=== PATIENT | male | born 1935 | race Caucasian/White ===

== ENCOUNTER → 2020-06-07 10:11 | Outpatient (BNVA) | payer MEDICARE, OTHER, SELFPAY | PROVIDERS: PCP Internal Medicine; Visit Provider Urology | DX: Z13.89 Encounter for screening for other disorder (principal) | CPT/HCPCS: Q3014 ==

== ENCOUNTER → 2021-06-08 09:06 | Outpatient (BNVA) | payer MEDICARE, OTHER, SELFPAY | PROVIDERS: PCP Internal Medicine; Visit Provider Urology | DX: N40.0 Benign prostatic hyperplasia without lower urinary tract symptoms (principal); R97.20 Elevated prostate specific antigen [PSA] | CPT/HCPCS: 51798; 99212 ==

== ENCOUNTER → 2022-06-11 09:15 | Outpatient (BNVA) | payer MEDICARE, OTHER, SELFPAY | PROVIDERS: PCP Internal Medicine; Visit Provider Urology | DX: N40.1 Benign prostatic hyperplasia with lower urinary tract symptoms (principal); N13.8 Other obstructive and reflux uropathy; R97.20 Elevated prostate specific antigen [PSA]; Z79.899 Other long term (current) drug therapy | CPT/HCPCS: 51798; 99212 ==

== ENCOUNTER 2023-05-28 11:02 | Outpatient (REF) | payer MEDICARE, OTHER, SELFPAY ==
[2023-05-28 12:40] LABS: Prostate Specific Antigen 2.11 ng/mL (<0.05-4.0)
== END 2023-05-28 11:03 | disposition home or self-care (01) ==
LOC: HO.LAB 11:02
PROVIDERS: PCP Internal Medicine; Visit Provider Urology
DX: Z12.5 Encounter for screening for malignant neoplasm of prostate (principal); N40.0 Benign prostatic hyperplasia without lower urinary tract symptoms
CPT/HCPCS: 36415; 84153

== ENCOUNTER 2023-06-13 09:10 | Outpatient (AMB) | payer MEDICARE, OTHER, SELFPAY ==
--- NOTE | 2023-06-13 09:18 | A.OFFVIS_ITS ---
Intake Intake Visit Reasons: 1Y PSA(set) Intake Note: Patient is Present for Follow Up PVR Urology Medication: Finasteride Antibiotic Allergies: None Blood Thinners:None Confirmed Pharmacy: [facility] PVR: 10 Patient has been having alot of frequency alot. Patient states that he does wear under pads and they get soaked very fast. Has not tried any other medications other than finasteride that he takes 3 times during the week. Allergies No Known Allergies Allergy (Verified 06/13/23 09:23) HPI HPI Comments History of Present Illness Details Kevin Cisneros is a very pleasant male. They are a patient of Dr. Lara. He is seen for the following urologic conditions - LUTS PVR 0cc Effective emptying May reduce finasteride down to Friday, Friday, Friday Describes significant frequency with urgency and leakage Recommend cystoscopy Pelvic floor exercises provided Lower Urinary Tract Symptoms: Stays on finasteride has noticed continued stability with urinary function Current visit is for further evaluation of, lower urinary tract symptoms significantly improved urinary function since last visit. Has responded well to finasteride. Improved stream. Less nocturia. - no flank pain for past year. Current treatment includes medication, 5-AR, finasteride Prior treatments include procedure, TUMT 1995. Prostate Symptom Score Moderate (9-19), Bother, 2 Symptoms include incomplete emptying, weak stream, and are improving. Results from testing include cystoscopy Trilobar hypertrophy 07/07 renal/bladder us Yes date 09/11/2019 PVR 15 prostate size 110 g Prior Prostate Score cystoscopy Trilobar hypertrophy 07/07. PSA moderate 09/10 cytology inflammatory cells. Prostate volume 30-50gm Testing at next visit will include bladder scan. Elevated PSA/Abnormal RICHARD: He presents for further evaluation of elevated PSA. Current management is observation. Laboratory investigations include a total PSA evaluation January 2013 4.9, August 2013 5.4, February 2014 6.4, 01/06 2.8, 08/07 2.9 - 03/10 3.2 Imaging investigations include a transrectal ultrasound Yes Individualized Prostate Cancer Risk Calculator 5-10% high risk, Would like to continue with observation and understands and accepts the risks of a possible delay in diagnosis. A TRUS biopsy has been performed 1995 and 2005, and was negative [facility] Medical History BPH (benign prostatic hyperplasia) Elevated PSA Hematuria History of kidney stones Weak urinary stream Family History Father Prostate cancer Mother CVD (cardiovascular disease) Review of Systems Const Denies chills and Denies fever(s) Card Reports no additional complaints and Denies syncope Resp Denies cough GI Denies abdominal pain and Denies heartburn Reports as per HPI and Denies change in libido Neuro Denies syncope Psych Denies change in libido Endo Denies change in libido Physical Exam Const General: cooperative, healthy appearing, comfortable and no acute distress Orientation/consciousness: patient oriented x3 HEENT Face and sinus: Yes normal facial exam Mouth: moist mucous membranes Neck Neck: Yes normal visual inspection, Yes full ROM and Yes trachea midline Chest Chest palpation & inspection: normal inspection of the chest Resp Effort & Inspection: normal respiratory effort, able to speak in complete sentences and no respiratory distress GI Inspection: Yes normal to inspection Back/Spine/Pelvis Cervical Spine: normal cervical lordosis Thoracic/Lumbar Spine: thoracic and lumbar spine normal to inspection Skin General skin exam: no rashes or lesions noted Neuro General: patient oriented x3, gait normal, tone normal and moves all extremities Extrem General: Yes normal to inspection and Yes capillary refill normal Office Procedures Post Void Residual Post Residual Void Post Void Residual (PVR): 10 [id number]-[id number] Void Residual by ultrasound Assessment & Plan Assessment & Plan (1) Elevated PSA: Code(s): R97.20 - Elevated prostate specific antigen [PSA] (2) BPH (benign prostatic hyperplasia): Code(s): N40.0 - Benign prostatic hyperplasia without lower urinary tract symptoms Plan Plan cystoscopy Orders: Orders AMB Post Void Residual by ultrasound Today N40.0 - Benign prostatic hyperplasia without lower urinary tract symptoms Patient Instructions: Imaging studies, laboratory and physical exam results were discussed and rev iewed in detail. No major barriers to patient understanding were identified. An opportunity to ask questions regarding the treatment plan was provided. All questions were answered. The patient expressed understanding and agreement with the above treatment plan. The patient is aware they should contact our office by phone for worsening of their current condition or the appearance of new urologic symptoms. Compliance is encouraged with any medications and followup testing that is ordered. It is a privilege to participate in the urologic care of your patient. If you have any questions or concerns regarding treatment for the above conditions, or other urologic issues, please do not hesitate to contact me. The office telephone contact is [phone]. This note is constructed using voice recognition software. While every effort has been made to ensure accuracy pantograph machine set up operator errors may have been included. Yours sincerely, Dr Gabriel Onela MD, GERTRUDE [facility] - Urology Providers of Expert, Compassionate Care for the Genitourinary System Coding Level of Care Code Est Pt Level 4 (07708) Diagnoses Elevated PSA R97.20 BPH (benign prostatic hyperplasia) N40.0 CPT Codes Post Residual Void - PVR CPT Code: 56193-Vksz Void Residual by ultrasound ([id number])
== END 2023-06-13 09:48 | disposition home or self-care (01) ==
PROVIDERS: Visit Provider Urology
DX: R97.20 Elevated prostate specific antigen [PSA] (principal); N40.0 Benign prostatic hyperplasia without lower urinary tract symptoms
CPT/HCPCS: 99214

== ENCOUNTER → 2023-06-13 09:10 | Outpatient (BNVA) | payer MEDICARE, OTHER, SELFPAY | PROVIDERS: Visit Provider Urology | DX: R97.20 Elevated prostate specific antigen [PSA] (principal); N40.0 Benign prostatic hyperplasia without lower urinary tract symptoms | CPT/HCPCS: 51798 ==

== ENCOUNTER 2023-08-12 10:45 | Outpatient (AMB) | payer MEDICARE, OTHER, SELFPAY ==
--- NOTE | 2023-08-12 11:09 | A.OFFVIS_ITS ---
Intake Visit Reasons: cysto Intake Note: Patient is Present for Cystoscopy Urology Med: Finasteride Antibiotic Allergy:None Blood Thinner: none URO- G Disposable Cystoscope lot: [id number] exp:04/24/2026 Allergies No Known Allergies Allergy (Verified 08/12/23 11:10) Medication List - Last Reconciled 08/12/23 by Gabriel Oneal MD budesonide 32 mcg/actuation 1 spray intranasal BID finasteride 5 mg PO DAILY 90 days lisinopril 40 mg PO DAILY HPI Comments Details: Kevin Cisneros is a very pleasant male. They are a patient of Dr. Lara. He is seen for the following urologic conditions - LUTS Here for cystoscopy 2 cm bladder stone Plan laser bladder stone PVR 0cc Finasteride down to Friday, Friday, Friday Describes significant frequency with urgency and leakage Lower Urinary Tract Symptoms: Stays on finasteride has noticed continued stability with urinary function Current visit is for further evaluation of, lower urinary tract symptoms significantly improved urinary function since last visit. Has responded well to finasteride. Improved stream. Less nocturia. - no flank pain for past year. Current treatment includes medication, 5-AR, finasteride Prior treatments include procedure, TUMT 1995. Prostate Symptom Score Moderate (9-19), Bother, 2 Symptoms include incomplete emptying, weak stream, and are improving. Results from testing include cystoscopy Trilobar hypertrophy 07/07 renal/bladder us Yes date 09/11/2019 PVR 15 prostate size 110 g Prior Prostate Score cystoscopy Trilobar hypertrophy 07/07. PSA moderate 09/10 cytology inflammatory cells. Prostate volume 30-50gm Testing at next visit will include bladder scan. Elevated PSA/Abnormal RICHARD: He presents for further evaluation of elevated PSA. Current management is observation. Laboratory investigations include a total PSA evaluation January 2013 4.9, August 2013 5.4, February 2014 6.4, 01/06 2.8, 08/07 2.9 - 03/10 3.2 Imaging investigations include a transrectal ultrasound Yes Individualized Prostate Cancer Risk Calculator 5-10% high risk, Would like to continue with observation and understands and accepts the risks of a possible delay in diagnosis. A TRUS biopsy has been performed 1995 and 2005, and was negative PFSH Medical History Elevated PSA History of kidney stones Weak urinary stream BPH (benign prostatic hyperplasia) Hematuria Family History Father Prostate cancer Mother CVD (cardiovascular disease) Office Procedures Cystoscopy Consent Discussed risk and benefit or proposed procedure with the patient. Information consent for procedure given to the patient. Discussed technical aspects, risks, benefits and alternatives in full. Addressed all of the patient's questions and concerns regarding the procedure. The patient demonstrated knowledge and understanding. They wish to proceed with this procedure. Preparation The patient was prepped in the usual manner. A senior systems programmer was present and in the room. Genitalia was prepped with betadine solution in a sterile manner. Lidocaine Jelly 2% was placed into the urethra and 16Fr flexible Olympus cystoscope was inserted into the meatus after adequate lubrication. [id number]-Zikhlalwam DISPOSABLE SCOPE URO-G FLEXIBLE SCOPE Procedure code (CPT) selection complete Office Meds lidocaine HCl 2 % mucosal jelly in applicator Performing Provider: Gabriel Oneal MD Performing Location: [facility] Administered by: Jojo Stallings RN on 08/12/23 11:18 Dose Route Admin Location Dispensed Lot Number Expiration Date ND Tapper Helper 10 mL intra-urethral 10 mL nitrofurantoin monohydrate/macrocrystals 100 mg capsule Performing Provider: Gabriel Oneal MD Performing Location: [facility] Administered by: Jojo Stallings RN on 08/12/23 11:18 Dose Route Admin Location Dispensed Lot Number Expiration Date NDC Tapper Helper 100 mg PO 1 cap naproxen 500 mg tablet Performing Provider: Gabriel Oneal MD Performing Location: [facility] [place] Administered by: Jojo Stallings RN on 08/12/23 11:18 Dose Route Admin Location Dispensed Lot Number Expiration Date NDC Tapper Helper 500 mg PO 1 tab Assessment & Plan Assessment & Plan (1) Bladder stones: Code(s): N21.0 - Calculus in bladder Category: Medical (2) BPH (benign prostatic hyperplasia): Code(s): N40.0 - Benign prostatic hyperplasia without lower urinary tract symptoms Category: Medical Plan Risks, benefits and alternatives to therapy were discussed. These include but are not limited to infection, bleeding, damage to local organs and tissues, need for further interventions. Anesthetic risks regarding cardiac arrhythmia, blood clots, and potential mortality were discussed. The patient understands the typical recovery time and the outpatient nature of the procedure. After consideration of these risks the patient gives full informed consent and they wish to move ahead with the procedure. Cystoscopy, holmium bladder stone Orders: Orders AMB Cystoscopy Today N40.0 - Benign prostatic hyperplasia without lower urinary tract symptoms AMB Urinalysis Automated Today Z13.9 - Encounter for screening, unspecified Patient Instructions: Imaging studies, laboratory and physical exam results were discussed and reviewed in detail. No major barriers to patient understanding were identified. An opportunity to ask questions regarding the treatment plan was provided. All questions were answered. The patient expressed understanding and agreement with the above treatment plan. The patient is aware they should contact our office by phone for worsening of t heir current condition or the appearance of new urologic symptoms. Compliance is encouraged with any medications and followup testing that is ordered. It is a privilege to participate in the urologic care of your patient. If you have any questions or concerns regarding treatment for the above conditions, or other urologic issues, please do not hesitate to contact me. The office telephone contact is [phone]. This note is constructed using voice recognition software. While every effort has been made to ensure accuracy fabric separator operator errors may have been included. Yours sincerely, Dr Gabriel Oneal MD, GERTRUDE [facility] - Urology Providers of Expert, Compassionate Care for the Genitourinary System Coding Level of Care Code Est Pt Level 4 (02572) Diagnoses Bladder stones N21.0 BPH (benign prostatic hyperplasia) N40.0 CPT Codes Cystoscopy - CPT: 63847-[id number] ([id number])
== END 2023-08-12 11:56 | disposition home or self-care (01) ==
PROVIDERS: PCP Internal Medicine; Visit Provider Urology
DX: N40.0 Benign prostatic hyperplasia without lower urinary tract symptoms (principal); N21.0 Calculus in bladder; Z13.9 Encounter for screening, unspecified
CPT/HCPCS: 52000; 99214

== ENCOUNTER → 2023-08-12 10:45 | Outpatient (BNVA) | payer MEDICARE, OTHER, SELFPAY | PROVIDERS: PCP Internal Medicine; Visit Provider Urology | DX: N40.0 Benign prostatic hyperplasia without lower urinary tract symptoms (principal); N21.0 Calculus in bladder | CPT/HCPCS: 52000; 81003 ==

== ENCOUNTER 2023-09-29 10:36 | Day surgery (SDC) | payer MEDICARE, OTHER, SELFPAY ==
[2023-09-29] VITALS (9 sets, daily range): BP systolic 126–161; BP diastolic 51–80; PULSE 74–88; RESP 16–18; TEMP 36.6–37.1; O2SAT 95–99; BMI 24.2
--- NOTE | ~2023-09-29 | XR_ITS ---
EXAMINATION: XR WRIST, LEFT CLINICAL INFORMATION: Fell down, left wrist injury, swelling and pain COMPARISON: None available. TECHNIQUE: PA, lateral, oblique, and scaphoid views of the left wrist. FINDINGS: BONES: Marked erosion is seen at the base of left first metacarpal and left trapezium. The left trapezium shows marked flattening deformity. JOINTS: Alignment of joints is normal. SOFT TISSUE: Soft tissue is normal. No radiopaque foreign body or abnormal air collection is seen. XR/XR wrist LT min 3V IMPRESSION: 1. 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 2. Marked flattening deformity of the left trapezium. 3. No acute fracture or dislocation.
--- NOTE | 2023-09-29 10:54 | HO.ANESPROP2 ---
[facility] Active Problems Active Problems: All Active Problems Bladder stones (Acute) Elevated PSA (Acute) BPH (benign prostatic hyperplasia) (Acute) Past Medical History Medical History Kidney stones Hepatitis C virus GERD (gastroesophageal reflux disease) HTN (hypertension) Elevated PSA History of kidney stones Weak urinary stream BPH (benign prostatic hyperplasia) Hematuria Family History Family History Father Prostate cancer Mother CVD (cardiovascular disease) Surgical History Surgical History H/O lithotripsy H/O wisdom tooth extraction History of Problems with Anesthesia: No Social History Social History Patient Tobacco Use Status: Former Tobacco user Use of substances other than those prescribed or required for medical reasons: No Are you DNR?: No Advance Directives: No Advance Directives Information Provided: Yes Meds Allergies Allergy/AdvReac Type Severity Reaction Status Date / Time No Known Allergies Allergy Verified 08/12/23 11:10 Active Medications: Current Medications Levofloxacin (Levaquin) 500 mg in 100 mls @ 100 mls/hr IV PREOP ONE Stop: 09/29/23 11:20 Home Medications ?Medication ?Instructions ?Recorded ?Confirmed ?Last Taken ?Type budesonide 32 mcg/actuation nasal 1 spray intranasal BID 06/11/22 08/12/23 09/29/23 History spray lisinopril 40 mg tablet 40 mg PO DAILY 06/13/23 08/12/23 Unknown History Exam Airway Mallampati Class: III TM Dist: >3cm Neck ROM: Limited Denture: Upper Partial: Lower Loose/Missing/Broken Teeth: Yes, Upper and Lower Heart: RRR Lungs: CTA Assessment and Plan Assessment Anesthesia Assessment: Anesthesia Plan Discussed and Chart Reviewed Final Anesthetic Review History of Problems with Anesthesia: No NPO: Yes ASA Class: III Final Preanesthetic Review: Meds/Allgs Chart Reviewed, Consent Obtained/Reviewed and Anes Risks/Benef Reviewed Patient Risk: Intermediate Procedure Risk: Low Anesthetic Plan Anesthetic Plan: GA Disposition: Standard PACU
--- NOTE | 2023-09-29 11:08 | PC.NURSE ---
VERIFIED SURGERIES WITH MARITZA JENKINS
[2023-09-29] MEDS: Lactated Ringers 1,000 ML 50 ML IVCONT (11:27)
--- NOTE | 2023-09-29 12:17 | MHC.SHP ---
Pre-Procedural Eval Section A - 24 Hr Update-Section A only Date of Service: 09/29/23 The patient is an INPATIENT: No Changes since office visit: No Cold of Flu in the past 2 weeks, No New Medical Problems, No Changes in Medication and No Patient answered all questions The patient has been examined within 24 hours of the surgical procedure. The History & Physical has been completed within 30 days and I have reviewed it.: Yes Section B - Complete if H&P > 30 days Chief Complaint: Calculus in bladder Details of Present Illness: Bladder calculus with urgency frequency Relevant Social History: None Present Medications: see Short Stay Collaborative assessment Medical History: No relevant PMH History of Previous Operations: No relevant previous surgery Allergies: Allergies Allergy/AdvReac Type Severity Reaction Status Date / Time No Known Allergies Allergy Verified 08/12/23 11:10 Review of Systems Sugical H&P ROS: Negative: Constitution, Cardiovascular, Respiratory, Neurological, Psychiatric, Hem-Onc, Allergic/Immunologic, Gastrointestinal, Genitourinary, Musculoskeletal, Integumentary, Endocrine and Eyes/Ears/Nose/Throat Exam Surgical H&P Exam: Normal: HEENT, Normal: Heart, Normal: Lungs, Normal: Extremities, Normal: Abdomen, Normal: Skin and Normal: Neurological Plan Diagnosis/Plan: Unchanged (Cystoscopy, bladder stone laser) I have reviewed the history and physical and performed a pertinent physical examination on my patient. No changes have occurred unless specified. Time Spent With Patient Time: Total time managing care of this patient today ____ minutes.
--- NOTE | 2023-09-29 13:27 | W.PM.OPN ---
Operative Note Operative Note Date of Service: 09/29/23 Narrative: PreOperative Diagnosis: Bladder Stone Post Operative Diagnosis: Bladder Stone Procedure: 1) Cystoscopy 2) Bladder Stone Laser Surgeon: Dr Gabriel Oneal Anesthesia: LMA Indications for procedure: Sent with urinary urgency and frequency. Cystoscopy showed 2 cm bladder stone in office. Procedure: After informed consent was verified the patient was brought to the operating room and placed in a supine position. Anesthesia was administered per protocol. The patient was placed in modified dorsal lithotomy position and prepped and draped in a sterile fashion. Safety pause time-out was performed. Antibiotics being given. Cystoscopy was performed. Meatus dilated. Laser bridge resectoscope placed. No abnormality noted of anterior-posterior urethra. Small prostate. Bladder entered. Large stone as previously documented on imaging was seen. Bladder irritation. Using a 980nm holmium laser with bladder stones settings the stone was slowly broken into small pieces. The small pieces were irrigated from the bladder. This continued for approximately 15-20 minutes to break the stone. Upon completion the resectoscope was removed. The patient tolerated the procedure well. They were extubated in operating room and transferred in stable conditions recovery area. Pathology: Bladder Stones Drains:
== END 2023-09-29 15:38 | disposition home or self-care (01) ==
PROVIDERS: PCP Internal Medicine; Visit Provider Urology
PROC: (CPT 52317; principal; 2023-09-29 12:30)
DX: N21.0 Calculus in bladder (principal); R39.15 Urgency of urination; R35.0 Frequency of micturition; Z79.899 Other long term (current) drug therapy; S69.92XA Unspecified injury of left wrist, hand and finger(s), initial encounter; M25.532 Pain in left wrist; W19.XXXA Unspecified fall, initial encounter; Y92.9 Unspecified place or not applicable; Y93.9 Activity, unspecified; Y99.9 Unspecified external cause status
CPT/HCPCS: 52317; 73110; 88300; J1956; J2371; J2405; J2704; J3010

== ENCOUNTER → 2023-09-29 10:36 | Outpatient (BNV) | payer MEDICARE, OTHER, SELFPAY | PROVIDERS: PCP Internal Medicine; Visit Provider Urology | DX: N21.0 Calculus in bladder (principal) | CPT/HCPCS: 52317 ==

== ENCOUNTER 2023-10-23 11:06 | Outpatient (AMB) | payer MEDICARE, OTHER, SELFPAY ==
--- NOTE | 2023-10-23 11:58 | A.OFFVIS_ITS ---
Intake Visit Reasons: Bladder stone- follow up Intake Note: Patient is Present for Follow Up Urology Medication: Finasteride Antibiotic Allergies:None Blood Thinners:None Allergies No Known Allergies Allergy (Verified 08/12/23 11:10) HPI Comments Details: Kevin Cisneros is a very pleasant male. They are a patient of Dr. Lara. He is seen for the following urologic conditions - LUTS Follow-up from procedure PVR 0cc Finasteride down to Friday, Friday, Friday Describes significant frequency with urgency and leakage Lower Urinary Tract Symptoms: Stays on finasteride has noticed continued stability with urinary function Current visit is for further evaluation of, lower urinary tract symptoms significantly improved urinary function since last visit. Has responded well to finasteride. Improved stream. Less nocturia. - no flank pain for past year. Current treatment includes medication, 5-AR, finasteride Prior treatments include procedure, TUMT 1995. Prostate Symptom Score Moderate (9-19), Bother, 2 Symptoms include incomplete emptying, weak stream, and are improving. Results from testing include cystoscopy Trilobar hypertrophy 07/07 renal/bladder us Yes date 09/11/2019 PVR 15 prostate size 110 g Prior Prostate Score cystoscopy Trilobar hypertrophy 07/07. PSA moderate 09/10 cytology inflammatory cells. Prostate volume 30-50gm Testing at next visit will include bladder scan. Elevated PSA/Abnormal RICHARD: He presents for further evaluation of elevated PSA. Current management is observation. Laboratory investigations include a total PSA evaluation January 2013 4.9, August 2013 5.4, February 2014 6.4, 01/06 2.8, 08/07 2.9 - 03/10 3.2 Imaging investigations include a transrectal ultrasound Yes Individualized Prostate Cancer Risk Calculator 5-10% high risk, Would like to continue with observation and understands and accepts the risks of a possible delay in diagnosis. A TRUS biopsy has been performed 1995 and 2005, and was negative [facility] Medical History Kidney stones Hepatitis C virus GERD (gastroesophageal reflux disease) HTN (hypertension) Elevated PSA History of kidney stones Weak urinary stream BPH (benign prostatic hyperplasia) Hematuria Surgical History H/O lithotripsy H/O wisdom tooth extraction Family History Father Prostate cancer Mother CVD (cardiovascular disease) Social History Patient Tobacco Use Status: Former Tobacco user Review of Systems Const Denies chills and Denies fever(s) Card Reports no additional complaints and Denies syncope Resp Denies cough GI Denies abdominal pain and Denies heartburn Reports as per HPI and Denies change in libido Neuro Denies syncope Psych Denies change in libido Endo Denies change in libido Physical Exam Const General: cooperative, healthy appearing, comfortable and no acute distress Orientation/consciousness: patient oriented x3 HEENT Face and sinus: Yes normal facial exam Mouth: moist mucous membranes Neck Neck: Yes normal visual inspection, Yes full ROM and Yes trachea midline Chest Chest palpation & inspection: normal inspection of the chest Resp Effort & Inspection: normal respiratory effort, able to speak in complete sentences and no respiratory distress GI Inspection: Yes normal to inspection Back/Spine/Pelvis Cervical Spine: normal cervical lordosis Thoracic/Lumbar Spine: thoracic and lumbar spine normal to inspection Skin General skin exam: no rashes or lesions noted Neuro General: patient oriented x3, gait normal, tone normal and moves all extremities Extrem General: Yes normal to inspection and Yes capillary refill normal Assessment & Plan Assessment & Plan (1) BPH (benign prostatic hyperplasia): Code(s): N40.0 - Benign prostatic hyperplasia without lower urinary tract symptoms Category: Medical (2) Bladder stones: Code(s): N21.0 - Calculus in bladder Category: Medical (3) Elevated PSA: Code(s): R97.20 - Elevated prostate specific antigen [PSA] Category: Medical Plan Four month follow-up office Patient Instructions: Imaging studies, laboratory and physical exam results were discussed and reviewed in detail. No major barriers to patient understanding were identified. An opportunity to ask questions regarding the treatment plan was provided. All questions were answered. The patient expressed understanding and agreement with the above treatment plan. The patient is aware they should contact our office by phone for worsening of their current condition or the appearance of new urologic symptoms. Compliance is encouraged with any medications and followup testing that is ordered. It is a privilege to participate in the urologic care of your patient. If you have any questions or concerns regarding treatment for the above conditions, or other urologic issues, please do not hesitate to contact me. The office telephone contact is [phone]. This note is constructed using voice recognition software. While every effort has been made to ensure accuracy smalltalk developer errors may have been included. Yours sincerely, Dr Gabriel Oneal MD, GERTRUDE [facility] - Urology Providers of Expert, Compassionate Care for the Genitourinary System Coding Level of Care Code Est Pt Level 3 (26106) Diagnoses BPH (benign prostatic hyperplasia) N40.0 Bladder stones N21.0 Elevated PSA R97.20
== END 2023-10-23 12:32 | disposition home or self-care (01) ==
PROVIDERS: PCP Internal Medicine; Visit Provider Urology
DX: N40.0 Benign prostatic hyperplasia without lower urinary tract symptoms (principal); N21.0 Calculus in bladder; R97.20 Elevated prostate specific antigen [PSA]
CPT/HCPCS: 99213

== ENCOUNTER → 2023-10-23 11:06 | Outpatient (BNVA) | payer MEDICARE, OTHER, SELFPAY | PROVIDERS: PCP Internal Medicine; Visit Provider Urology | DX: N40.0 Benign prostatic hyperplasia without lower urinary tract symptoms (principal); N21.0 Calculus in bladder; R97.20 Elevated prostate specific antigen [PSA] | CPT/HCPCS: 99212 ==

== ENCOUNTER 2024-02-24 11:28 | Outpatient (AMB) | payer MEDICARE, OTHER, SELFPAY ==
--- NOTE | 2024-02-24 11:29 | MHC.OFFVIS ---
Intake Visit Reasons: 4m/PVR Intake Note: Patient is present for 4M/PVR Urology Medication:FINASTERIDE Antibiotic Allergy:NONE Blood Thinner:NONE Todays PVR:0ML'S Doctor Of Nursing Practice Required: No Allergies No Known Allergies Allergy (Verified 02/24/24 11:30) HPI Comments Details: Kevin Cisneros is a very pleasant male. They are a patient of Dr. Lara. He is seen for the following urologic conditions - LUTS - bladder stone Three-month follow-up from procedure Still with some urgency frequency Will trial tamsulosin PVR 0cc Finasteride down to Friday, Friday, Friday Bladder stone 10/14 laser 2 cm stone Lower Urinary Tract Symptoms: Stays on finasteride has noticed continued stability with urinary function Current visit is for further evaluation of, lower urinary tract symptoms significantly improved urinary function since last visit. Has responded well to finasteride. Improved stream. Less nocturia. - no flank pain for past year. Current treatment includes medication, 5-AR, finasteride Prior treatments include procedure, TUMT 1995. Prostate Symptom Score Moderate (9-19), Bother, 2 Symptoms include incomplete emptying, weak stream, and are improving. Results from testing include cystoscopy Trilobar hypertrophy 07/07 renal/bladder us Yes date 09/11/2019 PVR 15 prostate size 110 g Prior Prostate Score cystoscopy Trilobar hypertrophy 07/07. PSA moderate 09/10 cytology inflammatory cells. Prostate volume 30-50gm Testing at next visit will include bladder scan. Elevated PSA/Abnormal RICHARD: He presents for further evaluation of elevated PSA. Current management is observation. Laboratory investigations include a total PSA evaluation January 2013 4.9, August 2013 5.4, February 2014 6.4, 01/06 2.8, 08/07 2.9 - 03/10 3.2 Imaging investigations include a transrectal ultrasound Yes Individualized Prostate Cancer Risk Calculator 5-10% high risk, Would like to continue with observation and understands and accepts the risks of a possible delay in diagnosis. A TRUS biopsy has been performed 1995 and 2005, and was negative [facility] Medical History Kidney stones Hepatitis C virus GERD (gastroesophageal reflux disease) HTN (hypertension) Elevated PSA History of kidney stones Weak urinary stream BPH (benign prostatic hyperplasia) Hematuria Surgical History H/O lithotripsy H/O wisdom tooth extraction Family History Father Prostate cancer Mother CVD (cardiovascular disease) Social History Patient Tobacco Use Status: Former Tobacco user Office Procedures Post Void Residual Post Residual Void Post Void Residual (PVR): 0 36636-[id number] Void Residual by ultrasound Results AMB Urinalysis, Automated UA Leukoctes 0 Leighann/uL Last Edit by GILA Queen on 02/24/24 11:46 UA Nitrite Last Edit by GILA Queen on 02/24/24 11:46 UA Urobilinogen 0.2 mg/dL Last Edit by GILA Queen on 02/24/24 11:46 UA Protein 15 mg/dL Last Edit by GILA Queen on 02/24/24 11:46 UA pH 6.0 Last Edit by GILA Queen on 02/24/24 11:46 UA Blood 0 Yony/uL Last Edit by GILA Queen on 02/24/24 11:46 UA Specific [place] 1.020 Last Edit by GILA Queen on 02/24/24 11:46 UA Ketone Negative Last Edit by GILA Queen on 02/24/24 11:46 UA Bilirubin 0 mg/dL Last Edit by GILA Queen on 02/24/24 11:46 UA Glucose 0 mg/dL Last Edit by GILA Queen on 02/24/24 11:46 Results Reviewed Results Reviewed: Laboratory Last Values Urine pH (Auto) 6.0 02/24/24 11:45 Specific [place] (Auto) 1.020 02/24/24 11:45 Urine Protein (Auto) 15 mg/dL 02/24/24 11:45 Glucose (UA)(Auto) 0 mg/dL 02/24/24 11:45 Urine Ketones (Auto) Negative 02/24/24 11:45 Urine Blood (Auto) 0 Yony/uL 02/24/24 11:45 Urine Bilirubin (Auto) 0 mg/dL 02/24/24 11:45 Urine Urobilinogen (Auto) 0.2 mg/dL 02/24/24 11:45 Leukocyte Esterase (Auto) 0 Leighann/uL 02/24/24 11:45 Assessment & Plan Assessment & Plan (1) BPH (benign prostatic hyperplasia): Code(s): N40.0 - Benign prostatic hyperplasia without lower urinary tract symptoms Category: Medical (2) Elevated PSA: Code(s): R97.20 - Elevated prostate specific antigen [PSA] Category: Medical (3) Bladder stones: Code(s): N21.0 - Calculus in bladder Category: Medical Plan Trial tamsulosin Orders: Orders AMB Urinalysis Automated Today Z13.9 - Encounter for screening, unspecified Medications: New tamsulosin 0.4 mg PO BEDTIME 30 days 30 caps 1RF N40.1 - Benign prostatic hyperplasia with lower urinary tract symptoms, R35.1 - Nocturia Patient Instructions: Imaging studies, laboratory and physical exam results were discussed and reviewed in detail. No major barriers to patient understanding were identified. An opportunity to ask questions regarding the treatment plan was provided. All questions were answered. The patient expressed understanding and agreement with the above treatment plan. The patient is aware they should contact our office by phone for worsening of their current condition or the appearance of new urologic symptoms. Compliance is encouraged with any medications and followup testing that is ordered. It is a privilege to participate in the urologic care of your patient. If you have any questions or concerns regarding treatment for the above conditions, or other urologic issues, please do not hesitate to contact me. The office telephone contact is [phone]. This note is constructed using voice recognition software. While every effort has been made to ensure accuracy line service technician errors may have been included. Yours sincerely, Dr Gabriel Oneal MD, GERTRUDE [facility] - Urology Providers of Expert, Compassionate Care for the Genitourinary System Coding Level of Care Code Est Pt Level 4 (84563) Diagnoses BPH (benign prostatic hyperplasia) N40.0 Elevated PSA R97.20 Bladder stones N21.0 CPT Codes Post Residual Void - PVR CPT Code: 62762-Pekx Void Residual by ultrasound ([id number])
== END 2024-02-24 12:06 | disposition home or self-care (01) ==
PROVIDERS: PCP Internal Medicine; Visit Provider Urology
DX: N40.0 Benign prostatic hyperplasia without lower urinary tract symptoms (principal); R97.20 Elevated prostate specific antigen [PSA]; N21.0 Calculus in bladder; Z13.9 Encounter for screening, unspecified
CPT/HCPCS: 99214

== ENCOUNTER → 2024-02-24 11:28 | Outpatient (BNVA) | payer MEDICARE, OTHER, SELFPAY | PROVIDERS: PCP Internal Medicine; Visit Provider Urology | DX: N40.1 Benign prostatic hyperplasia with lower urinary tract symptoms (principal); R35.1 Nocturia; R97.20 Elevated prostate specific antigen [PSA]; N21.0 Calculus in bladder | CPT/HCPCS: 51798; 81003; 99212 ==

== ENCOUNTER 2024-04-27 11:06 | Outpatient (AMB) | payer MEDICARE, OTHER, SELFPAY ==
--- NOTE | 2024-04-27 11:10 | MHC.OFFVIS ---
Intake Visit Reasons: 2m follow up Intake Note: Patient is present for 2M F/U Urology Medication: TAMSULOSIN,FINASTRIDE Antibiotic Allergy:NONE Blood Thinner:NONE American History Teacher Required: No Allergies No Known Allergies Allergy (Verified 04/27/24 11:11) HPI Comments Details: Kevin Cisneros is a very pleasant male. They are a patient of Dr. Lara. He is seen for the following urologic conditions - LUTS - bladder stone Telemedicine Evaluation 15 min Consultation [employer] Corin PSA down to 2.1 Tamsulosin not effective for managing edge Trial tadalafil Would move to Myrbetriq if needed PVR 0cc Finasteride down to Friday, Friday, Friday Bladder stone 10/14 laser 2 cm stone Lower Urinary Tract Symptoms: Stays on finasteride has noticed continued stability with urinary function Current visit is for further evaluation of, lower urinary tract symptoms significantly improved urinary function since last visit. Has responded well to finasteride. Improved stream. Less nocturia. - no flank pain for past year. Current treatment includes medication, 5-AR, finasteride Prior treatments include procedure, TUMT 1995. Prostate Symptom Score Moderate (9-19), Bother, 2 Symptoms include incomplete emptying, weak stream, and are improving. Results from testing include cystoscopy Trilobar hypertrophy 07/07 renal/bladder us Yes date 09/11/2019 PVR 15 prostate size 110 g Prior Prostate Score cystoscopy Trilobar hypertrophy 07/07. PSA moderate 09/10 cytology inflammatory cells. Prostate volume 30-50gm Testing at next visit will include bladder scan. Elevated PSA/Abnormal RICHARD: He presents for further evaluation of elevated PSA. Current management is observation. Laboratory investigations include a total PSA evaluation January 2013 4.9, August 2013 5.4, February 2014 6.4, 01/06 2.8, 08/07 2.9, 06/14 2.1 - 03/10 3.2 Imaging investigations include a transrectal ultrasound Yes Individualized Prostate Cancer Risk Calculator 5-10% high risk, Would like to continue with observation and understands and accepts the risks of a possible delay in diagnosis. A TRUS biopsy has been performed 1995 and 2005, and was negative [facility] Medical History Kidney stones Hepatitis C virus GERD (gastroesophageal reflux disease) HTN (hypertension) Elevated PSA History of kidney stones Weak urinary stream BPH (benign prostatic hyperplasia) Hematuria Surgical History H/O lithotripsy H/O wisdom tooth extraction Family History Father Prostate cancer Mother CVD (cardiovascular disease) Social History Patient Tobacco Use Status: Former Tobacco user Telehealth Telehealth Telehealth Platform: [employer] Location of provider rendering services: practice address Location of patient: address on file Patient Identification confirmed using: Name, : Yes Telehealth method: video Patient verbally consented to treatment: Yes Patient verbally consented to billing insurance company: Yes Patient informed of any privacy concerns related to visit: Yes Minutes spent on Phone/Video with Pt.: 15 Assessment & Plan Assessment & Plan (1) Urinary urgency: Code(s): R39.15 - Urgency of urination Category: Medical Plan Trial tadalafil Medications: New tadalafil 5 mg PO DAILY 30 days 30 tabs 1RF BPH R39.15 - Urgency of urination Patient Instructions: This note is constructed using voice recognition software. While every effort has been made to ensure accuracy life manager errors may have been included. Imaging studies, laboratory and physical exam results were discussed and reviewed in detail. No major barriers to patient understanding were identified. An opportunity to ask questions regarding the treatment plan was provided. All questions were answered. The patient expressed understanding and agreement with the above treatment plan. The patient is aware they should contact our office by phone for worsening of their current condition or the appearance of new urologic symptoms. Compliance is encouraged with any medications and followup testing that is ordered. It is a privilege to participate in the urologic care of your patient. If you have any questions or concerns regarding treatment for the above conditions, or other urologic issues, please do not hesitate to contact me. The office telephone contact is [phone]. Sincerely, Dr Gabriel Oneal MD, GERTRUDE [facility] - Urology Compassionate Specialist Care for the Genitourinary System Coding Level of Care Code Tele Est Pt Level 3 (44361) Diagnoses Urinary urgency R39.15
--- OUTSIDE RECORDS SUMMARY | 2024-04-27 11:59 | XMS_ITS | Encounter Summary ---
Author Organization [facility] [employer] [facility] Address [address] [place] [address] 7 [place] [address] Care Team Providers Care Charge Account Clerk Name Role Phone Unavailable Primary Care Provider Unavailabl e Encounter Details Date Type Department Care Team (Latest Contact Info) Description 09/11/2021 Abstract [facility] CONVERSIONS Dental, Provider, DDS Social History Tobacco Use Types Packs/Day Years Used Date Smoking Tobacco: Never Assessed Sex and Gender Information Value Date Recorded Sex Assigned at Male 01/21/2022 10:24 AM EDT Legal Sex Male 10:24 AM EDT Gender Identity Choose not to disclose 10:24 AM EDT Sexual Orientation Choose not to disclose 2022 11:59 AM EST Sexual Orientation Straight 05/30/2022 11 :59 AM EST documented as of this encounter Plan of Treatment Not on file documented as of this encounter Visit Diagnoses Not on filedocumented in this encounter
--- OUTSIDE RECORDS SUMMARY | 2024-04-27 11:59 | XMS_ITS | Continuity of Care Document ---
Author Name [facility] Organization [facility] Care Team Providers Care Form Coverer Name Role Phone [facility] Unavailable Unavailable Medications Combined list of outpatient medications from Department of Defense and Veterans Affairs facilities.Medications provided include 1) outpatient medications from the last 15 months, and 2) patient-reported medications. Medication Details Route Status Patient Instructions Prescription Expires Prescription Number Last Dispense Date Ordering Provider Order Date Order Qty Source LISINOPRIL (lisinopril ), 20 MG, TABLET, ORAL, LUPIN [facility]ARM[facility], 1000 ea. BOTTLE Active [id number] 4 2023 90 Pharmac y Data Transac tion Service Facilit y LISINOPRIL (LISINOPRIL ), 20 MG, TABLET, ORAL, [facility], 1000 ea. BOTTLE Active [id number] 4 2023 90 Pharmac y Data Transac tion Service Facilit y LISINOPRIL (lisinopril ), 40 MG, TABLET, ORAL, LUPIN PHARMACE[facility], 1000 ea. BOTTLE Active [id number] 4 2023 90 Pharmac y Data Transac tion Service Facilit y Immunizations Combined list of available immunizations from the Department of Defense and Veterans Affairs facilities. Immunization Series Date Given Administered By Site Reaction Lot Number [id number] Code Drug Director Emergency Department Status Comments Source COVID-19 (MODERNA), MRNA, LNP-S, PF, 100 MCG/0.5 ML DOSE 2 2020 207 complet ed MOD; [id number]; [address] [place] [facility] [place] [facility] COVID-19 (MODERNA), MRNA, LNP-S, PF, 100 MCG/0.5 ML DOSE 1 2020 207 complet ed MOD; [id number]; 1 [place] [facility] [place] [facility] Social History Combined list of available smoking, tobacco, and other social history from Department of Defense and Veterans Affairs facilities. Social History Type Response Date Comment Sourc e This section is an empty social history section. DoD
--- OUTSIDE RECORDS SUMMARY | 2024-04-27 11:59 | XMS_ITS | Encounter Summary ---
Author Organization [facility] [employer] [facility] Address [address] [place] [address] 7 [place] [address] Care Team Providers Care Brown Stock Washer Name Role Phone Unavailable Primary Care Provider Unavailabl e Encounter Details Date Type Department Care Team (Latest Contact Info) Description 05/15/2018 Abstract [facility] CONVERSIONS Dental, Provider, DDS Social History [...]
--- OUTSIDE RECORDS SUMMARY | 2024-04-27 11:59 | XMS_ITS | Clinical Summary ---
Author Organization [facility] Address [address] [place] [address] [address] [place] [address] Care Team Providers Care Computer Builder Name Role Phone Unavailable Primary Care Provider Unavailabl e Allergies No known active allergies Medications No known medications Social History Tobacco Use Types Packs/Day Years Used Date Smoking Tobacco: Never Smokeless Tobacco: Never Tobacco Cessation:Counseling Given: Not Answered Sex and Gender Information Value Date Recorded Sex Assigned at Male 01/21/2022 10:24 AM EDT Legal Sex Male 10:24 AM EDT Gender Identity Choose not to disclose 10:24 AM EDT Sexual Orientation Choose not to disclose 2022 11:59 AM EST Sexual Orientation Straight 05/30/2022 11 :59 AM EST Last Filed Vital Signs Vital Sign Reading Time Taken Comments Blood Pressure 114/59 05/30/2022 10:56 AM EST Pulse 81 05/30/2022 10:56 AM EST Temperature - - Respiratory Rate - - Oxygen Saturation - - Inhaled Oxygen Concentration - - Weight - - Height - - Body Mass Index - - Plan of Treatment Health Maintenance Due Date Last Done Comments Dental Oral Exam 1936 Dental X-Ray: Bitewings 1936 Dental X-Ray: Full Mouth 1936 Depression Screening 1936 Lipid Panel 1936 SDOH Screening 1936 Alcohol/Substance Use Screening 1948 DTaP/Tdap/Td Vaccines (1 - Tdap) 09/10/1955 Pneumococcal Vaccine: 50+ Years (1 of 1 - PCV) 1986 Zoster Vaccines (1 of 2) 1986 RSV Patients and Patients Aged 60 years or older (1 - 1-dose 75+ series) 09/10/2011 Dental Prophylaxis 12/01/2022 05/30/2022 Tobacco Screening 05/31/2023 05/30/2022 COVID-19 Vaccine ( season) 2023 11/29/2021, 07/05/2021, 01/12/2021 Influenza Vaccine (#1) 2023 2, 12/06/2020, 11/23/2019, Additional history exists HIB Vaccines Aged Out No longer eligi ble based on patient's age to complete this topic HPV Vaccines Aged Out No longer eligi ble based on patient's age to complete this topic Hepatitis A Vaccines Aged Out No long er eligible based on patient's age to complete this topic Hepatitis B Vaccines Aged Out No long er eligible based on patient's age to complete this topic IPV Vaccines Aged Out No longer eligi ble based on patient's age to complete this topic Meningococcal Vaccine Aged Out No diana estela eligible based on patient's age to complete this topic RSV under 20 months Aged Out No longe r eligible based on patient's age to complete this topic Rotavirus Vaccines Aged Out No longer eligible based on patient's age to complete this topic Procedures Procedure Name Priority Date/Time Associated Diagnosis Comments PROPHYLAXIS - ADULT Routine 05/30/2022 11:00 AM EST from Last 3 Months or Most Recently Relevant to Health Maintenance
== END 2024-04-27 11:53 | disposition home or self-care (01) ==
LOC: HO.HUSH 11:06
PROVIDERS: PCP Internal Medicine; Visit Provider Urology
DX: R39.15 Urgency of urination (principal)
CPT/HCPCS: 99213

== ENCOUNTER → 2024-04-27 11:06 | Outpatient (BNVA) | payer MEDICARE, OTHER, SELFPAY | PROVIDERS: PCP Internal Medicine; Visit Provider Urology ==

== ENCOUNTER 2024-06-25 11:30 | Outpatient (AMB) | payer MEDICARE, OTHER, SELFPAY ==
--- NOTE | 2024-06-25 11:39 | MHC.OFFVIS ---
Intake Visit Reasons: 2m follow up Intake Note: Patient is present for 2M F/U Urology Medication:TAMSULOSIN,FINASTERIDE,TADALAFIL Antibiotic Allergy:NONE Blood Thinner:NONE Dry Janitor Required: No Allergies No Known Allergies Allergy (Verified 06/25/24 11:40) HPI Comments Details: Kevin Cisneros is a very pleasant male. They are a patient of Dr. Lara. He is seen for the following urologic conditions - LUTS - bladder stone Telemedicine Evaluation 15 min Consultation [employer] Corin PSA down to 2.1 Good response to tadalafil for bladder stabilization Also taking tamsulosin Prescriptions refilled PVR 0cc Finasteride down to Friday, Friday, Friday Bladder stone 10/14 laser 2 cm stone Lower Urinary Tract Symptoms: Stays on finasteride has noticed continued stability with urinary function Current visit is for further evaluation of, lower urinary tract symptoms significantly improved urinary function since last visit. Has responded well to finasteride. Improved stream. Less nocturia. - no flank pain for past year. Current treatment includes medication, 5-AR, finasteride Prior treatments include procedure, TUMT 1995. Prostate Symptom Score Moderate (9-19), Bother, 2 Symptoms include incomplete emptying, weak stream, and are improving. Results from testing include cystoscopy Trilobar hypertrophy 07/07 renal/bladder us Yes date 09/11/2019 PVR 15 prostate size 110 g Prior Prostate Score cystoscopy Trilobar hypertrophy 07/07. PSA moderate 09/10 cytology inflammatory cells. Prostate volume 30-50gm Testing at next visit will include bladder scan. Elevated PSA/Abnormal RICHARD: He presents for further evaluation of elevated PSA. Current management is observation. Laboratory investigations include a total PSA evaluation January 2013 4.9, August 2013 5.4, February 2014 6.4, 01/06 2.8, 08/07 2.9, 06/14 2.1 - 03/10 3.2 Imaging investigations include a transrectal ultrasound Yes Individualized Prostate Cancer Risk Calculator 5-10% high risk, Would like to continue with observation and understands and accepts the risks of a possible delay in diagnosis. A TRUS biopsy has been performed 1995 and 2005, and was negative [facility] Medical History Kidney stones Hepatitis C virus GERD (gastroesophageal reflux disease) HTN (hypertension) Elevated PSA History of kidney stones Weak urinary stream BPH (benign prostatic hyperplasia) Hematuria Surgical History H/O lithotripsy H/O wisdom tooth extraction Family History Father Prostate cancer Mother CVD (cardiovascular disease) Social History Patient Tobacco Use Status: Former Tobacco user Review of Systems Const All systems reviewed & are unremarkable except as noted in HPI and below Reports no additional complaints Resp Reports no additional complaints GI Reports no additional complaints Reports as per HPI Musc Reports no additional complaints Physical Exam Telemedicine evaluation Appropriate responses Regular breathing rate and rhythm HEENT Head: Yes normal to inspection Ears: hearing grossly normal bilaterally Eyes General: appearance normal, both eyes and all related structures Neck Neck: Yes normal visual inspection Chest Chest palpation & inspection: normal inspection of the chest Resp Effort & Inspection: normal respiratory effort and able to speak in complete sentences Telehealth Telehealth Telehealth Platform: [employer] Location of provider rendering services: practice address Location of patient: address on file Patient Identification confirmed using: Name, : Yes Telehealth method: video Patient verbally consented to treatment: Yes Patient verbally consented to billing insurance company: Yes Patient informed of any privacy concerns related to visit: Yes Minutes spent on Phone/Video with Pt.: 15 Assessment & Plan Assessment & Plan (1) BPH (benign prostatic hyperplasia): Code(s): N40.0 - Benign prostatic hyperplasia without lower urinary tract symptoms Category: Medical (2) Elevated PSA: Code(s): R97.20 - Elevated prostate specific antigen [PSA] Category: Medical (3) Urinary urgency: Code(s): R39.15 - Urgency of urination Category: Medical Plan Six-month follow-up office Refill medication Medications: Changed From tamsulosin 0.4 mg PO BEDTIME 30 days 90 caps 0RF N40.1 - Benign prostatic hyperplasia with lower urinary tract symptoms, R35.1 - Nocturia To tamsulosin 0.4 mg PO BEDTIME 90 days 90 caps 1RF N40.1 - Benign prostatic hyperplasia with lower urinary tract symptoms, R35.1 - Nocturia From tadalafil BIN N Group [facility] 33 [id number] 5 mg PO DAILY 30 days 30 tabs 1RF BPH R39.15 - Urgency of urination To tadalafil BIN PCN Group [facility] DR33 [id number] 5 mg PO DAILY 90 days 90 tabs 1RF BPH R39.15 - Urgency of urination Refilled finasteride 5 mg PO DAILY 90 days 90 tabs 3RF Patient Instructions: This note is constructed using voice recognition software. While every effort has been made to ensure accuracy radio television technical director errors may have been included. Imaging studies, laboratory and physical exam results were discussed and reviewed in detail. No major barriers to patient understanding were identified. An opportunity to ask questions regarding the treatment plan was provided. All questions were answered. The patient expressed understanding and agreement with the above treatment plan. The patient is aware they should contact our office by phone for worsening of their current condition or the appearance of new urologic symptoms. Compliance is encouraged with any medications and followup testing that is ordered. It is a privilege to participate in the urologic care of your patient. If you have any questions or concerns regarding treatment for the above conditions, or other urologic issues, please do not hesitate to contact me. The office telephone contact is [phone]. Sincerely, Dr Gabriel Oneal MD, GERTRUDE [facility] - Urology Compassionate Specialist Care for the Genitourinary System Coding Level of Care Code Tele Est Pt Level 3 (62694) Complex EM visit Add On G2211 Diagnoses BPH (benign prostatic hyperplasia) N40.0 Elevated PSA R97.20 Urinary urgency R39.15
--- OUTSIDE RECORDS SUMMARY | 2024-06-25 13:28 | XMS_ITS | Continuity of Care Document ---
Author Name [facility] Organization [facility] Care Team Providers Care Media Reconciliation Specialist Name Role Phone [facility] Unavailable Unavailable Immunizations Combined list of available immunizations from the Department of Defense and Veterans Affairs facilities. Immunization Series Date Given Administered By Site Reaction Lot Number [id number] Code Drug Wine Blender Status Comments Source COVID-19 (MODERNA), MRNA, LNP-S, PF, 100 MCG/0.5 ML DOSE 2 2020 207 complet ed MOD; [id number]; [facility] [place] COVID-19 (MODERNA), MRNA, LNP-S, PF, 100 MCG/0.5 ML DOSE 1 2020 207 complet ed MOD; [id number]; 1 [facility] [place] [facility]
== END 2024-06-25 12:09 | disposition home or self-care (01) ==
LOC: HO.HUSH 11:30
PROVIDERS: PCP Internal Medicine; Visit Provider Urology
DX: N40.0 Benign prostatic hyperplasia without lower urinary tract symptoms (principal); R97.20 Elevated prostate specific antigen [PSA]; R39.15 Urgency of urination
CPT/HCPCS: 99213; G2211

== ENCOUNTER → 2024-06-25 11:30 | Outpatient (BNVA) | payer MEDICARE, OTHER, SELFPAY | PROVIDERS: PCP Internal Medicine; Visit Provider Urology ==

== ENCOUNTER 2024-12-03 15:09 | Emergency (ER) | payer OTHER, SELFPAY ==
--- NOTE | ~2024-12-03 | CT_ITS ---
EXAMINATION: CT CERVICAL SPINE WITHOUT CONTRAST CLINICAL INFORMATION: Fall, trauma COMPARISON: None available. TECHNIQUE: Axial imaging was performed from the base of the skull through T2 without IV contrast. Coronal and sagittal reformatted images were generated from the original axial data set. ALARA: The examination used one or more of the following radiation dose reduction techniques: Automated exposure control, iterative reconstruction, and/or adjustment of mA and/or KV. DLP: 331 mGY*cm FINDINGS: Extensive pyrophosphate deposition is present in the cruciate ligament. It is also present in multiple discs and minimally within ligamentum flavum. There is grade 1 anterolisthesis at C4-5 greater than C6-7. There is degenerative disc disease with facet and uncovertebral osteophytes. Degenerative changes are greatest at C4-5, C5-6, and C6-7. No fracture lines are identified. Soft tissues the lung apexes are unremarkable. CT/CT cervical spine wo IV con IMPRESSION: No acute abnormality. 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 Correlate for signs symptoms of crowned dens syndrome. 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
--- NOTE | ~2024-12-03 | CT_ITS ---
EXAMINATION: CT HEAD WITHOUT CONTRAST CLINICAL INFORMATION: Fall with head trauma COMPARISON: None available. TECHNIQUE: Contiguous axial imaging was performed from the skull base to vertex without intravenous administration of contrast. This CT examination was performed using dose optimization techniques as appropriate, variously including the following: *Automated exposure control *Adjustment of mA and/or kV according to patient size (this includes techniques or standardized protocols for targeted exams where dose is matched to indication/reason for exam; i.e. extremities or head) *Use of iterative reconstruction technique DLP: 653 mGY*cm FINDINGS: There is no acute ischemic change. Periventricular white matter hypodensities are present. There is mild generalized atrophy. There is no intracranial hemorrhage. There is no mass-effect or midline shift. Basal cisterns and ventricles are within normal limits for age/cerebral volume. Orbits are symmetrical and unremarkable. Paranasal sinuses and mastoid air cells are pneumatized. There are no bony abnormalities. CT/CT head/brain wo IV con IMPRESSION: No acute intracranial abnormality. Electronically signed by: Abhilash Patten MD 12/03/2024 04:48 PM EDT
--- NOTE | ~2024-12-03 | CT_ITS ---
EXAMINATION: CT FACIAL BONES WITHOUT CONTRAST CLINICAL INFORMATION: Fall with facial trauma COMPARISON: None available. TECHNIQUE: Axial CT imaging performed through the facial bones without contrast Coronal and sagittal reformatted images were generated from the original axial data set. ALARA: The examination used one or more of the following radiation dose reduction techniques: Automated exposure control, iterative reconstruction, and/or adjustment of mA and/or KV. DLP: 272 mGy*cm FINDINGS: There is a fracture of the nasal bone. Bony nasal septum deviates toward the left 5 mm. Additionally there is a 7 mm spur Paranasal sinuses demonstrate minimal mucosal thickening in bilateral maxillary sinus. Pyrophosphate deposition encircles the dens. There is cortical erosion at the base of clivus consistent with a crystal induced synovitis. There is also thinning of the anterior C1 ring. CT/CT facial bones wo IV con IMPRESSION: Nasal bone fracture. Mild chronic appearing maxillary sinus mucosal thickening. 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 Electronically signed by: Abhilash Patten MD 12/03/2024 05:01 PM EDT
[2024-12-03 15:15] VITALS: BP 169/60; PULSE 89; RESP 15; TEMP 36.6; O2SAT 97; BMI 26.0
[2024-12-03] MEDS: Lidocaine HCl 1 % MPF 5 ML VIAL SUBCUT (15:29)
[2024-12-03 15:30] VITALS: BP 169/60; PULSE 89; RESP 15; TEMP 36.6; O2SAT 97
--- NOTE | 2024-12-03 16:31 | ED.FALL ---
HPI - Fall General Chief Complaint: Wound/Laceration Stated Complaint: fall Time Seen by Provider: 12/03/24 15:18 Source: patient, family and old records reviewed Mode of arrival: wheelchair Limitations: no limitations History of Present Illness ED Provider: ELAINE HOFFMAN Narrative: 89 yo male very pleasant not on blood thinners, hx of BPH and HTN who comes in with c/o tripping on his shoe today after visiting his female friend in the hospital. He fell forward and struck his nose on the floor. He denies any other injury. His nose bled a lot but has stopped. He states his Tdap is UTD. He denies neck pain. He had no LOC and fall was witnessed. 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) Fall from: standing Fall witnessed: yes, by bystander Place fall occurred: other Loss of consciousness: none Prolonged down time: no Symptoms prior to fall: none Context: tripped/slipped Location of injury: face Severity: mild Quality: dull Associated symptoms (after fall): denies Related Data Home Medications ?Medication ?Instructions ?Recorded ?Confirmed budesonide 32 mcg/actuation nasal 1 spray intranasal BID 06/11/22 08/12/23 spray lisinopril 40 mg tablet 40 mg PO DAILY 06/13/23 08/12/23 Previous Rx's ?Medication ?Instructions ?Recorded finasteride 5 mg tablet 5 mg PO DAILY 90 days #90 tabs 06/25/24 tadalafil 5 mg tablet 5 mg PO DAILY BPH 90 days #90 tabs 06/25/24 tamsulosin 0.4 mg capsule 0.4 mg PO BEDTIME 90 days #90 caps 06/25/24 amoxicillin 875 mg-potassium 1 tab PO BID #10 tabs 12/03/24 clavulanate 125 mg tablet Allergies Allergy/AdvReac Type Severity Reaction Status Date / Time No Known Allergies Allergy Verified 12/03/24 15:22 Review of Systems Review of Systems: Constitutional : No Fever, No Chills, No Fatigue ENT/Mouth : No sore throat, No Rhinorrhea, pos nose bleed Eyes: No Eye Pain, No Swelling, No Redness Cardiovascular : No Chest Pain, No SOB, No Dyspnea on Exertion Respiratory : No Cough, No Sputum Gastrointestinal : No Nausea, No Vomiting, No Diarrhea, No abdominal Pain Genitourinary : No Dysuria, No Urinary Frequency, No Hematuria, Musculoskeletal : No joint pain, No Myalgias, No Joint Swelling Skin : No Skin Lesions, No rash Neuro : No Weakness, No Numbness, No Dizziness, no headache All other systems reviewed and are negative [facility] Past Medical History Attestation statement: The following information was validated with the patient. Source: old records reviewed Medical History Kidney stones Hepatitis C virus GERD (gastroesophageal reflux disease) HTN (hypertension) Elevated PSA History of kidney stones Weak urinary stream BPH (benign prostatic hyperplasia) Hematuria Surgical History H/O lithotripsy H/O wisdom tooth extraction Family History Family History Father Prostate cancer Mother CVD (cardiovascular disease) Social History Social History Alcohol intake: former Patient Tobacco Use Status: Former Tobacco user Smoked in Last 30 Days: No Use of substances other than those prescribed or required for medical reasons: No Advance Directives: Yes Advance Directives Information Provided: Yes Advance Directives on File: No Physical Exam Vital Signs: Vital Signs: Last Vital Signs Temp 98.8 F 12/03/24 17:41 Pulse 82 12/03/24 17:41 Resp 18 12/03/24 17:41 BP 184/61 H 12/03/24 17:41 Pulse Ox 97 12/03/24 17:41 O2 Del Method Room Air 12/03/24 17:41 BMI result Body Mass Index 26.0 Appearance: Alert. Oriented X3. No acute distress. Eyes: Pupils equal, round and reactive to light. ENT: Pharynx normal. no blood noted, nasal bone deformity deviated to the left, drying blood in both nares, no san sign or racoon eyes, L nares repeat checks no septal hematoma but the septum is deviated to the L I see no active bleed, stellate laceration bridge of nose 2 cm and small left lateral linear laceration 1cm Neck: Normal inspection. Neck supple. CVS: Normal heart rate and rhythm. Pulses normal. Respiratory: No respiratory distress. Breath sounds normal. Abdomen: Soft and nontender. Skin: Skin warm and dry. Normal skin color. Normal skin turgor. Extremities: No lower extremity edema. both knees normal ROM but has L knee abrasion Neuro: Oriented X 3. No motor deficit. No sensory deficit. CN2-12 intact Course Course Course Narrative: sent daughter message to discuss suture removal at day 7 she is aware he refused xrays after leaving he told her his left leg hurt and she states she will keep an eye on it. Reevaluation(s) Reevaluation #1: I wanted to obtain xrays of bilateral LE but he refused Medications Administered Discontinued Medications Generic Name Dose Route Start Last Admin Trade Name Freq PRN Reason Stop Dose Admin Amoxicillin/Clavulanate Potassium 875 mg 12/03/24 17:30 12/03/24 17:42 Amoxicillin/Potassium Clav 875 Mg Tablet PO 12/03/24 17:31 875 mg ONCE ONE Administration Lidocaine HCl 5 ml 12/03/24 15:22 12/03/24 15:29 Lidocaine Hcl 1 % Mpf 5 Ml Vial SUBCUT 12/03/24 15:23 5 ml ONCE ONE Administration Oxymetazoline HCl 2 spray 12/03/24 16:59 12/03/24 17:02 Oxymetazoline Hcl 0.05 % Nasal 15 Ml [place] NOSTRIL-B 12/03/24 17:00 2 spray ONCE ONE Administration Procedures Laceration Laceration 1: Site: face Size (cm): 2 Description: stellate Depth: simple, single layer Local Anesthetic: lidocaine 1% Amount of anesthesia used (mL): 2 Pre-repair: wound explored and irrigated extensively Skin layer closed with: other (prolene) Size (cm): 6-0 Number of sutures: 3 Technique: simple, interrupted Laceration 2: Site: face Size (cm): 1 Description: linear Depth: simple, single layer Local Anesthetic: lidocaine 1% Amount of anesthesia used (mL): 1 Pre-repair: wound explored and irrigated extensively Skin layer closed with: other (prolene) Size (cm): 6-0 Number of sutures: 1 Technique: simple, interrupted Medical Decision Making Medical Decision Making [facility] Narrative: 89 yo male very pleasant not on blood thinners, hx of BPH and HTN here with c/o mechanical trip and fall s/p nasal bridge laceration and signs of nasal bone fracture given age his CT head/cspine/facial bones ordered. I will need to start on oral abx and discussed no nose blowing. Plan to suture lacerations He declines xrays of ext he is GCS 15 Differential Diagnosis Differential Diagnoses: The differential diagnosis associated with the presentation includes facial laceration, head injury, facial trauma Admission/Observation Consideration of admission/observation: Escalation of care including admission/observation considered stable for DC no sig nose bleed here GCS 15, daughter is RN is to take him home Independent Interpretation I performed an independent interpretation of an: CT Scan (nasal bone fracture) Radiology Impression Discussion of test interpretation with radiology: I have reviewed the radiologist's reading. Independent Historian Clinical information obtained from an independent historian. History obtained from or confirmed by: Other (daughter) External Record Review External record reviewed: Outpatient record Prescription Management I considered prescription management with: Antibiotic Discharge Plan Discharge Clinical Impression: Laceration Fracture of nasal bone Qualifiers: Encounter type: initial encounter Fracture type: open Qualified Code(s): S02.2XXB - Fracture of nasal bones, initial encounter for open fracture Patient Disposition: Home, Self-Care Instructions: Nasal Fracture (ED), Facial Laceration (ED) Additional Instructions: your CT scan shows chronic inflammation and wear and tear on your upper cervical spine you need to see our spine center you had no acute bleed or skull fracture you have a nasal bone fracture this will need to be monitored and followed closey by ENT call to schedule appointment please do not blow nose for 10 days take all medications as prescribed would avoid any strenuous activity or heavy lifting for 10 day YOU CAN TAKE THE AFRIN HOME AND CAN USE IT NEEDED FOR NOSE BLEEDING UP TO THREE TIMES A DAY. IF YOUR NOSE HAS SIGNIFICANT BLEEDING APPLY GENTLE PRESSURE IF IT DOES NOT STOP IN 5 MIN SEEK MEDICAL CARE On amoxicillin-clavulanate, softer bowel movements are to be expected. Call your provider if you move your bowels more than 4 times a day, your bowel movements are almost all liquid, or you get a rash.? Prescriptions: New amoxicillin-pot clavulanate 875-125 mg tablet 1 tab PO BID Qty: 10 0RF No Action budesonide 32 mcg/actuation spray,non-aerosol 1 spray intranasal BID lisinopril 40 mg tablet 40 mg PO DAILY tamsulosin 0.4 mg capsule 0.4 mg PO BEDTIME 90 Days Qty: 90 1RF finasteride 5 mg tablet 5 mg PO DAILY 90 Days Qty: 90 3RF tadalafil 5 mg tablet 5 mg PO DAILY 90 Days Qty: 90 1RF Rx Instructions: [facility] Group [facility] 33 [id number] Referrals: [facility] [Provider Group, Ear, Nose, Throat] [facility] [Provider Group, Neurosurgery] Interventions: ED Discharge Assessment Last Done: 12/03/24 17:41 Discharge Date/Time: 12/03/24 18:00 Print Language: Swedish
[2024-12-03] MEDS: Oxymetazoline HCl 0.05 % Nasal 15 ML SPRAY 2 SPRAY NOSTRIL-B (17:02)
[2024-12-03 17:41] VITALS: BP 184/61; PULSE 82; RESP 18; TEMP 37.1; O2SAT 97
--- OUTSIDE RECORDS SUMMARY | 2024-12-03 17:45 | XMS_ITS | Encounter Summary ---
Author Organization [employer] Address [address] [facility] 7 [place] [address] Care Team Providers Care Fish Seiner Name Role Phone Unavailable Primary Care Provider Unavailabl e Encounter Details Date Type Department Care Team (Latest Contact Info) Description 09/11/2021 Abstract [facility] CONVERSIONS Dental, Provider, DDS Social History Tobacco [...] as of this encounter Plan of Treatment Upcoming Encounters Date Type Department Care Team (Late st Contact Info) Description 01/18/2025 8:00 AM EDT Office Visit [facility] [address] [place] [phone] Angy Garcia [address] [place], [place] [phone] documented as of this encounter Visit Diagnoses Not on filedocumented in this encounter
--- OUTSIDE RECORDS SUMMARY | 2024-12-03 17:45 | XMS_ITS | Encounter Summary ---
Author Organization [employer] Address [address] [facility] [address] [place] [address] Care Team Providers Care General Road Foreman Name Role Phone Unavailable Primary Care Provider Unavailabl e Encounter Details Date Type Department Care Team (Latest Contact Info) Description 05/15/2018 Abstract [facility] CONVERSIONS Dental, Provider, DDS Social History [...] Description 01/18/2025 8:00 AM EDT Office Visit [facility] [address], [place] [phone] Angy Garcia [address] [place], [place] [phone] documented as of this encounter Visit Diagnoses Not on filedocumented in this encounter
--- OUTSIDE RECORDS SUMMARY | 2024-12-03 17:45 | XMS_ITS | Clinical Summary ---
Author Organization [employer] Address [address] [place] [address] [address] [place] [address] Care Team Providers Care Mercury Washer Name Role Phone Unavailable Primary Care [...] Mass Index - - Plan of Treatment Upcoming Encounters Date Type Department Care Team (Late st Contact Info) Description 01/18/2025 8:00 AM EDT Office Visit [facility] [address] [place] [address] Angy Garcia [address] [place], [place] [phone] Health Maintenance Due Date Last Done Comments Dental Oral Exam 1936 Dental X-Ray: Bitewings 1936 Dental X-Ray: Full Mouth 1936 Depression Screening 1936 Lipid Panel 1936 SDOH Screening 1936 Alcohol/Substance Use Screening 1948 DTaP/Tdap/Td Vaccines (1 - Tdap) 09[birth year]10/1954 Dental Prophylaxis 12/01/2022 05/30/2022 Tobacco Screening 05/31/2023 05/30/2022 COVID-19 Vaccine ( season) 2024 12/23/2022, 11/29/2021, 07/05/2021, Additional history exists Influenza Vaccine (#1) 2024 3, 11/29/2021, 12/06/2020, Additional history exists Zoster Vaccines (2 of 2) 12/29/2024 11/03/2024 RSV Patients and Patients Aged 60 years or older Completed 12/18/2022 Pneumococcal Vaccine: 50+ Years Completed 11/03/2024 HIB Vaccines Aged Out No longer eligi [...] patient's age to complete this topic Meningococcal B Vaccine Aged Out No l onger eligible based on patient's age to complete [...]
== END 2024-12-03 18:00 | disposition home or self-care (01) ==
PROVIDERS: Emergency Provider Emergency Medicine; PCP Internal Medicine
DX: S01.21XA Laceration without foreign body of nose, initial encounter (principal); S02.2XXA Fracture of nasal bones, initial encounter for closed fracture; R51.9 Headache, unspecified; M54.2 Cervicalgia; I10 Essential (primary) hypertension; W01.0XXA Fall on same level from slipping, tripping and stumbling without subsequent striking against object, initial encounter; Y93.89 Activity, other specified; Y92.238 Other place in hospital as the place of occurrence of the external cause; Y99.8 Other external cause status; Z79.899 Other long term (current) drug therapy
CPT/HCPCS: 12013; 70450; 70486; 72125; 99284; J2003

== ENCOUNTER → 2024-12-03 15:22 | Outpatient (BNV) | payer MEDICARE, OTHER, SELFPAY | PROVIDERS: Emergency Provider Emergency Medicine; PCP Internal Medicine; Visit Provider Radiology Diagnostic Radiology | DX: M43.12 Spondylolisthesis, cervical region (principal); S02.2XXA Fracture of nasal bones, initial encounter for closed fracture; G31.89 Other specified degenerative diseases of nervous system | CPT/HCPCS: 70450; 70486; 72125 ==

== ENCOUNTER 2024-12-17 16:17 | Inpatient (IN) | payer OTHER, SELFPAY ==
[2024-12-17] VITALS (10 sets, daily range): BP systolic 134–162; BP diastolic 5–70; PULSE 68–130; RESP 16–29; TEMP 36.8–37.9; O2SAT 87–96; BMI 24.0
--- NOTE | ~2024-12-17 | XR_ITS ---
CLINICAL HISTORY: cough 1 view chest x-ray Comparison: None provided Findings: Diffuse interstitial thickening. Left lower lobe patchy airspace opacities. No pneumothorax or large pleural effusion. Heart size is accentuated by portable technique and suboptimal inspiratory effort. Prominent aortic calcifications. No acute fracture. IMPRESSION: 1. Hypoventilation. 2. Diffuse interstitial thickening secondary to pneumonitis or edema. 3. Patchy airspace opacities in the left lower lobe secondary to volume loss, infection or inflammation i.e. aspiration. This document has been electronically signed by: Mery Rodriguez DO on 12/17/2024 18:41:19
--- NOTE | ~2024-12-17 | XR_ITS ---
CLINICAL HISTORY: Fall 1 view pelvis Comparison: None provided Findings: Mild osteopenia. No significant degenerative changes. Arterial calcifications are present. IMPRESSION: 1. No acute osseous abnormality. 2. Mild osteopenia. 3. Arterial calcifications. This document has been electronically signed by: Nicolás Muhammad MD on 12/17/2024 23:37:22
--- NOTE | 2024-12-17 16:56 | PC.NURSE ---
Addendum entered by Mai Mireles RN 12/17/24 16:56: Patient is a 89 yo male not on blood thinners, hx of BPH and HTN who comes in with c/o tripping and falling in the parking lot at [place]. Denies loc, head strike or thinners. In route, patient noted to be tachy and hypoxic with a pox at 87% and placed on o2 therapy with good effect. Patient alert and oriented. Denies any complaints. Noted to have a low grade temp. awake overnight monitor applied and stach noted. Lungs with BBR. Congested cough noted. Abdomen soft, non-tender with positive bowel sounds. Positive pedal pulses with some LE edema noted. Discoloration noted to LE. Original Note: Medical History Kidney stones Hepatitis C virus GERD (gastroesophageal reflux disease) HTN (hypertension) Elevated PSA History of kidney stones Weak urinary stream BPH (benign prostatic hyperplasia) Hematuria
--- OUTSIDE RECORDS SUMMARY | 2024-12-17 17:03 | XMS_ITS | Encounter Summary ---
Author Organization [employer] Address [address] [facility] 7 [place] [address] Care Team Providers Care Combination Presser Name Role Phone Unavailable Primary Care Provider Unavailabl e Encounter Details Date Type Department Care Team (Latest Contact Info) Description 05/15/2018 Abstract [facility] CONVERSIONS Dental, Provider, DDS Social History [...] Description 01/18/2025 8:00 AM EDT Office Visit [facility] [address] [place], [place] [phone] Angy Garcia [address] [place], [place] [phone] documented as of this encounter Visit Diagnoses Not on filedocumented in this encounter
--- OUTSIDE RECORDS SUMMARY | 2024-12-17 17:03 | XMS_ITS | Clinical Summary ---
Author Organization [employer] Address [address] [place] [address] [place] [address] Care Team Providers Care Director Digital Name Role Phone Unavailable Primary Care Provider [...] Description 01/18/2025 8:00 AM EDT Office Visit [facility] [address] [place] [address] Angy Garcia [address] [place], [place] [phone] Health Maintenance Due Date Last Done Comments [...]
--- OUTSIDE RECORDS SUMMARY | 2024-12-17 17:03 | XMS_ITS | Encounter Summary ---
Author Organization [employer] Address [address] [facility] [address] [place] [address] Care Team Providers Care Certified Professional Midwife Name Role Phone Unavailable Primary Care Provider Unavailabl e Encounter Details Date Type Department Care Team (Latest Contact Info) Description 09/11/2021 Abstract [facility] CONVERSIONS Dental, Provider, DDS Social History [...] Description 01/18/2025 8:00 AM EDT Office Visit [facility] [address] [place] [address] [phone] Angy Garcia [address] [place], [place] [phone] documented as of this encounter Visit Diagnoses Not on filedocumented in this encounter
[2024-12-17 17:04] LABS: Hematocrit 30.4 % (42.0-52.0); Hemoglobin 10.7 g/dl (14.0-18.0); Mean Corpuscular HGB Conc 35.2 g/dl (31.0-36.0); Mean Corpuscular Hemoglobin 33.0 pg (27.0-33.0); Mean Corpuscular Volume 93.8 fL (80.0-98.0); NRBC Abs Auto 0.020 X10*3/uL (0.0-0.012); NRBC Pct Auto 0.2 /100WBC (0.0-0.2); Platelet Count 136 X10*3/uL (160-400); Red Blood Count 3.24 X10*6/uL (4.60-5.80); White Blood Count 8.3 X10*3/uL (4.8-10.8)
[2024-12-17 17:14] LABS: Alanine Aminotransferase 33 U/L (0-40); Albumin Level 3.3 g/dL (3.5-5.0); Alkaline Phosphatase 58 U/L (39-117); Anion Gap 12 (12-20); Aspartate Amino Transferase 34 U/L (5-37); Blood Urea Nitrogen 26 mg/dL (9-16); Calcium 8.5 mg/dL (8.4-10.2); Carbon Dioxide 24 mmol/L (22-29); Chloride 110 mmol/L (96-108); Creatinine Clr Calc Pharmacy 26.2; Estimated Glomerular Filt Rate 38; Potassium 4.0 mmol/L (3.3-5.1); Sodium 142 mmol/L (135-145); Total Protein 5.8 g/dL (6.5-8.0)
--- NOTE | 2024-12-17 17:27 | MHC.EDTECH ---
Patient inc therefore patient changed and repositioned
[2024-12-17 17:41] LABS: Atypical Lymph Absolute Manual 0.1 x10*3/uL; Atypical Lymphs Percent Manual 1 % (0-6); Band Neutrophils Percent 7 % (3-5); Lymphocytes Absolute Manual 0.1 X10*3/uL (1.2-4.9); Lymphocytes Percent Manual 1 % (20-40); Metamyelocytes Absolute 0.1 X10*3/uL; Metamyelocytes Percent 1 %; Neutrophils Absolute Manual 8.1 X10*3/uL (2.0-8.3); Neutrophils Percent Manual 90 % (45-73)
[2024-12-17 17:44] LABS: Large Platelet PRESENT; RBC Morphology NORMAL; Stomatocytes 1+ (5-14) /OIF; Tear Drop Cells 1+ (0-2) /OIF
[2024-12-17 17:45] LABS: Smudge Cells PRESENT; Toxic Granulation PRESENT
--- NOTE | 2024-12-17 19:53 | ED_ITS ---
HPI - General Adult General Chief complaint: Dyspnea Stated complaint: fall Time Seen by Provider: 12/17/24 19:49 Source: patient and EMS Mode of arrival: EMS Limitations: no limitations History of Present Illness ED Provider: Ajit SHAW HPI narrative: The patient is an 89-year-old male who presented to the ED via EMS for evaluation after suffering a mechanical fall in the parking lot of [facility] where he was going to visit his girlfriend. The patient denies head strike, LOC, or anticoagulation. The patient reports he was feeling well prior to the fall, denies acute somatic complaint, however EMS reports they found the patient to be tachycardic and hypoxic on room air, improved with nasal cannula. The patient reports he has been suffering from a congested sounding but ultimately nonproductive cough for the past few weeks which he has attributed to sinusitis and postnasal drip. The patient arrived to the ED tachycardic, tachypneic, and with a borderline fever of 100.3 degrees. In the ED patient denies chest pain, pleurisy, hemoptysis, abdominal pain, nausea, vomiting, headache, focal neurological deficit, or recent sick contacts. The patient does report 2 weeks ago he suffered a mechanical fall while visiting his girlfriend in the hospital resulting in a nasal bone fracture and laceration to the bridge of the nose, denies other recent trauma. Related Data Home Medications ?Medication ?Instructions ?Recorded ?Confirmed lisinopril 20 mg tablet 20 mg PO DAILY 12/17/2411/23 prednisone 10 mg tablet 10 mg PO QID 12/17/24 Previous Rx's ?Medication ?Instructions ?Recorded finasteride 5 mg tablet 5 mg PO DAILY 90 days #90 ta bs 06/25/24 tadalafil 5 mg tablet 5 mg PO DAILY BPH 90 days #9 0 tabs 06/25/24 tamsulosin 0.4 mg capsule 0.4 mg PO BEDTIME 90 days #9 0 caps 06/25/24 Allergies Allergy/AdvReac Type Severity Reaction Status Date / Time No Known Allergies Allergy Verified 12/17/24 16:40 Review of Systems 2 Review of Systems: Yes all other systems are reviewed and are negative PMFSH Past Medical History Medical History Kidney stones Hepatitis C virus GERD (gastroesophageal reflux disease) HTN (hypertension) Elevated PSA History of kidney stones Weak urinary stream BPH (benign prostatic hyperplasia) Hematuria Surgical History H/O lithotripsy H/O wisdom tooth extraction Family History Family History Father Prostate cancer Mother CVD (cardiovascular disease) Social History Social History Alcohol intake: former Patient Tobacco Use Status: Former Tobacco user Smoked in Last 30 Days: No Use of substances other than those prescribed or required for medical reasons: No Advance Directives: No Advance Directives Information Provided: No Physical Exam ED Vital Signs: Vital Signs - 24 hr 12/17/24 16:38 12/17/24 16:43 12/17/24 19:07 Temperature 100.3 F 98.5 F Pulse Rate 113 H 113 H 91 Respiratory Rate 24 H 24 H 29 H Blood Pressure 136/5 L 139/60 134/67 Pulse Oximetry 90 L 93 96 Oxygen Delivery Method Room Air Nasal Cannula Nasal Cannula Oxygen Flow Rate 2 2 12/17/24 20:25 12/17/24 20:40 12/17/24 20:55 Temperature Pulse Rate 97 68 94 Respiratory Rate Blood Pressure 159/68 H 159/68 H 147/64 H Pulse Oximetry Oxygen Delivery Method Oxygen Flow Rate 12/17/24 22:11 Temperature Pulse Rate 82 Respiratory Rate 20 Blood Pressure 147/60 H Pulse Oximetry Oxygen Delivery Method Oxygen Flow Rate BMI result Body Mass Index 24.0 CONSTITUTIONAL: The patient appears non-toxic, well nourished and in no acute distress. Vital signs as documented. HEAD: Atraumatic, normocephalic. EYES: EOMs grossly intact, pupils equal, conjunctiva clear, no exudate. ENT: Nares patent, no discharge. Airway patent, no audible stridor, visible mucosa is pink and moist without noted lesions. NECK: Trachea is midline, no obvious masses or gross abnormalities. CHEST: Symmetric movement, normal appearance. LUNGS: LS present bilaterally, with diminished breath sounds of in the left, and mild expiratory wheeze on the right. Non-labored work of breathing at rest with a FiO2. CARDIAC: Regular Rhythm, S1/S2 appreciated, no murmurs, rubs or gallops. ABDOMEN: Abdomen soft and non-tender x4 quadrants, no palpable masses or organomegaly. : Deferred. EXTREMITIES: Normal tone, moves all extremities spontaneously without reported pain. No obvious acute injury or deformity noted. No pedal edema. NEURO: Alert and oriented x3, CN II-XII appear grossly intact. Cerebellar Functioning grossly intact. No obvious sensory or motor deficits. Speech clear and appropriate. PSYCH: normal affect, appropriate eye contact, fluid speech, with appropriate response to questioning. No reported suicidality or homicidality. SKIN: Warm, dry, color appropriate, normal turgor. No rashes noted. Medications Administered Discontinued Medications Generic Name Dose Route Start Last Admin Trade Name Freq PRN Reason Stop Dose Admin Ceftriaxone Sodium 1 gm 12/17/24 19:56 12/17/24 20:08 Ceftriaxone Sodium 1 Gm Vial IVPUSH 12/17/24 19:57 1 gm ONCE ONE Administration Sodium Chloride 1,000 mls @ 999 mls/hr 12/17/24 20:00 12/17/24 22:10 Ns IV 12/17/24 22:00 999 mls/hr .Q1H1M CHRISTIANO Administration Azithromycin 500 mg/ Sodium 250 mls @ 125 mls/hr 12/17/24 19:56 12/17/24 20:09 Chloride IV 12/17/24 21:55 125 mls/hr ONCE ONE Administration Medical Decision Making Medical Decision Making [facility] Narrative: 8:08 PM 12/17/2024 (Guevara SHAW): The patient is an 89-year-old male who presented to the ED via EMS for evaluation after suffering a mechanical fall in the parking lot of [facility] [employer] where he was going to visit his girlfriend. The patient denies head strike, LOC, or anticoagulation. The patient reports he was feeling well prior to the fall, denies acute somatic complaint, however EMS reports they found the patient to be tachycardic and hypoxic on room air, improved with nasal cannula. The patient reports he has been suffering from a congested sounding but ultimately nonproductive cough for the past few weeks which he has attributed to sinusitis and postnasal drip. The patient arrived to the ED tachycardic, tachypneic, and with a borderline fever of 100.3 degrees. In the ED patient denies chest pain, pleurisy, hemoptysis, abdominal pain, nausea, vomiting, headache, focal neurological deficit, or recent sick contacts. The patient does report 2 weeks ago he suffered a mechanical fall while visiting his girlfriend in the hospital resulting in a nasal bone fracture and laceration to the bridge of the nose, denies other recent trauma. In the ED patient has diminished breath sounds on the left side, with mild expiratory wheeze on the right, no other acute findings. The patient's laboratory evaluation shows no leukocytosis, significant anemia, electrolyte abnormality, or LFT abnormality. The patient's lactic acid is normal at 1.9. The patient's renal function is slightly impaired compared to baseline at 26 and 1.69. The patient's chest x-ray unfortunately shows patchy airspace opacities in the left lower lobe which may be due to volume loss, infection, or inflammation. The patient will be treated for suspected pneumonia with sepsis with Rocephin, azithromycin, 30 cc per kg fluid bolus, and we will add on EKG, troponin, and viral swabs. Given the patient's fall, hypoxia with increased oxygen requirement, borderline fever, and tachycardia expect the patient will require admission. 10:08 PM 12/17/2024 (Guevara SHAW): The patient's COVID and influenza swabs are negative. The patient's EKG is nonischemic. Patient's troponin is mildly elevated at 61, however patient denies any chest pain. The patient is elevated troponin may be secondary to SELWYN. We will discuss admission with the hospitalist service for pneumonia, SELWYN, and fall. We will plan to repeat troponin at 23:30. 10:26 PM 12/17/2024 (Guevara SHAW): Patient admitted to the hospitalist service. The patient has no hip pain, tenderness, or impaired range of motion of the lower extremities, however hospitalist provider requested pelvis x-ray be obtained due to fall, we will obtain a pelvis film. Admission/Observation Consideration of admission/observation: Escalation of care including admission/observation considered Lab Data MDM Lab Attestation statement: I reviewed the patient's lab results. 12/17/24 16:51 12/17/24 16:51 Labs: Lab Results 12/17/24 12/17/24 12/17/24 Range/Units 16:51 21:26 21:33 WBC 8.3 (4.8-10.8) X10*3/uL RBC 3.24 L (4.60-5.80) X10*6/uL Hgb 10.7 L (14.0-18.0) g/dl Hct 30.4 L (42.0-52.0) % MCV 93.8 (80.0-98.0) fL MCH 33.0 (27.0-33.0) pg MCHC 35.2 (31.0-36.0) g/dl RDW 14.6 (11.0-16.0) % Plt Count 136 L (160-400) X10*3/uL MPV 9.8 (9.4-12.4) fL Immature Gran % (Auto) Cancelled Neut % (Auto) Cancelled Lymph % (Auto) Cancelled [place] % (Auto) Cancelled Eos % (Auto) Cancelled Baso % (Auto) Cancelled Lymph # (Auto) Cancelled [place] # (Auto) Cancelled Eos # (Auto) Cancelled Baso # (Auto) Cancelled Abs Immat Gran (auto) Cancelled Absolute Neuts (auto) Cancelled Absolute Nucleated RBC 0.020 H (0.0-0.012) X10*3/uL Nucleated RBC % (auto) 0.2 (0.0-0.2) /100WBC Neutrophils % (Manual) 90 H (45-73) % Band Neutrophils % 7 H (3-5) % Lymphocytes % (Manual) 1 L (20-40) % Atypical Lymphs % (Man) 1 (0-6) % Metamyelocytes % 1 % Abs Neuts (Manual) 8.1 (2.0-8.3) X10*3/uL Lymphocytes # (Manual) 0.1 L (1.2-4.9) X10*3/uL Atyp Lymphs # (Manual) 0.1 x10*3/uL Metamyelocytes # 0.1 X10*3/uL Smudge Cells PRESENT Toxic Granulation PRESENT Platelet Estimate SLIGHTLY DECREASED (NORMAL) Large Platelets PRESENT Plt Morphology Comment NOTED RBC Morphology NORMAL Tear Drop Cells 1+ (0-2) /OIF Stomatocytes 1+ (5-14) /OIF Sodium 142 (135-145) mmol/L Potassium 4.0 (3.3-5.1) mmol/L Chloride 110 H (96-108) mmol/L Carbon Dioxide 24 (22-29) mmol/L Anion Gap 12 (12-20) BUN 26 H (9-16) mg/dL Creatinine 1.69 H (0.5-1.4) mg/dL Estim Creat Clear Calc 26.2 Estimated GFR 38 Random Glucose 105 (60-115) mg/dL Lactic Acid 1.9 (0.5-2.0) mmol/L Calcium 8.5 (8.4-10.2) mg/dL Total Bilirubin 1.2 H (0.0-1.0) mg/dL AST 34 (5-37) U/L ALT 33 (0-40) U/L Alkaline Phosphatase 58 (39-117) U/L Troponin I High Sens 61.8 H (<3.5-35.0) ng/L Total Protein 5.8 L (6.5-8.0) g/dL Albumin 3.3 L (3.5-5.0) g/dL COVID-19 (AUGIE) Negative (Negative) COVID-19 Clin Com See Note Influenza Type A (MEDHAT) Negative (Negative) Influenza Type B (MEDHAT) Negative (Negative) Influenza A & B Note See Note Independent Interpretation I performed an independent interpretation of an: EKG (EKG shows sinus rhythm with a rate of 94, with incomplete right bundle-branch block and left axis deviation, no evidence of acute ischemia, no ST elevation, no ectopy. QTC 457. No old for comparison.) Radiology Impression Discussion of test interpretation with radiology: I have reviewed the radiologist's reading. Radiologist Impression: CLINICAL HISTORY: cough 1 view chest x-ray Comparison: None provided Findings: Diffuse interstitial thickening. Left lower lobe patchy airspace opacities. No pneumothorax or large pleural effusion. Heart size is accentuated by portable technique and suboptimal inspiratory effort. Prominent aortic calcifications. No acute fracture. IMPRESSION: 1. Hypoventilation. 2. Diffuse interstitial thickening secondary to pneumonitis or edema. 3. Patchy airspace opacities in the left lower lobe secondary to volume loss, infection or inflammation i.e. aspiration. This document has been electronically signed by: Mery Rodriguez DO on 12/17/2024 18:41:19 External Record Review External record reviewed: Outpatient record and Prior outpatient labs Prescription Management I considered prescription management with: Pain Medication and Antibiotic Discharge Plan Discharge Clinical Impression: SELWYN (acute kidney injury) Community acquired pneumonia Qualifiers: Laterality: left Lung location: unspecified part of lung Qualified Code(s): J 18.9 - Pneumonia, unspecified organism Fall Qualifiers: Encounter type: initial encounter Qualified Code(s): W19.XXXA - Unspecified fall, initial encounter Patient Disposition: Admitted As Inpatient
--- NOTE | 2024-12-17 20:06 | ECG_ITS ---
Test Reason : FALL/SOB Blood Pressure : */* mmHG Vent. Rate : 94 BPM Atrial Rate : 94 BPM P-R Int : 138 ms QRS Dur : 108 ms QT Int : 366 ms P-R-T Axes : 51 -38 16 degrees QTcB Int : 457 ms Normal sinus rhythm Left axis deviation Incomplete right bundle branch block Moderate voltage criteria for LVH, may be normal variant ( R in aVL , Jadon product ) Abnormal ECG No previous ECGs available Referred By: Ajit Clemons Electronically Signed By: Miguel Angel Mayers
[2024-12-17 21:51] LABS: COVID-19 Test Negative (Negative); IDNOW Serial# 58CA691E
[2024-12-17 21:52] LABS: IDNOW Serial# 55D5AD1C; Influenza B2 Negative (Negative)
[2024-12-17 22:03] LABS: Troponin-I High Sensitivity 61.8 ng/L (<3.5-35.0)
--- NOTE | 2024-12-17 22:18 | P.HPHOSP_ITS ---
History of Present Illness Date of Service: 12/17/24 Chief Complaint: Fall: 89-year-old male with a past medical history of HTN, HLD, BPH, GERD, hep C, kidney stones, presented to the hospital today with a chief complaint of fall. Patient mentioned that he was at the [facility] where he was going to visit his girlfriend; mentions that he suddenly tripped and fell on his hips. Denies any head strike or loss of consciousness. Denies neck pain back pain or hip pain. Denies any lightheadedness or dizziness prior to the episode. Mentions he was in having feeling congested in the chest wall past couple days. Denies any fevers. Denies any cough. Denies any sick contacts. Denies any GI or symptoms. Patient denies any chest pain or palpitations. Review of all other systems is negative except mentioned above ER course: Per ER team, patient's exam was nonfocal; musculoskeletal exam benign; pelvis x- ray showed no acute findings; patient was noted to be mildly hypoxic and tachycardic by the EMS team. Hypoxia improved with supplemental oxygen. Chest x-ray showed some induced concerning for pneumonia. Given antibiotics. Respiratory panel negative. Also noted to have mild SELWYN. [facility] Medical History Kidney stones Hepatitis C virus GERD (gastroesophageal reflux disease) HTN (hypertension) Elevated PSA History of kidney stones Weak urinary stream BPH (benign prostatic hyperplasia) Hematuria Family History Father Prostate cancer Mother CVD (cardiovascular disease) Surgical History H/O lithotripsy H/O wisdom tooth extraction Social History Household Members: None Housing: House Do you presently have visiting nurse or other home services: No Alcohol intake: former Patient Tobacco Use Status: Former Tobacco user Smoked in Last 30 Days: No Use of substances other than those prescribed or required for medical reasons: No Have you been hit, kicked, punched, or otherwise hurt by someone within the past year? If so, by whom?: No Do you feel safe in your current relationship?: Yes Is there a partner from a previous relationship who is making you feel unsafe now?: No Are you made to feel afraid or neglected: No Advance Directives: No Advance Directives Information Provided: No Do you have a plan to hurt others: No Plan Recently lost weight without trying: No Nutrition Risks: No Nutritional Risk Poor oral hygiene: No Meds Allergies Allergy/AdvReac Type Severity Reaction Status Date / Time No Known Allergies Allergy Verified 12/17/24 16:40 Active Medications: Current Medications Acetaminophen (Acetaminophen 325 Mg Tablet) 650 mg PO Q6H PRN PRN Reason: Pain, Mild 1-3,fever,headache Albuterol/Ipratropium (Albuterol/Iprat 2.5/0.5mg 3 Ml Ampul.Neb) 3 ml INHALE RQ4H WHILE AWAKE PRN PRN Reason: Shortness of Breath Azithromycin (Azithromycin 500 Mg Tablet) 500 mg PO Q24H CHRISTIANO Calcium Carbonate (Calcium Carbonate 750 Mg Tab.Chew) 750 mg PO Q4H PRN PRN Reason: Heartburn Ceftriaxone Sodium (Ceftriaxone Sodium 1 Gm Vial) 1 gm IVPUSH Q24H CHRISTIANO Heparin Sodium (Porcine) (Heparin Sodium,Porcine 5,000 Unit/Ml Vial) 5,000 unit SUBCUT Q12H CHRISTIANO Magnesium Hydroxide (Milk Of Magnesia 30 Ml Oral.Susp) 30 ml PO DAILY PRN PRN Reason: Constipation Melatonin (Melatonin 3 Mg Tablet) 6 mg PO BEDTIME PRN PRN Reason: Insomnia Sodium Chloride (0.9 % Sodium Chloride Flush 3 Ml Syringe) 3 ml IVFLUSH QSHIFT CHRISTIANO Home Medications ?Medication ?Instructions ?Recorded ?Confirmed ?Last Taken ?Type lisinopril 20 mg tablet 20 mg PO DAILY 12/17/24 09/09/1512/17/24 History prednisone 10 mg tablet 10 mg PO QID 12/17/2412/17/24 History Physical Exam 2 Vital Signs and Narrative: Vital Signs: Last Vital Signs Temp 98.5 F 12/17/24 19:07 Pulse 82 12/17/24 22:11 Resp 20 12/17/24 22:11 BP 147/60 H 12/17/24 22:11 Pulse Ox 96 12/17/24 19:07 O2 Del Method Nasal Cannula 12/17/24 19:07 O2 Flow Rate 2 12/17/24 19:07 BMI result Body Mass Index 24.0 Gen: Appears be in no acute distress HEENT: NCAT, Moist mucosa. Pulmonary: Coarse breath sounds CVS: Normal S1-S2 Abdomen: BS+, Soft, Nontender Extremities: Warm well perfused Neuro: Alert and awake. Results Labs 12/17/24 16:51 12/17/24 16:51 Labs: Laboratory Results - last 24 hr 12/17/24 12/17/24 12/17/24 16:51 21:26 21:33 MCV 93.8 MCH 33.0 MCHC 35.2 RDW 14.6 Plt Count 136 L MPV 9.8 Immature Gran % (Auto) Cancelled Neut % (Auto) Cancelled Lymph % (Auto) Cancelled [place] % (Auto) Cancelled Eos % (Auto) Cancelled Baso % (Auto) Cancelled Lymph # (Auto) Cancelled [place] # (Auto) Cancelled Eos # (Auto) Cancelled Baso # (Auto) Cancelled Abs Immat Gran (auto) Cancelled Absolute Neuts (auto) Cancelled Absolute Nucleated RBC 0.020 H Nucleated RBC % (auto) 0.2 Neutrophils % (Manual) 90 H Band Neutrophils % 7 H Lymphocytes % (Manual) 1 L Atypical Lymphs % (Man) 1 Metamyelocytes % 1 Abs Neuts (Manual) 8.1 Lymphocytes # (Manual) 0.1 L Atyp Lymphs # (Manual) 0.1 Metamyelocytes # 0.1 Smudge Cells PRESENT Toxic Granulation PRESENT Platelet Estimate SLIGHTLY DECREASED Large Platelets PRESENT Plt Morphology Comment NOTED RBC Morphology NORMAL Tear Drop Cells 1+ (0-2) Stomatocytes 1+ (5-14) Anion Gap 12 Estim Creat Clear Calc 26.2 Estimated GFR 38 Random Glucose 105 Lactic Acid 1.9 Calcium 8.5 Total Bilirubin 1.2 H AST 34 ALT 33 Alkaline Phosphatase 58 Troponin I High Sens 61.8 H Total Protein 5.8 L Albumin 3.3 L COVID-19 (AUGIE) Negative COVID-19 Clin Com See Note Influenza Type A (MEDHAT) Negative Influenza Type B (MEDHAT) Negative Influenza A & B Note See Note Assessment and Plan (1) SELWYN (acute kidney injury): Status: Acute Plan 89-year-old male with a past medical history of HTN, HLD, BPH, GERD, hep C, kidney stones, presented to the hospital today with a chief complaint of fall. Admitted for following Fall: Mechanical in nature Benign musculoskeletal exam Fall precautions PT/OT and ready for discharge Hypoxia: Community-acquired pneumonia: Suspected aspiration: Empirically covered with ceftriaxone azithromycin DuoNebs p.r.n. Trending pulse oximetry when ready for discharge Follow up cultures Supplemental oxygen p.r.n. TALENT REP chelsey SOB/SANCHES: Patient short of breath minimal exertion. Chest x-ray also showed findings concerning for pulmonary congestion. Will obtain proBNP Echocardiogram Based on renal function the morning labs-will defer to the day team to consider Lasix trial. Elevated troponins: Plateaued. Denies chest pain. EKG nonischemic. Likely demand. Echo pending. SELWYN: Received IV fluids in the ER-30 cc/kg. Follow up morning creatinine value. Avoid nephrotoxins. Hypertension: Blood pressure normal side. Hold home lisinopril for now BPH: Continue home Flomax, finasteride DVT prophylaxis: SubQ heparin Code status: Full code Quality Stroke Does the patient have a stroke diagnosis?: No VTE Prior VTE?: No VTE Risk Level:: Medical - moderate - high VTE Device Contraindication: Treatment Not Indicated VTE Drug Contraindication: N/A - Med Ordered
--- NOTE | 2024-12-17 22:25 | PHA.MEDREC ---
Addendum entered by Behzad Garland RPh 12/17/24 22:29: MED REC REVIEWED BY [facility] Original Note: Pharmacy Consult ? Medication Reconciliation Pharmacy has completed the medication reconciliation. Spoke with pt and he confirmed his medications. PT confirmed he is taking a Prednisone 10mg regimen for 10 days, stating he takes it 1 QID@0800,1200,1600 & 2000 and started it on 12/12. Pt took his medications this morning.
--- NOTE | 2024-12-17 23:00 | PC.NURSE ---
This contract technical writer assumed care of this Pt at this time.
--- NOTE | 2024-12-17 23:08 | HO.NURTONUR ---
Patient is a 89 yo male not on blood thinners, hx of BPH and HTN who comes in with c/o tripping and falling in the parking lot at [place]. Denies loc, head strike or thinners. In route, patient noted to be tachy and hypoxic with a pox at 87% and placed on o2 therapy with good effect. Patient alert and oriented. Denies any complaints. Noted to have a low grade temp. 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 Lungs with BBR. Congested cough noted. The patient does report 2 weeks ago he suffered a mechanical fall while visiting his girlfriend in the hospital resulting in a nasal bone fracture and laceration to the bridge of the nose with sutures. Pt has bruises to right thigh. The patient's chest x-ray unfortunately shows patchy airspace opacities in the left lower lobe which may be due to volume loss, infection, or inflammation. The patient will be treated for suspected pneumonia with sepsis with Rocephin, azithromycin, 30 cc per kg fluid bolus, and we will add on EKG, troponin, and viral swabs. Given the patient's fall, hypoxia with increased oxygen requirement, borderline fever, pt admitted. Pt A&Ox3, reports he uses cane at baseline. 1 assist for urinal usage. Bilateral 20G IVs.
[2024-12-18] VITALS (12 sets, daily range): BP systolic 121–182; BP diastolic 58–80; PULSE 87–123; RESP 16–32; TEMP 36.4–39.3; O2SAT 91–97; BMI 24.7
[2024-12-18 00:06] LABS: Troponin-I High Sensitivity 52.2 ng/L (<3.5-35.0)
[2024-12-18] MEDS: 0.9 % Sodium Chloride Flush 3 ML SYRINGE IVFLUSH ×3 (02:00→21:34)
[2024-12-18] MEDS: Albuterol/Iprat 2.5/0.5MG 3 ML AMPUL.NEB INHALE (06:53)
--- NOTE | 2024-12-18 06:58 | PC.RT ---
called to bedside for prn tx requested by MD. Patient tachycardic, tachypneic, appears to be shivering. patient stated he is not having difficulty breathing when asked. BS clear and dim at bases on auscultation. Informed RN of assessment.
[2024-12-18 07:36] LABS: MANUAL DIFF FLAG NO
[2024-12-18 07:40] LABS: Hematocrit 34.8 % (42.0-52.0); Hemoglobin 11.6 g/dl (14.0-18.0); Imm Gran Abs Auto 0.46 X10*3/uL (0.00-0.03); Imm Gran Pct Auto 4.6 % (0.0-0.4); Lymphocytes Absolute Auto 0.9 X10*3/uL (1.2-4.9); Mean Corpuscular HGB Conc 33.3 g/dl (31.0-36.0); Mean Corpuscular Hemoglobin 32.8 pg (27.0-33.0); Mean Corpuscular Volume 98.3 fL (80.0-98.0); NRBC Abs Auto 0.000 X10*3/uL (0.0-0.012); NRBC Pct Auto 0.0 /100WBC (0.0-0.2); Platelet Count 122 X10*3/uL (160-400); Red Blood Count 3.54 X10*6/uL (4.60-5.80); White Blood Count 9.9 X10*3/uL (4.8-10.8)
[2024-12-18 08:02] LABS: NT Pro B Type Natriuretic Pept 1416.8 pg/mL (<300)
[2024-12-18 08:14] LABS: Alanine Aminotransferase 31 U/L (0-40); Albumin Level 3.3 g/dL (3.5-5.0); Alkaline Phosphatase 65 U/L (39-117); Anion Gap 16 (12-20); Aspartate Amino Transferase 44 U/L (5-37); Blood Urea Nitrogen 23 mg/dL (9-16); Calcium 8.1 mg/dL (8.4-10.2); Carbon Dioxide 17 mmol/L (22-29); Chloride 113 mmol/L (96-108); Creatinine Clr Calc Pharmacy 30.8; Estimated Glomerular Filt Rate 46; Potassium 4.3 mmol/L (3.3-5.1); Sodium 142 mmol/L (135-145); Total Protein 6.0 g/dL (6.5-8.0)
[2024-12-18 13:56] LABS: Chlamydia pneumoniae PCR Not Detected (Not Detect.); Coronavirus 229E PCR Not Detected (Not Detect.); Coronavirus HKU1 PCR Not Detected (Not Detect.); Coronavirus NL63 PCR Not Detected (Not Detect.); Coronavirus OC43 PCR Not Detected (Not Detect.); RSV PCR Not Detected (Not Detect.); Rhino/Enterovirus PCR Detected (Not Detect.)
[2024-12-18 14:12] LABS: Influenza A H1 PCR Not Detected (Not Detect.); Influenza A H1-2009 PCR Not Detected (Not Detect.); Influenza A H3 PCR Not Detected (Not Detect.); SARS-CoV-2 PCR Not Detected (Not Detect.)
--- NOTE | 2024-12-18 14:59 | P.PNIM_ITS ---
Subjective Subjective Date of Service: 12/18/24 Interval History: Fever up to 102.7 this morning Reports feels OK, no SOB or cough Was in normal state of health yesterday; denies recent illness Tested positive for norovirus 1/2 BCx positive for Gram-positive cocci in clusters, MRSA and SA negative Review of Systems Review of Systems: Yes all other systems are reviewed and are negative Physical Exam 2 Exam: Exam: General: AOx3, though would often repeat himself. In no acute distress Resp: Coarse breath sounds CVS: S1, S2, RRR GI: +BS, NT, no distention Skin: Warm, dry Neuro: Cranial nerves II-XII grossly intact bilaterally. Motor grossly intact bilaterally Extremities: No edema Psych: Appropriate affect Vital Signs: Vital Signs: Last Vital Signs Temp 98 F 12/18/24 14:43 Pulse 87 12/18/24 14:43 Resp 18 12/18/24 11:34 BP 121/58 L 12/18/24 11:34 Pulse Ox 94 12/18/24 11:34 O2 Del Method Nasal Cannula 12/18/24 11:34 O2 Flow Rate 2.5 12/18/24 11:34 BMI result Body Mass Index 24.7 Objective Data Active Medications Acetaminophen (Acetaminophen 325 Mg Tablet) 650 mg PO Q6H PRN PRN Reason: Pain, Mild 1-3,fever,headache Last Admin: 12/18/24 13:08 Dose: 650 mg Documented By: DOROTA Albuterol/Ipratropium (Albuterol/Iprat 2.5/0.5mg 3 Ml Ampul.Neb) 3 ml INHALE RQ4H WHILE AWAKE PRN PRN Reason: Shortness of Breath Last Admin: 12/18/24 06:53 Dose: 3 ml Documented By: MICHELLE Calcium Carbonate (Calcium Carbonate 750 Mg Tab.Chew) 750 mg PO Q4H PRN PRN Reason: Heartburn Finasteride (Finasteride 5 Mg Tablet) 5 mg PO DAILY [facility] Last Admin: 12/18/24 08:39 Dose: 5 mg Documented By: DINA Heparin Sodium (Porcine) (Heparin Sodium,Porcine 5,000 Unit/Ml Vial) 5,000 unit SUBCUT Q12H [facility] Last Admin: 12/18/24 10:07 Dose: 5,000 unit Documented By: DOROTA Piperacillin Sod/Tazobactam (Sod 2.25 gm/ Sodium Chloride) 50 mls @ 100 mls/hr IV Q6H [facility] Last Infusion: 12/18/24 13:56 Dose: Infused Documented By: DORTOA Lisinopril (Lisinopril 20 Mg Tablet) 20 mg PO DAILY [facility]; Protocol Last Admin: 12/18/24 08:39 Dose: 20 mg Documented By: DINA Magnesium Hydroxide (Milk Of Magnesia 30 Ml Oral.Susp) 30 ml PO DAILY PRN PRN Reason: Constipation Melatonin (Melatonin 3 Mg Tablet) 6 mg PO BEDTIME PRN PRN Reason: Insomnia Prednisone (Prednisone 10 Mg Tablet) 10 mg PO QID [facility] Last Admin: 12/18/24 13:08 Dose: 10 mg Documented By: DOROTA Sodium Chloride (0.9 % Sodium Chloride Flush 3 Ml Syringe) 3 ml IVFLUSH QSHIFT [facility] Last Admin: 12/18/24 08:39 Dose: Not Given Documented By: DINA Non-Admin Reason: IV Running Tamsulosin HCl (Tamsulosin Hcl 0.4 Mg Capsule) 0.4 mg PO BEDTIME [facility] Labs 12/18/24 06:52 12/18/24 06:52 Labs: Laboratory Results - last 24 hr 12/17/24 12/17/24 12/17/24 16:51 21:26 21:33 MCV 93.8 MCH 33.0 MCHC 35.2 RDW 14.6 Plt Count 136 L MPV 9.8 Immature Gran % (Auto) Cancelled Neut % (Auto) Cancelled Lymph % (Auto) Cancelled Grundy % (Auto) Cancelled Eos % (Auto) Cancelled Baso % (Auto) Cancelled Lymph # (Auto) Cancelled Grundy # (Auto) Cancelled Eos # (Auto) Cancelled Baso # (Auto) Cancelled Abs Immat Gran (auto) Cancelled Absolute Neuts (auto) Cancelled Absolute Nucleated RBC 0.020 H Nucleated RBC % (auto) 0.2 Neutrophils % (Manual) 90 H Band Neutrophils % 7 H Lymphocytes % (Manual) 1 L Atypical Lymphs % (Man) 1 Metamyelocytes % 1 Abs Neuts (Manual) 8.1 Lymphocytes # (Manual) 0.1 L Atyp Lymphs # (Manual) 0.1 Metamyelocytes # 0.1 Smudge Cells PRESENT Toxic Granulation PRESENT Platelet Estimate SLIGHTLY DECREASED Large Platelets PRESENT Plt Morphology Comment NOTED RBC Morphology NORMAL Tear Drop Cells 1+ (0-2) Stomatocytes 1+ (5-14) Anion Gap 12 Estim Creat Clear Calc 26.2 Estimated GFR 38 Random Glucose 105 Lactic Acid 1.9 Calcium 8.5 Total Bilirubin 1.2 H AST 34 ALT 33 Alkaline Phosphatase 58 Troponin I High Sens 61.8 H NT-Pro-B Natriuret Pep Total Protein 5.8 L Albumin 3.3 L Respiratory Panel Cage Adenovirus (Rapid PCR) B.pert (TEM-PCR) B.parapertussis DNA PCR C. pneumoniae DNA (PCR) Coronavirus OC43 (PCR) Coronavirus HKU1 (PCR) Coronavirus 229E (PCR) COVID-19 (AUGIE) Negative COVID-19 Clin Com See Note Coronavirus NL63 (PCR) Human Metapneumovir PCR Influenza Type A (MEDHAT) Negative Influenza A (RT-PCR) Influenza A (H1) PCR Influ A (H1/09) PCR Influenza A (H3) PCR Influenza Type B (MEDHAT) Negative Influenza B (RT-PCR) Influenza A & B Note See Note M. pneumoniae (PCR) Parainfluenza 1 (PCR) Parainfluenza 2 (PCR) Parainfluenza 3 (PCR) Parainfluenza 4 (PCR) RSV (PCR) Entero/Rhino (PCR) SARS-CoV-2 RNA (RT-PCR) 12/17/24 12/18/24 12/18/24 23:39 06:52 07:18 MCV 98.3 H MCH 32.8 MCHC 33.3 RDW 14.8 Plt Count 122 L MPV 10.0 Immature Gran % (Auto) 4.6 H Neut % (Auto) 81.2 H Lymph % (Auto) 8.9 L Grundy % (Auto) 4.5 Eos % (Auto) 0.3 Baso % (Auto) 0.5 Lymph # (Auto) 0.9 L Grundy # (Auto) 0.5 Eos # (Auto) 0.0 Baso # (Auto) 0.1 Abs Immat Gran (auto) 0.46 H Absolute Neuts (auto) 8.0 Absolute Nucleated RBC 0.000 Nucleated RBC % (auto) 0.0 Neutrophils % (Manual) Band Neutrophils % Lymphocytes % (Manual) Atypical Lymphs % (Man) Metamyelocytes % Abs Neuts (Manual) Lymphocytes # (Manual) Atyp Lymphs # (Manual) Metamyelocytes # Smudge Cells Toxic Granulation Platelet Estimate Large Platelets Plt Morphology Comment RBC Morphology Tear Drop Cells Stomatocytes Anion Gap 16 Estim Creat Clear Calc 30.8 Estimated GFR 46 Random Glucose 70 Lactic Acid Calcium 8.1 L Total Bilirubin 1.5 H AST 44 H ALT 31 Alkaline Phosphatase 65 Troponin I High Sens 52.2 H NT-Pro-B Natriuret Pep 1416.8 H Total Protein 6.0 L Albumin 3.3 L Respiratory Panel Cage Adenovirus (Rapid PCR) B.pert (TEM-PCR) B.parapertussis DNA PCR C. pneumoniae DNA (PCR) Coronavirus OC43 (PCR) Coronavirus HKU1 (PCR) Coronavirus 229E (PCR) COVID-19 (AUGIE) COVID-19 Clin Com Coronavirus NL63 (PCR) Human Metapneumovir PCR Influenza Type A (MEDHAT) Influenza A (RT-PCR) Influenza A (H1) PCR Influ A (H1/09) PCR Influenza A (H3) PCR Influenza Type B (MEDHAT) Influenza B (RT-PCR) Influenza A & B Note M. pneumoniae (PCR) Parainfluenza 1 (PCR) Parainfluenza 2 (PCR) Parainfluenza 3 (PCR) Parainfluenza 4 (PCR) RSV (PCR) Entero/Rhino (PCR) SARS-CoV-2 RNA (RT-PCR) 12/18/24 10:22 MCV MCH MCHC RDW Plt Count MPV Immature Gran % (Auto) Neut % (Auto) Lymph % (Auto) Grundy % (Auto) Eos % (Auto) Baso % (Auto) Lymph # (Auto) Grundy # (Auto) Eos # (Auto) Baso # (Auto) Abs Immat Gran (auto) Absolute Neuts (auto) Absolute Nucleated RBC Nucleated RBC % (auto) Neutrophils % (Manual) Band Neutrophils % Lymphocytes % (Manual) Atypical Lymphs % (Man) Metamyelocytes % Abs Neuts (Manual) Lymphocytes # (Manual) Atyp Lymphs # (Manual) Metamyelocytes # Smudge Cells Toxic Granulation Platelet Estimate Large Platelets Plt Morphology Comment RBC Morphology Tear Drop Cells Stomatocytes Anion Gap Estim Creat Clear Calc Estimated GFR Random Glucose Lactic Acid Calcium Total Bilirubin AST ALT Alkaline Phosphatase Troponin I High Sens NT-Pro-B Natriuret Pep Total Protein Albumin Respiratory Panel Cage See Note Adenovirus (Rapid PCR) Not Detected B.pert (TEM-PCR) Not Detected B.parapertussis DNA PCR Not Detected C. pneumoniae DNA (PCR) Not Detected Coronavirus OC43 (PCR) Not Detected Coronavirus HKU1 (PCR) Not Detected Coronavirus 229E (PCR) Not Detected COVID-19 ([facility]GIE) COVID-19 Clin Com Coronavirus NL63 (PCR) Not Detected Human Metapneumovir PCR Not Detected Influenza Type A (MEDHAT) Influenza A (RT-PCR) Not Detected Influenza A (H1) PCR Not Detected Influ A (H1/09) PCR Not Detected Influenza A (H3) PCR Not Detected Influenza Type B (MEDHAT) Influenza B (RT-PCR) Not Detected Influenza A & B Note M. pneumoniae (PCR) Not Detected Parainfluenza 1 (PCR) Not Detected Parainfluenza 2 (PCR) Not Detected Parainfluenza 3 (PCR) Not Detected Parainfluenza 4 (PCR) Not Detected RSV (PCR) Not Detected Entero/Rhino (PCR) Detected A SARS-CoV-2 RNA (RT-PCR) Not Detected Microbiology Microbiology Results: Microbiology 12/17/24 16:51 Blood Culture - Preliminary Blood - Venous Prelim: GPC Gram Stain only Assessment and Plan (1) Acute hypoxic respiratory failure: Status: Acute Plan 89-year-old male with a past medical history of HTN, HLD, BPH, GERD, hep C, kidney stones, presented to the hospital today with a chief complaint of fall. Admitted for following Acute hypoxic respiratory failure in the setting of possible aspiration pneumonia vs rhino virus with likely viral sepsis CXR showing diffuse interstitial thickening secondary to pneumonitis or edema; patchy airspace opacity in left lower lobe secondary to atelectasis, infection, inflammation, or aspiration Tested positive for norovirus Being empirically covered with Zosyn, started 927 DuoNebs p.r.n. Supplemental oxygen p.r.n. Passed nurses swallow screen Question of bacteremia 1/2 blood cultures positive for Gram-positive cocci in clusters; MRSA and SA negative Likely contaminated, but being covered with empiric Zosyn as above Follow final cultures SOB/SANCHES: Patient short of breath minimal exertion. Chest x-ray also showed findings concerning for pulmonary congestion. proBNP mildly elevated 1416.8, likely secondary to IVF Echocardiogram Based on renal function the morning labs-will defer to the day team to consider Lasix trial. Fall: No headstrike or LOC; likely mechanical in nature Benign musculoskeletal exam; hip and pelvis x-ray negative for acute abnormality Fall precautions PT/OT and ready for discharge Elevated troponins: Plateaued. Denies chest pain. EKG nonischemic. Likely demand. Echo pending. CKD 3: Creatinine 1.69 with repeat 1.44 after IVF Received IV fluids in the ER-30 cc/kg According to [facility] records baseline around 1.5-1.6 Avoid nephrotoxins. Follow creatinine Hypertension: Blood pressure normal side. Hold home lisinopril for now BPH: Continue home Flomax, finasteride DVT prophylaxis: SubQ heparin Code status: Full code Quality Stroke Does the patient have a stroke diagnosis?: No VTE Prior VTE?: No VTE Risk Level:: Medical - moderate - high VTE Device Contraindication: Treatment Not Indicated VTE Drug Contraindication: N/A - Med Ordered
--- NOTE | 2024-12-18 15:03 | MHC.CM.PN ---
Addendum entered by Gina Her 12/18/24 15:48: PTS DAUGHTER MARITZA CONTACT # [phone]. Original Note: THIS CM MET WITH PT IN ROOM, PT WAS SLEEPING, PTS DAUGHTER/HCP MARITZA PRESENT AT BEDSIDE. ROSALVA PRESENTED THIS CM WITH A COPY OF THE HCP, NOW ON FILE. PER MARITZA, PT LIVES ALONE AT HOME AND IS SELF-CARE, HE USES A CANE. MARITZA WOULD BE INTERESTED IS A REFERRAL TO [facility] FOR SOME ASSISTANCE AT HOME. DCP: LIKELY RETURN HOME W/ NEW SERVICES, DAUGHTER TO TRANSPORT HOME AT [place]. PCP: DR. JOSSELIN BRITO
[2024-12-18 22:49] LABS: CDiff Gene PCR NEGATIVE (Negative)
[2024-12-19] VITALS (8 sets, daily range): BP systolic 119–168; BP diastolic 57–74; PULSE 85–97; RESP 17–22; TEMP 36–36.4; O2SAT 93–99
--- NOTE | 2024-12-19 07:34 | P.PNIM_ITS ---
Subjective Subjective Date of Service: 12/19/24 Interval History: Reports breathing and cough better Still requiring oxygen; has been desatting to 86% on Continues to experience diarrhea No nausea, vomiting, abdominal pain Review of Systems Review of Systems: Yes all other systems are reviewed and are negative Physical Exam 2 Exam: Exam: General: AOx3, no acute distress. Appears weak Face: mild ecchymosis under both eyes bilaterally Resp: Diffuse expiratory wheezing CVS: S1, S2, RRR GI: +BS, NT, no distention Skin: Warm, dry Neuro: Cranial nerves II-XII grossly intact bilaterally. Motor grossly intact bilaterally Extremities: No edema Psych: Appropriate affect Vital Signs: Vital Signs: Last Vital Signs Temp 97.4 F 12/19/24 03:02 Pulse 85 12/19/24 03:02 Resp 22 H 12/19/24 03:02 BP 141/65 H 12/19/24 03:02 Pulse Ox 95 12/19/24 03:02 O2 Del Method Nasal Cannula 12/19/24 03:02 O2 Flow Rate 1 12/19/24 03:02 BMI result Body Mass Index 24.7 Objective Data Active Medications Acetaminophen (Acetaminophen 325 Mg Tablet) 650 mg PO Q6H PRN PRN Reason: Pain, Mild 1-3,fever,headache Last Admin: 12/18/24 13:08 Dose: 650 mg Documented By: DOROTA Albuterol/Ipratropium (Albuterol/Iprat 2.5/0.5mg 3 Ml Ampul.Neb) 3 ml INHALE RQ4H WHILE AWAKE PRN PRN Reason: Shortness of Breath Last Admin: 12/18/24 06:53 Dose: 3 ml Documented By: MICHELLE Calcium Carbonate (Calcium Carbonate 750 Mg Tab.Chew) 750 mg PO Q4H PRN PRN Reason: Heartburn Finasteride (Finasteride 5 Mg Tablet) 5 mg PO DAILY [facility] Last Admin: 12/18/24 08:39 Dose: 5 mg Documented By: DINA Heparin Sodium (Porcine) (Heparin Sodium,Porcine 5,000 Unit/Ml Vial) 5,000 unit SUBCUT Q12H [facility] Last Admin: 12/18/24 22:22 Dose: 5,000 unit Documented By: MARLENE Piperacillin Sod/Tazobactam (Sod 2.25 gm/ Sodium Chloride) 50 mls @ 100 mls/hr IV Q6H [facility] Last Infusion: 12/19/24 02:42 Dose: Infused Documented By: MARLENE Lisinopril (Lisinopril 20 Mg Tablet) 20 mg PO DAILY [facility]; Protocol Last Admin: 12/18/24 08:39 Dose: 20 mg Documented By: DINA Magnesium Hydroxide (Milk Of Magnesia 30 Ml Oral.Susp) 30 ml PO DAILY PRN PRN Reason: Constipation Melatonin (Melatonin 3 Mg Tablet) 6 mg PO BEDTIME PRN PRN Reason: Insomnia Prednisone (Prednisone 10 Mg Tablet) 10 mg PO QID [facility] Last Admin: 12/18/24 22:15 Dose: 10 mg Documented By: MARLENE Sodium Chloride (0.9 % Sodium Chloride Flush 3 Ml Syringe) 3 ml IVFLUSH QSHIFT [facility] Last Admin: 12/18/24 21:34 Dose: 3 ml Documented By: MARLENE Tamsulosin HCl (Tamsulosin Hcl 0.4 Mg Capsule) 0.4 mg PO BEDTIME [facility] Last Admin: 12/18/24 22:15 Dose: 0.4 mg Documented By: MARLENE Labs 12/18/24 06:52 12/19/24 07:02 Labs: Laboratory Results - last 24 hr 12/18/24 12/18/24 12/18/24 06:52 07:18 10:22 MCV 98.3 H MCH 32.8 MCHC 33.3 RDW 14.8 Plt Count 122 L MPV 10.0 Immature Gran % (Auto) 4.6 H Neut % (Auto) 81.2 H Lymph % (Auto) 8.9 L Glasscock % (Auto) 4.5 Eos % (Auto) 0.3 Baso % (Auto) 0.5 Lymph # (Auto) 0.9 L Glasscock # (Auto) 0.5 Eos # (Auto) 0.0 Baso # (Auto) 0.1 Abs Immat Gran (auto) 0.46 H Absolute Neuts (auto) 8.0 Absolute Nucleated RBC 0.000 Nucleated RBC % (auto) 0.0 Anion Gap 16 Estim Creat Clear Calc 30.8 Estimated GFR 46 Random Glucose 70 Calcium 8.1 L Total Bilirubin 1.5 H AST 44 H ALT 31 Alkaline Phosphatase 65 NT-Pro-B Natriuret Pep 1416.8 H Total Protein 6.0 L Albumin 3.3 L Respiratory Panel Cage See Note Adenovirus (Rapid PCR) Not Detected B.pert (TEM-PCR) Not Detected B.parapertussis DNA PCR Not Detected C. pneumoniae DNA (PCR) Not Detected C. difficile Tox B Gene Coronavirus OC43 (PCR) Not Detected Coronavirus HKU1 (PCR) Not Detected Coronavirus 229E (PCR) Not Detected Coronavirus NL63 (PCR) Not Detected Human Metapneumovir PCR Not Detected Influenza A (RT-PCR) Not Detected Influenza A (H1) PCR Not Detected Influ A () PCR Not Detected Influenza A (H3) PCR Not Detected Influenza B (RT-PCR) Not Detected M. pneumoniae (PCR) Not Detected Parainfluenza 1 (PCR) Not Detected Parainfluenza 2 (PCR) Not Detected Parainfluenza 3 (PCR) Not Detected Parainfluenza 4 (PCR) Not Detected RSV (PCR) Not Detected Entero/Rhino (PCR) Detected A SARS-CoV-2 RNA (RT-PCR) Not Detected 12/18/24 21:23 MCV MCH MCHC RDW Plt Count MPV Immature Gran % (Auto) Neut % (Auto) Lymph % (Auto) Glasscock % (Auto) Eos % (Auto) Baso % (Auto) Lymph # (Auto) Glasscock # (Auto) Eos # (Auto) Baso # (Auto) Abs Immat Gran (auto) Absolute Neuts (auto) Absolute Nucleated RBC Nucleated RBC % (auto) Anion Gap Estim Creat Clear Calc Estimated GFR Random Glucose Calcium Total Bilirubin AST ALT Alkaline Phosphatase NT-Pro-B Natriuret Pep Total Protein Albumin Respiratory Panel Cage Adenovirus (Rapid PCR) B.pert (TEM-PCR) B.parapertussis DNA PCR C. pneumoniae DNA (PCR) C. difficile Tox B Gene NEGATIVE Coronavirus OC43 (PCR) Coronavirus HKU1 (PCR) Coronavirus 229E (PCR) Coronavirus NL63 (PCR) Human Metapneumovir PCR Influenza A (RT-PCR) Influenza A (H1) PCR Influ A () PCR Influenza A (H3) PCR Influenza B (RT-PCR) M. pneumoniae (PCR) Parainfluenza 1 (PCR) Parainfluenza 2 (PCR) Parainfluenza 3 (PCR) Parainfluenza 4 (PCR) RSV (PCR) Entero/Rhino (PCR) SARS-CoV-2 RNA (RT-PCR) Microbiology Microbiology Results: Microbiology 12/17/24 16:51 Blood Culture - Preliminary Blood - Venous No growth after 24 hours. 12/17/24 16:51 Blood Culture - Preliminary Blood - Venous Prelim: GPC Gram Stain only Assessment and Plan (1) Acute hypoxic respiratory failure: Status: Acute Plan 89-year-old male with a past medical history of HTN, HLD, BPH, GERD, hep C, kidney stones, presented to the hospital today with a chief complaint of fall. Admitted for following Acute hypoxic respiratory failure in the setting of possible aspiration pneumonia vs rhino virus with likely viral sepsis CXR showing diffuse interstitial thickening secondary to pneumonitis or edema; patchy airspace opacity in left lower lobe secondary to atelectasis, infection, inflammation, or aspiration Tested positive for norovirus Being empirically covered with Zosyn, started 12/18 DuoNebs q4h eleazar Supplemental oxygen p.r.n. Passed nurses swallow screen, will get V/[employer] evaluation Currently on [facility] altered diet Question of bacteremia 1/2 blood cultures positive for coag-negative Staphylococcus, unlikely pathogen; MRSA and SA negative Likely contamination, but being covered with empiric Zosyn as above SOB/SANCHES: Patient short of breath minimal exertion. Chest x-ray also showed findings concerning for pulmonary congestion. proBNP mildly elevated 1416.8, likely secondary to IVF Echocardiogram Diarrhea C diff negative Will check GI panel Fall: No headstrike or LOC; likely mechanical in nature Benign musculoskeletal exam; hip and pelvis x-ray negative for acute abnormality Fall precautions PT evaluation Elevated troponins: Plateaued. Denies chest pain. EKG nonischemic. Likely demand. Echo pending. CKD 3: Creatinine 1.69 with repeat 1.44 after IVF, now 1.61 Received IV fluids in the ER-30 cc/kg According to [facility] records baseline around 1.5-1.6 Avoid nephrotoxins Follow creatinine Hypertension: Continue lisinopril BPH: Continue home Flomax, finasteride DVT prophylaxis: SubQ heparin Code status: Full code Pt requires continued hospitalization due to continued hypoxia and need for supplemental oxygen, as well as treatment with empiric IV antibiotics and need for PT evaluation for safe disposition home. Quality Stroke Does the patient have a stroke diagnosis?: No VTE Prior VTE?: No VTE Risk Level:: Medical - moderate - high VTE Device Contraindication: Treatment Not Indicated VTE Drug Contraindication: N/A - Med Ordered
[2024-12-19 08:14] LABS: Anion Gap 11 (12-20); Blood Urea Nitrogen 25 mg/dL (9-16); Calcium 8.4 mg/dL (8.4-10.2); Carbon Dioxide 22 mmol/L (22-29); Chloride 111 mmol/L (96-108); Creatinine Clr Calc Pharmacy 27.5; Estimated Glomerular Filt Rate 41; Potassium 3.9 mmol/L (3.3-5.1); Sodium 140 mmol/L (135-145)
[2024-12-19] MEDS: 0.9 % Sodium Chloride Flush 3 ML SYRINGE IVFLUSH ×2 (08:54→17:53)
[2024-12-19] MEDS: Albuterol/Iprat 2.5/0.5MG 3 ML AMPUL.NEB INHALE ×2 (15:00→19:28)
[2024-12-20] VITALS (10 sets, daily range): BP systolic 129–156; BP diastolic 55–67; PULSE 86–108; RESP 16–177; TEMP 35.6–37; O2SAT 92–99
[2024-12-20] MEDS: 0.9 % Sodium Chloride Flush 3 ML SYRINGE IVFLUSH ×4 (00:10→20:42)
--- NOTE | 2024-12-20 07:00 | CA_ITS ---
Transthoracic Echocardiogram Patient (Last, First, Middle): Kevin Cisneros F Gender: M Date of : 1935 Age: 89 Procedure Date: 12/20/2024 Procedure Type: Transthoracic [place]ocardiogram [place] [facility] [place]: 165.1 cm Weight: 67.13 kg BSA: 1.74 m2 Heart Rate: 103 bpm BP: 135 / 60 mmHg Preventative Maintenance Technician: Referring MD: Reymundo Gordon MD Symptoms: ?CHF Study Quality: Fair ECG Rhythm: Sinus tachycardia Conclusions: - The left ventricular systolic function is normal. The calculated ejection fraction is 66% by biplane method. - There is moderate aortic valve stenosis. - There is moderate mitral annular calcification. Findings Left Ventricle Normal left ventricular cavity size. There is moderately increased left ventricular wall thickness. The left ventricular systolic function is normal. The calculated ejection fraction is 66% by biplane method. There is no evidence of regional wall motion abnormalities. Evidence suggests grade I (mild) diastolic dysfunction. Right Ventricle Normal right ventricular cavity size and systolic function. Atria The left atrium is moderately dilated. The right atrium is normal in size. Aortic Valve There is moderate calcification of the aortic valve. There is moderate aortic valve stenosis. The mean gradient is 31 mmHg. The aortic valve area is 1.21 cm2. There is no aortic valve regurgitation. Mitral Valve There is moderate mitral annular calcification. There is no mitral valve regurgitation. There is no mitral valve stenosis. Pulmonic Valve The pulmonic valve is likely normal. Tricuspid Valve There is mild tricuspid valve regurgitation. There is no evidence of pulmonary hypertension. Great Vessels The asc aorta is normal in size. Venous The inferior vena cava is normal in size and collapses greater than 50% with inspiration. Pericardium/Pleural There is no evidence of pericardial effusion. Prior Study Comparison No prior study available for comparison. Measurements 2D Linear Measurements IVSd: 1.29 0.6-0.9/0.6-1.0 cm LVIDd: 4.25 3.9-5.3/4.2-5.9 cm LVIDd Index: 2.44 2.4-3.2/2.2-3.1 cm/m2 LVIDs: 2.72 2.0-3.6 cm LVPWd: 1.26 0.7-1.1 cm LA Diam: 4.60 2.7-3.8/3.0-4.0 cm LAIDs Index: 2.64 1.5-2.3 cm/m2 LV Mass: 247.17 67-162/88-224 g LV Mass Index: 142.05 43-95/49-115 g/m2 LVOT Diam: 2.00 3.0+(-)1.3 cm 2D Systolic Function EF 4C: 66.20 >55% EF 2C: 62.20 >55% EF BiP: 65.70 >55% Mitral Valve MV VTI: 0.37 MV Pk Montrell: 1.89 MV Mn Montrell: 1.08 MV Pk Grad: 14.00 MV Mn Grad: 6.00 MV Pk E: 1.21 MV PK A: 1.79 MV Decel Time: 173.00 E/A: 0.70 E'Lateral: 5.22 E'Medial: 4.90 E/E' Med: 24.70 E/E' Lat: 23.20 PHT: 51.00 MVA PHT: 4.31 MVA Continuity: 2.25 Decel Allen: 6.95 Aortic Valve AoV Pk Montrell: 3.46 AoV Mn Montrell: 2.60 AoV VTI: 0.69 AoV Pk Grad: 48.00 Aov Mn Grad: 31.00 ALICIA Cont.VTI: 1.21 LVOT LVOT Pk Montrell: 1.31 LVOT Mn Montrell: 0.90 LVOT VTI: 0.27 LVOT Pk Grad: 7.00 LVOT Mn Grad: 4.00 LVOT Diam: 2.00 LVOT Area: 3.14 Diastolic Function MV Pk E: 1.21 MV Pk A: 1.79 E/A: 0.70 E'Medial: 4.90 E/E' Med: 24.70 E' Laterial: 5.22 E/E' Lat: 23.20 Right Ventricle TAPSE (mm): 21.40 TVS' Montrell: 26.10 Tricuspid Valve TR Pk Montrell: 2.75 TR Pk Grad: 30.00 RA Press: 3.00 RVSP: 33.00 Great Vessels Aorta Sinus of Valsalva: 3.10 2.0-3.5 cm Ao Asc: 2.90 2.1-3.4 cm Pulmonary Valve PV Pk Montrell: 1.68 Peak PV Grad: 11.00 Updated in Other Vendor System with Status of Final Bernardo Shin MD electronically signed on 12/20/2024 11:23:08 AM with status of Final
[2024-12-20] MEDS: Albuterol/Iprat 2.5/0.5MG 3 ML AMPUL.NEB INHALE ×4 (07:43→20:55)
[2024-12-20 07:49] LABS: Anion Gap 12 (12-20); Blood Urea Nitrogen 24 mg/dL (9-16); Calcium 8.4 mg/dL (8.4-10.2); Carbon Dioxide 23 mmol/L (22-29); Chloride 110 mmol/L (96-108); Creatinine Clr Calc Pharmacy 28.4; Estimated Glomerular Filt Rate 42; Potassium 4.3 mmol/L (3.3-5.1); Sodium 141 mmol/L (135-145)
[2024-12-20 07:56] LABS: NT Pro B Type Natriuretic Pept 1244.4 pg/mL (<300)
[2024-12-20 08:03] LABS: E. coli EAEC Not Detected (Not Detect.); E. coli EPEC Not Detected (Not Detect.); E. coli ETEC Not Detected (Not Detect.); E. coli STEC Not Detected (Not Detect.); Shigella sp./EIEC Not Detected (Not Detect.)
--- NOTE | 2024-12-20 11:05 | MHC.CM.PN ---
EMR REVIEWED, PER MD SPEECH PENDING, P.T. RECOMMENDING STR, ANTIC PT WILL BE MEDICALLY CLEARED BY 12/21, CM MET W/PT WHO REPORTS MEDICARE IS HIS PRIMARY INSURANCE AND [facility] IS HIS SECONDARY, [place]. PT IS HESITANT FOR STR HOWEVER P.T. STRONGLY RECOMMENDING D/T PT BEING UNSTEADY ON FEET DURING EVAL AND PT LIVES ALONE. LOCAL REFERRAL TO BE PLACED, CM WILL CONT TO FOLLOW DC NEEDS.
--- NOTE | 2024-12-20 16:47 | P.PNIM_ITS ---
Subjective Subjective Date of Service: 12/20/24 Interval History: Pleasant elderly male lying in bed. He is eager to be discharged home. The patient was notably mildly tachypneic, with O2 sat of 98%. The patient also had a burst of atrial tachycardia. Understands that he must remain inpatient for a while longer. Review of Systems Review of Systems: Yes all other systems are reviewed and are negative Physical Exam 2 Exam: Exam: General: A&O x3, oriented to time place person and situation, comfortable, no pain Cardiac: S1, S2 auscultated with no S3/4, no MRG. Well perfused. Respiratory: Normal breath sounds auscultated throughout all lung zones, without wheezing, rales. Normal rate. GI/ : No abdominal pain on palpation, no masses or distentions. MSK: Normal ambulation without pain at bony prominences or musculature Neurological: Normal neurological examination on overview, without obvious CN II-XII abnormalities. Vital Signs: Vital Signs: Last Vital Signs Temp 98.2 F 12/20/24 15:35 Pulse 106 H 12/20/24 15:35 Resp 18 12/20/24 15:35 BP 152/67 H 12/20/24 15:35 Pulse Ox 92 12/20/24 15:35 O2 Del Method Room Air 12/20/24 15:35 O2 Flow Rate 2 12/20/24 04:00 BMI result Body Mass Index 24.7 Objective Data Active Medications Acetaminophen (Acetaminophen 325 Mg Tablet) 650 mg PO Q6H PRN PRN Reason: Pain, Mild 1-3,fever,headache Last Admin: 12/18/24 13:08 Dose: 650 mg Documented By: DOROTA Albuterol/Ipratropium (Albuterol/Iprat 2.5/0.5mg 3 Ml Ampul.Neb) 3 ml INHALE RQ4H WHILE AWAKE [facility] Last Admin: 12/20/24 14:51 Dose: 3 ml Documented By: OSEAS Calcium Carbonate (Calcium Carbonate 750 Mg Tab.Chew) 750 mg PO Q4H PRN PRN Reason: Heartburn Finasteride (Finasteride 5 Mg Tablet) 5 mg PO DAILY [facility] Last Admin: 12/20/24 09:08 Dose: 5 mg Documented By: MARU Heparin Sodium (Porcine) (Heparin Sodium,Porcine 5,000 Unit/Ml Vial) 5,000 unit SUBCUT Q12H [facility] Last Admin: 12/20/24 09:08 Dose: 5,000 unit Documented By: ADITIDINATO Piperacillin Sod/Tazobactam (Sod 2.25 gm/ Sodium Chloride) 50 mls @ 100 mls/hr IV Q6H [facility] Last Infusion: 12/20/24 14:59 Dose: Infused Documented By: MARU Labetalol HCl (Labetalol Hcl 100 Mg/20 Ml Vial) 5 mg IVPUSH Q6H PRN PRN Reason: SBP>165 Lisinopril (Lisinopril 20 Mg Tablet) 20 mg PO DAILY [facility]; Protocol Last Admin: 12/20/24 09:09 Dose: 20 mg Documented By: MARU Magnesium Hydroxide (Milk Of Magnesia 30 Ml Oral.Susp) 30 ml PO DAILY PRN PRN Reason: Constipation Melatonin (Melatonin 3 Mg Tablet) 6 mg PO BEDTIME PRN PRN Reason: Insomnia Prednisone (Prednisone 10 Mg Tablet) 10 mg PO QID [facility] Last Admin: 12/20/24 14:26 Dose: 10 mg Documented By: SAHIL Sodium Chloride (0.9 % Sodium Chloride Flush 3 Ml Syringe) 3 ml IVFLUSH QSHIFT [facility] Last Admin: 12/20/24 15:02 Dose: 3 ml Documented By: MARU Tamsulosin HCl (Tamsulosin Hcl 0.4 Mg Capsule) 0.4 mg PO BEDTIME [facility] Last Admin: 12/19/24 21:26 Dose: 0.4 mg Documented By: SOUSJU Labs 12/18/24 06:52 12/20/24 06:30 Labs: Laboratory Results - last 24 hr 12/19/24 12/20/24 12:50 06:30 Hold Purple Top SEE NOTE Anion Gap 12 Estim Creat Clear Calc 28.4 Estimated GFR 42 Random Glucose 162 H Calcium 8.4 NT-Pro-B Natriuret Pep 1244.4 H Stl C. cayetanensis PCR Not Detected Stool Rotavirus A PCR Not Detected Stl Adenov F 40/41 PCR Not Detected Stool Astrovirus (PCR) Not Detected Stool Campylobacter PCR Not Detected Stool Cryptosporidium PCR Not Detected Stl Sh Tox Pr E STEC PCR Not Detected Stool E coli O157 PCR Not applicable Stl Enterotoxigenic E PCR Not Detected Stool EPEC (PCR) Not Detected Stool EAEC (PCR) Not Detected Stl E. histolytica PCR Not Detected Stool Giardia Lamblia PCR Not Detected Stl P. shigelloides PCR Not Detected Stool Salmonella PCR Not Detected Stool Sapovirus (PCR) Not Detected Stl Shigella/EIEC PCR Not Detected St Y.enterocolitica PCR Not Detected Stool Vibrio (PCR) Not Detected Stl Vibrio cholerae PCR Not Detected Stl Norovirus GI/GII PCR Not Detected Microbiology Microbiology Results: Microbiology 12/17/24 16:51 Blood Culture - Preliminary Blood - Venous No growth after 48 hours. Assessment and Plan (1) SELWYN (acute kidney injury): Status: Acute (2) BPH (benign prostatic hyperplasia): Status: Acute (3) Elevated PSA: Status: Acute (4) Fall: Status: Acute (5) Acute hypoxic respiratory failure: Status: Acute (6) Sepsis: Status: Acute (7) Viral pneumonia: Status: Acute (8) Demand ischemia: Status: Acute Plan 89-year-old male with a past medical history of HTN, HLD, BPH, GERD, hep C, kidney stones, presented to the hospital today with a chief complaint of fall, admitted with acute hypoxic respiratory failure likely 2/2 viral sepsis from rhino virus, c/b type 2 demand ischemia and prerenal acute kidney injury on superimposed CKD. Admitted for following Acute hypoxic respiratory failure in the setting of possible aspiration pneumonia vs rhino virus with likely viral sepsis CXR showing diffuse interstitial thickening secondary to pneumonitis or edema; patchy airspace opacity in left lower lobe secondary to atelectasis, infection, inflammation, or aspiration Tested positive for norovirus Being empirically covered with Zosyn, started 12/18 DuoNebs q4h eleazar Supplemental oxygen p.r.n. Passed nurses swallow screen, will get COMMUNITY CASE MANAGER evaluation Currently on [facility] altered diet SOB/SANCHES Type 2 demand NSTEMI Paroxysmal atrial tachycardia Patient short of breath minimal exertion. Chest x-ray also showed findings concerning for pulmonary congestion. proBNP mildly elevated 1416.8, likely secondary to IVF Patient had an elevated troponin in the setting of sepsis. Echocardiogram 12/20: LVEF 66%, moderate aortic valve stenosis, moderate mitral annular calcification. Telemetry revealing intermittent episodes of paroxysmal atrial tachycardia, rapid, asymptomatic and self-resolving. Likely in the setting of post viral sequelae. We will monitor closely on telemetry Diarrhea C diff negative Will check GI panel Fall: No headstrike or LOC; likely mechanical in nature Benign musculoskeletal exam; hip and pelvis x-ray negative for acute abnormality Fall precautions PT evaluation Prerenal SELWYN CKD 3a Creatinine 1.69 with repeat 1.44 after IVF, now 1.61 Received IV fluids in the ER-30 cc/kg According to [facility] records baseline around 1.5-1.6 Avoid nephrotoxins Follow creatinine Hypertension: Continue lisinopril BPH: Continue home Flomax, finasteride QUALITY METRICS - VTE: Heparin 5000 t.i.d. - CODE STATUS: Full code - DIET: Regular Total time managing care of this patient today: 45 minutes. Quality Stroke Does the patient have a stroke diagnosis?: No VTE Prior VTE?: No VTE Risk Level:: Medical - moderate - high VTE Device Contraindication: Treatment Not Indicated VTE Drug Contraindication: N/A - Med Ordered
--- NOTE | 2024-12-20 17:40 | MHC.SL.SWA ---
Speech Pathologist Impression: Oropharyngeal swallow WNL Risk of Aspiration Due to: Dysphasia Diet Status: Liquid Consistency and Strategies for Safe Swallow: Liquid Intake Recommendation: Thin Liquid Intake Strategies: Solid Food Consistency: Dietary Recommendations: Regular Additional Modifications to Solid Foods: Oral Medication Intake: Whole with Liquid Please contact the pharmacy regarding appropriate crushable or liquid drug formulations that are available whenever modified delivery is recommended. Compensatory Strategies and Precautions to be Taken for Safe Swallow: Supervision While Eating and Drinking for Safe Swallow: Tray Set Up Foods to Avoid: Swallowing Recommended Treatments: Recommendation for Speech: Comment: Oropharyngeal swallow WNL, no need for further VIDEO CONFERENCE SPECIALIST intervention Frequency/Duration: Date Range for Service Req: Timeline to reassess: Chemical Compounder Clinican/Clinical Fellow: No Supervisory Statement: I have reviewed and agree with the student/clinical fellow's documentation: N/A Speech Language Pathologist: Karolyn Christianson M.S., [facility]-VIDEO CONFERENCE SPECIALIST
[2024-12-21] VITALS (9 sets, daily range): BP systolic 124–162; BP diastolic 59–72; PULSE 67–117; RESP 16–18; TEMP 36.1–36.4; O2SAT 87–97
[2024-12-21] MEDS: Albuterol/Iprat 2.5/0.5MG 3 ML AMPUL.NEB INHALE ×2 (08:22→11:59)
[2024-12-21] MEDS: 0.9 % Sodium Chloride Flush 3 ML SYRINGE IVFLUSH (09:09)
--- NOTE | 2024-12-21 14:32 | MHC.CM.PN ---
Addendum entered by Keisha Burns RN 12/21/24 14:33: IMM DELIVERED TO BEDSIDE 12/20/24 Original Note: PT MEDICALLY CLEARED FOR DC TO STR AT [facility], DTR/HCP MARITZA AWARE AND AGREEABLE TO [facility] FOR BLS TRANSPORT AT 4PM.
--- NOTE | 2024-12-21 15:12 | PM.DS ---
DS: Providers Provider Date of Service: 12/21/24 Date of admission: 12/17/24 22:12 Date of discharge: 12/21/24 Primary care physician: Dallas Lara MD DS: Diagnosis Discharge Diagnosis (1) SELWYN (acute kidney injury): Status: Acute (2) BPH (benign prostatic hyperplasia): Status: Acute (3) Elevated PSA: Status: Acute (4) Fall: Status: Acute (5) Acute hypoxic respiratory failure: Status: Acute (6) Sepsis: Status: Acute (7) Viral pneumonia: Status: Acute (8) Demand ischemia: Status: Acute DS: Summary Hospital Course Hospital Course: 89-year-old male with a past medical history of HTN, HLD, BPH, GERD, hep C, kidney stones, presented to the hospital today with a chief complaint of fall, admitted with acute hypoxic respiratory failure likely 2/2 viral sepsis from rhino virus, c/b type 2 demand ischemia and prerenal acute kidney injury on superimposed CKD. Acute hypoxic respiratory failure in the setting of possible aspiration pneumonia vs rhino virus with likely viral sepsis CXR showing diffuse interstitial thickening secondary to pneumonitis or edema; patchy airspace opacity in left lower lobe secondary to atelectasis, infection, inflammation, or aspiration Tested positive for norovirus Being empirically covered with Zosyn, started 12/18 Transitioned to Levaquin 500 mg OD p.o. for 10 days Currently on [facility] altered diet as per GRANULAR OPERATOR Etiology likely 2/2 viral norovirus. SOB/SANCHES Type 2 demand NSTEMI Paroxysmal atrial tachycardia Patient short of breath minimal exertion. Chest x-ray also showed findings concerning for pulmonary congestion. proBNP mildly elevated 1416.8, likely secondary to IVF Patient had an elevated troponin in the setting of sepsis; representing a type 2 demand NSTEMI Echocardiogram 12/20: LVEF 66%, moderate aortic valve stenosis, moderate mitral annular calcification. Telemetry revealing intermittent episodes of paroxysmal atrial tachycardia, rapid, asymptomatic and self-resolving. Likely in the setting of post viral sequelae. Follow up in outpatient setting with a Holter monitor with the patient experiences new symptomology. Diarrhea C diff negative Resolved. Likely 2/2 antibiotics Fall: No headstrike or LOC; likely mechanical in nature Benign musculoskeletal exam; hip and pelvis x-ray negative for acute abnormality x4 nasal stitches from prior fall. These were removed during inpatient setting Fall precautions PT evaluation Prerenal SELWYN CKD 3b Creatinine 1.69 with repeat 1.44 after IVF, now 1.61 Received IV fluids in the ER-30 cc/kg According to [facility] records baseline around 1.5-1.6 Avoid nephrotoxins Status at Discharge Overall status at discharge: patient is back to baseline Time Attestation Total time managing care of this patient today: 45 mintues. Discharge Coordination Time (in mins): 15 Quality: Safe Use of Opioids Does Pt have an Active Cancer Diagnosis on the Problem List?: No Quality: Stroke Does the patient have a stroke diagnosis?: No Physical Exam Exam: Exam: General: A&O x3, oriented to time place person and situation, comfortable, no pain Cardiac: S1, S2 auscultated with no S3/4, no MRG. Well perfused. Respiratory: Normal breath sounds auscultated throughout all lung zones, without wheezing, rales. Normal rate. GI/ : No abdominal pain on palpation, no masses or distentions. MSK: Normal ambulation without pain at bony prominences or musculature Neurological: Normal neurological examination on overview, without obvious CN II-XII abnormalities. Vital Signs: Vital Signs: Last Vital Signs Temp 97.4 F 12/21/24 15:01 Pulse 107 H 12/21/24 15:01 Resp 18 12/21/24 15:01 BP 137/64 12/21/24 15:01 Pulse Ox 97 12/21/24 15:01 O2 Del Method Room Air 12/21/24 15:01 O2 Flow Rate 2 12/20/24 04:00 BMI result Body Mass Index 24.7 DS: Data Data Completed and Pending Labs on day of discharge: Preliminary micro results at discharge 12/17/24 16:51 Blood Culture - Preliminary Blood - Venous No growth after 48 hours. Discharge Plan Discharge Anticipated Discharge Date/Time: 12/21/24 15:16 Patient Disposition: Xfer SNF Discharge Diagnosis: Acute hypoxic respiratory failure 2/2 viral sepsis, c/b aspiration pneumonia and prerenal acute kidney injury [facility] - [facility] Day Referral Note: SHORT TERM REHAB Dallas Lara MD [Primary Care Provider, Internal Medicine] - 1 Week Discharge Medications: New levofloxacin 500 mg tablet 500 mg PO DAILY Qty: 10 0RF Continued prednisone 10 mg tablet 10 mg PO QID Rx Instructions: PT takes the medication @0800,1200,1600,2000 lisinopril 20 mg tablet 20 mg PO DAILY tamsulosin 0.4 mg capsule 0.4 mg PO BEDTIME 90 Days Qty: 90 1RF finasteride 5 mg tablet 5 mg PO DAILY 90 Days Qty: 90 3RF tadalafil 5 mg tablet 5 mg PO DAILY 90 Days Qty: 90 1RF Rx Instructions: MYRNA MONTANO Group [facility] [id number] Discharge Orders: Discharge Order (Routine); Ordered 12/21/24 Ordered By: Amber Hopper Activity on Discharge: As tolerated Stand Alone Forms: Patient Portal Discharge page Print Language: Guyanese Care Plan Goals: As above Health Concerns: As above Plan of Treatment: Continue antibiotics until completed Follow up PCP within 1 week of discharge Assessment: Patient hemodynamically stable; stable for discharge. Patient Instructions: Viral Pneumonia (DC)
== END 2024-12-21 17:08 | disposition skilled nursing facility (03) | DRG 871 ==
LOC: HO.ED 22:11 → HO.EDOVER 22:24 → HO.IMC 12-18 00:10
PROVIDERS: Physician Assistant; Student in an Organized Health Care Education/Training Program; Admitting Provider Hospitalist; Emergency Provider Emergency Medicine; PCP Internal Medicine; Referring Provider Radiology Diagnostic Radiology; Visit Provider Hospitalist
DX: A41.89 Other specified sepsis (principal); I21.A1 Myocardial infarction type 2; J69.0 Pneumonitis due to inhalation of food and vomit; J96.01 Acute respiratory failure with hypoxia; N17.9 Acute kidney failure, unspecified; I47.19 Other supraventricular tachycardia; B97.89 Other viral agents as the cause of diseases classified elsewhere; W19.XXXA Unspecified fall, initial encounter; N40.0 Benign prostatic hyperplasia without lower urinary tract symptoms; R19.7 Diarrhea, unspecified; I12.9 Hypertensive chronic kidney disease with stage 1 through stage 4 chronic kidney disease, or unspecified chronic kidney disease; N18.31 Chronic kidney disease, stage 3a; Z20.822 Contact with and (suspected) exposure to COVID-19; Z87.891 Personal history of nicotine dependence; Z79.52 Long term (current) use of systemic steroids; Z79.899 Other long term (current) drug therapy
CPT/HCPCS: 36415; 71045; 72170; 80048; 80053; 83605; 83880; 84484; 85007; 85025; 85027; 87040; 87147; 87205; 87493; 87502; 87507; 87633; 87635; 92610; 93005; 93306; 94640; 97162; 97530; 99285; J0456; J0696; J1644; J2543; Q9957

== ENCOUNTER → 2024-12-17 18:10 | Outpatient (BNV) | payer OTHER, SELFPAY | PROVIDERS: PCP Internal Medicine; Visit Provider Radiology Diagnostic Radiology | DX: R05.9 Cough, unspecified (principal) | CPT/HCPCS: 71045; 72170 ==

== ENCOUNTER → 2024-12-17 20:06 | Outpatient (BNV) | payer OTHER, SELFPAY | PROVIDERS: Admitting Provider Hospitalist; Emergency Provider Emergency Medicine; PCP Internal Medicine; Visit Provider Internal Medicine Cardiovascular Disease | DX: I45.10 Unspecified right bundle-branch block (principal) | CPT/HCPCS: 93010 ==

== ENCOUNTER 2024-12-17 22:12 | Outpatient (BNV) | payer OTHER, MEDICARE, SELFPAY | END 2024-12-20 07:00 | PROVIDERS: Admitting Provider Hospitalist; Emergency Provider Emergency Medicine; PCP Internal Medicine; Visit Provider Internal Medicine | DX: I35.0 Nonrheumatic aortic (valve) stenosis (principal); I34.81 Nonrheumatic mitral (valve) annulus calcification | CPT/HCPCS: 93306 ==

== ENCOUNTER → 2024-12-17 22:12 | Outpatient (BNV) | payer OTHER, SELFPAY | PROVIDERS: Admitting Provider Hospitalist; Emergency Provider Emergency Medicine; PCP Internal Medicine; Visit Provider Student in an Organized Health Care Education/Training Program | DX: J96.01 Acute respiratory failure with hypoxia (principal) | CPT/HCPCS: 99223; 99231; 99232 ==

== ENCOUNTER 2025-01-24 16:17 | Observation (INO) | payer OTHER, SELFPAY ==
--- NOTE | ~2025-01-24 | CT_ITS ---
CLINICAL HISTORY: AMS CT head without contrast Comparison: CT/SR - CT HEAD WITHOUT IV CONTRAST - 12/03/24 16:23 EDT Findings: No intra-axial mass, midline shift, hydrocephalus, or acute hemorrhage. Heterogeneous low attenuation in the periventricular white matter. There is no sinus or mastoid fluid. The orbits are within normal limits. There is no acute fracture. IMPRESSION: 1. Periventricular white matter hypodensities, likely representing chronic small vessel ischemic changes. 2. No acute intracranial findings. This document has been electronically signed by: Nicolás Muhammad MD on 01/24/2025 20:15:59
--- NOTE | 2025-01-24 16:27 | ED_ITS ---
HPI - General Adult General Chief complaint: Behavioral Concerns Stated complaint: increase w confusion Time Seen by Provider: 01/24/25 19:01 Source: patient and family Mode of arrival: ambulatory Limitations: no limitations History of Present Illness ED Provider: HPI narrative: 81-year-old male here with family that are concerned that over the past 1 month patient has had some personality changes, some forgetfulness, no reported he is alert to self location year present and etc. but when they observe him he is becoming more forgetful, likely started after he was admitted to short-term rehab after hospital admission, but the other thing is that since September of this year patient has been on prolonged steroids for sounds like a gout flare and he kept getting refills and finally when he went to rehab they started tapering him off, sounds like last week they took patient to see PCP but he was seen by SUPERVISOR [employer] that does not note with the patient and they have PCP scheduled for next week, he receives meals on wheels, and some elder Services, lives by himself, has had no new falls does not wander outside, has been using his walker. Related Data Home Medications ?Medication ?Instructions ?Recorded ?Confirmed finasteride 5 mg tablet 5 mg PO DAILY 01/25/2501/25 lisinopril 40 mg tablet 40 mg PO DAILY 01/25/2507/16 prednisone 2.5 mg tablet See Taper PO DAILY 01/25/25 01/25/25 tadalafil 5 mg tablet 5 mg PO DAILY 01/25/2501/25 tamsulosin 0.4 mg capsule 0.4 mg PO BEDTIME 01/25/25 1 03/27/24 Allergies Allergy/AdvReac Type Severity Reaction Status Date / Time No Known Allergies Allergy Verified 01/24/25 16:31 Review of Systems 2 Constitutional: Constitutional: Reports as per HPI [facility] Past Medical History Medical History Kidney stones Hepatitis C virus GERD (gastroesophageal reflux disease) HTN (hypertension) Elevated PSA History of kidney stones Weak urinary stream BPH (benign prostatic hyperplasia) Hematuria Surgical History H/O lithotripsy H/O wisdom tooth extraction Family History Family History Father Prostate cancer Mother CVD (cardiovascular disease) Social History Social History Household Members: None Housing: House Do you presently have visiting nurse or other home services: No Alcohol intake: former Patient Tobacco Use Status: Former Tobacco user Smoked in Last 30 Days: No Use of substances other than those prescribed or required for medical reasons: No Advance Directives: No Advance Directives Information Provided: Yes Do you have a plan to hurt others: No Plan service: Yes Physical Exam ED Exam Exam: General: ?Elderly appears her stated age ? ?visual morales intact and vision intact with bedside ? Neck: Supple, no LAD ? ?CV: S1-S2 ? ?Resp: ?No wheezing rales rhonchi no stridor moving air well ? Abd: ?Bowel sounds are present, no tenderness no rebound no rigidity ? ?MSK: Has preserved strength bilateral upper extremities ? Skin: Warm, dry, intact, ? ?Neuro: ?Patient is alert to self, location, situation answers yes and no questions appropriately, no weakness in upper or lower extremities no dysmetria noted Vital Signs: Vital Signs - 24 hr 01/25/25 12:57 01/25/25 14:00 01/25/25 14:30 Temperature 97.9 F 98.6 F Pulse Rate 94 94 Respiratory Rate 16 18 Blood Pressure 116/49 L 119/52 L 119/51 L Pulse Oximetry 97 97 Oxygen Delivery Method Room Air Room Air 01/25/25 20:00 01/26/25 05:00 01/26/25 09:16 Temperature 99.6 F 98.5 F Pulse Rate 100 94 Respiratory Rate 14 16 Blood Pressure 128/58 L 145/69 H 145/69 H Pulse Oximetry 96 98 Oxygen Delivery Method Room Air Room Air BMI result Body Mass Index 25.0 Course Course Course Narrative: Rapid medical examination performed in triage by Rosie Andre PA-C: Patient is an 89 year old assigned male at presenting to the emergency department with worsening confusion. Patient's daughter states that the patient has been acting bizarre since being home from rehab. Obsessing over things intermittently including the television channel and ripping up his depends. Patient's daughter states that this is an acute change and very bizarre. Detailed physical exam and review of systems are deferred to the instructional technologist. Labs and UA ordered. Patient placed back in the waiting room pending room availability and results. Reevaluation(s) Reevaluation #1: Time: 08:28 Date: 01/25/25 Provider: COLIN Fields Patient in physician observation for case management needs. No acute events reported overnight.?No current issues or complaints. VS stable. Patient is pending PT/CM eval. Will continue to monitor. Reevaluation #2: Patient's T4 level within normal limits despite his low TSH. No additional treatment needed. 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 no treatment warranted. 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 I have the hope that patient's behavioral changes should resolve once prednisone taper is finished. I spoke with hospitalist dr. cantu who has accepted patient admission to medicine for further management. i spoke with patient and his daughter francisco - agreeable with admission. Medications Administered Generic Name Dose Route Start Last Admin Trade Name Freq PRN Reason Stop Dose Admin Finasteride 5 mg 01/25/25 11:15 01/26/25 09:16 Finasteride 5 Mg Tablet PO 5 mg DAILY CHRISTIANO Administration Lisinopril 40 mg 01/25/25 11:15 01/26/25 09:16 Lisinopril 40 Mg Tablet PO 40 mg DAILY CHRISTIANO Administration Protocol Prednisone 5 mg 01/25/25 11:15 01/25/25 14:29 Prednisone 2.5 Mg Tablet PO 02/07/25 11:14 5 mg DAILY CHRISTIANO Administration Taper Tamsulosin HCl 0.4 mg 01/25/25 21:00 01/25/25 20:44 Tamsulosin Hcl 0.4 Mg Capsule PO 0.4 mg BEDTIME CHRISTIANO Administration Discontinued Medications Generic Name Dose Route Start Last Admin Trade Name Freq PRN Reason Stop Dose Admin Sodium Chloride 1,000 mls @ 999 mls/hr 01/24/25 18:00 01/24/25 21:45 Ns IV 01/24/25 19:00 Infused .Q1H1M CHRISTIANO Infusion Medical Decision Making Medical Decision Making [facility] Narrative: 7:30 PM 01/24/2025 (Dr. Hans Blue): I spoke to family regarding delirium versus dementia, we will workup for UTI, dehydration, stroke, we will consult case management, blood work reveals slight SELWYN on CKD, patient has been on steroids for the past 4-5 months and now being taper down, definitely can cause some mentation issues in elderly population, but otherwise he safe at home, has not been fallen again, does not wander outside, family visits him daily he gets some services but family would like to see more 8:54 PM 01/24/2025 (Dr. Hans Blue): Evaluated by case management, we will be held overnight fall physical therapy evaluation, potential placement tomorrow or outpatient services Differential Diagnosis Differential Diagnoses: The differential diagnosis associated with the presentation includes (Medication reaction, dehydration, ACS, stroke, UTI, thyroid issues, dementia) Admission/Observation Consideration of admission/observation: Escalation of care including admission/observation considered Lab Data [facility] Lab Attestation statement: I reviewed the patient's lab results. 01/24/25 16:39 01/24/25 16:39 Labs: Lab Results 01/24/25 01/24/25 01/25/25 Range/Units 16:39 20:16 17:08 WBC 10.4 (4.8-10.8) X10*3/uL RBC 3.16 L (4.60-5.80) X10*6/uL Hgb 10.4 L (14.0-18.0) g/dl Hct 32.6 L (42.0-52.0) % MCV 103.2 H (80.0-98.0) fL MCH 32.9 (27.0-33.0) pg MCHC 31.9 (31.0-36.0) g/dl RDW 14.7 (11.0-16.0) % Plt Count Not Reportable MPV Not Reportable Immature Gran % (Auto) 1.4 H (0.0-0.4) % Neut % (Auto) 82.8 H (45-73) % Lymph % (Auto) 7.8 L (20-40) % [place] % (Auto) 7.4 (2-11) % Eos % (Auto) 0.2 (0-4) % Baso % (Auto) 0.4 (0-2) % Lymph # (Auto) 0.8 L (1.2-4.9) X10*3/uL [place] # (Auto) 0.8 (0.1-1.2) X10*3/uL Eos # (Auto) 0.0 (0.0-0.4) X10*3/uL Baso # (Auto) 0.0 (0.0-0.2) X10*3/uL Abs Immat Gran (auto) 0.15 H (0.00-0.03) X10*3/uL Absolute Neuts (auto) 8.6 H (2.0-8.3) x10*3/uL Absolute Nucleated RBC 0.020 H (0.0-0.012) X10*3/uL Nucleated RBC % (auto) 0.2 (0.0-0.2) /100WBC Smear Tech's Comments VERIFIED Sodium 146 H (135-145) mmol/L Potassium 4.4 (3.3-5.1) mmol/L Chloride 114 H (96-108) mmol/L Carbon Dioxide 22 (22-29) mmol/L Anion Gap 14 (12-20) BUN 41 H (9-16) mg/dL Creatinine 2.05 H (0.5-1.4) mg/dL Estim Creat Clear Calc 21.6 Estimated GFR 31 Random Glucose 114 (60-115) mg/dL Calcium 9.6 D (8.4-10.2) mg/dL Magnesium 2.3 (1.6-2.6) mg/dL Total Bilirubin 0.6 (0.0-1.0) mg/dL AST 25 (5-37) U/L ALT 19 (0-40) U/L Alkaline Phosphatase 57 (39-117) U/L Total Protein 6.9 (6.5-8.0) g/dL Albumin 3.9 (3.5-5.0) g/dL TSH 0.18 L 0.13 L (0.32-4.0) uIU/mL Free T4 0.99 (0.71-1.85) ng/dL Urine Color Yellow Urine Appearance Clear Urine pH 6.0 (5.0-9.0) Ur Specific [place] 1.020 (1.005-1.025) Urine Protein 30 (1+) H (Neg-Trace) mg/dL Urine Glucose (UA) Negative (Negative) mg/dL Urine Ketones Negative (Negative) mg/dL Urine Blood Negative (Negative) Urine Nitrite Negative (Negative) Ur Leukocyte Esterase Negative (Negative) Urine RBC 0-2 (0-2) /HPF Urine WBC 0-5 (0-5) /HPF Ur Squamous Epith Cells 0-2 (0-2) /HPF Urine Bacteria None Seen (None Seen) Hyaline Casts 0-2 (0-2) /LPF Radiology Impression Discussion of test interpretation with radiology: I have reviewed the radiologist's reading. (No acute findings) Independent Historian Clinical information obtained from an independent historian. History obtained from or confirmed by: Other (Daughters) Discharge Plan Discharge Clinical Impression: Confusion and disorientation, Acute kidney injury superimposed on CKD, Psychosis Patient Disposition: Admitted As Inpatient
[2025-01-24 16:28] VITALS: BP 141/63; PULSE 102; RESP 14; TEMP 36.4; O2SAT 99; BMI 25.0
[2025-01-24 16:50] LABS: PLT CLUMP 1; SCAN SMEAR FLAG 1
[2025-01-24 17:00] LABS: Mean Corpuscular Hemoglobin 32.9 pg (27.0-33.0)
[2025-01-24 17:01] LABS: Hematocrit 32.6 % (42.0-52.0); Hemoglobin 10.4 g/dl (14.0-18.0); Imm Gran Abs Auto 0.15 X10*3/uL (0.00-0.03); Imm Gran Pct Auto 1.4 % (0.0-0.4); Lymphocytes Absolute Auto 0.8 X10*3/uL (1.2-4.9); MANUAL DIFF FLAG SCAN; Mean Corpuscular HGB Conc 31.9 g/dl (31.0-36.0); Mean Corpuscular Volume 103.2 fL (80.0-98.0); NRBC Abs Auto 0.020 X10*3/uL (0.0-0.012); NRBC Pct Auto 0.2 /100WBC (0.0-0.2); Red Blood Count 3.16 X10*6/uL (4.60-5.80)
[2025-01-24 17:06] LABS: Alanine Aminotransferase 19 U/L (0-40); Albumin Level 3.9 g/dL (3.5-5.0); Alkaline Phosphatase 57 U/L (39-117); Anion Gap 14 (12-20); Aspartate Amino Transferase 25 U/L (5-37); Blood Urea Nitrogen 41 mg/dL (9-16); Calcium 9.6 mg/dL (8.4-10.2); Carbon Dioxide 22 mmol/L (22-29); Chloride 114 mmol/L (96-108); Creatinine Clr Calc Pharmacy 21.6; Estimated Glomerular Filt Rate 31; Magnesium 2.3 mg/dL (1.6-2.6); Potassium 4.4 mmol/L (3.3-5.1); Sodium 146 mmol/L (135-145); Total Protein 6.9 g/dL (6.5-8.0)
--- NOTE | 2025-01-24 17:07 | PC.NURSE ---
Dtr at bedside pt fell at the end of Nov, admitted here for pna, went to STR, but now that hes returned back home, pt has been showing increasing signs of confusion and slightly agitated. Per dtr, pt lives by self at baseline. Pt denies ay c/o of pain at this time.
--- OUTSIDE RECORDS SUMMARY | 2025-01-24 17:21 | XMS_ITS | Encounter Summary ---
Author Organization [employer] Address [address] 7[address] [place] [address] Care Team Providers Care Pharmacist Assistant Name Role Phone Unavailable Primary Care Provider Unavailabl e Encounter Details Date Type Department Care Team (Latest Contact Info) Description 05/15/2018 Abstract [facility] CONVERSIONS Dental, Provider, DDS Social History [...]
--- OUTSIDE RECORDS SUMMARY | 2025-01-24 17:21 | XMS_ITS | Encounter Summary ---
Author Organization [employer] Address [address] [place] [address] Care Team Providers Care Bead Flipper Name Role Phone Unavailable Primary Care Provider Unavailabl e Encounter Details Date Type Department Care Team (Latest Contact Info) Description 09/11/2021 Abstract [facility] CONVERSIONS Dental, Provider, DDS Social History [...]
--- OUTSIDE RECORDS SUMMARY | 2025-01-24 17:21 | XMS_ITS | Clinical Summary ---
Author Organization [email or web address] Address [address] [place] [address] 7 [place] [address] Care Team Providers Care Rehab Aide Name Role Phone Unavailable Primary Care Provider [...]
[2025-01-24 17:28] LABS: White Blood Count 10.4 X10*3/uL (4.8-10.8)
[2025-01-24 18:02] VITALS: BP 138/61; PULSE 93; RESP 14; TEMP 36.6; O2SAT 100
--- NOTE | 2025-01-24 18:18 | MHC.EDTECH ---
Male Pure_wick on place.
[2025-01-24 20:06] LABS: Thyroid Stimulating Hormone 0.18 uIU/mL (0.32-4.0)
[2025-01-24 20:14] VITALS: BP 141/60; PULSE 93; RESP 16; TEMP 36.8; O2SAT 97
[2025-01-24 20:26] LABS: Appearance Urine Clear; Glucose Urine UA Negative (Negative); PH 6.0 (5.0-9.0); Specific Gravity - Urine 1.020 (1.005-1.025); UMIC TRIGGER UACC YES
--- NOTE | 2025-01-24 21:18 | PC.NURSE ---
Reprt to Cyndy BUSH, ED overflow
--- NOTE | 2025-01-24 21:54 | MHC.CM.ED ---
Addendum entered by Stephanie Duran 01/24/25 22:07: Pt was hospitalized at [facility] 12/17-12/21 with a fall and was discharged to [facility] for PT Original Note: CM met with patient and daughters. Pt is A&Ox2. Not sure why he is here. Pt feels he is fine at home and has some help from his family. Pt lives alone. Uses a walker. Has a life alert. Gets MOW. Pt was in for 34 years-[employer]. Has [employer], [employer] and Medicare. Visiting nurse called daughter and told her her father was not safe at home. Laminara called PCP. Pt has no formal diagnosis of dementia. OT did a MOCA at home. Pt scored 7/30. Pt is having increasing confusion at home. Family is concerned. Pt has PCP appointment on Friday. Pt does have some funds at home. Family is having a meeting tomorrow to discuss plan of care for their father. Daughters have been helping with meals at home over past several weeks. Pt was recently at [facility]. Had falls and pneumonia. Pt needs help with the shower. Does not remember how to use his cell phone. Cannot call for help. Was driving in November. PT is pending. Family given list of [facility] with memory care. Family tells that [facility] MEDICAL ASSISTANT SECRETARY. Family aware of options, including family home care with help, paid home care, STR, LTC and assisted living memory care. Sofia aware of ED visit via [facility]. Pt to overflow. PT pending. Will meet with family tomorrow regarding D/C plan
[2025-01-25 05:10] VITALS: BP 153/66; PULSE 94; RESP 18; TEMP 36.6; O2SAT 95
--- NOTE | 2025-01-25 08:46 | PHA.MEDREC ---
Pharmacy Consult ? Medication Reconciliation Pharmacy has completed the medication reconciliation. Spoke with patients daughter, Katerine.
--- NOTE | 2025-01-25 12:28 | MHC.CM.ED ---
Spoke with pt's dtr about PT eval (home services) She remains very concerned about pt's sudden loss of cognitive fx and would like to speak with the provider about additional testing/diagnostics. Message given to COLIN Rodney - dtr to visit pt in ED later this afternoon and will request a meeting. Pt has [facility] insurance. No STR needs identified: [facility] is active with [facility]. ED CM to follow for finalization of d/c needs.
[2025-01-25 12:57] VITALS: BP 116/49; PULSE 94; RESP 16; TEMP 36.6; O2SAT 97
[2025-01-25 14:00] VITALS: BP 119/52; PULSE 94; RESP 18; TEMP 37; O2SAT 97
[2025-01-25 14:30] VITALS: BP 119/51
[2025-01-25 18:49] LABS: Free T4 (Free Thyroxine) 0.99 ng/dL (0.71-1.85)
[2025-01-25 20:00] VITALS: BP 128/58; PULSE 100; RESP 14; TEMP 37.6; O2SAT 96
[2025-01-26 05:00] VITALS: BP 145/69; PULSE 94; RESP 16; TEMP 36.9; O2SAT 98
--- NOTE | 2025-01-26 05:06 | PC.NURSE ---
0500 Patient up throughput night, resting intermittenty. Jumps out of bed frequently and requires redirection. Patient confused to place/time. Walks to bathroom with walker with stand by assist. Safety measures in place, bed alarm on, call cast within reach.
--- NOTE | 2025-01-26 07:26 | PC.NURSE ---
This Rn assumed care of patient @ 0700 Patient standby with walker, ambulated to bathroom. + Void denies SI/HI and A/V hallucinations 22 RAC yellow gripper socks in place Bed alarm on and working Patient looking for his clothing, reminded patient that hes in the hospital and can get dressed on discharge Patient resting comfortably in bed, call cast in reach
[2025-01-26 09:16] VITALS: BP 145/69
--- NOTE | 2025-01-26 10:51 | PM.IMHP ---
History of Present Illness Date of Service: 01/26/25 Attending physician on admission: Ian Alcantar Chief Complaint: Encephalopathy 89-year-old male who was brought in by his family as he was experiencing personality changes, forgetfulness. Per family member, patient was able to drive about 1 month ago, however after being rehab had worsening. Patient was placed on steroids due to gout flare, however he was still taking his refills, in the ED was placed under observation, however after low in improvement, admitted. Patient is alert and oriented x3 at this time, prior labs showing sodium of 146, creatinine 2.0 with baseline around 1.5. Review of Systems Review of Systems: Fourteen point review of systems obtained, negative except as stated above. [facility] Medical History Kidney stones Hepatitis C virus GERD (gastroesophageal reflux disease) HTN (hypertension) Elevated PSA History of kidney stones Weak urinary stream BPH (benign prostatic hyperplasia) Hematuria Family History Father Prostate cancer Mother CVD (cardiovascular disease) Surgical History H/O lithotripsy H/O wisdom tooth extraction Social History Household Members: None Housing: House Do you presently have visiting nurse or other home services: No Alcohol intake: former Patient Tobacco Use Status: Former Tobacco user Smoked in Last 30 Days: No Use of substances other than those prescribed or required for medical reasons: No Advance Directives: No Advance Directives Information Provided: Yes Do you have a plan to hurt others: No Plan service: Yes Meds Allergies Allergy/AdvReac Type Severity Reaction Status Date / Time No Known Allergies Allergy Verified 01/24/25 16:31 Active Medications: Current Medications Acetaminophen (Acetaminophen 325 Mg Tablet) 650 mg PO Q6H PRN PRN Reason: Pain, Mild 1-3,fever,headache Calcium Carbonate (Calcium Carbonate 750 Mg Tab.Chew) 750 mg PO Q4H PRN PRN Reason: Heartburn Finasteride (Finasteride 5 Mg Tablet) 5 mg PO DAILY CHRISTIANO Last Admin: 01/26/25 09:16 Dose: 5 mg Lisinopril (Lisinopril 40 Mg Tablet) 40 mg PO DAILY [facility]; Protocol Last Admin: 01/26/25 09:16 Dose: 40 mg Magnesium Hydroxide (Milk Of Magnesia 30 Ml Oral.Susp) 30 ml PO DAILY PRN PRN Reason: Constipation Melatonin (Melatonin 3 Mg Tablet) 6 mg PO BEDTIME PRN PRN Reason: Insomnia Non-Formulary Medication (Tadalafil) 5 mg PO DAILY [facility] Prednisone (Prednisone 2.5 Mg Tablet) 5 mg PO DAILY [facility]; Taper Stop: 02/07/25 11:14 Last Admin: 01/26/25 10:37 Dose: 5 mg Sodium Chloride (0.9 % Sodium Chloride Flush 3 Ml Syringe) 3 [facility] Tamsulosin HCl (Tamsulosin Hcl 0.4 Mg Capsule) 0.4 mg PO BEDTIME [facility] Last Admin: 01/25/25 20:44 Dose: 0.4 mg Home Medications ?Medication ?Instructions ?Recorded ?Confirmed ?Last Taken ?Type finasteride 5 mg tablet 5 mg PO DAILY 01/25/25 01/25/25 01/24/25 History lisinopril 40 mg tablet 40 mg PO DAILY 01/25/25 01/25/25 01/24/25 History prednisone 2.5 mg tablet See Taper PO DAILY 01/25/25 01/25/25 01/24/25 History tadalafil 5 mg tablet 5 mg PO DAILY 01/25/25 01/25/25 01/24/25 History tamsulosin 0.4 mg capsule 0.4 mg PO BEDTIME 01/25/25 01/25/25 01/24/25 History Physical Exam Vital Signs and Narrative: Vital Signs: Last Vital Signs Temp 98.5 F 01/26/25 05:00 Pulse 94 01/26/25 05:00 Resp 16 01/26/25 05:00 BP 145/69 H 01/26/25 09:16 Pulse Ox 98 01/26/25 05:00 O2 Del Method Room Air 01/26/25 05:00 BMI result Body Mass Index 25.0 General: AxOx3, No acute distress Head: AT/NC ENT: Moist mucous membranes Neck: supple CVS; RRR, S1 S2 normal Lungs: Clear bilateral breath sounds, no wheezes or crackles Abd: Soft non tender, non distended Ext: No edema and no calf tenderness MSK: moving all 4 limbs Skin: No cyanosis or edema Psych: Cooperative with exam Neurology: no focal deficit Results Labs 01/24/25 16:39 01/24/25 16:39 Labs: Laboratory Results - last 24 hr 01/25/25 17:08 TSH 0.13 L Free T4 0.99 Assessment and Plan (1) Acute kidney injury superimposed on CKD: Status: Acute (2) BPH (benign prostatic hyperplasia): Status: Acute (3) Toxic metabolic encephalopathy: Status: Acute Plan Assessment: 89 year old male with past medical history significant for HTN, HLD, BPH, GERD, hepatitis-C, nephrolithiasis who was brought in to the hospital by family for worsening mentation, with episodes of forgetfulness. On labs with sodium of 146 and creatinine 2.0 Impression Toxic metabolic encephalopathy, could be related to dehydration as well as high-dose steroids improved -head CT with chronic small vessel ischemic changes -we will repeat labs, if needed we will initiate IV fluids -we will rule out any metabolic causes at this time, continue to monitor -continue with prednisone taper -fall precautions Hypernatremia -Sodium 146, we will repeat BNP, to initiate IV fluids if needed. SELWYN on CKD stage 3 -Creatinine 2.0, up from patient's baseline, we will initiate IV fluids if needed, BNP ordered Hypertension -continue lisinopril 40 mg q.d., if needed we will hold off pending on BMP results. BPH Continue tamsulosin and finasteride Ambulatory dysfunction -PT/OT consulted FEN: pending repeat BMP, replete as needed, Cardiac GI PPx: Protonix while on steroids DVT PPx: SCDs/Heparin given CKD Code Status: Full Code Disposition: All questions and concerns with the patient were answered to satisfaction. All pertinent clinical documents, images and labs were reviewed. 55 minutes spent for patient admission DISCLAIMER: This document was created using voice recognition software. Any mistakes in the prescription are unintentional. An attempt was made to focus for accuracy, but to expedite availability, some errors may persist. Please contact with any need for correction or further clarification Total time managing care of this patient today: 55 minutes. Quality Stroke Does the patient have a stroke diagnosis?: No VTE Prior VTE?: No VTE Risk Level:: Medical - low VTE Device Contraindication: N/A - Device Ordered VTE Drug Contraindication: N/A - Med Ordered
[2025-01-26 13:29] VITALS: BP 128/54; PULSE 103; RESP 18; TEMP 37; O2SAT 96
[2025-01-26 15:55] VITALS: BP 149/67; PULSE 99; RESP 17; TEMP 36.5; O2SAT 96; BMI 24.6
[2025-01-26] MEDS: 0.9 % Sodium Chloride Flush 3 ML SYRINGE IVFLUSH ×2 (16:10→23:08)
[2025-01-26] MEDS: Lactated Ringers 1,000 ML 80 ML IVCONT (16:45)
[2025-01-26 19:01] VITALS: BP 141/66; PULSE 101; RESP 17; TEMP 36.8; O2SAT 97
[2025-01-27 04:00] VITALS: BP 121/61; PULSE 97; RESP 18; TEMP 36.5; O2SAT 96
[2025-01-27] MEDS: Lactated Ringers 1,000 ML 80 ML IVCONT ×2 (05:46→19:20)
[2025-01-27 05:56] LABS: Hematocrit 25.5 % (42.0-52.0); Hemoglobin 8.3 g/dl (14.0-18.0); Mean Corpuscular HGB Conc 32.5 g/dl (31.0-36.0); Mean Corpuscular Hemoglobin 32.7 pg (27.0-33.0); Mean Corpuscular Volume 100.4 fL (80.0-98.0); NRBC Abs Auto 0.000 X10*3/uL (0.0-0.012); NRBC Pct Auto 0.0 /100WBC (0.0-0.2); Platelet Count 170 X10*3/uL (160-400); Red Blood Count 2.54 X10*6/uL (4.60-5.80); White Blood Count 7.3 X10*3/uL (4.8-10.8)
[2025-01-27 06:11] LABS: Anion Gap 12 (12-20); Blood Urea Nitrogen 32 mg/dL (9-16); Calcium 8.7 mg/dL (8.4-10.2); Carbon Dioxide 21 mmol/L (22-29); Chloride 113 mmol/L (96-108); Creatinine Clr Calc Pharmacy 27.0; Estimated Glomerular Filt Rate 40; Magnesium 2.0 mg/dL (1.6-2.6); Potassium 4.2 mmol/L (3.3-5.1); Sodium 142 mmol/L (135-145)
[2025-01-27 07:23] VITALS: BP 145/66; PULSE 99; RESP 16; TEMP 36.3; O2SAT 96
--- NOTE | 2025-01-27 09:33 | P.DS_ITS ---
DS: Providers Provider Date of Service: 01/27/25 Date of admission: 01/26/25 09:24 Date of discharge: 01/27/25 Primary care physician: Dallas Lara MD Admitting clinician: Ian Alcantar Attending physician on admission: Ian Alcantar Consults: 01/24/25 19:22 Consult to Case Management Stat Comment: help with resources outpatient, Attending physician on discharge: Ian Alcantar Discharging clinician: Ian Alcantar DS: Diagnosis Discharge Diagnosis (1) Acute kidney injury superimposed on CKD: Status: Acute (2) BPH (benign prostatic hyperplasia): Status: Acute (3) Toxic metabolic encephalopathy: Status: Acute DS: Summary Hospital Course Hospital Course: 89 year old male with past medical history significant for HTN, HLD, BPH, GERD, hepatitis-C, nephrolithiasis who was brought in to the hospital by family for worsening mentation, with episodes of forgetfulness. CT scan with chronic small-vessel ischemic changes, On labs with sodium of 146 and creatinine 2.0 patient started on IV fluids, with improvement of symptoms. Patient to continue on prednisone taper after being on prolonged steroids for gout flare. Patient is alert and oriented x3, on discharge, patient states that he is feeling better, denies any complaints at this time. Impression Toxic metabolic encephalopathy, could be related to dehydration as well as high- dose steroids improved, may have underlying cognitive dysfunction -head CT with chronic small vessel ischemic changes -continue with prednisone taper -follow up w/ neuro as outpatient, to consider MRI as outpatient if indicated -fall precautions Hypernatremia, resolved -S/P IV F YOBANY on CKD stage 3, resolved -Back at patient's baseline, follow up w/ nephro and PCP as outpatient Hypertension -continue lisinopril 40 mg q.d. BPH Continue tamsulosin and finasteride All new and continued medications were discussed in depth with the patient, and new prescriptions were given directly to patient and/or verification of the prescriptions were sent to patient's preferred pharmacy directly. All side effects were discussed. Follow-up instructions were given. Patient voiced understanding. Patient was given the opportunity ask questions and express concerns, all of which were answered to their satisfaction. Patient was instructed to follow-up with his PCP within 3 to 10 days of discharge and head to the nearest emergency room or call 911 if symptoms worsen or new symptoms develop. This is a summary of the patient's stay; for more complete details please see chart. More than 35 minutes was spent with patient regarding workup, diagnosis and follow-up. Time Attestation Discharge Coordination Time (in mins): 35 minutes Quality: Safe Use of Opioids Does Pt have an Active Cancer Diagnosis on the Problem List?: No Quality: Stroke Does the patient have a stroke diagnosis?: No Physical Exam Exam: Exam: General: AxOx3, No acute distress Head: AT/NC ENT: Moist mucous membranes Neck: supple CVS; RRR, S1 S2 normal Lungs: Clear bilateral breath sounds, no wheezes or crackles Abd: Soft non tender, non distended Ext: No edema and no calf tenderness MSK: moving all 4 limbs Skin: No cyanosis or edema Psych: Cooperative with exam Neurology: no focal deficit Vital Signs: Vital Signs: Last Vital Signs Temp 97.3 F 01/27/25 07:23 Pulse 99 01/27/25 07:23 Resp 16 01/27/25 07:23 BP 145/66 H 01/27/25 07:23 Pulse Ox 96 01/27/25 07:23 O2 Del Method Room Air 01/27/25 07:23 BMI result Body Mass Index 24.6 DS: Data Data Completed and Pending Labs on day of discharge: Laboratory Results - last 24 hr 01/27/25 05:28 WBC 7.3 RBC 2.54 L Hgb 8.3 L D Hct 25.5 L D MCV 100.4 H MCH 32.7 MCHC 32.5 RDW 14.0 Plt Count 170 D MPV 9.7 Absolute Nucleated RBC 0.000 Nucleated RBC % (auto) 0.0 Sodium 142 Potassium 4.2 Chloride 113 H Carbon Dioxide 21 L Anion Gap 12 BUN 32 H Creatinine 1.64 H Estim Creat Clear Calc 27.0 Estimated GFR 40 Random Glucose 111 Calcium 8.7 D Magnesium 2.0 Discharge Plan Discharge Anticipated Discharge Date/Time: 01/27/25 00:16 Patient Disposition: Home Health Service Discharge Diagnosis: Encephalopathy, cognitive dysfunction, YOBANY on CKD Referrals: Dallas Lara MD [Primary Care Provider, Internal Medicine] - 1 Week Discharge Medications: New prednisone 1 mg Tablet 1 mg PO DAILY 12 Days Qty: 30 0RF Rx Instructions: 4 mg x 3 days. then 3 mg x 3 days then 2 mg x 3 days then 1 mg x 3 days Continued lisinopril 40 mg tablet 40 mg PO DAILY finasteride 5 mg tablet 5 mg PO DAILY tadalafil 5 mg tablet 5 mg PO DAILY tamsulosin 0.4 mg capsule 0.4 mg PO BEDTIME Discontinued prednisone 2.5 mg tablet See Taper PO DAILY Taper: Prednisone 5 mg daily for 1 Day and 0 Hour 4 mg daily for 3 Days and 0 Hour 3 mg daily for 3 Days and 0 Hour 2 mg daily for 3 Days and 0 Hour 1 mg daily for 3 Days Rx Instructions: patient is to be on 5 mg x 3 days. today is the last day. tomorrow starts 4 mg x 3 days. 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 CT scan with chronic small-vessel ischemic changes, On labs with sodium of 146 and creatinine 2.0 patient started on IV fluids, with improvement of symptoms. Patient to continue on prednisone taper after being on prolonged steroids for gout flare. Patient is alert and oriented x3, on discharge, patient states that he is feeling better, denies any complaints at this time Patient Instructions: Encephalopathy (DC), Mild Cognitive Impairment: New Diagnosis (DC)
--- NOTE | 2025-01-27 10:31 | MHC.CM.PN ---
Addendum entered by Vira Weeks 01/27/25 10:51: [place], [place] REPORTS PT WOULD BE ELIGIBLE FOR EMS EDUCATOR SERVICES [facility] ACUTE REHAB COVERAGE THROUGH THEM, HOWEVER [place]EN [place]. SHE REPORTS, PT CAN REQUEST A NEW PT APPT FOR THE [facility] OR [facility] OFFICE, AND ONCE HE SEES THE PROVIDER, SERVICES CAN BE INITIATED MESSAGE SENT TO DAUGHTERMARITZA, EXPLAINING PROCESS AND REQUIREMENTS FOR [facility] SERVICES Addendum entered by Vira Weeks 01/27/25 10:33: ANGELIKA SPOKE TO PTS DAUGHTER/HCPMARITZA [phone] SHE CONFIRMS THE INFORMATION PROVIDED BY THE PT IS ACCURATE SHE SAYS SHE BROUGHT A COPY OF THE HCP INTO THE ED DATA ANALYTICS ARCHITECT SHE SAYS SHE HAS BEEN TRYING TO GET SERVICES THROUGH THE [facility], CM WILL CALL THEM TO DETERMINE IF PT IS ELIGIBLE SHE UNDERSTANDS THE PT IS CLEARED TO DC, SHE IS WORKING BUT WILL CONTACT HER SISTERS TO DETERMINE IF ANYONE IS AVAILABLE EARLIER IF MARITZA HAS TO TRANSPORT, SHE WILL HAVE TO GO TO PTS HOME FOR CLOTHES AFTER SHE GETS OUT OF WORK AT [phone] HOURS, AND THEN COME BACK FOR HIM Original Note: PT REPORTS HE LIVES ALONE AND IS INDEPENDENT WITH SELF CARE HE IS ACTIVE WITH [employer] AND [facility] PT HAS A WALKER AND LIFE ALERT HE SAYS HIS DAUGHTER, MARITZA, IS HIS HCP PCP: JOSSELIN BRITO OBSERVATION NOTICE DELIVERED DCP: PT CLEARED TO DC HOME TODAY WITH RESUMPTION OF SERVICES FAMILY TO TRANSPORT
[2025-01-27 15:07] VITALS: BP 141/60; PULSE 95; RESP 16; TEMP 36.1; O2SAT 97
--- NOTE | 2025-01-27 15:44 | MHC.SP.ADU ---
Referring provider: Ian Zabala Reason for Referral: Cognitive impairment Type of Treatment: 64503 Standardized Cognitive Performance Testing, per hour Date of Plan of Treatment: 01/27/25 Onset of Symptoms/Illness: 01/24/25 Date Treatment Started: 01/27/25 Medical Diagnosis: (1) Acute kidney injury superimposed on CKD: Status: Acute (2) BPH (benign prostatic hyperplasia): Status: Acute (3) Toxic metabolic encephalopathy: Status: Acute Primary Speech Language Diagnosis: R41.841 Cognitive communication disorder Secondary Speech Language Diagnosis: History Per H&P Note: 89 year old male with past medical history significant for HTN, HLD, BPH, GERD, hepatitis-C, nephrolithiasis who was brought in to the hospital by family for worsening mentation, with episodes of forgetfulness. On labs with sodium of 146 and creatinine 2.[address] showing small vessel changes. Patient's toxic encephalopathy could be related to dehydration. MD consulting OCCUPATIONAL THERAPIST PER DIEM for cognitive evaluation. Medical History: Other: See below Other: Kidney stones, Hepatitis C virus, GERD (gastroesophageal reflux disease), HTN (hypertension), Elevated PSA, History of kidney stones, Weak urinary stream, BPH (benign prostatic hyperplasia), Hematuria Medication List: Recent Hospitalizations: No Respiratory Needs: Room Air Patient Orientation: Alert & Oriented x 4 Social History: Employment Status: Retired Highest level of education obtained: Unknown/Unable to report Current Living Situation: Patient currently lives only but does have family that supports/provides aid when needed. Family assists with medication management, cooking, finance, among others. Assistive Devices in use: Glasses/Contacts Past Speech Language Therapy: Other Therapies Seen in Current Calendar Year: Occupational Therapy Physical Therapy Other: Receiving both OT/PT while in-patient Reported Speech, Language, Cognition difficulties: Cognition Comments: Per admission note; family with concerns of worsening mentation and increased episodes of forgetfulness Assessment Tests of Cognition: Clinical Impression: Impaired Observations: Informal Cognition assessment completed this date: NAMING- Patient able to name 6/6 objects when shown, able to divergently name 10/10, convergent 4/5. READING: Patient able to read 6/6 letters, 10/10 words, and 5/5 sentences. When shown picture; patient able to adequate describe what was occurring. Patient did repeat himself and require prompting to expand descriptions: he's stealing out of the cookie jar and handing it to the girl. MENTAL ORGANIZATION- Patient able identify holidays and order from Mar-Feb (06/25), patient able to recite months of the year in backwards order with no assistance. MATH- Patient completing daily math questions; 2/6 correct, patient able to increase score to 4/6 when prompted to re-read question. When break-down of question required, patient able to understand and correct answer. COMMANDS- Patient able to follow 2-steps commands, difficult noted when complexity increased. YES/NO ?s: Patient able to correctly answer 4/5 simple yes/no questions, 5/5 complex yes/no questions and 4/5 comparative yes/no questions. NOTE- patient with some difficulties hearing; OCCUPATIONAL THERAPIST PER DIEM increasing volume and repetitions required. Impressions and Recommendations Summary: Patient presents with mild cognitive impairment that is likely d/t advanced age. Patient with deficits in areas of problem solving and memory. Patient already receiving assistance for cognitive IADLs (i.e. managing medications, cooking, finances, etc.). Patient does report that he occasionally completes his own finances. It is recommended that patient continue with support at home and if patient does complete IADL for family to double check for correctness. Patient with no concerns for cognition or confusion. RN also with no concerns per patient's cognition. Per MD discharge, recommend follow up with PCP and neurology if concerns remain. Discussed evaluation and recommendations with patient; patient understanding and agreeing with POC. No further ST warranted at this time as patient likely at cognitive baseline given advanced age. Please re-consult if any difficulties/concerns arise. Recommendation for Speech Therapy: NA:Typical Evaluation Frequency/Duration: D/C Date Range for Service Requested: Time to Reassess: Recommended Referrals to be Discussed with Primary Care Provider: Neurology Patient Education: Completed: Yes Patient/Caregiver Education: Described Results of Evaluation Patient expressed understanding of evaluation Patient agrees with goals and treatment plan Comments/Barriers to Learning: Heavy [employer]il Winder Clinican/Clinical Fellow: No Supervisory Statement: No Speech Language Pathologist: Naila March M.A., [facility]-OCCUPATIONAL THERAPIST PER DIEM
[2025-01-27 20:00] VITALS: BP 129/59; PULSE 92; RESP 18; TEMP 36.7; O2SAT 96
[2025-01-28 03:58] VITALS: BP 162/70; PULSE 92; RESP 17; TEMP 36.7; O2SAT 98
[2025-01-28] MEDS: Lactated Ringers 1,000 ML 80 ML IVCONT (06:37)
[2025-01-28 07:59] VITALS: BP 140/64; PULSE 96; RESP 18; TEMP 36.7; O2SAT 97
--- NOTE | 2025-01-28 09:34 | MHC.CM.PN ---
PT DCD TODAY WITH BRANDEE
--- NOTE | 2025-01-28 10:49 | HO.PM.IMPN ---
Subjective Subjective Date of Service: 01/28/25 Interval History: Patient seen examined at bedside this morning, patient yesterday became encephalopathic overnight, at this time patient alert and oriented x3, denies any complaints. No fevers, not tachycardic. Patient at this time is able to be discharged home, to follow up with PCP and Neurology as outpatient setting for further workup. Review of Systems Review of Systems: Yes all other systems are reviewed and are negative Physical Exam Exam: Exam: General: AxOx3, No acute distress Head: AT/NC ENT: Moist mucous membranes Neck: supple CVS; RRR, S1 S2 normal Lungs: Clear bilateral breath sounds, no wheezes or crackles Abd: Soft non tender, non distended Ext: No edema and no calf tenderness MSK: moving all 4 limbs Skin: No cyanosis or edema Psych: Cooperative with exam Neurology: no focal deficit Vital Signs: Vital Signs: Last Vital Signs Temp 98.0 F 01/28/25 07:59 Pulse 96 01/28/25 07:59 Resp 18 01/28/25 07:59 BP 140/64 H 01/28/25 07:59 Pulse Ox 97 01/28/25 07:59 O2 Del Method Room Air 01/28/25 07:59 BMI result Body Mass Index 24.6 Objective Data Active Medications Acetaminophen (Acetaminophen 325 Mg Tablet) 650 mg PO Q6H PRN PRN Reason: Pain, Mild 1-3,fever,headache Calcium Carbonate (Calcium Carbonate 750 Mg Tab.Chew) 750 mg PO Q4H PRN PRN Reason: Heartburn Finasteride (Finasteride 5 Mg Tablet) 5 mg PO DAILY [facility] Last Admin: 01/28/25 08:05 Dose: 5 mg Documented By: DILLON Heparin Sodium (Porcine) (Heparin Sodium,Porcine 5,000 Unit/Ml Vial) 5,000 unit SUBCUT Q12H [facility] Last Admin: 01/28/25 00:09 Dose: 5,000 unit Documented By: CECE Lactated Ringer's (Lr) 1,000 mls @ 80 mls/hr IVCONT .[id number] [facility] Last Admin: 01/28/25 06:37 Dose: 80 mls/hr Documented By: CECE Lisinopril (Lisinopril 40 Mg Tablet) 40 mg PO DAILY [facility]; Protocol Last Admin: 01/28/25 08:06 Dose: 40 mg Documented By: DILLON Magnesium Hydroxide (Milk Of Magnesia 30 Ml Oral.Susp) 30 ml PO DAILY PRN PRN Reason: Constipation Melatonin (Melatonin 3 Mg Tablet) 6 mg PO BEDTIME PRN PRN Reason: Insomnia Non-Formulary Medication (Tadalafil) 5 mg PO DAILY [facility] Pantoprazole Sodium (Pantoprazole Sodium 40 Mg/10 Ml Vial) 40 mg IVPUSH DAILY@0630 [facility] Last Admin: 01/28/25 06:36 Dose: 40 mg Documented By: CECE Prednisone (Prednisone 1 Mg Tablet) 4 mg PO DAILY [facility]; Taper Stop: 02/07/25 08:59 Last Admin: 01/28/25 08:06 Dose: 4 mg Documented By: DILLON Sodium Chloride (0.9 % Sodium Chloride Flush 3 Ml Syringe) 3 ml IVFLUSH QSHIFT [facility] Last Admin: 01/28/25 08:08 Dose: Not Given Documented By: DILLON Non-Admin Reason: IV Running Tamsulosin HCl (Tamsulosin Hcl 0.4 Mg Capsule) 0.4 mg PO BEDTIME [facility] Last Admin: 01/27/25 20:29 Dose: 0.4 mg Documented By: ELVINASY Labs 01/27/25 05:28 01/27/25 05:28 Assessment and Plan (1) Toxic metabolic encephalopathy: Status: Acute Plan 89-year-old male who presented to the hospital for encephalopathy and cognitive dysfunction, new onset. Was discharged yesterday, however at nighttime patient had confusion, today patient is back to baseline. Impression Encephalopathy, improved, may have underlying cognitive dysfunction with owning at night -head CT with chronic small vessel ischemic changes -continue with prednisone taper -follow up w/ neuro as outpatient, to consider MRI as outpatient if indicated -fall precautions SELWYN on CKD stage 3, resolved -Back at patient's baseline, follow up w/ nephro and PCP as outpatient Hypertension -continue lisinopril 40 mg q.d. BPH Continue tamsulosin and finasteride Total time managing care of this patient today: 35 minutes. Quality Stroke Does the patient have a stroke diagnosis?: No VTE Prior VTE?: No VTE Risk Level:: Medical - low VTE Device Contraindication: N/A - Device Ordered VTE Drug Contraindication: N/A - Med Ordered
[2025-01-28 13:03] VITALS: BP 129/60; PULSE 100; RESP 18; TEMP 36.4; O2SAT 99
--- OUTSIDE RECORDS SUMMARY | 2025-03-04 19:00 | XMS_ITS | Clinical Summary ---
Author Organization Unknown Care Team Providers Care Station Captain Name Role Phone ALISHA REESE, JOSSELIN Unavailable Unavailable STEFANY OT, LEXI Unavailable Unavailabl e DEV PT, MEY Unavailable Unavailable JOHN (HPH) H[facility] - VIROLOGIST, AAKASH Unavailable Unavailable VERITO RN, SANDHYA Unavailable Unavailable Payers Payer Name Policy Type Policy Number Effective Date Expira tion Date MEDICARE - [place]GS [place]/PR - PD [id number] Problems Condition Name Condition Details Condition Category [...] to health literacy Active 03-24 00:00: 00 PAVER OPERATOR (CURRENT) USE OF SYSTEMIC STEROIDS Active 03-24 00:00: 00 Allergies, Adverse Reactions, Alerts Allergy Name Allergy Type Status Severity Reaction(s) Onset Date Inactive Date Treating Clinician Comments NKA Propensity to adverse reactions Active 2024-12 11:08:1 4 Immunizations Ordered Immunization Name Filled Immunization Name Date Status Comments Refusal Reason COVID BOOSTER, COVID BOOSTER 2024-06-28 00:00:00 Vital Signs Vital Name Observation Time Observation Value Commen ts Temperature 2025-01-21 15:47:00.000 97.6 [degF] Temperature 2025-01-20 16:24:00.000 97.5 [degF] Temperature 2025-01-18 11:05:00.000 97.5 [degF] Temperature 2025-01-14 12:55:00.000 97.6 [degF] Temperature 2025-01-13 10:45:00.000 97.8 [degF] Temperature 2025-01-11 15:11:00.000 97.9 [degF] Temperature 2025-01-11 12:36:00.000 98.6 [degF] Temperature 2025-01-05 11:23:00.000 98.2 [degF] BMI (%) 2025-01-05 11:23:00.000 25 kg/m2 Height 2025-01-05 11:23:00.000 65 [in_us] Pulse 2025-01-21 15:47:00.000 98 /min Pulse 2025-01-20 16:24:00.000 98 /min Pulse 2025-01-19 10:11:00.000 100 /min Pulse 2025-01-18 11:05:00.000 105 /min Pulse 2025-01-14 12:55:00.000 61 /min Pulse 2025-01-13 10:45:00.000 83 /min Pulse 2025-01-12 10:36:00.000 66 /min Pulse 2025-01-11 15:11:00.000 92 /min Pulse 2025-01-11 12:36:00.000 105 /min Pulse 2025-01-05 11:23:00.000 101 /min O2 Saturation (%) 2025-01-19 10:11:00.000 93 % O2 Saturation (%) 2025-01-18 11:05:00.000 98 % O2 Saturation (%) 2025-01-14 12:55:00.000 97 % O2 Saturation (%) 2025-01-13 10:45:00.000 100 % O2 Saturation (%) 2025-01-12 10:36:00.000 98 % O2 Saturation (%) 2025-01-11 15:11:00.000 95 % O2 Saturation (%) 2025-01-11 12:36:00.000 96 % O2 Saturation (%) 2025-01-05 11:23:00.000 98 % Respirations 2025-01-21 15:47:00.000 17 /min Respirations 2025-01-20 16:24:00.000 18 /min Respirations 2025-01-18 11:05:00.000 18 /min Respirations 2025-01-14 12:55:00.000 17 /min Respirations 2025-01-13 10:45:00.000 16 /min Respirations 2025-01-11 15:11:00.000 17 /min Respirations 2025-01-11 12:36:00.000 18 /min Respirations 2025-01-05 11:23:00.000 16 /min Weight (lbs) 2025-01-13 10:45:00.000 151 [lb_av] Weight (lbs) 2025-01-11 12:36:00.000 151.8 [lb_av] Weight (lbs) 2025-01-05 11:23:00.000 156 [lb_av] Systolic Blood Pressure 2025-01-21 15:47:00.000 122 mm [...] 11:23:00.000 122 mm [Hg] Diastolic Blood Pressure 2025-01-21 15:47:00.000 [...] SKILLED NU RSE TO INSTRUCT PATIENT/CAREGIVER ON SIGNS AND SYMPTOMS, RISK FACTORS, COMPLICATIONS, AND MANAGEMENT OF ATRIAL FIBRILLATION. [code = SKILLED NURSE TO INSTRUCT PATIENT/CAREGIVER ON SIGNS AND SYMPTOMS, RISK FACTORS, COMPLICATIONS, AND MANAGEMENT OF ATRIAL FIBRILLATION.] Future Scheduled Test SKILLED NU RSE TO [...] MAINTAIN SITUATIONAL AWARENESS AND WILL NOTIFY CLINICAL KEYMODULE ASSEMBLY SUPERVISOR AND PHYSICIAN/PROVIDER WITH ANY CHANGE IN CONDITION. [code = SKILLED NURSE TO PERFORM ENVIRONMENTAL SAFETY RISK ASSESSMENT AND FALL RISK ASSESSMENT AND PROVIDE INSTRUCTION TO IMPLEMENT ENVIRONMENTAL SAFETY AND FALL PREVENTION STRATEGIES THROUGHOUT THE CERTIFICATION PERIOD. SKILLED NURSE WILL MAINTAIN SITUATIONAL AWARENESS AND WILL NOTIFY CLINICAL [employer]MODULE ASSEMBLY SUPERVISOR AND PHYSICIAN/PROVIDER WITH ANY CHANGE IN CONDITION.] [...] FOR SHOWERING. TUG SCORE AND 30 SECOND [id number] INDICATE THAT PATIENT IS A FALL RISK. [...] TO SEE A FRIEND WHO IS A HALFWAY AND HE FELL IN THE PARKING LOT. [...] FOR SHOWERING. TUG SCORE AND 30 SECOND [id number] INDICATE THAT PATIENT IS A FALL RISK. [...] TO SEE A FRIEND WHO IS A HALFWAY AND HE FELL IN THE PARKING LOT. PATIENT IS A APPROPRIATE CANDIDATE FOR SKILLED PHYSICAL THERAPY TO ADJUST PHYSICAL IMPAIRMENTS AND FUNCTIONAL LIMITATIONS. PATIENT VERBALIZED AGREEMENT WITH PLAN OF CARE. MD NOTIFIED.] Future Scheduled Test OCCUPATION AL THERAPIST [...] THERAPIST UPON EVAL. PATIENT ABLE TO PERFORM [id number] TRANSFER WITH CUES FOR PROPER HAND PLACEMENT [...] STEP IN WITH MEALS ON WHEELS AND AIR GUN OPERATOR FOR SHOWER LEVEL BATHING. PATIENT'S MAIN CONCERN [...] RECOMMENDED PATIENT HAVE FAMILY REACH OUT TO [facility] TO OBTAIN ON A TRIAL BASIS THEY [...] THERAPIST UPON EVAL. PATIENT ABLE TO PERFORM [id number]-[id number] TRANSFER WITH CUES FOR PROPER HAND PLACEMENT [...] STEP IN WITH MEALS ON WHEELS AND AIR GUN OPERATOR FOR SHOWER LEVEL BATHING. PATIENT'S MAIN CONCERN [...] RECOMMENDED PATIENT HAVE FAMILY REACH OUT TO [facility] TO OBTAIN ON A TRIAL BASIS THEY [...] CARE WILL BE ESTABLISHED THAT MEETS PATIENT'S RETIREMENT NEEDS AND INCLUDES PATIENT GOAL FOR HOME [...] Goal - PATIENT/CAREGIVER WILL VERBALIZE UNDERSTANDING OF SIGNS AND SYMPTOMS, COMPLICATIONS, AND MANAGEMENT OF ATRIAL FIBRILLATION THROUGHOUT THE CERTIFICATION PERIOD. Goal Provider Goal [...] End Date/Time Encounter Type Admission Type Attending [facility] Care Facility Care Department Encounter ID Discharge Date Discharge Status Discharge Condition Discharge Reason Percent Goals Met 2025-01-05 00:00:00 2025-03-05 00:00:00 Outpatient NEW ADMISSION SANDHYA SELLERS [facility] [id number] 51.28
== END 2025-01-28 12:38 | disposition home health service (06) ==
LOC: HO.ED 01-25 07:39 → HO.EDOVER 01-26 09:25 → HO.S3 01-26 15:26
PROVIDERS: Physician Assistant Medical; Admitting Provider Student in an Organized Health Care Education/Training Program; Emergency Provider Emergency Medicine; PCP Internal Medicine; Referring Provider Emergency Medicine; Visit Provider Student in an Organized Health Care Education/Training Program
DX: G92.8 Other toxic encephalopathy (principal); N17.9 Acute kidney failure, unspecified; N18.30 Chronic kidney disease, stage 3 unspecified; I12.9 Hypertensive chronic kidney disease with stage 1 through stage 4 chronic kidney disease, or unspecified chronic kidney disease; N40.0 Benign prostatic hyperplasia without lower urinary tract symptoms; R41.0 Disorientation, unspecified; F19.150 Other psychoactive substance abuse with psychoactive substance-induced psychotic disorder with delusions; E78.5 Hyperlipidemia, unspecified; Z79.899 Other long term (current) drug therapy
CPT/HCPCS: 36415; 70450; 80048; 80053; 81001; 83735; 84439; 84443; 85025; 85027; 96125; 96361; 96372; 96374; 97116; 97161; 97165; 99221; 99285; J1644; J2470; J7120

== ENCOUNTER → 2025-01-24 19:21 | Outpatient (BNV) | payer OTHER, SELFPAY | PROVIDERS: Emergency Provider Emergency Medicine; PCP Internal Medicine; Visit Provider Radiology Diagnostic Radiology | DX: R41.82 Altered mental status, unspecified (principal) | CPT/HCPCS: 70450 ==

== ENCOUNTER → 2025-01-26 09:24 | Outpatient (BNV) | payer OTHER, SELFPAY | PROVIDERS: Admitting Provider Student in an Organized Health Care Education/Training Program; Emergency Provider Emergency Medicine; PCP Internal Medicine; Visit Provider Student in an Organized Health Care Education/Training Program | DX: N17.9 Acute kidney failure, unspecified (principal); N18.9 Chronic kidney disease, unspecified; N40.0 Benign prostatic hyperplasia without lower urinary tract symptoms; G92.8 Other toxic encephalopathy | CPT/HCPCS: 99222; 99239 ==

== ENCOUNTER 2025-02-01 14:37 | Inpatient (IN) | payer MEDICARE, OTHER, SELFPAY ==
--- NOTE | ~2025-02-01 | US_ITS ---
CLINICAL HISTORY: SELWYN --- Additional Notes or Special Instructions: PT UNABLE TO COOPERATE FOR EXAM @ 0545H US Renal Comparison: None provided Findings: Right kidney normal size and echotexture, 10.0 cm length. Left kidney normal size and echotexture, 9.6 cm length. No collecting system dilatation of either kidney. IMPRESSION: 1. Normal sonographic appearance of the kidneys. This document has been electronically signed by: Sonali Dowell on 02/06/2025 09:29:10
--- NOTE | ~2025-02-01 | CT_ITS ---
CLINICAL HISTORY: SELWYN, sepsis CT abdomen and pelvis without IV or oral contrast Comparison: US - US RENAL BI - 02/06/25 08:06 EST Findings: Lung bases show no active disease. Chronic reticular opacities. No dependent layering pleural effusions. Cardiomegaly. Calcified coronary artery disease. No stones are identified in the kidneys, ureters or bladder. There is no hydronephrosis or perinephric stranding/fluid. Decompressed urinary bladder with Reece balloon catheter. Evaluation of the liver, spleen, adrenal glands and pancreas demonstrates no lesions. Significant motion may obscure subtle pathology including free air. Repeat advised. It should be noted that isodense masses may be obscured in the absence of intravenous contrast. No radiopaque gallstones. Diverticulosis coli. Increased stool burden. No pathologically enlarged lymph nodes . No ascites demonstrated. No vertebral body compression fractures or spondylolisthesis. No bony destructive lesions. Impression: 1. No nephrolithiasis or urinary tract obstruction demonstrated. 2. This exam was subject to excessive motion subtle pathology including free air may be obscured the exam should be repeated 3. Ancillary findings as described. This document has been electronically signed by: Osvaldo Segal MD on 02/06/2025 11:22:00
--- NOTE | ~2025-02-01 | CT_ITS ---
EXAMINATION: CT CHEST WITHOUT CONTRAST CLINICAL INFORMATION: Follow-up to previous chest x-ray. Inflammation versus infection COMPARISON: None available. TECHNIQUE: Multidetector volumetric CT imaging of the chest was done. Axial MIP volume rendering provided. Sagittal and coronal reformatted images were obtained. This CT examination was performed using dose optimization techniques as appropriate, variously including the following: *Automated exposure control *Adjustment of mA and/or kV according to patient size (this includes techniques or standardized protocols for targeted exams where dose is matched to indication/reason for exam; i.e. extremities or head) *Use of iterative reconstruction technique FINDINGS: CLAIMS COLLECTOR: Well-expanded lungs. LUNGS: The lungs are well-inflated and clear acute pneumonic consolidation. Minimal bibasilar compressive atelectasis. No mass or pulmonary nodule seen. MEDIASTINUM: The central trachea and the bronchi are widely patent. Thyroid lobes are symmetric and normal. Mild atherosclerotic changes of thoracic arch is noted no aneurysm visualized. The heart size is normal. No abnormal size mediastinal or hilar lymph nodes seen. CORONARY ARTERY CALCIFICATION: Moderate coronary artery calcifications are present. PLEURA: There is no pleural effusion. No pleural mass or thickening. AXILLA: No lymphadenopathy. UPPER ABDOMEN: Maral's liver, spleen appears unremarkable. OSSEOUS STRUCTURES: No aggressive lytic or sclerotic process seen. CT/CT chest wo IV con IMPRESSION: No acute cardiopulmonary process seen. No pleural effusion or consolidation. Fleischner guidelines were followed. Electronically signed by: Matthew Cota MD 02/04/2025 05:12 PM [facility]
--- NOTE | ~2025-02-01 | XR_ITS ---
CLINICAL HISTORY: hypoxia, fever 1 view chest x-ray Comparison: CR/SR - XR CHEST 1 VIEW - 02/07/25 12:23 EST Findings: The patient is rotated to the right. Heart is magnified. Aorta is calcified. Left pleural effusion, stable. No focal consolidation or pneumothorax. Prominence of the bilateral filipe and interstitial lung markings, suggestive of pulmonary vascular congestion. Degenerative changes of both shoulders. IMPRESSION: No focal consolidation. Stable small left pleural effusion. Vascular congestion, essentially unchanged from 1 day prior. This document has been electronically signed by: James Garcia MD on 02/09/2025 01:22:39
--- NOTE | ~2025-02-01 | MR_ITS ---
CLINICAL HISTORY: AMS persisting Exam: Nonenhanced MRI brain. Comparison: CT brain 01/24/2025. Findings: There is no cerebral edema or mass effect. White matter reveals mild scattered foci of T2 hyperintensity common nonspecific although likely sequela of chronic microangiopathic disease. Similar moderate involutional changes.. Diffusion weighted imaging reveals no restricted diffusion or MR evidence of acute ischemia. No sellar or parasellar lesions. Ventricular size and configuration are within normal limits. Cerebral cisterns are preserved. No significant signal abnormality seen within the paranasal sinuses or mastoid air cells. Preserved flow signal voids are present within visualized intracranial vasculature. Impression: 1. No acute intracranial abnormalities. This document has been electronically signed by: Reagan May MD on 02/06/2025 17:09:25
--- NOTE | ~2025-02-01 | XR_ITS ---
EXAMINATION: XR CHEST CLINICAL INFORMATION: cough COMPARISON: None available. TECHNIQUE: Frontal view of the chest was obtained. FINDINGS: Cardiomediastinal silhouette is accentuated by low lung volumes, stable. Prominent aortic calcifications. Low lung volumes. Diffuse interstitial prominence. Bilateral lower lungs patchy hazy opacities. Mild bronchial wall thickening. No large effusion. No pneumothorax. Multilevel thoracolumbar spondylosis. XR/XR chest 1V IMPRESSION: Bibasilar patchy hazy opacities could be related to low lung volume, infection or inflammation. Interstitial prominence could be related to pneumonitis. Electronically signed by: José Manuel Garcia MD 02/04/2025 10:36 AM [facility]
--- NOTE | ~2025-02-01 | XR_ITS ---
EXAMINATION: XR CHEST CLINICAL INFORMATION: sob COMPARISON: 02/05/2025. 02/04/2025. TECHNIQUE: AP view of the chest was obtained. FINDINGS: The cardiac, hilar, and mediastinal contours are normal. Low lung volumes are present. There is bronchovascular crowding in both perihilar regions and lung bases. A mild degree of interstitial pulmonary edema may be present. There is a small left effusion suspected. There is associated left base passive atelectasis. Azygos lobe noted. No perceptible pneumothorax. No focal osseous or soft tissue abnormality. XR/XR chest 1V IMPRESSION: Low lung volumes with resultant bronchovascular crowding. Suspect a mild degree of interstitial pulmonary edema. There is a tiny left effusion suspected. Overall no change from 02/05/2025. Electronically signed by: Ajit Menezes MD 02/07/2025 12:39 PM [facility]
--- NOTE | ~2025-02-01 | XR_ITS ---
CLINICAL HISTORY: cough 1 view chest x-ray Comparison: 02/04/2025, 12/17/2024 Findings: Low lung volumes are present. Cardiac and mediastinal silhouettes are prominent. Pulmonary venous vasculature is prominent. Bilateral peribronchovascular opacities are present. There is no pneumothorax. There is small left pleural effusion and fluid in the fissures No consolidative opacities. Osseous structures are normal. IMPRESSION: 1. Mild pulmonary interstitial edema and small left pleural effusion. 2. Unchanged enlarged cardiac silhouette. This document has been electronically signed by: Oj Connell III, MD PHD on 02/06/2025 00:58:46
[2025-02-01 14:43] VITALS: BP 150/67; PULSE 98; RESP 18; TEMP 36.7; O2SAT 98; BMI 25.0
--- NOTE | 2025-02-01 14:45 | ED_ITS ---
HPI - General Adult General Chief complaint: General Medical Stated complaint: Maria De Jesus Andrews ref by pcp Time Seen by Provider: 02/01/25 16:13 Source: patient, family, RN notes reviewed and old records reviewed Mode of arrival: ambulatory Limitations: no limitations History of Present Illness ED Provider: Arya HOFFMAN narrative: 89-year-old male past medical history significant for metabolic encephalopathy, chronic kidney disease, confusion, BPH, hypertension presents for evaluation of failure to thrive the patient was admitted here last week for psychosis and chronic kidney disease. He is in the process of tapering off prednisone which she was on since September. Use down to 3 mg daily. About 5-6 weeks ago the patient was quite independent, able to live alone and still drives. Over the last few weeks he has declined rather rapidly and is unable to care for himself. He forgets to shower, forgets to eat and forgets to take his medications. He offers no complaints. He has not had any recent falls. He is awaiting neurology follow up, possible outpatient brain MRI. his primary doctor recommended starting Zyprexa 2.5 mg at bedtime to help with nocturnal agitation and sundowning this has not yet been started the patient's daughters were hoping for a psychiatry evaluation and possible short-term placement Related Data Home Medications ?Medication ?Instructions ?Recorded ?Confirmed finasteride 5 mg tablet 5 mg PO DAILY 01/25/2502/01 lisinopril 40 mg tablet 40 mg PO DAILY 01/25/2501/22 tadalafil 5 mg tablet 5 mg PO DAILY 01/25/2502/01 tamsulosin 0.4 mg capsule 0.4 mg PO BEDTIME 01/25/25 1 04/03/24 olanzapine 2.5 mg tablet 2.5 mg PO BEDTIME 02/01/25 1 04/03/24 prednisone 1 mg tablet 3 mg PO DAILY 02/01/2502/01 Allergies Allergy/AdvReac Type Severity Reaction Status Date / Time No Known Allergies Allergy Verified 02/01/25 14:47 Review of Systems 2 Constitutional: Constitutional: Denies body ache(s), Denies chills, Denies fever(s) and Denies headache(s) Eyes: Eyes: Denies blurry vision ENT: Denies vertigo, Denies dizziness and Denies headache(s) Cardiovascular: Cardiovascular: Denies chest pain, Denies chest pain at rest and Denies dyspnea on exertion Respiratory: Respiratory: Denies cough and Denies dyspnea on exertion Gastrointestinal: Gastrointestinal: Denies abdominal pain, Denies nausea and Denies vomiting Musculoskeletal: Musculoskeletal: Denies back pain Integumentary/Breasts: Skin/Breast: Denies rash Neurologic: Reports behavioral changes, Reports confusion, Denies vertigo, Denies dizziness, Denies headache(s) and Reports memory loss Psychiatric: Psychiatric: Reports behavioral changes, Reports confusion, Denies depression, Reports memory loss, Reports visual hallucinations and Denies suicidal ideation [facility] Past Medical History Medical History (Updated 02/06/25 @ 04:21 by MIGUEL Monzon-ARABELLA) Kidney stones Hepatitis C virus GERD (gastroesophageal reflux disease) HTN (hypertension) Elevated PSA History of kidney stones Weak urinary stream BPH (benign prostatic hyperplasia) Hematuria Surgical History H/O lithotripsy H/O wisdom tooth extraction Family History Family History Father Prostate cancer Mother CVD (cardiovascular disease) Social History Social History Household Members: None Housing: House Do you presently have visiting nurse or other home services: Yes ([facility]NA, meals on wheels) Unable to assess alcohol history related to: Unable to respond Alcohol intake: former Patient Tobacco Use Status: Former Tobacco user Smoked in Last 30 Days: No Use of substances other than those prescribed or required for medical reasons: No Advance Directives: Yes Advance Directives on File: Yes Advance Directives Date on File: 12/22/24 Do you have a plan to hurt others: No Plan service: Yes Physical Exam ED Vital Signs: Vital Signs - 24 hr 02/05/25 05:07 02/05/25 15:17 02/05/25 20:02 Temperature 99.3 F 98.6 F 98.1 F Pulse Rate 95 103 H 115 H Respiratory Rate 17 18 16 Blood Pressure 141/58 H 117/53 L 149/55 H Pulse Oximetry 93 95 97 Oxygen Delivery Method Room Air Room Air Room Air 02/05/25 23:12 02/06/25 00:11 02/06/25 00:31 Temperature 98.2 F Pulse Rate 108 H 74 Respiratory Rate 20 18 Blood Pressure 118/50 L Pulse Oximetry 96 95 Oxygen Delivery Method Room Air Room Air 02/06/25 01:50 02/06/25 01:55 02/06/25 02:54 Temperature 97.7 F 99.9 F 100.3 F Pulse Rate 115 H 110 H Respiratory Rate 20 20 Blood Pressure 109/58 L 109/59 L Pulse Oximetry 95 97 Oxygen Delivery Method Room Air Room Air 02/06/25 04:00 02/06/25 04:13 Temperature 98.6 F 98.6 F Pulse Rate 102 H 110 H Respiratory Rate 26 H 22 H Blood Pressure 123/79 143/48 H Pulse Oximetry 94 97 Oxygen Delivery Method Room Air Room Air BMI result Body Mass Index 25.0 Const General: confusion Nutritional Appearance: well nourished Orientation/consciousness: confusion HENMT Head: Yes normocephalic and Yes atraumatic Throat: Yes posterior oropharynx normal Eyes Eyelids: Yes eyelids normal Conjunctivae: conjunctivae normal Sclerae: sclerae normal Corneas: corneas normal EOM: EOMs intact bilaterally Neck Neck: Yes full ROM Resp Effort & Inspection: normal respiratory effort, able to speak in complete sentences, no audible wheezes and not labored Auscultation: clear to auscultation bilaterally GI Inspection: No distended Palpation (GI): Soft to palpation, not firm, nontender, no guarding and not rigid Skin General skin exam: elasticity normal Neuro General: confusion Cranial nerves: Yes CN's II-XII intact bilaterally and Yes Bilaterally intact EOM present Cognition (Neuro): normal cognition Extrem Other: Moving all extremities well without any obvious deformities Course Course Course Narrative: This is a rapid medical exam performed by Aleksandra Ortega NP: Additional HPI, ROS, PE not included below will be deferred to primary provider. Patient is an 89- year-old male presenting with daughter who reports patient has had a rapid decline over the past 6 weeks and PCP wants a psych eval. She reports he has been unable to shower, take his meds, drive his vehicle, etc, all of which he was doing prior. Seen here several times recently after falls. Patient denies any SI or HI. Plan: med clearance to start Reevaluation(s) Reevaluation #1: The patient is medically cleared for Psychiatry, case management and physical therapy consults Time: 19:30 Reevaluation #2: Time: 07:29 Date: 02/02/25 Provider: COLIN Matute Patient in physician observation for psychiatric evaluation.? No acute events reported overnight. No current complaints. VS stable.? Patient is pending Psychiatry evaluation. Will continue to monitor. 1800: 02/02/25 Provider: COLIN Frey: Patient had both PT and psych evaluation today. Pysch consult note pending, PT stated patient potentially could benefit from STR but prognosis would not likely increase his ADLs as his function is related to his mental status more so than his physical status. Time: 08:06 Date: 02/03/25 Provider: COLIN Matute Patient in physician observation pending case management. Patient was evaluated by psych yesterday, no indication for geriatric psych admission at this time. Recommended IVF & Brain MRI ordered. No acute events reported overnight. No current complaints. VS stable.? Patient is pending above & case management placement. We will continue to monitor Reevaluation #3: 226 am the patient is becoming behavioral, he is agitated, he is continually trying to get out of bed. There have been multiple attempts to redirect the patient. He has already had his PRN Zyprexa, we will be adding on intramuscular Geodon 20 mg 247 am I discontinue the intramuscular injection. Apparently, 1 of the other providers, hitesh koenig, had a lengthy discussion with the daughter, who is the healthcare proxy of this patient. They did not want the patient to initially have Zyprexa, but then they agreed to it if he became agitated and required it. Apparently there was further discussion, they did not want the patient to have intramuscular injections. The clinical continuous weld pipe mill supervisor is reaching out to the daughter right now. 249 am the clinical continuous weld pipe mill supervisor, spoke with the daughter who is the healthcare proxy, she understands, she is allowing for the intramuscular injection at this time, I will reorder 20 mg of Geodon IM now Time: 08:35 Date: 02/04/25 Provider: COLIN Frey-Alonso Patient in physician observation for case management needs. acute events reported with agitation and addressed as above.? No current issues or complaints. VS stable. Patient is pending placement at facility/pending CM for consideration of LTC. Will continue to monitor. 0935: Cindy RN notified me patient now has cough and is saturating 94 % on RA, while here has been in the 98-95% RA range, will order CXR and evaluate bedside, will touch base with HCP if CXR normal with consideration to order D dimer for PE- he is not on any anticoagulation. CXR on 12/17/24: IMPRESSION:1. Hypoventilation.2. Diffuse interstitial thickening secondary to pneumonitis or edema.3. Patchy airspace opacities in the left lower lobe secondary to volume loss, infection or inflammation i.e. aspiration. Radiologist today xray wrote as addendum as I brought up for comparison as original read wrote - no comparison- Findings similar to the prior radiograph. Recommend follow-up radiographs to evaluate evolution/resolution. Hospitalist note reviewed from his prior hospitalization here: Acute hypoxic respiratory failure in the setting of possible aspiration pneumonia vs rhino virus with likely viral sepsis CXR showing diffuse interstitial thickening secondary to pneumonitis or edema; patchy airspace opacity in left lower lobe secondary to atelectasis, infection, inflammation, or aspiration Tested positive for norovirus Spoke to CM and confirmed with geripsych: MRI canceled as it is not to rule out stroke and only to confirm dementia, this can be done on outpatient basis. 1735: CXR unchanged from prior. Chest CT ordered to evaluate for clearance, infection and or inflammation given CXR findings above. Results: No acute cardiopulmonary process seen. No pleural effusion or consolidation. ABx not initiated. He continues not to meet admission criteria. Saturating 95% on RA. Due to dementia, unable to train on incentive spirometry. Patient becoming agitated, will trial PO zyprexa, if failure will IM. Case signed out to evening COLIN Koenig pending CM disposition. Time: 09:18 Date: 02/05/25 Provider: COLIN Layton Patient in physician observation for case management needs. No acute events reported overnight.? We will continue to monitor pending case management disposition. Additional Reevaluation(s): 243 am I Kirstin Reece PA-C , Arie taking over the overflow patient's. The patient is mildly tachycardic, with low-grade temp, repeat UA, viral panel are in process, a lactic was ordered it is elevated, I am starting sepsis measures soon, once I collect blood cultures, in review of the chart, there was suspect patchy opacities on CXR 02/04, they got a CT chest which showed bibasilar atelectasis, chest x-ray repeated today, there was an underlying bilateral peribronchial vascular opacities, I am considering this consistent with a pneumonia. We will treat accordingly once blood cultures collected...... I ordered weight based IV fluids, however, he may not require that much volume, I need updated vitals I just requested that of the nurse. He did have a recent echo, his EF is appropriate 255 am sepsis identified, blood pressure 109/57, he is not hypoxic he is 97% on room air, heart rate 110, febrile 100.3 rectally, lactic 3.3......... I am admitting him.... We will need a repeat lactic 336 am now performing a sepsis focused exam, blood cultures and lactic obtained, access obtained, ordered antibiotics for suspect pneumonia, admitting the patient 416 am urine not infected Repeat lactic Medications Administered Generic Name Dose Route Start Last Admin Trade Name Freq PRN Reason Stop Dose Admin Finasteride 5 mg 02/02/25 09:00 02/05/25 08:30 Finasteride 5 Mg Tablet PO 5 mg DAILY CHRISTIANO Administration Azithromycin 500 mg/ Sodium 250 mls @ 125 mls/hr 02/06/25 03:35 02/06/25 03:58 Chloride IV 02/06/25 05:34 0 mls/hr ONCE ONE Infusion Pt Own (Tadalafil 5 5 mg 02/02/25 09:00 02/05/25 08:29 Mg Tablet) PO 5 mg DAILY CHRISTIANO Administration Olanzapine 5 mg 02/01/25 17:34 02/05/25 23:55 Olanzapine 5 Mg Tablet PO 5 mg Q6H PRN Administration Agitation Olanzapine 2.5 mg 02/04/25 02:15 02/05/25 20:04 Olanzapine 2.5 Mg Tablet PO 2.5 mg BEDTIME CHRISTIANO Administration Prednisone 3 mg 02/02/25 09:00 02/05/25 08:26 Prednisone 1 Mg Tablet PO 3 mg DAILY CHRISTIANO Administration Tamsulosin HCl 0.4 mg 02/01/25 21:00 02/05/25 20:04 Tamsulosin Hcl 0.4 Mg Capsule PO 0.4 mg BEDTIME CHRISTIANO Administration Discontinued Medications Generic Name Dose Route Start Last Admin Trade Name Alexia PRN Reason Stop Dose Admin Acetaminophen 975 mg 02/06/25 02:55 02/06/25 03:36 Acetaminophen 325 Mg Tablet PO 02/06/25 02:56 975 mg ONCE ONE Administration Albuterol/Ipratropium 3 ml 02/06/25 00:07 02/06/25 00:11 Albuterol/Iprat 2.5/0.5mg 3 Ml Ampul.Neb INHALE 02/06/25 00:08 3 ml ONCE ONE Administration Sodium Chloride 1,000 mls @ 999 mls/hr 02/03/25 08:30 02/03/25 10:22 Ns IV 02/03/25 09:30 Infused .Q1H1M CHRISTIANO Infusion Lactated Ringer's 1,000 mls @ 999 mls/hr 02/05/25 22:00 02/05/25 23:11 Lr IV 02/05/25 23:00 Infused .Q1H1M CHRISTIANO Infusion Sodium Chloride 2,041.17 mls @ 2,041.17 mls/hr 02/06/25 02:37 02/06/25 03:47 Ns 30 ml/kg infuse over 1 hr (2041.17 ml) 02/06/25 03:36 2,041.17 mls/hr IV Administration .Q1H STA Ceftriaxone Sodium 2 gm/ 50 mls @ 100 mls/hr 02/06/25 03:35 02/06/25 04:06 Sodium Chloride IV 02/06/25 04:04 100 mls/hr ONCE ONE Infusion Lisinopril 40 mg 02/02/25 09:00 02/05/25 08:28 Lisinopril 40 Mg Tablet PO 40 mg DAILY CHRISTIANO Administration Protocol Ziprasidone 20 mg 02/04/25 02:50 02/04/25 02:55 Ziprasidone Mesylate 20 Mg Vial IM 02/04/25 02:51 20 mg ONCE ONE Administration Medical Decision Making Medical Decision Making MDM Narrative: 89-year-old male presenting for evaluation of failure to thrive. He was recently admitted in a red his recent notes. I had a lengthy discussion with both of his daughters who were at bedside. They are seeking a psychiatric evaluation and the patient is unable to care for himself at home. They would like to hold off on starting his Zyprexa until Psychiatry sees him tomorrow. However if he becomes agitated they are okay with us administering an antipsychotic such as Zyprexa to help control his behavior if needed. The patient offers no complaints, vital signs are stable. He again has a microcytic anemia, his hemoglobin hematocrit are improved when compared to his discharge, 8.9 when compared to 8.3 in his recent discharge 5 days ago. He does have a hyponatremia to 148 with a continued SELWYN with a BUN of 45 and a creatinine of 1.89. This is worse in his recent discharge but he was higher on his admission and likely due to poor oral intake. We will try to encourage oral hydration Differential Diagnosis Differential Diagnoses: The differential diagnosis associated with the presentation includes dementia failure to thrive psychosis medication side effect chronic kidney disease Lab Data MDM Lab Attestation statement: I reviewed the patient's lab results. as above 02/06/25 00:43 02/06/25 00:43 Labs: Lab Results 02/01/25 02/01/25 02/02/25 Range/Units 15:24 15:29 11:18 WBC 7.1 (4.8-10.8) X10*3/uL RBC 2.75 L (4.60-5.80) X10*6/uL Hgb 8.9 L (14.0-18.0) g/dl Hct 28.8 L (42.0-52.0) % MCV 104.7 H (80.0-98.0) fL MCH 32.4 (27.0-33.0) pg MCHC 30.9 L (31.0-36.0) g/dl RDW 14.4 (11.0-16.0) % Plt Count 238 D (160-400) X10*3/uL MPV 9.5 (9.4-12.4) fL Immature Gran % (Auto) 1.6 H (0.0-0.4) % Neut % (Auto) 75.3 H (45-73) % Lymph % (Auto) 14.6 L (20-40) % Barren % (Auto) 7.6 (2-11) % Eos % (Auto) 0.6 (0-4) % Baso % (Auto) 0.3 (0-2) % Lymph # (Auto) 1.0 L (1.2-4.9) X10*3/uL Barren # (Auto) 0.5 (0.1-1.2) X10*3/uL Eos # (Auto) 0.0 (0.0-0.4) X10*3/uL Baso # (Auto) 0.0 (0.0-0.2) X10*3/uL Abs Immat Gran (auto) 0.11 H (0.00-0.03) X10*3/uL Absolute Neuts (auto) 5.3 (2.0-8.3) x10*3/uL Absolute Nucleated RBC 0.000 (0.0-0.012) X10*3/uL Nucleated RBC % (auto) 0.0 (0.0-0.2) /100WBC Hold Purple Top Sodium 148 H (135-145) mmol/L Potassium 4.8 (3.3-5.1) mmol/L Chloride 116 H (96-108) mmol/L Carbon Dioxide 24 (22-29) mmol/L Anion Gap 13 (12-20) BUN 45 H (9-16) mg/dL Creatinine 1.89 H (0.5-1.4) mg/dL Estim Creat Clear Calc 23.5 Estimated GFR 34 Random Glucose 108 (60-115) mg/dL Lactic Acid (0.5-2.0) mmol/L Calcium 9.9 D (8.4-10.2) mg/dL Total Bilirubin 0.4 (0.0-1.0) mg/dL AST 27 (5-37) U/L ALT 17 (0-40) U/L Alkaline Phosphatase 62 (39-117) U/L NT-Pro-B Natriuret Pep (<300) pg/mL Total Protein 6.9 (6.5-8.0) g/dL Albumin 3.8 (3.5-5.0) g/dL Vitamin B12 (200-900) pg/mL Folate (> or = 4.0) ng/mL Hold Yellow Top Urine Color Yellow Urine Appearance Clear Urine pH 6.0 (5.0-9.0) Ur Specific [place] 1.015 (1.005-1.025) Urine Protein Negative (Neg-Trace) mg/dL Urine Glucose (UA) Negative (Negative) mg/dL Urine Ketones Negative (Negative) mg/dL Urine Blood Negative (Negative) Urine Nitrite Negative (Negative) Ur Leukocyte Esterase Negative (Negative) Urine Opiates Screen Not Detected (Not Detect) Ur Buprenorphine Scrn Not Detected (Not Detect) ng/mL Ur Oxycodone Screen Not Detected (Not Detect) ng/mL Urine Methadone Screen Not Detected (Not Detect) ng/mL Urine Fentanyl Screen Not Detected (Not Detect) Ur Barbiturates Screen Not Detected (Not Detect) Ur Phencyclidine Scrn Not Detected (Not Detect) Ur Amphetamines Screen Not Detected (Not Detect) U Benzodiazepines Scrn Not Detected (Not Detect) Urine Cocaine Screen Not Detected (Not Detect) U Marijuana (THC) Screen Not Detected (Not Detect) Ethyl Alcohol < 10 mg/dL Influenza Type A (PCR) NEGATIVE (Negative) Influenza Type B (PCR) NEGATIVE (Negative) RSV RNA Qual (PCR) NEGATIVE (Negative) SARS-CoV-2 RNA (RT-PCR) NEGATIVE (Negative) 02/02/25 02/06/25 02/06/25 Range/Units 17:21 00:43 02:12 WBC 10.9 H (4.8-10.8) X10*3/uL RBC 2.62 L (4.60-5.80) X10*6/uL Hgb 8.6 L (14.0-18.0) g/dl Hct 27.0 L (42.0-52.0) % MCV 103.1 H (80.0-98.0) fL MCH 32.8 (27.0-33.0) pg MCHC 31.9 (31.0-36.0) g/dl RDW 14.4 (11.0-16.0) % Plt Count 257 (160-400) X10*3/uL MPV 9.5 (9.4-12.4) fL Immature Gran % (Auto) 2.6 H (0.0-0.4) % Neut % (Auto) 66.1 (45-73) % Lymph % (Auto) 20.6 (20-40) % Barren % (Auto) 9.4 (2-11) % Eos % (Auto) 0.9 (0-4) % Baso % (Auto) 0.4 (0-2) % Lymph # (Auto) 2.3 (1.2-4.9) X10*3/uL Barren # (Auto) 1.0 (0.1-1.2) X10*3/uL Eos # (Auto) 0.1 (0.0-0.4) X10*3/uL Baso # (Auto) 0.0 (0.0-0.2) X10*3/uL Abs Immat Gran (auto) 0.28 H (0.00-0.03) X10*3/uL Absolute Neuts (auto) 7.2 (2.0-8.3) x10*3/uL Absolute Nucleated RBC 0.000 (0.0-0.012) X10*3/uL Nucleated RBC % (auto) 0.0 (0.0-0.2) /100WBC Hold Purple Top Sodium 142 (135-145) mmol/L Potassium 4.7 (3.3-5.1) mmol/L Chloride 112 H (96-108) mmol/L Carbon Dioxide 20 L (22-29) mmol/L Anion Gap 15 (12-20) BUN 45 H (9-16) mg/dL Creatinine 2.43 H (0.5-1.4) mg/dL Estim Creat Clear Calc 18.2 Estimated GFR 25 Random Glucose 141 H (60-115) mg/dL Lactic Acid 3.3 H* (0.5-2.0) mmol/L Calcium 9.2 D (8.4-10.2) mg/dL Total Bilirubin (0.0-1.0) mg/dL AST (5-37) U/L ALT (0-40) U/L Alkaline Phosphatase (39-117) U/L NT-Pro-B Natriuret Pep 424.4 H (<300) pg/mL Total Protein (6.5-8.0) g/dL Albumin (3.5-5.0) g/dL Vitamin B12 298 (200-900) pg/mL Folate 6.8 (> or = 4.0) ng/mL Hold Yellow Top Urine Color Urine Appearance Urine pH (5.0-9.0) Ur Specific [place] (1.005-1.025) Urine Protein (Neg-Trace) mg/dL Urine Glucose (UA) (Negative) mg/dL Urine Ketones (Negative) mg/dL Urine Blood (Negative) Urine Nitrite (Negative) Ur Leukocyte Esterase (Negative) Urine Opiates Screen (Not Detect) Ur Buprenorphine Scrn (Not Detect) ng/mL Ur Oxycodone Screen (Not Detect) ng/mL Urine Methadone Screen (Not Detect) ng/mL Urine Fentanyl Screen (Not Detect) Ur Barbiturates Screen (Not Detect) Ur Phencyclidine Scrn (Not Detect) Ur Amphetamines Screen (Not Detect) U Benzodiazepines Scrn (Not Detect) Urine Cocaine Screen (Not Detect) U Marijuana (THC) Screen (Not Detect) Ethyl Alcohol mg/dL Influenza Type A (PCR) (Negative) Influenza Type B (PCR) (Negative) RSV RNA Qual (PCR) (Negative) SARS-CoV-2 RNA (RT-PCR) (Negative) 02/06/25 02/06/25 02/06/25 Range/Units 02:28 03:14 03:40 WBC (4.8-10.8) X10*3/uL RBC (4.60-5.80) X10*6/uL Hgb (14.0-18.0) g/dl Hct (42.0-52.0) % MCV (80.0-98.0) fL MCH (27.0-33.0) pg MCHC (31.0-36.0) g/dl RDW (11.0-16.0) % Plt Count (160-400) X10*3/uL MPV (9.4-12.4) fL Immature Gran % (Auto) (0.0-0.4) % Neut % (Auto) (45-73) % Lymph % (Auto) (20-40) % Barren % (Auto) (2-11) % Eos % (Auto) (0-4) % Baso % (Auto) (0-2) % Lymph # (Auto) (1.2-4.9) X10*3/uL Barren # (Auto) (0.1-1.2) X10*3/uL Eos # (Auto) (0.0-0.4) X10*3/uL Baso # (Auto) (0.0-0.2) X10*3/uL Abs Immat Gran (auto) (0.00-0.03) X10*3/uL Absolute Neuts (auto) (2.0-8.3) x10*3/uL Absolute Nucleated RBC (0.0-0.012) X10*3/uL Nucleated RBC % (auto) (0.0-0.2) /100WBC Hold Purple Top SEE NOTE Sodium (135-145) mmol/L Potassium (3.3-5.1) mmol/L Chloride (96-108) mmol/L Carbon Dioxide (22-29) mmol/L Anion Gap (12-20) BUN (9-16) mg/dL Creatinine (0.5-1.4) mg/dL Estim Creat Clear Calc Estimated GFR Random Glucose (60-115) mg/dL Lactic Acid (0.5-2.0) mmol/L Calcium (8.4-10.2) mg/dL Total Bilirubin (0.0-1.0) mg/dL AST (5-37) U/L ALT (0-40) U/L Alkaline Phosphatase (39-117) U/L NT-Pro-B Natriuret Pep (<300) pg/mL Total Protein (6.5-8.0) g/dL Albumin (3.5-5.0) g/dL Vitamin B12 (200-900) pg/mL Folate (> or = 4.0) ng/mL Hold Yellow Top See Note Urine Color Yellow Urine Appearance Clear Urine pH 5.5 (5.0-9.0) Ur Specific [place] 1.015 (1.005-1.025) Urine Protein Negative (Neg-Trace) mg/dL Urine Glucose (UA) Negative (Negative) mg/dL Urine Ketones Negative (Negative) mg/dL Urine Blood Negative (Negative) Urine Nitrite Negative (Negative) Ur Leukocyte Esterase Negative (Negative) Urine Opiates Screen (Not Detect) Ur Buprenorphine Scrn (Not Detect) ng/mL Ur Oxycodone Screen (Not Detect) ng/mL Urine Methadone Screen (Not Detect) ng/mL Urine Fentanyl Screen (Not Detect) Ur Barbiturates Screen (Not Detect) Ur Phencyclidine Scrn (Not Detect) Ur Amphetamines Screen (Not Detect) U Benzodiazepines Scrn (Not Detect) Urine Cocaine Screen (Not Detect) U Marijuana (THC) Screen (Not Detect) Ethyl Alcohol mg/dL Influenza Type A (PCR) NEGATIVE (Negative) Influenza Type B (PCR) NEGATIVE (Negative) RSV RNA Qual (PCR) NEGATIVE (Negative) SARS-CoV-2 RNA (RT-PCR) NEGATIVE (Negative) Discharge Plan Discharge Clinical Impression: Sepsis, SELWYN (acute kidney injury), Pneumonia Patient Disposition: Admitted As Inpatient Print Language: Bruneian
[2025-02-01 15:34] LABS: MANUAL DIFF FLAG NO
[2025-02-01 15:40] LABS: Hematocrit 28.8 % (42.0-52.0); Hemoglobin 8.9 g/dl (14.0-18.0); Imm Gran Abs Auto 0.11 X10*3/uL (0.00-0.03); Imm Gran Pct Auto 1.6 % (0.0-0.4); Lymphocytes Absolute Auto 1.0 X10*3/uL (1.2-4.9); Mean Corpuscular HGB Conc 30.9 g/dl (31.0-36.0); Mean Corpuscular Hemoglobin 32.4 pg (27.0-33.0); Mean Corpuscular Volume 104.7 fL (80.0-98.0); NRBC Abs Auto 0.000 X10*3/uL (0.0-0.012); NRBC Pct Auto 0.0 /100WBC (0.0-0.2); Platelet Count 238 X10*3/uL (160-400); Red Blood Count 2.75 X10*6/uL (4.60-5.80); White Blood Count 7.1 X10*3/uL (4.8-10.8)
[2025-02-01 15:50] LABS: Alanine Aminotransferase 17 U/L (0-40); Albumin Level 3.8 g/dL (3.5-5.0); Alkaline Phosphatase 62 U/L (39-117); Anion Gap 13 (12-20); Aspartate Amino Transferase 27 U/L (5-37); Blood Urea Nitrogen 45 mg/dL (9-16); Calcium 9.9 mg/dL (8.4-10.2); Carbon Dioxide 24 mmol/L (22-29); Chloride 116 mmol/L (96-108); Creatinine Clr Calc Pharmacy 23.5; Estimated Glomerular Filt Rate 34; Potassium 4.8 mmol/L (3.3-5.1); Sodium 148 mmol/L (135-145); Total Protein 6.9 g/dL (6.5-8.0)
[2025-02-01 16:16] LABS: Resp Syncy Virus RNA Qual PCR NEGATIVE (Negative); SARS COV2 PCR INHOUSE NEGATIVE (Negative)
--- NOTE | 2025-02-01 16:55 | PC.NURSE ---
Pt resting quietly in cottrell bed with daughter at bedside. has been living on his own but family concerned for decision making/memory loss. Pt is axox3. States he's here b/c he hasn't been remembering things. Was due to start olanzepine yesterday but hasn't begun. Provider aware that med rec is complete and awaits approval.
--- OUTSIDE RECORDS SUMMARY | 2025-02-01 17:25 | XMS_ITS | Clinical Summary ---
Author Organization [address] [facility] Address [address] [place] [address] Phone Care Team Providers Care Disposal Worker Name Role Phone Mary Flores MD Primary Care Provider + Encounters Date Type Department Care Team Description 12/30/2024 Lab Requisition [facility] Lab [address] [place] [phone] Mary Flores MD Abnormal results of thyroid function studies 12/28/2024 Lab Requisition [facility] Lab [address] [place] [phone] Mary Flores MD Sepsis, unspecified organism (CMS/HCC V24, CMS/HCC V28); Acute kidney failure with tubular necrosis (CMS/HCC V24) 12/22/2024 Lab Requisition [facility] Lab [address] [place] [phone] Mary Flores MD Sepsis, unspecified organism (CMS/HCC V24, CMS/HCC V28); Acute kidney failure with tubular necrosis (CMS/HCC V24); Adenoviral pneumonia; Essential (primary) hypertension from Last 3 Months Social History Tobacco Use Types Packs/Day Years Used Date Smoking Tobacco: Never Assessed Sex and Gender Information Value Date Recorded Sex Assigned at Not on file Legal Sex Male 1:02 PM EST Gender Identity Not on file Sexual Orientation Not on file Plan of Treatment Health Maintenance Due Date Last Done Comments DTaP,Tdap,and Td Vaccines (1 - Tdap) 09[birth year]10/1954 Pneumococcal Vaccine: 50+ Years (1 of 1 - PCV) 1986 Zoster Vaccines (1 of 2) 1986 RSV Immunization Adult Patients (1 - 1-dose 75+ series) 09/10/2011 Depression Screening 03/24/2024 COVID-19 Vaccine (1 - 2024-2 6 season) 2024 Influenza Vaccine (#1) 2024 Cholesterol Screening (Lipid Panel) 12/22/2024 Falls Risk Assessment 12/22/2024 Medicare Annual Wellness Visit 12/22/2024 Social Influencers of Health Screening 12/22/2024 Hypertension/CHF/CAD Annual BMP Blood Test 12/29/2025 12/29/2024, 12/22/2024 HIB Vaccines Aged Out No longer eligi [...] on patient's age to complete this topic MMR Vaccines Aged Out No longer eligi ble based on patient's age to complete this topic Meningococcal ACWY Vaccine Aged Out N o longer eligible based on patient's age to complete this topic Meningococcal B Vaccine Aged Out No l onger eligible based on patient's age to complete this topic RSV Immunization Patients Under 20 months Aged Out No longer eligible b ased on patient's age to complete this topic Varicella Vaccines Aged Out No longer eligible based on patient's age to complete this topic Procedures Procedure Name Priority Date/Time Associated Diagnosis Comments BASIC METABOLIC PANEL Routine 12/29/2024 6:34 AM EDT Sepsis, unspecified organism (CMS/HCC V24, CMS/HCC V28) Acute kidney failure with tubular necrosis (CMS/HCC V24) COMPLETE BLOOD COUNT Routine 12/29/2024 6:34 AM EDT Sepsis, unspecified organism (CMS/HCC V24, CMS/HCC V28) Acute kidney failure with tubular necrosis (CMS/HCC V24) FOLATE Routine 12/22/2024 8:09 AM EDT Sepsis, unspecified organism (CMS/HCC V24, CMS/HCC V28) Acute kidney failure with tubular necrosis (CMS/HCC V24) Adenoviral pneumonia Essential (primary) hypertension THYROID STIMULATING HORMONE Routine 12/22/2024 8:09 AM EDT Sepsis, unspecified organism (CMS/HCC V24, CMS/HCC V28) Acute kidney failure with tubular necrosis (CMS/HCC V24) Adenoviral pneumonia Essential (primary) hypertension MAGNESIUM Routine 12/22/2024 8:09 AM EDT Sepsis, unspecified organism (CMS/HCC V24, CMS/HCC V28) Acute kidney failure with tubular necrosis (CMS/HCC V24) Adenoviral pneumonia Essential (primary) hypertension COMPREHENSIVE METABOLIC PANEL Routine 12/22/2024 8:09 AM EDT Sepsis, unspecified organism (CMS/HCC V24, CMS/HCC V28) Acute kidney failure with tubular necrosis (CMS/HCC V24) Adenoviral pneumonia Essential (primary) hypertension COMPLETE BLOOD COUNT Routine 12/22/2024 8:09 AM EDT Sepsis, unspecified organism (CMS/HCC V24, CMS/HCC V28) Acute kidney failure with tubular necrosis (CMS/HCC V24) Adenoviral pneumonia Essential (primary) hypertension from Last 3 Months Results * (ABNORMAL) Complete blood count (12/29/2024 6:34 AM EDT) Only the most recent of2 resultswithin the time period is included. WBC 10.7 4.8 - 10.8 K/mcL LAB HEMETOLOGY METHOD 12/29/2024 9:53 AM [facility] RBC 3.10(L) 4.50 - 5.50 M/mcL LAB HEMETOLOGY METHOD 12/29/2024 9:53 AM [facility] Hemoglobin 10.2(L) 13.5 - 17.5 g/dL LAB HEMETOLOGY METHOD 12/29/2024 9:53 AM [facility] Hematocrit 31.6(L) 42.0 - 54.0 % LAB HEMETOLOGY METHOD 12/29/2024 9:53 AM [facility] MCV 101.6(H) 79.0 - 98.0 FL LAB HEMETOLOGY METHOD 12/29/2024 9:[address] [facility] MCH 32.8(H) 27.0 - 32.0 pcg LAB HEMETOLOGY METHOD 12/29/2024 9:[address] [facility] MCHC 32.3 32.0 - 37.0 g/dL LAB HEMETOLOGY METHOD 12/29/2024 9:[address] [facility] RDW 15.7(H) 11.0 - 15.0 % LAB HEMETOLOGY METHOD 12/29/2024 9:[address] [facility] Platelets 110(L) 130 - 400 K/mcL LAB HEMETOLOGY METHOD 12/29/2024 9:[address] [facility] MPV 10.3 7.0 - 11.0 FL LAB HEMETOLOGY METHOD 12/29/2024 9:[address] [facility] NRBC 0.0 <1.0 % LAB HEMETOLOGY METHOD 12/29/2024 9:[address] [facility] NRBC Absolute 0.00 <0.10 K/mcL LAB HEMETOLOGY METHOD 12/29/2024 9:[address] [facility] Blood Venous blood specimen / Unknown Venipuncture / Unknown 12/29/2024 6:34 AM EDT 12/29/2024 9:43 AM EDT us Mary Flores MD LAB BLOOD ORDERABLES Fin al Result [facility] [address] [place] [address], * (ABNORMAL) Basic metabolic panel (12/29/2024 6:34 AM EDT) [facility] Sodium 141 133 - 145 mmol/L LAB CHEMISTRY METHOD 12/29/2024 11:03 AM [facility] Potassium 4.8 3.5 - 5.5 mmol/L LAB CHEMISTRY METHOD 12/29/2024 11:03 AM [facility] Chloride 111(H) 96 - 110 mmol/L LAB CHEMISTRY METHOD 12/29/2024 11:03 AM [facility] CO2 21 21 - 32 mmol/L LAB CHEMISTRY METHOD 12/29/2024 11:03 AM [facility] Anion Gap 9 3 - 11 LAB CHEMISTRY METHOD 12/29/2024 11:03 AM [facility] Glucose 119(H) 70 - 100 mg/dL LAB CHEMISTRY METHOD 12/29/2024 11:03 AM [facility] BUN 68(H) 5 - 25 mg/dL LAB CHEMISTRY METHOD 12/29/2024 11:03 AM [facility] Comment:Results verified by repeat testing Creatinine 2.14(H) 0.70 - 1.30 mg/dL LAB CHEMISTRY METHOD 12/29/2024 11:03 AM [facility] eGFR 29(L) >=60 mL/min/1. 73m2 LAB CHEMISTRY METHOD 12/29/2024 11:03 AM [facility] Comment:Calculation based on the Chronic Kidney Disease Epidemiology Collaboration (CKD-EPI) equation refit without adjustment for race. BUN/Creatinine Ratio 31.8 LAB CHEMISTRY METHOD 12/29/2024 11:03 AM [facility] Calcium 8.7 8.5 - 10.5 mg/dL LAB CHEMISTRY METHOD 12/29/2024 11:03 AM [facility] Blood Venous blood specimen / Unknown Venipuncture / Unknown 12/29/2024 6:34 AM EDT 12/29/2024 9:43 AM EDT us Mary Flores MD LAB BLOOD ORDERABLES Fin al Result [facility] [address] [place] [address], * (ABNORMAL) Thyroid stimulating hormone (12/22/2024 8:09 AM EDT) TSH 0.22(L) 0.40 - 4.00 mcIU/mL LAB CHEMISTRY METHOD 12/22/2024 1:[address] [facility] Blood Venous blood specimen / Unknown Venipuncture / Unknown 12/22/2024 8:09 AM EDT 12/22/2024 11:11 AM EDT Mary Flores MD LAB BLOOD ORDERABLES Fin al Result Performing Organization Address [facility] de Phone Number [facility] [address] [place] [address], * Magnesium (12/22/2024 8:09 AM EDT) Magnesium 2.3 1.9 - 2.6 mg/dL LAB CHEMISTRY METHOD 12/22/2024 12:[address] [facility] Blood Venous blood specimen / Unknown Venipuncture / Unknown 12/22/2024 8:09 AM EDT 12/22/2024 11:11 AM EDT Mary Flores MD LAB BLOOD ORDERABLES Fin al Result Performing Organization Address [facility] Co de Phone Number [facility] [address] [place] [address], * Folate (12/22/2024 8:09 AM EDT) Folate 13.9 2.8 - 17.0 ng/ml LAB CHEMISTRY METHOD 12/22/2024 12:[address] [facility] Blood Venous blood specimen / Unknown Venipuncture / Unknown 12/22/2024 8:09 AM EDT 12/22/2024 11:11 AM EDT us Mary Flores MD LAB BLOOD ORDERABLES Fin al Result [facility] [address] [place] [address], [place] [phone] * (ABNORMAL) Comprehensive metabolic panel (12/22/2024 8:09 AM EDT) [facility] Sodium 139 133 - 145 mmol/L LAB CHEMISTRY METHOD 12/22/2024 12:30 PM [facility] Potassium 4.0 3.5 - 5.5 mmol/L LAB CHEMISTRY METHOD 12/22/2024 12:30 PM [facility] Chloride 108 96 - 110 mmol/L LAB CHEMISTRY METHOD 12/22/2024 12:30 PM [facility] CO2 26 21 - 32 mmol/L LAB CHEMISTRY METHOD 12/22/2024 12:30 PM [facility] Anion Gap 5 3 - 11 LAB CHEMISTRY METHOD 12/22/2024 12:30 PM [facility] Glucose 73 70 - 100 mg/dL LAB CHEMISTRY METHOD 12/22/2024 12:30 PM [facility] BUN 25 5 - 25 mg/dL LAB CHEMISTRY METHOD 12/22/2024 12:30 PM [facility] Creatinine 1.38(H) 0.70 - 1.30 mg/dL LAB CHEMISTRY METHOD 12/22/2024 12:30 PM [facility] eGFR 49(L) >=60 mL/min/1. 73m2 LAB CHEMISTRY METHOD 12/22/2024 12:30 PM [facility] Comment:Calculation based on the Chronic Kidney Disease Epidemiology Collaboration (CKD-EPI) equation refit without adjustment for race. BUN/Creatinine Ratio 18.1 LAB CHEMISTRY METHOD 12/22/2024 12:[address] [facility] Calcium 8.6 8.5 - 10.5 mg/dL LAB CHEMISTRY METHOD 12/22[facility] AST (SGOT) 42 10 - 42 unit/L LAB CHEMISTRY METHOD 12/22/2024 12:30 PM [facility] ALT (SGPT) 48 10 - 60 unit/L LAB CHEMISTRY METHOD 12/22/2024 12:[address] [facility] Alkaline Phosphatase 60 42 - 121 unit/L LAB CHEMISTRY METHOD 12/22/2024 12:[address] [facility] Total Protein 5.1(L) 6.0 - 8.0 g/dL LAB CHEMISTRY METHOD 12/22/2024 12:30 PM [facility] Albumin 2.5(L) 3.2 - 5.0 g/dL LAB CHEMISTRY METHOD 12/22/2024 12:30 PM [facility] Total Bilirubin 0.6 0.0 - 1.4 mg/dL LAB CHEMISTRY METHOD 12/22/2024 12:30 PM [facility] Blood Venous blood specimen / Unknown Venipuncture / Unknown 12/22/2024 8:09 AM EDT 12/22/2024 11:11 AM EDT us Mary Flores MD LAB BLOOD ORDERABLES Fin al Result [facility] [address] [place] [address], from Last 3 Months Insurance [facility] MEDICARE [facility] Care Teams Disposal Worker Relationship Specialty Start Date End Date Mary Flores MD [address] [address] PCP - General Family Medicine 12/22/24
--- OUTSIDE RECORDS SUMMARY | 2025-02-01 17:25 | XMS_ITS | Encounter Summary ---
Author Organization [employer] Address [address] [place] [address] Care Team Providers Care Director Workforce Management Name Role Phone Mary Flores MD Primary Care Provider + Encounter Details Date Type Department Care Team (Late st Contact Info) Description 12/22/2024 Lab Requisition [facility] Lab [address] [facility] [place] [address] Mary Flores MD [address] [facility] [address] [place], [place] [phone] Sepsis, unspecified organism (CMS/HCC V24, CMS/HCC V28); Acute kidney failure with tubular necrosis (CMS/HCC V24); Adenoviral pneumonia; Essential (primary) hypertension Social History Tobacco Use Types Packs/Day Years Used Date Smoking Tobacco: Never Assessed Sex and Gender Information Value Date Recorded Sex Assigned at Not on file Legal Sex Male 1:02 PM EST Gender Identity Not on file Sexual Orientation Not on file documented as of this encounter Plan of Treatment Not on file documented as of this encounter Procedures Procedure Name Priority Date/Time Associated Diagnosis Comments COMPLETE BLOOD COUNT Routine 12/22/2024 8:09 AM [...] (CMS/HCC V24) Adenoviral pneumonia Essential (primary) hypertension FOLATE Routine 12/22/2024 8:09 AM EDT Sepsis, unspecified organism (CMS/HCC V24, CMS/HCC V28) Acute kidney failure with tubular necrosis (CMS/HCC V24) Adenoviral pneumonia Essential (primary) hypertension COMPREHENSIVE METABOLIC PANEL Routine 12/22/2024 8:09 AM EDT Sepsis, unspecified organism (CMS/HCC V24, CMS/HCC V28) Acute kidney failure with tubular necrosis ([facility]/HCC V24) Adenoviral pneumonia Essential (primary) hypertension documented in this encounter Results * Folate (12/22/2024 8:09 AM EDT) Pathologist [facility] Folate 13.9 2.8 - 17.0 ng/ml LAB CHEMISTRY METHOD 12/22/2024 12:30 PM EDT [facility] Blood Venous blood specimen / Unknown Venipuncture / Unknown 12/22/2024 8:09 AM EDT 12/22/2024 11:11 AM EDT Mary Flores MD LAB BLOOD ORDERABLES Fin al Result [facility] [address] [place] [address], * (ABNORMAL) Thyroid stimulating hormone (12/22/2024 8:09 AM EDT) TSH 0.22(L) 0.40 - 4.00 mcIU/mL LAB CHEMISTRY METHOD 12/22/2024 1:18 PM EDT [facility] Blood Venous blood specimen / Unknown Venipuncture / Unknown 12/22/2024 8:09 AM EDT 12/22/2024 11:11 AM EDT Mary Flores MD LAB BLOOD ORDERABLES Fin al Result Performing Organization Address [facility]/ZIP Co de Phone Number [facility] [address] [place] [address], * Magnesium (12/22/2024 8:09 AM EDT) Magnesium 2.3 1.9 - 2.6 mg/dL LAB CHEMISTRY METHOD 12/22/2024 12:19 PM EDT [facility] Blood Venous blood specimen / Unknown Venipuncture / Unknown 12/22/2024 8:09 AM EDT 12/22/2024 11:11 AM EDT Mary Flores MD LAB BLOOD ORDERABLES Fin al Result Performing Organization Address [facility] Co de Phone Number [facility] [address] [place] [address], * (ABNORMAL) Comprehensive metabolic panel (12/22/2024 8:09 AM EDT) Sodium 139 133 - 145 mmol/L LAB CHEMISTRY METHOD 12/22/2024 12:30 PM [facility] Potassium 4.0 3.5 - 5.5 mmol/L LAB CHEMISTRY METHOD 12/22/2024 12:30 PM [facility] Chloride 108 96 - 110 mmol/L LAB CHEMISTRY METHOD 12/22/2024 12:30 PM [facility] CO2 26 21 - 32 mmol/L LAB CHEMISTRY METHOD 12/22/2024 12:30 PM [facility] Anion Gap 5 3 - 11 LAB CHEMISTRY METHOD 12/22/2024 12:30 PM [facility] Glucose 73 70 - 100 mg/dL LAB CHEMISTRY METHOD 12/22/2024 12:30 PM [facility] BUN 25 5 - 25 mg/dL LAB CHEMISTRY METHOD 12/22/2024 12:30 PM [facility] Creatinine 1.38(H) 0.70 - 1.30 mg/dL LAB CHEMISTRY METHOD 12/22/2024 12:30 PM [facility] eGFR 49(L) >=60 mL/min/1. 73m2 LAB CHEMISTRY METHOD 12/22/2024 12:30 PM [facility] Comment:Calculation based on the Chronic Kidney Disease Epidemiology Collaboration (CKD-EPI) equation refit without adjustment for race. BUN/Creatinine Ratio 18.1 LAB CHEMISTRY METHOD 12/22/2024 12:30 PM [facility] Calcium 8.6 8.5 - 10.5 mg/dL LAB CHEMISTRY METHOD 12/22/2024 12:30 PM [facility] AST (SGOT) 42 10 - 42 unit/L LAB CHEMISTRY METHOD 12/22/2024 12:30 PM [facility] ALT (SGPT) 48 10 - 60 unit/L LAB CHEMISTRY METHOD 12/22/2024 12:30 PM [facility] Alkaline Phosphatase 60 42 - 121 unit/L LAB CHEMISTRY METHOD 12/22/2024 12:30 PM [facility] Total Protein 5.1(L) 6.0 - 8.0 g/dL LAB CHEMISTRY METHOD 12/22/2024 12:30 PM [facility] Albumin 2.5(L) 3.2 - 5.0 g/dL LAB CHEMISTRY METHOD 12/22/2024 12:30 PM [facility] Total Bilirubin 0.6 0.0 - 1.4 mg/dL LAB CHEMISTRY METHOD 12/22/2024 12:30 PM [facility] Blood Venous blood specimen / Unknown Venipuncture / Unknown 12/22/2024 8:09 AM EDT 12/22/2024 11:11 AM EDT us Mary Flores MD LAB BLOOD ORDERABLES Fin al Result [facility] [address] [place] [address], * (ABNORMAL) Complete blood count (12/22/2024 8:09 AM EDT) [facility] WBC 9.1 4.8 - 10.8 K/mcL LAB HEMETOLOGY METHOD 12/22/2024 12:46 PM EDT [facility] RBC 3.00(L) 4.50 - 5.50 M/mcL LAB HEMETOLOGY METHOD 12/22/2024 12:46 PM EDT [facility] Hemoglobin 9.5(L) 13.5 - 17.5 g/dL LAB HEMETOLOGY METHOD 12/22/2024 12:46 PM EDT [facility] Hematocrit 29.2(L) 42.0 - 54.0 % LAB HEMETOLOGY METHOD 12/22/2024 12:46 PM EDT [facility] MCV 97.7 79.0 - 98.0 FL LAB HEMETOLOGY METHOD 12/22/2024 12:46 PM EDT [facility] MCH 31.8 27.0 - 32.0 pcg LAB HEMETOLOGY METHOD 12/22/2024 12:46 PM EDT [facility] MCHC 32.5 32.0 - 37.0 g/dL LAB HEMETOLOGY METHOD 12/22/2024 12:46 PM EDT [facility] RDW 15.1(H) 11.0 - 15.0 % LAB HEMETOLOGY METHOD 12/22/2024 12:46 PM EDT [facility] Platelets 138 130 - 400 K/mcL LAB HEMETOLOGY METHOD 12/22/2024 12:46 PM EDT [facility] MPV 10.2 7.0 - 11.0 FL LAB HEMETOLOGY METHOD 12/22/2024 12:46 PM EDT [facility] NRBC 1.1(H) <1.0 % LAB HEMETOLOGY METHOD 12/22/2024 12:46 PM EDT [facility] NRBC Absolute 0.10(H) <0.10 K/mcL LAB HEMETOLOGY METHOD 12/22/2024 12:46 PM EDT [facility] Blood Venous blood specimen / Unknown Venipuncture / Unknown 12/22/2024 8:09 AM EDT 12/22/2024 11:11 AM EDT us Mary Flores MD LAB BLOOD ORDERABLES Fin al Result [facility] [address] [place] [address], documented in this encounter Visit Diagnoses Diagnosis Sepsis, unspecified organism (CMS/HCC V24, CMS/HCC V28) Acute kidney failure with tubular necrosis (CMS/HCC V24) Adenoviral pneumonia Pneumonia due to adenovirus Essential (primary) hypertension Unspecified essential hypertension documented in this encounter Care Teams Director Workforce Management Relationship Specialty Start Date End Date Mary Flores MD [address] [place] [phone] PCP - General Family Medicine 12/22/24 documented as of this encounter
--- OUTSIDE RECORDS SUMMARY | 2025-02-01 17:25 | XMS_ITS | Encounter Summary ---
Author Organization [employer] Address [address] [place] [address] Care Team Providers Care National Sales Name Role Phone Unavailable Primary Care Provider Unavailabl e Encounter Details Date Type Department Care Team (Latest Contact Info) Description 05/15/2018 Abstract [facility] CONVERSIONS Dental, Provider, DDS Social History [...]
--- OUTSIDE RECORDS SUMMARY | 2025-02-01 17:25 | XMS_ITS | Encounter Summary ---
Author Organization [employer] Address [address] [place] [address] Care Team Providers Care Public Relations Specialist Name Role Phone Unavailable Primary Care Provider Unavailabl e Encounter Details Date Type Department Care Team (Latest Contact Info) Description 09/11/2021 Abstract [facility] CONVERSIONS Dental, Provider, DDS Social History Tobacco [...]
--- OUTSIDE RECORDS SUMMARY | 2025-02-01 17:25 | XMS_ITS | Clinical Summary ---
Author Organization [employer] Address [address] [place] [address] [address] [place] [address] Care Team Providers Care Shirt Ironer Name Role Phone Unavailable Primary Care Provider [...]
--- OUTSIDE RECORDS SUMMARY | 2025-02-01 17:25 | XMS_ITS | Encounter Summary ---
Author Organization [employer] Address [address] [place] [address] Care Team Providers Care Spray Crew Name Role Phone Mary Flores MD Primary Care Provider + Encounter Details Date Type Department Care Team (Late st Contact Info) Description 12/28/2024 Lab Requisition [facility] Lab [address] [place] [address] Mary Flores MD [address] [phone] Sepsis, unspecified organism (CMS/HCC V24, CMS/HCC V28); Acute kidney failure with tubular necrosis (CMS/HCC V24) Social History Tobacco Use Types Packs/Day Years [...] Associated Diagnosis Comments COMPLETE BLOOD COUNT Routine 12/29/2024 6:34 AM EDT Sepsis, unspecified organism (CMS/HCC V24, CMS/HCC V28) Acute kidney failure with tubular necrosis (CMS/HCC V24) BASIC METABOLIC PANEL Routine 12/29/2024 6:34 AM EDT Sepsis, unspecified organism (CMS/HCC V24, CMS/HCC V28) Acute kidney failure with tubular necrosis (CMS/HCC V24) documented in this encounter Results * (ABNORMAL) Basic metabolic panel (12/29/2024 6:34 AM EDT) Sodium 141 133 - 145 mmol/L LAB CHEMISTRY METHOD 12/29/2024 11:03 AM [facility] Potassium 4.8 3.5 - 5.5 mmol/L LAB CHEMISTRY METHOD 12/29/2024 11:03 AM [facility] Chloride 111(H) 96 - 110 mmol/L LAB CHEMISTRY METHOD 12/29/2024 11:03 AM [facility] CO2 21 21 - 32 mmol/L LAB CHEMISTRY METHOD 12/29/2024 11:03 AM [facility] Anion Gap 9 3 - 11 LAB CHEMISTRY METHOD 12/29/2024 11:03 AM [facility] Glucose 119(H) 70 - 100 mg/dL LAB CHEMISTRY METHOD 12/29/2024 11:03 AM [facility] BUN 68(H) 5 - 25 mg/dL LAB CHEMISTRY METHOD 12/29/2024 11:03 AM [facility] Comment:Results verified by repeat testing Creatinine 2.14(H) 0.70 - 1.30 mg/dL LAB CHEMISTRY METHOD 12/29/2024 11:03 AM [facility] eGFR 29(L) >=60 mL/min/1. 73m2 LAB CHEMISTRY METHOD 12/29/2024 11:03 AM [facility] Comment:Calculation based on the Chronic Kidney Disease Epidemiology Collaboration (CKD-EPI) equation refit without adjustment for race. BUN/Creatinine Ratio 31.8 LAB CHEMISTRY METHOD 12/29/2024 11:03 AM [facility] Calcium 8.7 8.5 - 10.5 mg/dL LAB CHEMISTRY METHOD 12/29/2024 11:03 AM [facility] Blood Venous blood specimen / Unknown Venipuncture / Unknown 12/29/2024 6:34 AM EDT 12/29/2024 9:43 AM EDT Mary Flores MD LAB BLOOD ORDERABLES Fin al Result [facility] [address] [place] [address], * (ABNORMAL) Complete blood count (12/29/2024 6:34 AM EDT) WBC 10.7 4.8 - 10.8 K/mcL LAB HEMETOLOGY METHOD 12/29/2024 9:53 AM EDT [facility] RBC 3.10(L) 4.50 - 5.50 M/mcL LAB HEMETOLOGY METHOD 12/29/2024 9:53 AM EDT [facility] Hemoglobin 10.2(L) 13.5 - 17.5 g/dL LAB HEMETOLOGY METHOD 12/29/2024 9:53 AM EDT [facility] Hematocrit 31.6(L) 42.0 - 54.0 % LAB HEMETOLOGY METHOD 12/29/2024 9:53 AM EDT [facility] MCV 101.6(H) 79.0 - 98.0 FL LAB HEMETOLOGY METHOD 12/29/2024 9:53 AM EDT [facility] MCH 32.8(H) 27.0 - 32.0 pcg LAB HEMETOLOGY [facility] MCHC 32.3 32.0 - 37.0 g/dL LAB HEMETOLOGY METHOD 12/29/2024 9:53 AM EDT [facility] RDW 15.7(H) 11.0 - 15.0 % LAB HEMETOLOGY METHOD 12/29/2024 9:53 AM EDT [facility] Platelets 110(L) 130 - 400 K/mcL LAB HEMETOLOGY METHOD 12/29/2024 9:53 AM EDT [facility] MPV 10.3 7.0 - 11.0 FL LAB HEMETOLOGY METHOD 12/29/2024 9:53 AM EDT [facility] NRBC 0.0 <1.0 % LAB HEMETOLOGY METHOD 12/29/2024 9:53 AM EDT [facility] NRBC Absolute 0.00 <0.10 K/mcL LAB HEMETOLOGY METHOD 12/29/2024 9:53 AM EDT [facility] Blood Venous blood specimen / Unknown Venipuncture / Unknown 12/29/2024 6:34 AM EDT 12/29/2024 9:43 AM EDT us Mary Flores MD LAB BLOOD ORDERABLES Fin al Result [facility] [address] [place] [address], documented in this encounter Visit Diagnoses Diagnosis Sepsis, unspecified organism (CMS/HCC V24, CMS/HCC V28) Acute kidney failure with tubular necrosis (CMS/HCC V24) documented in this encounter Care Teams Spray Crew Relationship Specialty Start Date End Date Mary Flores MD [address] [place] [phone] PCP - General Family Medicine 12/22/24 documented as of this encounter
--- OUTSIDE RECORDS SUMMARY | 2025-02-01 17:25 | XMS_ITS | Encounter Summary ---
Author Organization [facility] Address [address] [place] [address] Care Team Providers Care Cover Stripper Name Role Phone Mary Flores MD Primary Care Provider + Encounter Details Date Type Department Care Team (Late st Contact Info) Description 12/30/[address] [facility] - Main Lab [address] [facility] [place] [address] Mary Flores MD [address] [address] Abnormal results of thyroid function studies Social History Tobacco Use Types Packs/Day Years Used Date Smoking Tobacco: Never Assessed Sex and Gender Information Value Date Recorded Sex Assigned at Not on file Legal Sex Male 1:02 PM EST Gender Identity Not on file Sexual Orientation Not on file documented as of this encounter Plan of Treatment Not on file documented as of this encounter Visit Diagnoses Diagnosis Abnormal results of thyroid function studies Nonspecific abnormal results of thyroid function study documented in this encounter Care Teams Cover Stripper Relationship Specialty Start Date End Date Mary Flores MD [address] [address] PCP - General Family Medicine 12/22/24 documented as of this encounter
--- NOTE | 2025-02-01 17:28 | PHA.MEDREC ---
Pharmacy Consult ? Medication Reconciliation Pharmacy has completed the medication reconciliation. Completed by nursing, reviewed by pharmacy. Matches claim Hx
--- NOTE | 2025-02-01 18:01 | PC.NURSE ---
Pt has elopment band on and will be moved to OV
--- NOTE | 2025-02-01 18:07 | PC.NURSE ---
RN to RN with Nikki in [facility].
[2025-02-01 22:00] VITALS: BP 109/52; PULSE 99; RESP 16; TEMP 37.3; O2SAT 99
--- NOTE | 2025-02-02 00:56 | PC.NURSE ---
Patient A/Ox4, pleasant and cooperative with care. Able to make needs known. Safety precautions in place, bed alarm on , call cast within reach. Plan of care ongoing.
[2025-02-02 06:30] VITALS: BP 115/49; PULSE 94; RESP 18; TEMP 36.9; O2SAT 95
[2025-02-02 08:56] VITALS: PULSE 111; O2SAT 97
[2025-02-02 11:25] LABS: Appearance Urine Clear; Glucose Urine UA Negative (Negative); PH 6.0 (5.0-9.0); Specific Gravity - Urine 1.015 (1.005-1.025)
[2025-02-02 11:44] LABS: Cannabinoid Screen Urine Not Detected (Not Detect)
--- NOTE | 2025-02-02 13:47 | MHC.CM.ED ---
Received case management consult overnight. Jordon came to the ER due to AMS and difficulty completing ADLs. PCP sent patient to ER to evaluate for inpatient psych admission. [place] [facility] Psych consult is ordered and pending. Patient's daughter, Katerine, made aware psych consult is ordered and pending to determine if inpatient nicole psych admission is appropriate. Continue to monitor for d/c needs.
[2025-02-02 14:00] VITALS: BP 108/46; PULSE 97; RESP 20; TEMP 37.3; O2SAT 96
--- NOTE | 2025-02-02 17:20 | P.CNPS_ITS ---
History of Present Illness Date of Service: 02/02/2025 Chief Complaint: Maria De Jesus Darryl ref by pcp Reason for Consult: increase confusion, memory impairments Discussed with referring provider: Yes Sources of Information: patient interviewed, chart reviewed and crisis/core team assessment reviewed HPI Narrative: Mr. Cisneros is an 89 year-old male who was brought in by family due to subacute changes in memory/cognition in that he has been more confused in terms of his orientation, more forgetful, repetitive in behaviors (doing his bed several times, pilling papers over and over), more agitated when redirected. He has had a number of medical admission recently- 01/27/2025 due to SELWYN and AMS, 12/21/2024 acute hypoxic respiratory failure and SLEWYN. He has also had number of falls. No head injury. Head CT have not shown acute changes but does show atrophy and periventricular microvascular changes. Per daughter, who is present during the visit, pt was driving 2 months ago and able to be on his own. Pertinent labs completed in the ED include CBC with chronic macrocytic anemia (stable H&H), CMP with hypernatremia, elevated BUN 45, Cr 1.89, creatinine clearance 23.5. Utox is negative. UA is not suggestive of UTI. Pt has also been on prednisone taper for exacerbation of gout. Pt seen in the ED. Pt in bed, somewhat upset about being here. He tells this headline writer my family thinks I am nuts! there is nothing wrong with me. When asked about where he is, he states I thought I was home, but I guess I am not. He continues to tell this headline writer, there is nothing wrong with me. He tells this headline writer that he thinks he is in [place]. He states he has been here for about 2 hours, note he has been in the hospital for a day. He reports no doctor has seen him and no blood work has been done, which is not accurate. He knows the month and is able to tell this headline writer it is January. He also knows the year, 2024. There are no signs of psychosis or delusions. He does comfabulate. [facility] Medical History (Updated 02/03/25 @ 07:42 by Racheal Chen NP) Kidney stones Hepatitis C virus GERD (gastroesophageal reflux disease) HTN (hypertension) Elevated PSA History of kidney stones Weak urinary stream BPH (benign prostatic hyperplasia) Hematuria Surgical History H/O lithotripsy H/O wisdom tooth extraction Diagnostics Vital Signs (24Hr): Vital Signs - 24 hr 02/01/25 22:00 02/02/25 06:30 02/02/25 08:56 Temperature 99.2 F 98.4 F Pulse Rate 99 94 111 H Respiratory Rate 16 18 Blood Pressure 109/52 L 115/49 L Pulse Oximetry 99 95 97 Oxygen Delivery Method Room Air Room Air 02/02/25 14:00 Temperature 99.1 F Pulse Rate 97 Respiratory Rate 20 Blood Pressure 108/46 L Pulse Oximetry 96 Oxygen Delivery Method Room Air BMI result Body Mass Index 25.0 Labs 02/01/25 15:29 02/01/25 15:29 Labs: Laboratory Results - last 48 hr 02/01/25 02/01/25 02/02/25 15:24 15:29 11:18 WBC 7.1 RBC 2.75 L Hgb 8.9 L Hct 28.8 L MCV 104.7 H MCH 32.4 MCHC 30.9 L RDW 14.4 Plt Count 238 D MPV 9.5 Immature Gran % (Auto) 1.6 H Neut % (Auto) 75.3 H Lymph % (Auto) 14.6 L [place] % (Auto) 7.6 Eos % (Auto) 0.6 Baso % (Auto) 0.3 Lymph # (Auto) 1.0 L [place] # (Auto) 0.5 Eos # (Auto) 0.0 Baso # (Auto) 0.0 Abs Immat Gran (auto) 0.11 H Absolute Neuts (auto) 5.3 Absolute Nucleated RBC 0.000 Nucleated RBC % (auto) 0.0 Sodium 148 H Potassium 4.8 Chloride 116 H Carbon Dioxide 24 Anion Gap 13 BUN 45 H Creatinine 1.89 H Estim Creat Clear Calc 23.5 Estimated GFR 34 Random Glucose 108 Calcium 9.9 D Total Bilirubin 0.4 AST 27 ALT 17 Alkaline Phosphatase 62 Total Protein 6.9 Albumin 3.8 Urine Color Yellow Urine Appearance Clear Urine pH 6.0 Ur Specific [place] 1.015 Urine Protein Negative Urine Glucose (UA) Negative Urine Ketones Negative Urine Blood Negative Urine Nitrite Negative Ur Leukocyte Esterase Negative Urine Opiates Screen Not Detected Ur Buprenorphine Scrn Not Detected Ur Oxycodone Screen Not Detected Urine Methadone Screen Not Detected Urine Fentanyl Screen Not Detected Ur Barbiturates Screen Not Detected Ur Phencyclidine Scrn Not Detected Ur Amphetamines Screen Not Detected U Benzodiazepines Scrn Not Detected Urine Cocaine Screen Not Detected U Marijuana (THC) Screen Not Detected Ethyl Alcohol < 10 Influenza Type A (PCR) NEGATIVE Influenza Type B (PCR) NEGATIVE RSV RNA Qual (PCR) NEGATIVE SARS-CoV-2 RNA (RT-PCR) NEGATIVE Mental Status Exam Mental Status Exam Narrative: Appearance: wearing hospital gown, fair hygiene, in NAD Behavior: guarded, but eventually cooperative Psychomotor: no agitation or retardation noted Speech: mostly clear, normal rate/rhyth, volume, spontaneous TP: mostly linear, noted confabulation TC: wanting to go home Mood: okay Affect: somewhat irritable as he wants to go home SI: none HI: none VH/AH: none Delusions: none Insight/judgment: impaired x 2 Memory/cog: alert, oriented to month and year, but not to situation. severe anterograde amnesia in that he is not able to retain events leading to this admission nor able to tell what has happened in the past 12 hours or 24 hrs. Medications Medications Current Medications Finasteride (Finasteride 5 Mg Tablet) 5 mg PO DAILY REPLACED BY [facility] Last Admin: 02/02/25 09:02 Dose: 5 mg Lisinopril (Lisinopril 40 Mg Tablet) 40 mg PO DAILY REPLACED BY [facility]; Protocol Last Admin: 02/02/25 09:02 Dose: 40 mg Pt Own (Tadalafil 5 (Mg Tablet)) 5 mg PO DAILY REPLACED BY [facility] Last Admin: 02/02/25 09:22 Dose: 5 mg Olanzapine (Olanzapine 5 Mg Tablet) 5 mg PO Q6H PRN PRN Reason: Agitation Prednisone (Prednisone 1 Mg Tablet) 3 mg PO DAILY REPLACED BY [facility] Last Admin: 02/02/25 09:02 Dose: 3 mg Tamsulosin HCl (Tamsulosin Hcl 0.4 Mg Capsule) 0.4 mg PO BEDTIME REPLACED BY [facility] Last Admin: 02/01/25 20:34 Dose: 0.4 mg Allergies Allergies Allergy/AdvReac Type Severity Reaction Status Date / Time No Known Allergies Allergy Verified 02/01/25 14:47 Assessment & Plan Assessment & Plan (1) Major neurocognitive disorder due to another medical condition: Status: Acute Code(s): F02.80 - Dementia in other diseases classified elsewhere, unspecified severity, without behavioral disturbance, psychotic disturbance, mood disturbance, and anxiety Plan Mr. Cisneros is an 89 year-old male who was brought by family due to increase confusion and forgetfulness. He has had two medical admission in the past month one for acute respiratory failure episode/ SELWYN and second one for SELWYN/AMS. He was able to drive 2 months ago and seemed to be able to function independently. No formal testing of his cognition/memory has been done. There has been a more drastic decline in the past month. He currently does NOT present with s/s of delirium. His attention is fairly intact. However, significant memory/cognitive impairments are noted- orientation to situation, and severe anterograde amnesia with compensatory confabulation. I do think these changes are in the context of dementia and baseline may not significantly improve. He currently does NOT have any behavioral symptoms that require a geriatric psychiatric inpatient admission. My recommendation based on current level of functioning is that he needs 24/7 supervision. Discussed with daughter that he may be able to qualify for in home services through the [facility]. Family also plan to apply to [facility]. He currently does NOT have capacity to make medical decisions. HCP has been invoked, do not expect patient to regain capacity. PLAN 1. No indication for geriatric psych admission. 2. Return back home with services/support 24/7 care. He has [facility] benefits and may qualify for more in home hours. 3. Pt has not been formally dx with dementia. Again I do not think this is delirium nor transient change in mentation. Multiple factors have contributed to a more drastic decline in the past month, in the setting of an underlying dementing process. Ordered MRI 4. INvoke HCP. 5. He may benefit from fluids, seems like he is dehydrated again. 6. can continue Olanzapine 5mg po q6h prn agitation. Total time managing care of this patient today ____ minutes.
[2025-02-02 18:25] LABS: Folate 6.8 ng/mL (> or = 4.0); Vitamin B12 298 pg/mL (200-900)
[2025-02-02 20:16] VITALS: BP 152/64; PULSE 92; RESP 14; TEMP 37.2; O2SAT 96
--- NOTE | 2025-02-02 20:41 | PC.NURSE ---
pt insisted on walking to the bathroom with walker to pee- RN walked with pt as a standby- pt was able to pee in the toilet but did wet the floor and his kendra a bit. RN assisted pt back to his bed- with the help of the tech pts kendra and yellow socks were changed, new pad placed under pt, pt boosted, bed placed at lowest level, bed alarm on- call cast within reach.
--- NOTE | 2025-02-02 23:19 | PC.NURSE ---
pt continues to try to get up from bed- bed alarm on- pt has been walked to the restroom with walker over 3x- linens have been changed, pt has been cleaned up. pt encouraged to use urinal next time as he barely has any urine coming out after the last attempt to the bathroom.
--- NOTE | 2025-02-03 01:48 | PC.NURSE ---
pt began to get agitated, sun downing with increased confusion. - started swearing at tech and RN. Pt used the urinal with the help of the tech and 2 min later tried to jump from bed to go to the restroom. Tech and RN informed pt he just used the urinal he can try the urinal again. pt then stated I'll piss on you if you don't get out of my way. I'll kill you both. I'm in my house you're not the boss of me. RN medicated pt with prn po zyprexa.
--- NOTE | 2025-02-03 01:56 | PC.NURSE ---
Tech at bedside with pt to prevent pt from getting out of bed although bed alarm is on- pt keeps attempting to get up.
--- NOTE | 2025-02-03 04:43 | PC.NURSE ---
pt still has some agitation post zyprexa- sleeps for a little bit then tries to get up from bed and gets upset when told its early in the AM and he must rest.
[2025-02-03 06:32] VITALS: BP 115/50; PULSE 95; RESP 14; TEMP 37.2; O2SAT 95
[2025-02-03 09:46] VITALS: BP 104/39; PULSE 93; RESP 16; TEMP 36.6; O2SAT 97
--- NOTE | 2025-02-03 09:48 | PC.NURSE ---
Patient repositioned. Patient resting, states he is comfortable. Patient sitting up, breakfast set up for patient to eat. Bed alarm on. Call cast placed within reach. Medicated per MAY. Patient able take oral meds with water, tolerated well. Non-constituted medication returned to [facility].
--- NOTE | 2025-02-03 09:54 | MHC.CM.ED ---
Patient remains in ER overflow. Psych consult completed. Inpatient psych admission is not appropriate. MRI rec. However will not be able to be performed while in ER. Will need to be arranged by PCP outpatient. Spoke with patient's daughter, Katerine, via telephone. Psych findings discussed. Discharge options discussed including private pay SNF placement, respite at [facility], home with 24/7 care by family. Katerine will speak to her siblings tasneem to determine what the safest d/c plan would be. Will reconnect with CM tomorrow 02/04. Continue to monitor for d/c needs.
[2025-02-03 14:00] VITALS: BP 110/60; PULSE 72; RESP 20; O2SAT 97
[2025-02-03 21:05] VITALS: BP 141/53; PULSE 104; RESP 20; TEMP 36.6; O2SAT 96
[2025-02-03 22:09] VITALS: RESP 18
[2025-02-04] VITALS (9 sets, daily range): BP systolic 116–153; BP diastolic 44–74; PULSE 96–108; RESP 16–20; TEMP 36.9–37.2; O2SAT 94–98
--- NOTE | 2025-02-04 03:04 | PC.NURSE ---
Spoke to daughter regarding the administration of IM Geodan, Explained to daughter that PO zyprexa that was not working, and addressed her concerns regarding the IM medication. However for patient safety- daughter is in agreeable to the administration of IM medication
--- NOTE | 2025-02-04 03:32 | PC.NURSE ---
Assumed care of this patient at 19:00. Patient continues in the ED overflow. Patient is A&Ox1 to self only overnight, with periods of restlessness and agitation unrelieved with prn po zyprexa. Patient very forgetful, requiring frequent reorienting, redirecting, and reassurance. Call cast within reach and educated on use for needs, though patient rings without cause or reason, often not realizing he has called or why when staff present to bedside. Patient adamant we are in [place], frequently attempting to exit the bed to look for his wallet or put on his shoes to leave, per patient report. Pt denies pain. Breathing remains even and unlabored without distress, with pt speaking clearly in full sentences about his wallet and [place] with instructional writer and ancillary staff during care. VSS. Patient incontinent of urine in the evening. Incontinence care provided and male purewick was placed. Appliance remains intact and patent of odorless pale clear yellow urine. This pt continues to deny pain, no pelvic tenderness/pressure to palpation for this instructional writer. Abdomen is soft, non-tender to palpation. Pt boosted and repositioned q2h for frequent attempts to exit the bed/swinging his legs over the bed rail. Additional dose of prn zyprexa given early per covering PA [place] ~00:00 hour with no effectiveness, as evidenced by patient now threatening to hit staff, call police, and continued attempts to get OOB/inability to maintain safety, disrupting other nearby patients rest. Unable to redirect. Now covering ED PT/CM provider Rajan SHAW was made aware with orders for additional 2.5mg po zyprexa as well as 1x 20mg IM geodon. Nursing supervisor wash house and ED charge lpn were also made aware. Nursing supervisor wash house called and spoke with pt's daughter/enacted HCP regarding safety concerns and po zyprexa ineffectiveness; HCP was agreeable to IM medications to assist with maintaining patient safety. IM medication was administered with +effect. Breathing remains even and unlabored without distress. VSS. Please see Medication Restrain Care Flow Sheet for full details. Bed alarm on and safety measures ongoing.
--- NOTE | 2025-02-04 09:42 | PC.NURSE ---
Patient with cough crackles in left base, sating 94% on RA , PA aware. Patient restless trying to get oob. Placed on commode to have BM. Po meds as ordered
--- NOTE | 2025-02-04 12:32 | MHC.EDTECH ---
Patient was freshened and repositioned plus bed alarm on
--- NOTE | 2025-02-04 13:08 | MHC.CM.ED ---
Addendum entered by Lashanda Vuong 02/04/25 15:31: Chest CT pending at this time. Original Note: Patient remains in ER overflow. Spoke with Katerine via telephone. Katerine interested in private pay STR respite for 2 weeks. Katerine's sister and brother in law feel they will be able to provide 24/7 care. However, Katerine is not sure this is a realistic expectation. Private pay STR placement is only a place saldaña for patient to return home with private pay care 24/7 vs assisted living facility. Referral will be broadcasted locally. Katerine aware patient received IM Geodon last night and will not be able to be placed for 24-48 hours. Continue to monitor for d/c needs.
[2025-02-05 05:07] VITALS: BP 141/58; PULSE 95; RESP 17; TEMP 37.4; O2SAT 93
--- NOTE | 2025-02-05 05:13 | PC.NURSE ---
Assumed care of patient at 1900 in ED OVF. Patient is oriented to self only, otherwise confused. Room air, persistent, moist cough noted. Patient resting comfortably, restless at times. He is redirectable. Ambulated to the bathroom with assist of 2, unsteady gait. Utilizing male purewick otherwise. Accepted medications with water, no PRN meds required throughout the night. Patient calm and cooperative. Bed in lowest setting, locked and alarmed. Call cast in reach.
--- NOTE | 2025-02-05 14:13 | MHC.SL.SWA ---
Speech Pathologist Impression: Mild oropharyngeal dysphagia Risk of Aspiration Due to: Current Cognition Dysphasia Diet Status: Recommend REGULAR solids, DOWNGRADE to NECTAR THICK Liquids; medications WHOLE with liquids; intermittent supervision d/t confusiuon Liquid Consistency and Strategies for Safe Swallow: Liquid Intake Recommendation: [place] Thick Liquid Intake Strategies: Small Sips Solid Food Consistency: Dietary Recommendations: Regular Additional Modifications to Solid Foods: Oral Medication Intake: Whole with Liquid Please contact the pharmacy regarding appropriate crushable or liquid drug formulations that are available whenever modified delivery is recommended. Compensatory Strategies and Precautions to be Taken for Safe Swallow: Sitting Upright (90 deg) Liquids from Cup Small Bites and Sips Alternate Liquids/Solids Rate of Ingestion Change Supervision While Eating and Drinking for Safe Swallow: Intermittent Supervision Foods to Avoid: Swallowing Recommended Treatments: Compens. Strategy Educat. Recommendation for Speech: Inpatient Speech Therapy Speech Therapy through Rehab Facility Comment: Patient presents with mild oropharyngeal dysphagia characterized by fluctuating tolerance of thin liquids. Patient's dysphagia exacerbated by current confusion. Patient with immediate coughing after small cup sip of thin liquids. Patient's cough perceived as strong/productive/congested. Patient poor historian but reports coughing on thin liquids for awhile but tolerating medications with thin liquids. Per RN, patient with extensive coughing on thin liquids. Patient trial with both thin and NTLs; reduced frequency in s/sx of penetration/aspiration with use of NTLs. Patient with no difficulties with solids given. Recommend REGULAR solids, DOWNGRADE to NECTAR THICK Liquids. SECONDARY SPANISH TEACHER recommendations communicated with RN and MD via secure chat. Patient awaiting STR, SECONDARY SPANISH TEACHER to follow while inpatient and recommend additional outpatient SECONDARY SPANISH TEACHER. Frequency/Duration: M-F Daily Date Range for Service Req: Timeline to reassess: Flaker Tender Clinican/Clinical Fellow: No Supervisory Statement: I have reviewed and agree with the student/clinical fellow's documentation: No Speech Language Pathologist: Naila March M.A., CCC-SECONDARY SPANISH TEACHER
[2025-02-05 15:17] VITALS: BP 117/53; PULSE 103; RESP 18; TEMP 37; O2SAT 95
[2025-02-05 20:02] VITALS: BP 149/55; PULSE 115; RESP 16; TEMP 36.7; O2SAT 97
[2025-02-05] MEDS: Lactated Ringers 1,000 ML 999 ML IV (21:56)
[2025-02-05 23:12] VITALS: BP 118/50; PULSE 108; RESP 20; TEMP 36.8; O2SAT 96
--- NOTE | 2025-02-05 23:45 | ECG_ITS ---
Test Reason : tachycardia Blood Pressure : */* mmHG Vent. Rate : 111 BPM Atrial Rate : 111 BPM P-R Int : 154 ms QRS Dur : 112 ms QT Int : 344 ms P-R-T Axes : 10 108 4 degrees QTcB Int : 467 ms Sinus tachycardia with Premature atrial complexes Pulmonary disease pattern Incomplete right bundle branch block Right ventricular hypertrophy Nonspecific ST abnormality Abnormal ECG When compared with ECG of 17-Dec-2024 20:16, Premature atrial complexes are now Present QRS axis Shifted right Referred By: Ann Kelly Electronically Signed By: MARY DE LUNA MD
[2025-02-06] VITALS (18 sets, daily range): BP systolic 109–153; BP diastolic 33–97; PULSE 74–118; RESP 16–30; TEMP 36.1–38.1; O2SAT 92–98; BMI 27.5; BMI 24.9
[2025-02-06] MEDS: Albuterol/Iprat 2.5/0.5MG 3 ML AMPUL.NEB INHALE (00:11)
[2025-02-06 00:47] LABS: MANUAL DIFF FLAG NO
[2025-02-06 00:48] LABS: Hematocrit 27.0 % (42.0-52.0); Hemoglobin 8.6 g/dl (14.0-18.0); Imm Gran Abs Auto 0.28 X10*3/uL (0.00-0.03); Imm Gran Pct Auto 2.6 % (0.0-0.4); Lymphocytes Absolute Auto 2.3 X10*3/uL (1.2-4.9); Mean Corpuscular HGB Conc 31.9 g/dl (31.0-36.0); Mean Corpuscular Hemoglobin 32.8 pg (27.0-33.0); Mean Corpuscular Volume 103.1 fL (80.0-98.0); NRBC Abs Auto 0.000 X10*3/uL (0.0-0.012); NRBC Pct Auto 0.0 /100WBC (0.0-0.2); Platelet Count 257 X10*3/uL (160-400); Red Blood Count 2.62 X10*6/uL (4.60-5.80); White Blood Count 10.9 X10*3/uL (4.8-10.8)
[2025-02-06 01:03] LABS: Anion Gap 15 (12-20); Blood Urea Nitrogen 45 mg/dL (9-16); Calcium 9.2 mg/dL (8.4-10.2); Carbon Dioxide 20 mmol/L (22-29); Chloride 112 mmol/L (96-108); Creatinine Clr Calc Pharmacy 18.2; Estimated Glomerular Filt Rate 25; Potassium 4.7 mmol/L (3.3-5.1); Sodium 142 mmol/L (135-145)
[2025-02-06 02:23] LABS: NT Pro B Type Natriuretic Pept 424.4 pg/mL (<300)
[2025-02-06 03:14] LABS: Resp Syncy Virus RNA Qual PCR NEGATIVE (Negative); SARS COV2 PCR INHOUSE NEGATIVE (Negative)
--- NOTE | 2025-02-06 03:35 | PC.NURSE ---
assumed care of pt, tacky and feverish in overflow, joss house keeper transferred pt to ED.
[2025-02-06] MEDS: 0.9 % Sodium Chloride 2,041.17 ML 2041.17 ML IV (03:47)
--- NOTE | 2025-02-06 03:59 | PC.NURSE ---
sepsis fluids running per MAR, antibiotics paused per provider.
[2025-02-06 04:07] LABS: Appearance Urine Clear; Glucose Urine UA Negative (Negative); PH 5.5 (5.0-9.0); Specific Gravity - Urine 1.015 (1.005-1.025)
[2025-02-06 04:13] LABS: Reflex Lactate? Lactic Acid Added
--- NOTE | 2025-02-06 04:20 | PM.IMHP ---
History of Present Illness Date of Service: 02/06/25 Attending physician on admission: Ashley Mandel Chief Complaint: sepsis Patient is a 81-year-old male with past medical history gout, hypertension, BPH, bladder stone, hepatitis-C, GERD, hypertension, moderate aortic valve stenosis, moderate mitral annular calcification, elevated PSA, and current subclinical hypothyroidism had been in overflow since 02/01/25 for case management needs related to altered mental status and increasing forgetfulness with recent falls, one resulting in Nasal fx. Daughter had requested evaluation for physical therapy assessment and potential placement in the community. While taking patient's usual vital signs in overflow, they found that patient was tachycardic and febrile. [facility] started on sepsis protocol. Patient currently receiving ceftriaxone, doxycycline and LR via sepsis protocol for fluid resuscitation. Patient is feeling warm to the touch, easily arousable but can not stay awake for long periods of time. Patient can follow commands when awake but appears overall confused, delirium versus dementia. Patient does have a leukocytosis of 10.9 and H&H is 8.6 and 27 a drop from labs on 01/24/2025 where the H&H was 10.4 and 32.6. Patient's vitamin B12 level was normal. Patient chloride is 112, IV fluids were changed to LR from normal saline. CO2 is 20. VBG is pending. Creatinine 2.43 a significant rise in his levels from 02/01/2025 where his creatinine was 1.89. Creatinine clearance now 18.2 and GFR 25. Lisinopril is now discontinued. Glucose 141. Lactic acid 3.3. BNP 424. Echo done on 12/20/2024 noted an EF of 66% with moderate aortic valve stenosis and moderate mitral annular calcification. UA negative for UTI. LFTs and ammonia level pending. Chest x-ray done today indicates mild pulmonary interstitial edema and small left pleural effusion. Cardiomegaly present. CT of the chest done on 02/04 was negative for any acute findings. Head CT was negative for any acute findings as well. Patient being admitted for sepsis, possible source pneumonia, workup continues. Patient has had 2 previous admissions for SELWYN, the 1st 12/17/2024 through 12/21/2024 and the 2nd was 01/26/2025 through 01/28/2025. Review of Systems Review of Systems: Yes Unobtainable due to mental status [facility] Medical History Kidney stones Hepatitis C virus GERD (gastroesophageal reflux disease) HTN (hypertension) Elevated PSA History of kidney stones Weak urinary stream BPH (benign prostatic hyperplasia) Hematuria Cognitive capacity: Disorientated Functional capacity: uses cane/walker Family History Father Prostate cancer Mother CVD (cardiovascular disease) Surgical History H/O lithotripsy H/O wisdom tooth extraction Social History Household Members: None Housing: House Do you presently have visiting nurse or other home services: Yes (VNA, meals on wheels) Unable to assess alcohol history related to: Unable to respond Alcohol intake: former Patient Tobacco Use Status: Former Tobacco user Smoked in Last 30 Days: No Use of substances other than those prescribed or required for medical reasons: No Advance Directives: Yes Advance Directives on File: Yes Advance Directives Date on File: 12/22/24 Do you have a plan to hurt others: No Plan service: Yes Ebola Risk: Travel/Contact With Anyone From Affected Area/s: No Has Patient Experienced Ebola Symptoms: No Meds Allergies Allergy/AdvReac Type Severity Reaction Status Date / Time No Known Allergies Allergy Verified 02/01/25 14:47 Active Medications: Current Medications Acetaminophen (Acetaminophen 325 Mg Tablet) 650 mg PO Q6H PRN PRN Reason: Pain, Mild 1-3,fever,headache Albuterol/Ipratropium (Albuterol/Iprat 2.5/0.5mg 3 Ml Ampul.Neb) 3 ml INHALE Q4H PRN PRN Reason: Shortness of Breath/Wheezing Calcium Carbonate (Calcium Carbonate 750 Mg Tab.Chew) 750 mg PO Q4H PRN PRN Reason: Heartburn Finasteride (Finasteride 5 Mg Tablet) 5 mg PO DAILY CHRISTIANO Last Admin: 02/05/25 08:30 Dose: 5 mg Heparin Sodium (Porcine) (Heparin Sodium,Porcine 5,000 Unit/Ml Vial) 5,000 unit SUBCUT Q12H REPLACED BY [facility] Azithromycin 500 mg/ Sodium (Chloride) 250 mls @ 125 mls/hr IV ONCE ONE Stop: 02/06/25 05:34 Last Infusion: 02/06/25 03:58 Dose: 0 mls/hr Lactated Ringer's (Lr) 1,000 mls @ 100 mls/hr IVCONT .Q10H REPLACED BY [facility] Magnesium Hydroxide (Milk Of Magnesia 30 Ml Oral.Susp) 30 ml PO DAILY PRN PRN Reason: Constipation Melatonin (Melatonin 3 Mg Tablet) 6 mg PO BEDTIME PRN PRN Reason: Insomnia Pt Own (Tadalafil 5 (Mg Tablet)) 5 mg PO DAILY REPLACED BY [facility] Last Admin: 02/05/25 08:29 Dose: 5 mg Olanzapine (Olanzapine 5 Mg Tablet) 5 mg PO Q6H PRN PRN Reason: Agitation Last Admin: 02/05/25 23:55 Dose: 5 mg Olanzapine (Olanzapine 2.5 Mg Tablet) 2.5 mg PO BEDTIME REPLACED BY [facility] Last Admin: 02/05/25 20:04 Dose: 2.5 mg Olanzapine (Olanzapine 10 Mg Vial) 5 mg IM ONCE PRN PRN Reason: severe agitation Ondansetron HCl (Ondansetron Hcl 4 Mg/2 Ml Vial) 4 mg IVPUSH Q8H PRN PRN Reason: Nausea and Vomiting Polyethylene Glycol (Polyethylene Glycol 3350 17 Gm Powd.Pack) 17 gm PO DAILY PRN PRN Reason: Constipation Prednisone (Prednisone 1 Mg Tablet) 3 mg PO DAILY REPLACED BY [facility] Last Admin: 02/05/25 08:26 Dose: 3 mg Senna (Sennosides 8.6 Mg Tablet) 17.2 mg PO BEDTIME REPLACED BY [facility] Sodium Chloride (0.9 % Sodium Chloride Flush 3 Ml Syringe) 3 ml IVFLUSH QSHIFT REPLACED BY [facility] Tamsulosin HCl (Tamsulosin Hcl 0.4 Mg Capsule) 0.4 mg PO BEDTIME REPLACED BY [facility] Last Admin: 02/05/25 20:04 Dose: 0.4 mg Home Medications ?Medication ?Instructions ?Recorded ?Confirmed ?Last Taken ?Type finasteride 5 mg tablet 5 mg PO DAILY 01/25/25 02/01/25 01/31/25 History lisinopril 40 mg tablet 40 mg PO DAILY 01/25/25 02/01/25 01/31/25 History tadalafil 5 mg tablet 5 mg PO DAILY 01/25/25 02/01/25 01/31/25 History tamsulosin 0.4 mg capsule 0.4 mg PO BEDTIME 01/25/25 02/01/25 01/31/25 History olanzapine 2.5 mg tablet 2.5 mg PO BEDTIME 02/01/25 02/01/25 Unknown History prednisone 1 mg tablet 3 mg PO DAILY 02/01/25 02/01/25 01/31/25 History Physical Exam Vital Signs and Narrative: Vital Signs: Last Vital Signs Temp 98.6 F 02/06/25 04:13 Pulse 110 H 02/06/25 04:13 Resp 22 H 02/06/25 04:13 BP 143/48 H 02/06/25 04:13 Pulse Ox 97 02/06/25 04:13 O2 Del Method Room Air 02/06/25 04:13 BMI result Body Mass Index 25.0 Awake, unable to stay awake for long periods of time, able to follow commands went away. Question of dysphagia Neuro: CN II-X11 intact, noted weakness lower extremity EYES: PERRLA, EOM intact, sclerae nonicteric ENT: hearing intact, uvula midline, lips moist, nares patent no epistaxis Cardiac: S1 S2 RRR tachycardic, no murmur, no JVD, no edema in Lower ext Pulmonary: lungs diminished bilaterally, no adventitious sounds Abdominal: BS active in all 4 quadrants, no guarding, tenderness, rebounding MSK: strength 3-4/5 upper and lower extremities : no CVA tenderness no bladder distension Extremities: no edema in lower extremities, PT and DP pulses palpable +2 Psych: mood confused, judgement and insight poor Skin: No new rashes or lesion Results Labs 02/06/25 00:43 02/06/25 00:43 Labs: Laboratory Results - last 24 hr 02/06/25 02/06/25 02/06/25 00:43 02:12 02:28 MCV 103.1 H MCH 32.8 MCHC 31.9 RDW 14.4 Plt Count 257 MPV 9.5 Immature Gran % (Auto) 2.6 H Neut % (Auto) 66.1 Lymph % (Auto) 20.6 [place] % (Auto) 9.4 Eos % (Auto) 0.9 Baso % (Auto) 0.4 Lymph # (Auto) 2.3 [place] # (Auto) 1.0 Eos # (Auto) 0.1 Baso # (Auto) 0.0 Abs Immat Gran (auto) 0.28 H Absolute Neuts (auto) 7.2 Absolute Nucleated RBC 0.000 Nucleated RBC % (auto) 0.0 Hold Purple Top Anion Gap 15 Estim Creat Clear Calc 18.2 Estimated GFR 25 Random Glucose 141 H Lactic Acid 3.3 H* Calcium 9.2 D NT-Pro-B Natriuret Pep 424.4 H Hold Yellow Top Urine Color Urine Appearance Urine pH Ur Specific [place] Urine Protein Urine Glucose (UA) Urine Ketones Urine Blood Urine Nitrite Ur Leukocyte Esterase Influenza Type A (PCR) NEGATIVE Influenza Type B (PCR) NEGATIVE RSV RNA Qual (PCR) NEGATIVE SARS-CoV-2 RNA (RT-PCR) NEGATIVE 02/06/25 02/06/25 03:14 03:40 MCV MCH MCHC RDW Plt Count MPV Immature Gran % (Auto) Neut % (Auto) Lymph % (Auto) [place] % (Auto) Eos % (Auto) Baso % (Auto) Lymph # (Auto) [place] # (Auto) Eos # (Auto) Baso # (Auto) Abs Immat Gran (auto) Absolute Neuts (auto) Absolute Nucleated RBC Nucleated RBC % (auto) Hold Purple Top SEE NOTE Anion Gap Estim Creat Clear Calc Estimated GFR Random Glucose Lactic Acid Calcium NT-Pro-B Natriuret Pep Hold Yellow Top See Note Urine Color Yellow Urine Appearance Clear Urine pH 5.5 Ur Specific [place] 1.015 Urine Protein Negative Urine Glucose (UA) Negative Urine Ketones Negative Urine Blood Negative Urine Nitrite Negative Ur Leukocyte Esterase Negative Influenza Type A (PCR) Influenza Type B (PCR) RSV RNA Qual (PCR) SARS-CoV-2 RNA (RT-PCR) ECG Attestation: I personally reviewed and interpreted this ECG as follows: (Sinus tachycardia with PVCs incomplete right bundle branch block right ventricular hypertrophy) Prior ECG tracings: available for review Imaging Radiologist's Impressions: Chest x-ray Findings: Low lung volumes are present. Cardiac and mediastinal silhouettes are prominent. Pulmonary venous vasculature is prominent. Bilateral peribronchovascular opacities are present. There is no pneumothorax. There is small left pleural effusion and fluid in the fissures No consolidative opacities. Osseous structures are normal. IMPRESSION: 1. Mild pulmonary interstitial edema and small left pleural effusion. 2. Unchanged enlarged cardiac silhouette. Assessment and Plan (1) Sepsis: Qualifiers: Sepsis acute organ dysfunction status: unspecified Sepsis type: sepsis due to unspecified organism Qualified Code(s): A41.9 - Sepsis, unspecified organism Status: Acute (2) Acute kidney injury superimposed on CKD: Status: Acute (3) Pneumonia: Qualifiers: Laterality: unspecified laterality Lung location: unspecified part of lung Pneumonia type: due to unspecified organism Qualified Code(s): J18.9 - Pneumonia, unspecified organism Status: Acute Plan Patient is a 81-year-old male with past medical history gout, hypertension, BPH, bladder stone, hepatitis-C, GERD, hypertension, elevated PSA, moderate aortic valve stenosis, moderate mitral annular calcification, and current subclinical hypothyroidism had been in overflow since 02/01/25 for case management needs related to altered mental status and increasing forgetfulness. Daughter had requested evaluation for physical therapy assessment and potential placement in the community. Patient developed tachycardia and fever while in overflow awaiting evaluation by case management for placement. Patient transferred to the ED and is being admitted for sepsis likely secondary to a developing pneumonia with ongoing SELWYN issues and altered mental status. Sepsis secondary to developing pneumonia Patient transferred from overflow to the ED and started on sepsis protocol to include fluid resuscitation with LR and antibiotics to include ceftriaxone and doxycycline Possible evidence of dysphagia and or aspiration. Staff unable to report on evidence of aspiration while patient is eating his meals. Continue LR at 100 mL/hour Telemetry, continuous pulse ox, no current evidence of hypoxia UA neg CT ABD pelvis without contrast pending Tylenol lowered temp to 98.6 Blood cultures pending SELWYN Acute intermittent issues since November of 2024 Nephrology consult Urine studies requested UA negative for UTI, hematuria CT abdomen and pelvis without contrast pending Renal ultrasound pending Avoid nephrotoxic medications and hypotension Reece requested for strict I's and o's Lisinopril discontinued Altered mental status secondary to sepsis and SELWYN, preexisiting AMS since November 2024 Vitamin B12 level within normal limits RPR, Hepatic panel and ammonia level pending UA negative for UTI Safety precautions in place Case management following for possible placement, HCP invoked after previous psychiatric consultation CT head 01/24 negative for acute changes, MRI ordered and if abnormal order Neuro consult, OT for MOCA/ MMSE, hx of fall with nasal fx 11/2024 No report of alcohol use, pt has been here since 02/01/2025 Dysphagia suspected May be contributing to evidence of pneumonia Speech therapy requested for swallow eval Aspiration precautions in place NPO until cleared Anemia Will check Stool for occult Pt is not currently on blood thinners Checking iron panel CBC daily Protonix IV daily Moderate aortic stenosis, EF 68% BNP 424, lower than previous sampling with earlier admission No indication for repeat echo at this time History of gout Patient has been on recent prednisone long-term Patient is now on a taper of prednisone Checking uric acid level Subclinical hyperthyroidism TSH low Free T4 normal Holding on treating with methenamine Monitor thyroid studies every 4 weeks BPH Continue flomax and finasteride as BP is stable DVT prophylaxis: Heparin SC based on renal fx, age MED REC PENDING FULL CODE Patient will require at least a 2 midnight stay for IV antibiotics, expert consultation with Nephrology and possibly neurology and monitoring of patient's mental status and hemodynamics. This production underwriter was able to provide update to patient's daughter who is also his healthcare proxy. Daughter plans to come in today to visit with patient. Quality Stroke Does the patient have a stroke diagnosis?: No VTE Prior VTE?: No VTE Risk Level:: Medical - moderate - high VTE Device Contraindication: N/A - Device Ordered VTE Drug Contraindication: N/A - Med Ordered
--- NOTE | 2025-02-06 04:31 | PC.NURSE ---
Wen Hospitalist advised to switch pt from normal saline sepsis fluids to LR, NS infused was 400mL. LR started now.
--- NOTE | 2025-02-06 04:43 | PC.NURSE ---
azithromycin d/c per provider.
[2025-02-06 05:34] LABS: Ammonia 30 umol/L (13-55)
[2025-02-06 05:34] LABS: Alanine Aminotransferase 13 U/L (0-40); Albumin Level 3.5 g/dL (3.5-5.0); Alkaline Phosphatase 80 U/L (39-117); Anion Gap 17 (12-20); Aspartate Amino Transferase 21 U/L (5-37); Blood Urea Nitrogen 46 mg/dL (9-16); Calcium 9.5 mg/dL (8.4-10.2); Carbon Dioxide 19 mmol/L (22-29); Chloride 112 mmol/L (96-108); Creatinine Clr Calc Pharmacy 18.2; Estimated Glomerular Filt Rate 25; Magnesium 2.0 mg/dL (1.6-2.6); Potassium 4.5 mmol/L (3.3-5.1); Sodium 143 mmol/L (135-145); Total Protein 6.5 g/dL (6.5-8.0); Uric Acid 10.1 mg/dL (3.4-7.0)
[2025-02-06 05:37] LABS: Hematocrit 30.2 % (42.0-52.0); Hemoglobin 9.1 g/dl (14.0-18.0); Imm Gran Abs Auto 0.26 X10*3/uL (0.00-0.03); Imm Gran Pct Auto 2.8 % (0.0-0.4); Lymphocytes Absolute Auto 1.9 X10*3/uL (1.2-4.9); MANUAL DIFF FLAG SCAN; Mean Corpuscular HGB Conc 30.1 g/dl (31.0-36.0); Mean Corpuscular Hemoglobin 32.4 pg (27.0-33.0); Mean Corpuscular Volume 107.5 fL (80.0-98.0); NRBC Abs Auto 0.000 X10*3/uL (0.0-0.012); NRBC Pct Auto 0.0 /100WBC (0.0-0.2); PLT CLUMP 1; Red Blood Count 2.81 X10*6/uL (4.60-5.80); SCAN SMEAR FLAG 1
[2025-02-06 05:42] LABS: ~Lactic Acid-LAB USE ONLY 1.7 mmol/L (0.5-2.0)
[2025-02-06 05:55] LABS: Platelet Count 219 X10*3/uL (160-400); White Blood Count 9.4 X10*3/uL (4.8-10.8)
--- NOTE | 2025-02-06 06:08 | PC.NURSE ---
pt confused, reoriented to place and situation. Pt bed alarm on.
--- NOTE | 2025-02-06 07:05 | PC.NURSE ---
godwin catheter placed per order, pt tolerated well, initial output 200 mL.
--- NOTE | 2025-02-06 07:12 | PC.NURSE ---
Assumed care of patient at 1900. Patient alert and oriented x1.Patient has dry intermittent cough. Patient denies any shortness of breath and is restless in bed. Vitals taken, see charting. Patient HR 115 at beginning of shift. notfied. LR 1L bolus ordered and administered. Vitals rechecked at 23:15. MD notified and came to bedside. EKG, chest x-ray, duoneb and labs ordered, and obtained. Vitals rechecked at 01:50 see vitals charting. MD notified labs, ordered and obtained. Meds ordered and obtained. Patient transferred to ED. at 0400.
[2025-02-06] MEDS: 0.9 % Sodium Chloride Flush 3 ML SYRINGE IVFLUSH ×2 (07:24→17:24)
[2025-02-06 07:38] LABS: EOS Counted 0 CELLS; EOS QC POS YES; EOS Stain Quality OK YES; WBC, Counted 100 CELLS
--- NOTE | 2025-02-06 11:13 | PM.EVENT ---
Event Note Date of Service: 02/06/25 Event Note: Pt seen/examined, transitioned from Phsycian observation to inpatient, while waiting placment. Reportedly became tachycardia, and fever (100.3), creatine has gone up as well. UA is negative, tachycardia. WBC was only 10.9 CXR reviewd no pneumonia, a CT of abdomen and pelvis is pending. There is a CT of abdomen and pelvis pending. Lactic acid was high. Patien doesn not meet SIRS criteria, temp of 100.e, and WBC of 10.9 are not sufficient. I supect tachycardia was likely from dehydration, as Creatine is trending up. Would continue Abx and once blood cultures are negative stop as there are no objective finding of source of infection. Pt was asdmitted this morning other a/p H and P Time Spent With Patient Time: Total time managing care of this patient today ____ minutes.
--- NOTE | 2025-02-06 11:38 | HO.NURTONUR ---
Addendum entered by Ivania Thompson RN 02/06/25 14:27: Pt visits with family for most of the late morning and early afternoon. Pt begins to present with agitation: pulling at telemetry equipment, attempting to disrobe, and attempting to flee the bed. Pt given PRN PO Zyprexa per MAY. Pt provided with bedpan but did not have BM at this time. MRI requests Pt for imaging, then states will need to push off d/t a scheduling conflict. Will await for MRI to request for Pt at a later time. Original Note: 81 yr old male admitted for pneumonia and SELWYN. Pt comes to ED with family concerns for increased forgetfulness and AMS. Pt was PT/CM in overflow awaiting placement when he spiked a fever and was noted be tachycardic. Pt was moved back to main ED and sepsis workup completed. Reece cath placed. 20g LAC VSS Fall precautions in place; bed alarm on. Speech Therapy eval completed: regular solid liquids with nectar thick liquids ordered. Pt takes pills whole with thick liquids. CT completed today and Pt awaiting MRI. Family has evoked HCP:
--- NOTE | 2025-02-06 12:18 | P.CONNP_ITS ---
History of Present Illness Reason for Consult Consult date: 02/06/25 Chief Complaint Chief complaint: Sepsis History of Present Illness Narrative: 89-year-old gentleman with multiple comorbidities significant for hypertension, CKD (baseline creatinine 1.6-2.0), BPH, Gout, moderate aortic and mitral valve stenosis, hepatitis-C, GERD presented to the ER few days ago due to altered sensorium and falls awaiting placement. He was found to be febrile and tachypneic yesterday so was transferred back to ICU, labs suggestive of limited creatinine 2.43, WBC count 9.4 K, urinalysis normal, uric acid 10.1. Nephrology consulted for the management of acute on CKD Review of Systems Review of Systems Const : no body aches, no chills, no excessive sweating and no fatigue Eyes: no blurry vision and no change in vision ENT: no bleeding gums and no change in voice, no dizziness Card: no chest pain, no shortness of breath, no orthopnea, no PND Resp: no cough, no excessive phlegm production, no SOB GI: no abdominal pain and no nausea, no vomiting : no hematuria, no urinary frequency and no difficulty voiding Musc: no abnormal gait, no bone pain Neuro: no abnormal movements, no weakness, no dizziness, no abnormal gait and no behavioral changes Psych: no behavioral changes and no change in appetite Endo: no change in body appearance, no cold intolerance, no excessive sweating and no fatigue PMFSH Past Medical History Medical History Kidney stones Hepatitis C virus GERD (gastroesophageal reflux disease) HTN (hypertension) Elevated PSA History of kidney stones Weak urinary stream BPH (benign prostatic hyperplasia) Hematuria Family History Family History Father Prostate cancer Mother CVD (cardiovascular disease) Surgical History Surgical History H/O lithotripsy H/O wisdom tooth extraction Social History Social History Household Members: None Housing: House Do you presently have visiting nurse or other home services: Yes (VNA, meals on wheels) Unable to assess alcohol history related to: Unable to respond Alcohol intake: former Patient Tobacco Use Status: Former Tobacco user Smoked in Last 30 Days: No Use of substances other than those prescribed or required for medical reasons: No Advance Directives: Yes Advance Directives on File: Yes Advance Directives Date on File: 12/22/24 Do you have a plan to hurt others: No Plan service: Yes Travel History Ebola Risk: Travel/Contact With Anyone From Affected Area/s: No Has Patient Experienced Ebola Symptoms: No Meds Allergies Allergy/AdvReac Type Severity Reaction Status Date / Time No Known Allergies Allergy Verified 02/01/25 14:47 Active Medications: Current Medications Acetaminophen (Acetaminophen 325 Mg Tablet) 650 mg PO Q6H PRN PRN Reason: Pain, Mild 1-3,fever,headache Albuterol/Ipratropium (Albuterol/Iprat 2.5/0.5mg 3 Ml Ampul.Neb) 3 ml INHALE Q4H PRN PRN Reason: Shortness of Breath/Wheezing Calcium Carbonate (Calcium Carbonate 750 Mg Tab.Chew) 750 mg PO Q4H PRN PRN Reason: Heartburn Finasteride (Finasteride 5 Mg Tablet) 5 mg PO DAILY [facility] Last Admin: 02/06/25 11:19 Dose: 5 mg Heparin Sodium (Porcine) (Heparin Sodium,Porcine 5,000 Unit/Ml Vial) 5,000 unit SUBCUT Q12H [facility] Last Admin: 02/06/25 09:50 Dose: 5,000 unit Lactated Ringer's (Lr) 1,000 mls @ 100 mls/hr IVCONT .Q10H [facility] Last Admin: 02/06/25 04:40 Dose: Not Given Doxycycline Hyclate 100 mg/ (Sodium Chloride) 250 mls @ 166.67 mls/hr IV Q12H [facility] Last Infusion: 02/06/25 06:57 Dose: Infused Ceftriaxone Sodium 1 gm/ (Sodium Chloride) 50 mls @ 100 mls/hr IV Q24H [facility] Magnesium Hydroxide (Milk Of Magnesia 30 Ml Oral.Susp) 30 ml PO DAILY PRN PRN Reason: Constipation Melatonin (Melatonin 3 Mg Tablet) 6 mg PO BEDTIME PRN PRN Reason: Insomnia Pt Own (Tadalafil 5 (Mg Tablet)) 5 mg PO DAILY [facility] Last Admin: 02/06/25 09:50 Dose: 5 mg Olanzapine (Olanzapine 5 Mg Tablet) 5 mg PO Q6H PRN PRN Reason: Agitation Last Admin: 02/05/25 23:55 Dose: 5 mg Olanzapine (Olanzapine 2.5 Mg Tablet) 2.5 mg PO BEDTIME [facility] Last Admin: 02/05/25 20:04 Dose: 2.5 mg Olanzapine (Olanzapine 10 Mg Vial) 5 mg IM ONCE PRN PRN Reason: severe agitation Ondansetron HCl (Ondansetron Hcl 4 Mg/2 Ml Vial) 4 mg IVPUSH Q8H PRN PRN Reason: Nausea and Vomiting Polyethylene Glycol (Polyethylene Glycol 3350 17 Gm Powd.Pack) 17 gm PO DAILY PRN PRN Reason: Constipation Prednisone (Prednisone 1 Mg Tablet) 3 mg PO DAILY [facility] Last Admin: 02/06/25 11:19 Dose: 3 mg Senna (Sennosides 8.6 Mg Tablet) 17.2 mg PO BEDTIME [facility] Sodium Chloride (0.9 % Sodium Chloride Flush 3 Ml Syringe) 3 ml IVFLUSH QSHIFT [facility] Last Admin: 02/06/25 07:24 Dose: 3 ml Tamsulosin HCl (Tamsulosin Hcl 0.4 Mg Capsule) 0.4 mg PO BEDTIME [facility] Last Admin: 02/05/25 20:04 Dose: 0.4 mg Home Medications ?Medication ?Instructions ?Recorded ?Confirmed ?Last Taken ?Type finasteride 5 mg tablet 5 mg PO DAILY 01/25/2502/0101/31/25 History lisinopril 40 mg tablet 40 mg PO DAILY 01/25/2501/2201/31/25 History tadalafil 5 mg tablet 5 mg PO DAILY 01/25/2502/0101/31/25 History tamsulosin 0.4 mg capsule 0.4 mg PO BEDTIME 01/25/2504/03/24 01/31/25 History olanzapine 2.5 mg tablet 2.5 mg PO BEDTIME 02/01/2504/03/24 Unknown History prednisone 1 mg tablet 3 mg PO DAILY 02/01/2502/0101/31/25 History Physical Exam Vital Signs: Last Vital Signs Temp 97.6 F 02/06/25 06:08 Pulse 96 02/06/25 09:53 Resp 22 H 02/06/25 09:53 BP 140/54 H 02/06/25 09:53 Pulse Ox 98 02/06/25 07:26 O2 Del Method Room Air 02/06/25 07:26 BMI result Body Mass Index 27.5 General: not in any acute distress, ill appearing Nutritional Appearance: well nourished and normal weight Eyes: appearance normal, both eyes and all related structures; Alignment and Position: alignment normal and position normal Neck: No lymphadenopathy, no thyromegaly Resp: bilateral air entry equal, no added sounds present Cardio: Regular rate, regular rhythm; Heart sounds: S1 normal heart sound present and S2 normal heart sound present GI: soft, nontender, no guarding, no hepatosplenomegaly : bladder normal to inspection, bladder normal to palpation, no renal angle tenderness Skin: no rashes or lesions noted and elasticity normal Neuro: alert, oriented x 3, moves all extremities Results Lab Results 02/06/25 03:23 02/06/25 03:23 Lab results: Chemistry 02/06/25 02/06/25 00:43 03:23 Sodium 142 143 Potassium 4.7 4.5 Carbon Dioxide 20 L 19 L BUN 45 H 46 H Creatinine 2.43 H 2.43 H Calcium 9.2 D 9.5 Phosphorus 5.1 H Hematology 02/06/25 02/06/25 00:43 03:23 WBC 10.9 H 9.4 Hgb 8.6 L 9.1 L Plt Count 257 219 Urinalysis 02/06/25 03:40 Urine Color Yellow Urine Appearance Clear Urine pH 5.5 Ur Specific [place] 1.015 Urine Protein Negative Urine Glucose (UA) Negative Urine Ketones Negative Urine Blood Negative Urine Nitrite Negative Ur Leukocyte Esterase Negative Urine Studies 02/06/25 03:40 Urine Osmolality 602 Urine Creatinine 116.66 Assessment and Plan (1) Acute kidney injury superimposed on CKD: Status: Acute (2) Hyperuricemia: Status: Acute Plan SELWYN on chronic kidney disease: Patient has a CKD with baseline creatinine about 1.6-2.0, currently has an SELWYN secondary to volume depletion. Creatinine 2.43 this morning, urinalysis normal. Bedside echo showing IVC completely collapsed, we will start the patient on LR at 100 cc/hour Avoid any nephrotoxic agents, ETSEFANIA/arbs, NSAIDs Hyperuricemia: please check daily uric acid levels will start the patient on allopurinol Procedures Date of Service Date of Service: 02/06/25
--- NOTE | 2025-02-06 12:44 | MHC.SL.SWA ---
Speech Pathologist Impression: Mild Oropharyngeal Dysphagia Risk of Aspiration Due to: confusion, possible pneumonia Dysphasia Diet Status: Recommend CONTINUE with REGULAR solids, NECTAR THICK Liquids Liquid Consistency and Strategies for Safe Swallow: Liquid Intake Recommendation: [place] Thick Liquid Intake Strategies: Unrestricted Solid Food Consistency: Dietary Recommendations: Regular Additional Modifications to Solid Foods: Oral Medication Intake: Whole with Liquid Please contact the pharmacy regarding appropriate crushable or liquid drug formulations that are available whenever modified delivery is recommended. Compensatory Strategies and Precautions to be Taken for Safe Swallow: Sitting Upright (90 deg) Small Bites and Sips Alternate Liquids/Solids Rate of Ingestion Change Supervision While Eating and Drinking for Safe Swallow: Direct Supervision (1:1) Foods to Avoid: Swallowing Recommended Treatments: Compens. Strategy Educat. Recommendation for Speech: Inpatient Speech Therapy Speech Therapy through Rehab Facility Comment: Patient seen with re-evaluation of swallowing function. WALL TO WALL CARPET INSTALLER receiving another order for bedside swallow evaluation for this patient. Patient seen by WALL TO WALL CARPET INSTALLER 02/05/25 in ED overflow with diet recommendations of regular solids, nectar thick liquids. Per RN note: Pt was PT/CM in overflow awaiting placement when he spiked a fever and was noted be tachycardic. Pt was moved back to main ED and sepsis workup completed. Patient given both thin and NTLs this date, along with solids. Patient with audible wheezing and delayed coughing with thin liquids; noted increase oral manipulation- swishing of liquids (both thin and NTLs) in oral cavity prior to swallowing. Patient requiring moderate redirections this date, more confused than previous session. Patient with delay cough x1 on NTLs, no other overt s/sx of penetration/aspiration. Patient tolerating all solids trialed; adequate and timely mastication, adequate cohesion and clearance- no s/sx of penetration/aspiration. Patient's family arriving and WALL TO WALL CARPET INSTALLER educating over diet recommendations and reason for diet modifications. Family expressing understanding and agreeing with POC. Recommend CONTINUE with diet of REGULAR solids, NECTAR THICK Liquids; 1:1 supervision d/t confusion; medications whole with liquids. WALL TO WALL CARPET INSTALLER recommendations communicated with MD and RN via secure chat. Patient's diet order regular, thin; WALL TO WALL CARPET INSTALLER changing order in expanse to correct consistencies. WALL TO WALL CARPET INSTALLER to continue to follow. Date Range for Service Req: M-F Daily Timeline to reassess: Direct Marketing Analyst Clinican/Clinical Fellow: No Supervisory Statement: I have reviewed and agree with the student/clinical fellow's documentation: No Speech Language Pathologist: Naila March M.A., CCC-WALL TO WALL CARPET INSTALLER
[2025-02-06] MEDS: Lactated Ringers 1,000 ML 125 ML IVCONT ×2 (13:22→17:23)
--- NOTE | 2025-02-06 15:45 | PC.NURSE ---
Patient arrived to unit from ED. Daughter Katerine at bedside. Admission assessment completed with daughter. Patient compliant with turning and cleaning. Virtual monitor placed for patient safety.
--- NOTE | 2025-02-06 16:06 | PC.NURSE ---
16:05 - Patient taken off unit via bed for MRI, IV fluids paused for MRI.
--- NOTE | 2025-02-06 16:54 | PC.NURSE ---
patient returned from MRI. Bed alarm on, call cast in place, virtual monitor in place.
[2025-02-07] VITALS (7 sets, daily range): BP systolic 95–157; BP diastolic 37–70; PULSE 95–120; RESP 16–18; TEMP 36.8–38.2; O2SAT 93–97
[2025-02-07] MEDS: Lactated Ringers 1,000 ML 125 ML IVCONT ×2 (01:48→11:07)
[2025-02-07 08:17] LABS: Syphilis Screen Nonreactive (Nonreactive)
--- NOTE | 2025-02-07 12:17 | P.PNIM_ITS ---
Subjective Subjective Date of Service: 02/07/25 Interval History: Pt still with some level of confusion, no fever, respiratory symptoms he is weak, and Physical Exam 2 Exam: Exam: General: AO X 2, no acute distress Resp: marixa rhonchi CVS: S1,S2,RRR GI: +BS, NT, no distention Skin: No rash Neuro: motor grossly intact Psych: appropriate affect Vital Signs: Vital Signs: Last Vital Signs Temp 100.0 F 02/07/25 12:07 Pulse 95 02/07/25 08:00 Resp 16 02/07/25 08:00 BP 126/57 L 02/07/25 08:00 Pulse Ox 93 02/07/25 12:07 O2 Del Method Room Air 02/07/25 12:07 BMI result Body Mass Index 24.9 Objective Data Active Medications Acetaminophen (Acetaminophen 325 Mg Tablet) 650 mg PO Q6H PRN PRN Reason: Pain, Mild 1-3,fever,headache Last Admin: 02/07/25 12:09 Dose: 650 mg Documented By: NAMRATA Albuterol/Ipratropium (Albuterol/Iprat 2.5/0.5mg 3 Ml Ampul.Neb) 3 ml INHALE Q4H PRN PRN Reason: Shortness of Breath/Wheezing Allopurinol (Allopurinol 100 Mg Tablet) 100 mg PO DAILY [facility] Last Admin: 02/07/25 08:15 Dose: 100 mg Documented By: NAMRATA Calcium Carbonate (Calcium Carbonate 750 Mg Tab.Chew) 750 mg PO Q4H PRN PRN Reason: Heartburn Finasteride (Finasteride 5 Mg Tablet) 5 mg PO DAILY [facility] Last Admin: 02/07/25 08:15 Dose: 5 mg Documented By: NAMRATA Heparin Sodium (Porcine) (Heparin Sodium,Porcine 5,000 Unit/Ml Vial) 5,000 unit SUBCUT Q12H [facility] Last Admin: 02/07/25 08:15 Dose: 5,000 unit Documented By: NAMRATA Doxycycline Hyclate 100 mg/ (Sodium Chloride) 250 mls @ 166.67 mls/hr IV Q12H [facility] Last Infusion: 02/07/25 06:38 Dose: Infused Documented By: FRANCISCA Ceftriaxone Sodium 1 gm/ (Sodium Chloride) 50 mls @ 100 mls/hr IV Q24H [facility] Last Infusion: 02/07/25 03:32 Dose: Infused Documented By: FRANCISCA Lactated Ringer's (Lr) 1,000 mls @ 125 mls/hr IVCONT .Q8H [facility] Last Admin: 02/07/25 11:07 Dose: 125 mls/hr Documented By: NAMRATA Magnesium Hydroxide (Milk Of Magnesia 30 Ml Oral.Susp) 30 ml PO DAILY PRN PRN Reason: Constipation Melatonin (Melatonin 3 Mg Tablet) 6 mg PO BEDTIME PRN PRN Reason: Insomnia Pt Own (Tadalafil 5 (Mg Tablet)) 5 mg PO DAILY [facility] Last Admin: 02/07/25 08:15 Dose: 5 mg Documented By: NAMRATA Olanzapine (Olanzapine 5 Mg Tablet) 5 mg PO Q6H PRN PRN Reason: Agitation Last Admin: 02/06/25 13:38 Dose: 5 mg Documented By: ROSELIA Olanzapine (Olanzapine 2.5 Mg Tablet) 2.5 mg PO BEDTIME [facility] Last Admin: 02/06/25 21:54 Dose: 2.5 mg Documented By: FRANCISCA Olanzapine (Olanzapine 10 Mg Vial) 5 mg IM ONCE PRN PRN Reason: severe agitation Ondansetron HCl (Ondansetron Hcl 4 Mg/2 Ml Vial) 4 mg IVPUSH Q8H PRN PRN Reason: Nausea and Vomiting Polyethylene Glycol (Polyethylene Glycol 3350 17 Gm Powd.Pack) 17 gm PO DAILY PRN PRN Reason: Constipation Prednisone (Prednisone 1 Mg Tablet) 3 mg PO DAILY [facility] Last Admin: 02/07/25 08:15 Dose: 3 mg Documented By: NAMRATA Senna (Sennosides 8.6 Mg Tablet) 17.2 mg PO BEDTIME [facility] Last Admin: 02/06/25 21:54 Dose: 17.2 mg Documented By: FRANCISCA Sodium Chloride (0.9 % Sodium Chloride Flush 3 Ml Syringe) [facility] Last Admin: 02/07/25 08:10 Dose: Not Given Documented By: NAMRATA Non-Admin Reason: IV Running Tamsulosin HCl (Tamsulosin Hcl 0.4 Mg Capsule) 0.4 mg PO BEDTIME [facility] Last Admin: 02/06/25 21:54 Dose: 0.4 mg Documented By: HO.ODRISM Labs 02/06/25 03:23 02/06/25 03:23 Labs: Laboratory Results - last 24 hr 02/06/25 02/06/25 03:23 03:23 25-OH Vitamin D Total 19.5 L Cancelled 25-Hydroxy Vitamin D2 Cancelled 25-Hydroxy Vitamin D3 Cancelled T.pallidum Ab (EIA) Nonreactive Microbiology Microbiology Results: Microbiology 02/06/25 03:14 Blood Culture - Preliminary Blood - Venous No growth after 24 hours. 02/06/25 03:14 Blood Culture - Preliminary Blood - Venous No growth after 24 hours. Assessment and Plan (1) Toxic metabolic encephalopathy: Status: Deleted Plan 81-year-old male with past medical history gout, hypertension, BPH, bladder stone, hepatitis-C, GERD, hypertension, elevated PSA, moderate aortic valve stenosis, moderate mitral annular calcification, and current subclinical hypothyroidism had been in overflow since 02/01/25 for case management needs related to altered mental status and increasing forgetfulness. Daughter had requested evaluation for physical therapy assessment and potential placement in the community. Patient developed tachycardia and fever while in overflow awaiting evaluation by case management for placement. Patient transferred to the ED and is being admitted for sepsis likely secondary to a developing pneumonia with ongoing SELWYN issues and altered mental status. Metabolic Encephalppathy likely multifactorial including possible renal failure, dehydraation. Address underlying issue. MRI of head is negative. Pt has been experiencing confusion since Novermber Maybe Neurology evaluation in the future. RPR is negative. B12 level is normal. TSH borderline low. check FT4 ? Sepsis on presentation, the patient did not meet sepsi criterial at all, his temp was only 100.3, no tachycardia and wbc was only 10.9, elevated LA acid of 3, not sepsis criteria, CXR showed mild pulmonary intersitial edema and clear pnumonia, Chest CT show no consolidation and no effuion. UA is negative. CT of abdomen and pelvis show no acute finding. Blood cultures were drawn and so far negative. DC Abx if negative at 48 hrs ?Dysphagia--Seen by Speech and recomend for regular diet Anemia, of chronic dissease, H/H No further w/u indicated at this time. Moderate aortic stenosis, EF 68% stable History of gout Patient has been on recent prednisone long-term Patient is now on a taper of prednisone 3 mg, stop at this time, no symptims and steroid can possibly cause confusio Subclinical hyperthyroidism TSH low Free T4 normal Mood d/o continue Psych med consider Psych follow up in the future BPH Continue flomax and finasteride as BP is stable DVT prophylaxis: Heparin SC based on renal fx, age FULL CODE Total time managing care of this patient today: 35 minutes. Quality Stroke Does the patient have a stroke diagnosis?: No VTE Prior VTE?: No VTE Risk Level:: Medical - moderate - high VTE Device Contraindication: N/A - Device Ordered VTE Drug Contraindication: N/A - Med Ordered
[2025-02-07 12:58] LABS: Hematocrit 28.0 % (42.0-52.0); Hemoglobin 8.8 g/dl (14.0-18.0); Mean Corpuscular HGB Conc 31.4 g/dl (31.0-36.0); Mean Corpuscular Hemoglobin 31.9 pg (27.0-33.0); Mean Corpuscular Volume 101.4 fL (80.0-98.0); NRBC Abs Auto 0.000 X10*3/uL (0.0-0.012); NRBC Pct Auto 0.0 /100WBC (0.0-0.2); Platelet Count 262 X10*3/uL (160-400); Red Blood Count 2.76 X10*6/uL (4.60-5.80); White Blood Count 9.6 X10*3/uL (4.8-10.8)
--- NOTE | 2025-02-07 12:59 | P.PNNP_ITS ---
Subjective Subjective Date of Service: 02/08/25 Interval history: Events noted. Mildly confused. Physical Exam 2 Vital Signs: Vital Signs: Last Vital Signs Temp 100.0 F 02/07/25 12:07 Pulse 95 02/07/25 08:00 Resp 16 02/07/25 08:00 BP 126/57 L 02/07/25 08:00 Pulse Ox 93 02/07/25 12:07 O2 Del Method Room Air 02/07/25 12:07 BMI result Body Mass Index 24.9 Ill-appearing. Mucosa dry. Lungs with scattered rhonchi. No significant edema Objective Data Labs 02/08/25 09:46 02/08/25 09:46 Labs: Laboratory Results - last 24 hr 02/06/25 02/06/25 03:23 03:23 25-OH Vitamin D Total 19.5 L Cancelled 25-Hydroxy Vitamin D2 Cancelled 25-Hydroxy Vitamin D3 Cancelled T.pallidum Ab (EIA) Nonreactive Microbiology Microbiology Results: Microbiology 02/06/25 03:14 Blood - Venous Blood Culture - Preliminary No growth after 24 hours. 02/06/25 03:14 Blood - Venous Blood Culture - Preliminary No growth after 24 hours. Procedures Date of Service Date of Service: 02/08/25 Assessment & Plan Assessment and plan (1) Acute kidney injury superimposed on CKD: Status: Acute (2) Hyperuricemia: Status: Acute Plan SELWYN on chronic kidney disease: Patient has a CKD with baseline creatinine about 1.6-2.0, currently has an SELWYN secondary to volume depletion. Creatinine 2.43 yesterday. Today's labs are pending. Keep intake more than output for now and follow labs Time Spent With Patient Time: Total time managing care of this patient today ____ minutes. Progress Note: Quality Stroke Does the patient have a stroke diagnosis?: No
[2025-02-07 13:10] LABS: Anion Gap 13 (12-20); Blood Urea Nitrogen 25 mg/dL (9-16); Calcium 9.2 mg/dL (8.4-10.2); Carbon Dioxide 19 mmol/L (22-29); Chloride 113 mmol/L (96-108); Creatinine Clr Calc Pharmacy 24.6; Estimated Glomerular Filt Rate 36; Potassium 4.6 mmol/L (3.3-5.1); Sodium 140 mmol/L (135-145)
[2025-02-07 13:18] LABS: NT Pro B Type Natriuretic Pept 1329.6 pg/mL (<300)
[2025-02-07] MEDS: Furosemide 40 MG/4 ML VIAL IVPUSH (13:39)
[2025-02-07 13:46] LABS: ABG HCO3 21 mmol/L (22-26); ABG O2 % Saturation 99.0 %
--- NOTE | 2025-02-07 15:14 | MHC.SLORD ---
Speech Language Pathology Order Status: Patient attempted to be seen this date. Patient very lethargic; unable to arouse. RN reporting no concerns. SURGICAL NURSE PRACTITIONER to see patient tomorrow.
--- NOTE | 2025-02-07 15:34 | MHC.CM.PN ---
spoke with minna pts dgter who confirmed the dc plan established in ed ..she explins she and her sister had jusrt toured a facitly forpt to go to when dcd frpm str /respite imm left st pts bedside
[2025-02-07] MEDS: 0.9 % Sodium Chloride Flush 3 ML SYRINGE IVFLUSH (20:37)
[2025-02-08] VITALS (9 sets, daily range): BP systolic 100–146; BP diastolic 53–89; PULSE 110–126; RESP 17–36; TEMP 36.8–39.1; O2SAT 93–96
[2025-02-08] MEDS: Furosemide 40 MG/4 ML VIAL IVPUSH (08:05)
[2025-02-08] MEDS: 0.9 % Sodium Chloride Flush 3 ML SYRINGE IVFLUSH ×3 (08:06→20:23)
[2025-02-08 10:07] LABS: MANUAL DIFF FLAG NO
[2025-02-08 10:11] LABS: Hematocrit 26.3 % (42.0-52.0); Hemoglobin 8.4 g/dl (14.0-18.0); Imm Gran Abs Auto 0.13 X10*3/uL (0.00-0.03); Imm Gran Pct Auto 1.0 % (0.0-0.4); Lymphocytes Absolute Auto 1.0 X10*3/uL (1.2-4.9); Mean Corpuscular HGB Conc 31.9 g/dl (31.0-36.0); Mean Corpuscular Hemoglobin 32.2 pg (27.0-33.0); Mean Corpuscular Volume 100.8 fL (80.0-98.0); NRBC Abs Auto 0.000 X10*3/uL (0.0-0.012); NRBC Pct Auto 0.0 /100WBC (0.0-0.2); Platelet Count 283 X10*3/uL (160-400); Red Blood Count 2.61 X10*6/uL (4.60-5.80); White Blood Count 13.2 X10*3/uL (4.8-10.8)
[2025-02-08 10:23] LABS: Anion Gap 15 (12-20); Blood Urea Nitrogen 27 mg/dL (9-16); Calcium 9.5 mg/dL (8.4-10.2); Carbon Dioxide 19 mmol/L (22-29); Chloride 111 mmol/L (96-108); Creatinine Clr Calc Pharmacy 21.1; Estimated Glomerular Filt Rate 30; Potassium 4.0 mmol/L (3.3-5.1); Sodium 141 mmol/L (135-145)
--- NOTE | 2025-02-08 13:11 | P.PNNP_ITS ---
Subjective Subjective Date of Service: 02/08/25 Interval history: Events noted. confused. Non oliguric Had episodes of low BP Physical Exam 2 Vital Signs: Vital Signs: Last Vital Signs Temp 98.5 F 02/08/25 09:18 Pulse 126 H 02/08/25 07:46 Resp 20 02/08/25 07:46 BP 144/89 H 02/08/25 07:46 Pulse Ox 93 02/08/25 07:46 O2 Del Method Room Air 02/08/25 07:46 O2 Flow Rate 1 02/07/25 15:16 BMI result Body Mass Index 24.9 Const: General: ill appearing Neck: Neck: Yes supple Resp: Auscultation: clear to auscultation bilaterally Cardio: Palpation: no palpable S3 Heart sounds: no rubs GI: Palpation (GI): Soft to palpation Auscultation: normal bowel sounds Neuro: Motor exam (neuro): no asterixis Objective Data Labs 02/08/25 09:46 02/08/25 09:46 Labs: Laboratory Results - last 24 hr 02/07/25 02/07/25 02/08/25 12:36 13:43 09:46 WBC 13.2 H RBC 2.61 L Hgb 8.4 L Hct 26.3 L MCV 100.8 H MCH 32.2 MCHC 31.9 RDW 14.2 Plt Count 283 MPV 10.0 Immature Gran % (Auto) 1.0 H Neut % (Auto) 81.1 H Lymph % (Auto) 7.7 L [place] % (Auto) 9.8 Eos % (Auto) 0.2 Baso % (Auto) 0.2 Lymph # (Auto) 1.0 L [place] # (Auto) 1.3 H Eos # (Auto) 0.0 Baso # (Auto) 0.0 Abs Immat Gran (auto) 0.13 H Absolute Neuts (auto) 10.7 H Absolute Nucleated RBC 0.000 Nucleated RBC % (auto) 0.0 O2 Saturation 99.0 ABG pH at Pt Temp 7.50 H ABG pCO2 at Pt Temp 27 L ABG pO2 at Pt Temp 141 H ABG HCO3 21 L ABG Base Excess (Actual) -0.7 Sodium 140 141 Potassium 4.6 4.0 Chloride 113 H 111 H Carbon Dioxide 19 L 19 L Anion Gap 13 15 BUN 25 H 27 H Creatinine 1.80 H 2.10 H Estim Creat Clear Calc 24.6 21.1 Estimated GFR 36 30 Random Glucose 103 129 H Calcium 9.2 9.5 NT-Pro-B Natriuret Pep 1329.6 H Microbiology Microbiology Results: Microbiology 02/06/25 03:14 Blood - Venous Blood Culture - Preliminary No growth after 48 hours. 02/06/25 03:14 Blood - Venous Blood Culture - Preliminary No growth after 48 hours. Procedures Date of Service Date of Service: 02/08/25 Assessment & Plan Assessment and plan (1) Acute kidney injury superimposed on CKD: Status: Acute (2) Hyperuricemia: Status: Acute Plan SELWYN on chronic kidney disease: Patient has a CKD with baseline creatinine about 1.6-2.0, currently has an SELWYN secondary to volume depletion. Creatinine around 2.1 Keep sbp > 100 Keep intake more than output for now and follow labs Time Spent With Patient Time: Total time managing care of this patient today ____ minutes. Progress Note: Quality Stroke Does the patient have a stroke diagnosis?: No
--- NOTE | 2025-02-08 15:30 | MHC.SL.SWA ---
Speech Pathologist Impression: Moderate Oropharyngeal Dysphagia Risk of Aspiration Due to: Confusion, possible pneumonia Dysphasia Diet Status: Recommend DOWNGRADE to NDD1 (puree), NECTAR THICK Liquids with 1:1 feeding assistance. Liquid Consistency and Strategies for Safe Swallow: Liquid Intake Recommendation: [place] Thick Liquid Intake Strategies: Unrestricted Solid Food Consistency: Dietary Recommendations: Pureed (NDD1) Additional Modifications to Solid Foods: Discontinue feeding if patient exhibits any coughing, throat clearing, change to vocal quality, change to respirations/O2 desatting. Oral Medication Intake: Crushed with Puree Please contact the pharmacy regarding appropriate crushable or liquid drug formulations that are available whenever modified delivery is recommended. Compensatory Strategies and Precautions to be Taken for Safe Swallow: Sitting Upright (90 deg) Small Bites and Sips Alternate Liquids/Solids Rate of Ingestion Change Supervision While Eating and Drinking for Safe Swallow: Total Assistance (1:1) Foods to Avoid: Swallowing Recommended Treatments: Compens. Strategy Educat. Recommendation for Speech: Inpatient Speech Therapy Speech Therapy through Rehab Facility Comment: Patient seen in room for dysphagia therapy. Patient requiring repositioning by ECONOMICS INSTRUCTOR and RN prior to PO intake. Per RN and PRODUCT EVANGELIST, patient with decrease in tolerance of diet at breakfast. Noted increase coughing and discontinued feeding. Patient given trials of thin liquids this date; noted delayed cough. Cough perceived as congested, nonproductive. Patient also with poor level of alertness requiring continuous cueing to maintain appropriate level. Patient given trial of ground solids; noted immediate coughing and decreased mastication efforts with small pieces of inder crackers. Patient with audible/congested breathing. Overall decline in swallowing function since previously seen. Given RN concerns and current conditions recommend DOWNGRADE to NDD1 (puree), NECTAR THICK Liquids with 1:1 feeding assistance, medications CRUSHED in puree. MD, RN, and RD made aware of recommendations via secure chat. ECONOMICS INSTRUCTOR changing diet order in Expanse. ECONOMICS INSTRUCTOR to continue to follow. Frequency/Duration: M-F Daily Date Range for Service Req: Timeline to reassess: Manager Treasury Clinican/Clinical Fellow: No Supervisory Statement: I have reviewed and agree with the student/clinical fellow's documentation: No Speech Language Pathologist: Naila March M.A., CCC-ECONOMICS INSTRUCTOR
--- NOTE | 2025-02-08 16:04 | HO.PM.IMPN ---
Subjective Subjective Date of Service: 02/08/25 Interval History: Pyrexia yesterday, today temperature a 100.5 degrees. Patient has no new complaints. Remains mildly confused. Represents a poor historian at this time Review of Systems Review of Systems: Yes Unobtainable due to mental status Physical Exam Exam: Exam: General: A&O x1 to person only. Appears comfortable not in pain Cardiac: S1, S2 auscultated with no S3/4, no MRG. Well perfused. Respiratory: Reduced breath sounds bilaterally at the bases, without tachypnea or dyspnea. No end expiratory wheezing GI/ : No abdominal pain on palpation, no masses or distentions. MSK: Normal ambulation without pain at bony prominences or musculature Neurological: Normal neurological examination on overview, without obvious CN II-XII abnormalities. Vital Signs: Vital Signs: Last Vital Signs Temp 100.5 F H 02/08/25 15:44 Pulse 126 H 02/08/25 15:44 Resp 20 02/08/25 15:44 BP 132/58 L 02/08/25 15:44 Pulse Ox 94 02/08/25 15:44 O2 Del Method Room Air 02/08/25 15:44 O2 Flow Rate 1 02/07/25 15:16 BMI result Body Mass Index 24.9 Objective Data Active Medications Acetaminophen (Acetaminophen 325 Mg Tablet) 650 mg PO Q6H PRN PRN Reason: Pain, Mild 1-3,fever,headache Last Admin: 02/08/25 15:53 Dose: 650 mg Documented By: RICKY Albuterol/Ipratropium (Albuterol/Iprat 2.5/0.5mg 3 Ml Ampul.Neb) 3 ml INHALE Q4H PRN PRN Reason: Shortness of Breath/Wheezing Allopurinol (Allopurinol 100 Mg Tablet) 100 mg PO DAILY [facility] Last Admin: 02/08/25 08:04 Dose: 100 mg Documented By: RICKY Calcium Carbonate (Calcium Carbonate 750 Mg Tab.Chew) 750 mg PO Q4H PRN PRN Reason: Heartburn Doxycycline Monohydrate (Doxycycline Monohydrate 100 Mg Capsule) 100 mg PO BID [facility] Finasteride (Finasteride 5 Mg Tablet) 5 mg PO DAILY [facility] Last Admin: 02/08/25 08:04 Dose: 5 mg Documented By: RICKY Furosemide (Furosemide 40 Mg/4 Ml Vial) 40 mg IVPUSH DAILY [facility]; Protocol Last Admin: 02/08/25 08:05 Dose: 40 mg Documented By: RICKY Heparin Sodium (Porcine) (Heparin Sodium,Porcine 5,000 Unit/Ml Vial) 5,000 unit SUBCUT Q12H [facility] Last Admin: 02/08/25 08:05 Dose: 5,000 unit Documented By: RICKY Ceftriaxone Sodium 1 gm/ (Sodium Chloride) 50 mls @ 100 mls/hr IV Q24H [facility] Last Infusion: 02/08/25 03:45 Dose: Infused Documented By: FRANCISCA Magnesium Hydroxide (Milk Of Magnesia 30 Ml Oral.Susp) 30 ml PO DAILY PRN PRN Reason: Constipation Melatonin (Melatonin 3 Mg Tablet) 6 mg PO BEDTIME PRN PRN Reason: Insomnia Pt Own (Tadalafil 5 (Mg Tablet)) 5 mg PO DAILY [facility] Last Admin: 02/08/25 08:05 Dose: 5 mg Documented By: RICKY Olanzapine (Olanzapine 5 Mg Tablet) 5 mg PO Q6H PRN PRN Reason: Agitation Last Admin: 02/06/25 13:38 Dose: 5 mg Documented By: ROSELIA Olanzapine (Olanzapine 2.5 Mg Tablet) 2.5 mg PO BEDTIME [facility] Last Admin: 02/07/25 20:37 Dose: 2.5 mg Documented By: FRANCISCA Olanzapine (Olanzapine 10 Mg Vial) 5 mg IM ONCE PRN PRN Reason: severe agitation Ondansetron HCl (Ondansetron Hcl 4 Mg/2 Ml Vial) 4 mg IVPUSH Q8H PRN PRN Reason: Nausea and Vomiting Polyethylene Glycol (Polyethylene Glycol 3350 17 Gm Powd.Pack) 17 gm PO DAILY PRN PRN Reason: Constipation Senna (Sennosides 8.6 Mg Tablet) 17.2 mg PO BEDTIME [facility] Last Admin: 02/07/25 20:37 Dose: 17.2 mg Documented By: FRANCISCA Sodium Chloride (0.9 % Sodium Chloride Flush 3 Ml Syringe) 3 ml IVFLUSH QSHIFT [facility] Last Admin: 02/08/25 14:53 Dose: 3 ml Documented By: RICKY Tamsulosin HCl (Tamsulosin Hcl 0.4 Mg Capsule) 0.4 mg PO BEDTIME [facility] Last Admin: 02/07/25 20:37 Dose: 0.4 mg Documented By: FRANCISCA Labs 02/08/25 09:46 02/08/25 09:46 Labs: Laboratory Results - last 24 hr 02/08/25 09:46 MCV 100.8 H MCH 32.2 MCHC 31.9 RDW 14.2 Plt Count 283 MPV 10.0 Immature Gran % (Auto) 1.0 H Neut % (Auto) 81.1 H Lymph % (Auto) 7.7 L [place] % (Auto) 9.8 Eos % (Auto) 0.2 Baso % (Auto) 0.2 Lymph # (Auto) 1.0 L [place] # (Auto) 1.3 H Eos # (Auto) 0.0 Baso # (Auto) 0.0 Abs Immat Gran (auto) 0.13 H Absolute Neuts (auto) 10.7 H Absolute Nucleated RBC 0.000 Nucleated RBC % (auto) 0.0 Anion Gap 15 Estim Creat Clear Calc 21.1 Estimated GFR 30 Random Glucose 129 H Calcium 9.5 Microbiology Microbiology Results: Microbiology 02/06/25 03:14 Blood Culture - Preliminary Blood - Venous No growth after 48 hours. 02/06/25 03:14 Blood Culture - Preliminary Blood - Venous No growth after 48 hours. Assessment and Plan (1) HTN (hypertension): Status: Acute (2) Acute kidney injury superimposed on CKD: Status: Acute (3) SELWYN (acute kidney injury): Status: Acute (4) Sepsis: Status: Acute (5) Major neurocognitive disorder due to another medical condition: Status: Acute Plan 81-year-old male, with a history of HTN, gout, BPH, hepatitis-C, moderate aortic valve stenosis, subclinical hypothyroidism, admitted to ED [facility] 02/01/2025 for case management needs 2/2 worsening altered mental status and forgetfulness, admitted to hospital with sepsis 2/2 pneumonia with SELWYN and toxic encephalopathy. Sepsis Pneumonia Possible aspiration Transferred from [facility] in emergency room, started on sepsis protocol with lactated ringer and antibiotics Started on ceftriaxone and doxycycline CT abdomen and pelvis without contrast -ve for intra-abdominal pathology Blood cultures obtained, -ve to date Since admission, the patient has been persistently pyrexia, despite medications. PLAN - ceftriaxone - doxycycline - infectious diseases consultation Prerenal acute kidney injury CKD stage III B Patient suffered with acute kidney injury 2/2 dehydration and poor p.o. intake Nephrology following Recommendations greatly appreciated Toxic encephalopathy Metabolic encephalopathy 2/2 dehydration and sepsis 2/2 pneumonia. Ammonia level -ve Patient was initially admitted to emergency room observation unit due to worsening altered mental status and forgetfulness by family members. Psychiatric consulted, recommendations appreciated Suspected dysphagia Speech therapy requested for swallow evaluation Aspiration precautions in place Moderate aortic stenosis HFpEF 66% Possible clinical evidence of acute CHF exacerbation BNP ordered for further evaluation for possible superimposed CHF exacerbation History of gout Patient has been on recent prednisone long-term Patient is now on a taper of prednisone 3 mg, stop at this time, no symptims and steroid can possibly cause confusio Subclinical hyperthyroidism TSH low Free T4 normal Mood d/o continue Psych med consider Psych follow up in the future BPH Continue flomax and finasteride as BP is stable QUALITY [employer] - VTE: Heparin 5000 t.i.d. SQ - CODE STATUS: Full code - DIET: Cardiac diet Total time managing care of this patient today: 45 minutes. Quality Stroke Does the patient have a stroke diagnosis?: No VTE Prior VTE?: No VTE Risk Level:: Medical - moderate - high VTE Device Contraindication: N/A - Device Ordered VTE Drug Contraindication: N/A - Med Ordered
--- NOTE | 2025-02-08 23:25 | PM.EVENT ---
Event Note Date of Service: 02/08/25 Event Note: pt spiking fever, tachycardic, tachypneic and hypoxic requiring oxymask. ordered stat CBC, CMP, lactic, blood cultures, BNP, chest xray, RSV/flu/COVID. 500ml bolus of LR. pt seen bedside, initially lethargic but later fully awake after startling awake with bed moving. skin warm to touch, denying any chest pain, SOB, nausea, headache or anything bothersome. lungs congested and diminished throughout but no crackles or wheezing. tachy, regular rhythm. nurse notes pt has been urinating. continues to have metabolic encephalopathy and ripped off purewick. change abx to vancomycin and zosyn as pt is worsening with ceftriaxone and doxycycline. await test results for further interventions. supervising physician Dr Gordon aware. Time Spent With Patient Time: Total time managing care of this patient today ____ minutes.
[2025-02-08 23:51] LABS: MANUAL DIFF FLAG NO
[2025-02-08 23:52] LABS: Hematocrit 27.9 % (42.0-52.0); Hemoglobin 8.9 g/dl (14.0-18.0); Imm Gran Abs Auto 0.12 X10*3/uL (0.00-0.03); Imm Gran Pct Auto 0.9 % (0.0-0.4); Lymphocytes Absolute Auto 1.0 X10*3/uL (1.2-4.9); Mean Corpuscular HGB Conc 31.9 g/dl (31.0-36.0); Mean Corpuscular Hemoglobin 32.0 pg (27.0-33.0); Mean Corpuscular Volume 100.4 fL (80.0-98.0); NRBC Abs Auto 0.000 X10*3/uL (0.0-0.012); NRBC Pct Auto 0.0 /100WBC (0.0-0.2); Platelet Count 284 X10*3/uL (160-400); Red Blood Count 2.78 X10*6/uL (4.60-5.80); White Blood Count 13.2 X10*3/uL (4.8-10.8)
[2025-02-09] VITALS (9 sets, daily range): BP systolic 99–124; BP diastolic 50–63; PULSE 87–117; RESP 16–20; TEMP 36.1–38.6; O2SAT 94–96
[2025-02-09 00:08] LABS: Alanine Aminotransferase 8 U/L (0-40); Albumin Level 3.3 g/dL (3.5-5.0); Alkaline Phosphatase 56 U/L (39-117); Anion Gap 14 (12-20); Aspartate Amino Transferase 31 U/L (5-37); Blood Urea Nitrogen 34 mg/dL (9-16); Calcium 9.5 mg/dL (8.4-10.2); Carbon Dioxide 20 mmol/L (22-29); Chloride 96 mmol/L (96-108); Creatinine Clr Calc Pharmacy 18.5; Estimated Glomerular Filt Rate 26; Potassium 3.8 mmol/L (3.3-5.1); Sodium 126 mmol/L (135-145); Total Protein 6.6 g/dL (6.5-8.0)
[2025-02-09 00:13] LABS: NT Pro B Type Natriuretic Pept 1504.5 pg/mL (<300)
[2025-02-09 01:49] LABS: Resp Syncy Virus RNA Qual PCR NEGATIVE (Negative); SARS COV2 PCR INHOUSE NEGATIVE (Negative)
[2025-02-09 01:49] LABS: Reflex Lactate? Lactic Acid Added
[2025-02-09] MEDS: vancomycin HCL 1,000 MG, vancomycin HCL 750 MG in 0.9 % Sodium Chloride 500 ML 267.5 MG IV (02:32)
[2025-02-09 02:33] LABS: Anion Gap 15 (12-20); Blood Urea Nitrogen 36 mg/dL (9-16); Calcium 8.8 mg/dL (8.4-10.2); Carbon Dioxide 20 mmol/L (22-29); Chloride 111 mmol/L (96-108); Creatinine Clr Calc Pharmacy 20.0; Estimated Glomerular Filt Rate 28; Potassium 4.0 mmol/L (3.3-5.1); Sodium 142 mmol/L (135-145)
[2025-02-09 02:59] LABS: ~Lactic Acid-LAB USE ONLY 0.8 mmol/L (0.5-2.0)
[2025-02-09 06:39] LABS: MANUAL DIFF FLAG NO
--- NOTE | 2025-02-09 07:00 | CA_ITS ---
Transthoracic Echocardiogram Patient (Last, First, Middle): Kevin Cisneros F Gender: M Date of : 1935 Age: 89 Procedure Date: 02/09/2025 Procedure Type: Transthoracic Echocardiogram Location: S3E Height: 165.1 cm Weight: 67.59 kg BSA: 1.75 m2 Heart Rate: bpm BP: 122 / 58 mmHg Service Line Bus Cleaner: SB Referring MD: Kate Schwartz PA-C Symptoms: fever unknown origin, r/o endocarditis Study Quality: Technically Difficult, contrast ECG Rhythm: Sinus Conclusions: - The left ventricular systolic function is hyperdynamic. The visually estimated ejection fraction is >70%. - There is moderate aortic valve stenosis. - There is severe mitral annular calcification. Findings Procedure Information Contrast agent, definity, is being given per protocol without apparent complications. The study quality is limited by an uncooperative patient. Left Ventricle Normal left ventricular cavity size. The left ventricular systolic function is hyperdynamic. The visually estimated ejection fraction is >70%. There is no evidence of regional wall motion abnormalities. Evidence suggests grade I (mild) diastolic dysfunction. There is mild septal asymmetric hypertrophy. Right Ventricle Normal right ventricular cavity size and systolic function. Atria Both atria are normal in size. Aortic Valve There is moderate calcification of the aortic valve. There is moderate aortic valve stenosis. There is no aortic valve regurgitation. Mitral Valve There is severe mitral annular calcification. There is no mitral valve regurgitation. There is no mitral valve stenosis. Pulmonic Valve The pulmonic valve is likely normal. Tricuspid Valve There is trace tricuspid valve regurgitation. There is no evidence of pulmonary hypertension. Great Vessels The asc aorta is normal in size. Venous The inferior vena cava is normal in size and collapses greater than 50% with inspiration. Pericardium/Pleural There is no evidence of pericardial effusion. Prior Study Comparison No significant change compared to prior study dated: 12/20/2024. Measurements 2D Linear Measurements IVSd: 1.18 0.6-0.9/0.6-1.0 cm LVIDd: 4.34 3.9-5.3/4.2-5.9 cm LVIDd Index: 2.48 2.4-3.2/2.2-3.1 cm/m2 LVIDs: 2.32 2.0-3.6 cm LVPWd: 0.96 0.7-1.1 cm LA Diam: 3.50 2.7-3.8/3.0-4.0 cm LAIDs Index: 2.00 1.5-2.3 cm/m2 LV Mass: 197.44 67-162/88-224 g LV Mass Index: 112.82 43-95/49-115 g/m2 LVOT Diam: 2.00 3.0+(-)1.3 cm 2D Systolic Function EF 4C: 72.90 >55% EF 2C: 71.90 >55% EF BiP: 72.90 >55% Mitral Valve MV VTI: 0.26 MV Pk [place]: 1.70 MV Mn [place]: 1.24 MV Pk Grad: 12.00 MV Mn Grad: 7.00 MV Pk E: 1.36 MV PK A: 1.65 MV Decel Time: 231.00 E/A: 0.80 E'Lateral: 6.42 E'Medial: 5.22 E/E' Med: 26.10 E/E' Lat: 21.20 PHT: 68.00 MVA PHT: 3.24 MVA Continuity: 2.61 Decel [place]: 5.88 Aortic Valve AoV Pk [place]: 3.29 AoV Mn [place]: 2.40 AoV VTI: 0.55 AoV Pk Grad: 43.00 Aov Mn Grad: 26.00 ALICIA Cont.VTI: 1.26 LVOT LVOT Pk [place]: 1.15 LVOT Mn [place]: 0.77 LVOT VTI: 0.22 LVOT Pk Grad: 5.00 LVOT Mn Grad: 3.00 LVOT Diam: 2.00 LVOT Area: 3.14 Diastolic Function MV Pk E: 1.36 MV Pk A: 1.65 E/A: 0.80 E'Medial: 5.22 E/E' Med: 26.10 E' Laterial: 6.42 E/E' Lat: 21.20 Right Ventricle TAPSE (mm): 23.80 TVS' [place]: 17.30 Tricuspid Valve TR Pk [place]: 2.51 TR Pk Grad: 25.00 Great Vessels Aorta Sinus of Valsalva: 3.00 2.0-3.5 cm Ao Asc: 3.10 2.1-3.4 cm Pulmonary Veins Pulm Vein S/D 1.60 Pulmonary Valve PV Pk [place]: 1.62 Peak PV Grad: 10.00 Updated in Other Vendor System with Status of Final Bernardo Shin MD electronically signed on 02/09/2025 12:21:20 PM with status of Final
--- NOTE | 2025-02-09 07:00 | PHA.PROG ---
Admission Date/Time: February 06, 2025 04:03 Indication: SEPSIS Weight in k kg Adjusted body weight in Kg: [place] body weight in Kg: Obesity Dosing Indication % IBW: Serum Creatinine - Last 168 Hours 02/06/25 02/06/25 02/07/25 00:43 03:23 12:36 Creatinine 2.43 H 2.43 H 1.80 H 02/08/25 02/08/25 02/09/25 09:46 23:40 02:05 Creatinine 2.10 H 2.39 H 2.22 H Estimated CrCl and GFR - Last 168 Hours 02/06/25 02/06/25 02/07/25 00:43 03:23 12:36 Estim Creat Clear Calc 18.2 18.2 24.6 Estimated GFR 25 36 02/08/25 02/08/25 02/09/25 09:46 23:40 02:05 Estim Creat Clear Calc 21.1 18.5 20.0 Estimated GFR 30 26 28 Vancomycin Loading Dose: 1750 MG Current Vancomycin Dosing Regimen: 750 MG ONCE THEN 500 MG Q24H Vancomycin Monitoring using AUC goal of 400 - 600 range with trough as surrogate marker: AUC = 459 TROUGH = 16 AFTER ONE DOSE OF 750 MG Date and Time for next Vancomycin Level to be drawn: 02/10/2025 @2100 Pharmacist Comments on Vancomycin Plan: ONE TIME DOSE OF 750 MG ON 02/09/25 @2300 TO GET PT TO THERAPEUTIC LEVEL THEN DECREASE DOSE TO 500 MG Q24H Vancomycin dosing will take advantage of [employer] as a clinical decision support tool that uses Bayesian modeling to calculate individual patient's pharmacokinetic parameters and forecast the patient's drug concentration time course with the target goal AUC 24 range of 400 - 600 mg/L/hr.
[2025-02-09 07:02] LABS: Anion Gap 15 (12-20); Blood Urea Nitrogen 34 mg/dL (9-16); Calcium 9.1 mg/dL (8.4-10.2); Carbon Dioxide 21 mmol/L (22-29); Chloride 112 mmol/L (96-108); Creatinine Clr Calc Pharmacy 21.1; Estimated Glomerular Filt Rate 30; Potassium 3.9 mmol/L (3.3-5.1); Sodium 144 mmol/L (135-145)
[2025-02-09 07:34] LABS: Hematocrit 26.0 % (42.0-52.0); Hemoglobin 8.1 g/dl (14.0-18.0); Imm Gran Abs Auto 0.12 X10*3/uL (0.00-0.03); Imm Gran Pct Auto 1.0 % (0.0-0.4); Lymphocytes Absolute Auto 1.1 X10*3/uL (1.2-4.9); Mean Corpuscular HGB Conc 31.2 g/dl (31.0-36.0); Mean Corpuscular Hemoglobin 32.0 pg (27.0-33.0); Mean Corpuscular Volume 102.8 fL (80.0-98.0); NRBC Abs Auto 0.000 X10*3/uL (0.0-0.012); NRBC Pct Auto 0.0 /100WBC (0.0-0.2); Platelet Count 267 X10*3/uL (160-400); Red Blood Count 2.53 X10*6/uL (4.60-5.80); White Blood Count 12.1 X10*3/uL (4.8-10.8)
[2025-02-09] MEDS: 0.9 % Sodium Chloride Flush 3 ML SYRINGE IVFLUSH ×3 (07:37→20:49)
--- NOTE | 2025-02-09 10:38 | MHC.CM.PN ---
Per MD patient not medically cleared for dc. DP: STR. CM will continue to follow.
--- NOTE | 2025-02-09 10:56 | P.PNNP_ITS ---
Subjective Subjective Date of Service: 02/09/25 Interval history: Pyrexia yesterday, today temperature a 100.5 degrees. Patient has no new complaints. Remains mildly confused. Represents a poor historian at this time Physical Exam 2 Vital Signs: Vital Signs: Last Vital Signs Temp 98.8 F 02/09/25 07:11 Pulse 104 H 02/09/25 07:11 Resp 16 02/09/25 07:11 BP 99/50 L 02/09/25 07:11 Pulse Ox 95 02/09/25 07:11 O2 Del Method Room Air 02/09/25 07:11 O2 Flow Rate 1 02/07/25 15:16 BMI result Body Mass Index 24.9 General: not in any acute distress, comfortable, sitting on the chair Nutritional Appearance: well nourished and weight Eyes: normal position, no icterus Neck: No lymphadenopathy, no thyromegaly Resp: bilateral air entry equal, no added sounds present Cardio: normal S1, S2 heard, no murmur heard, no edema GI: soft, nontender, no guarding, no hepatosplenomegaly : bladder normal to inspection, bladder normal to palpation, no renal angle tenderness Skin: no rashes or lesions noted and elasticity normal Neuro: confused, not following commands, moves all extremities Objective Data Labs 02/09/25 06:34 02/09/25 06:34 Labs: Laboratory Results - last 24 hr 02/08/25 02/08/25 02/09/25 23:39 23:40 00:50 WBC 13.2 H RBC 2.78 L Hgb 8.9 L Hct 27.9 L MCV 100.4 H MCH 32.0 MCHC 31.9 RDW 14.3 Plt Count 284 MPV 9.7 Immature Gran % (Auto) 0.9 H Neut % (Auto) 82.4 H Lymph % (Auto) 7.5 L [place] % (Auto) 8.8 Eos % (Auto) 0.2 Baso % (Auto) 0.2 Lymph # (Auto) 1.0 L [place] # (Auto) 1.2 Eos # (Auto) 0.0 Baso # (Auto) 0.0 Abs Immat Gran (auto) 0.12 H Absolute Neuts (auto) 10.9 H Absolute Nucleated RBC 0.000 Nucleated RBC % (auto) 0.0 Sodium 126 L Potassium 3.8 Chloride 96 Carbon Dioxide 20 L Anion Gap 14 BUN 34 H Creatinine 2.39 H Estim Creat Clear Calc 18.5 Estimated GFR 26 Random Glucose 132 H Lactic Acid 2.1 H* Lactic Acid F/U @ 2Hr Calcium 9.5 Total Bilirubin 0.4 AST 31 ALT 8 Alkaline Phosphatase 56 NT-Pro-B Natriuret Pep 1504.5 H Total Protein 6.6 Albumin 3.3 L Influenza Type A (PCR) NEGATIVE Influenza Type B (PCR) NEGATIVE RSV RNA Qual (PCR) NEGATIVE SARS-CoV-2 RNA (RT-PCR) NEGATIVE 02/09/25 02/09/25 02/09/25 02:04 02:05 06:34 WBC 12.1 H RBC 2.53 L Hgb 8.1 L Hct 26.0 L MCV 102.8 H MCH 32.0 MCHC 31.2 RDW 14.3 Plt Count 267 MPV 9.9 Immature Gran % (Auto) 1.0 H Neut % (Auto) 81.0 H Lymph % (Auto) 9.4 L [place] % (Auto) 8.2 Eos % (Auto) 0.2 Baso % (Auto) 0.2 Lymph # (Auto) 1.1 L [place] # (Auto) 1.0 Eos # (Auto) 0.0 Baso # (Auto) 0.0 Abs Immat Gran (auto) 0.12 H Absolute Neuts (auto) 9.8 H Absolute Nucleated RBC 0.000 Nucleated RBC % (auto) 0.0 Sodium 142 144 Potassium 4.0 3.9 Chloride 111 H 112 H Carbon Dioxide 20 L 21 L Anion Gap 15 15 BUN 36 H 34 H Creatinine 2.22 H 2.10 H Estim Creat Clear Calc 20.0 21.1 Estimated GFR 28 30 Random Glucose 137 H 131 H Lactic Acid Lactic Acid F/U @ 2Hr 0.8 Calcium 8.8 D 9.1 Total Bilirubin AST ALT Alkaline Phosphatase NT-Pro-B Natriuret Pep Total Protein Albumin Influenza Type A (PCR) Influenza Type B (PCR) RSV RNA Qual (PCR) SARS-CoV-2 RNA (RT-PCR) Microbiology Microbiology Results: Microbiology 02/06/25 03:14 Blood - Venous Blood Culture - Preliminary No growth after 48 hours. 02/06/25 03:14 Blood - Venous Blood Culture - Preliminary No growth after 48 hours. Procedures Date of Service Date of Service: 02/09/25 Assessment & Plan Assessment and plan (1) HTN (hypertension): Status: Acute (2) Acute kidney injury superimposed on CKD: Status: Acute (3) Hyperuricemia: Status: Acute Plan SELWYN on chronic kidney disease: Patient has a CKD with baseline creatinine about 1.6-2.0, creatinine peaked at 2.43, decreased down to 2.10 with fluid repletion. urinalysis normal, pending UPCR, UPEP and SPEP Keep intake more than output, if patient is not able to take enough fluids please start the patient on IV fluid. TTE in 11/2024 showed normal LV systolic function, moderate ; should be okay to receive fluids. Avoid any nephrotoxic agents, ESTEFANIA/arbs, NSAIDs Hyperuricemia: Uric acid levels 10.1 upon admission Patient was started on low-dose allopurinol, please recheck uric acid if levels still high can increase the dose of allopurinol. Time Spent With Patient Time: Total time managing care of this patient today ____ minutes. Progress Note: Quality Stroke Does the patient have a stroke diagnosis?: No
--- NOTE | 2025-02-09 13:18 | MHC.SL.SWA ---
Speech Pathologist Impression: Oralpharyngeal Dysphagia Risk of Aspiration Due to: Confusion Dysphasia Diet Status: CONTINUE diet of NDD1 (puree), NECTAR THICK Liquids with 1:1 feeding assistance. Liquid Consistency and Strategies for Safe Swallow: Liquid Intake Recommendation: [place] Thick Solid Food Consistency: Dietary Recommendations: Pureed (NDD1) Additional Modifications to Solid Foods: Coughing on thin consistency, needs 1:1 assistance with all PO intake Oral Medication Intake: Crushed with Puree Please contact the pharmacy regarding appropriate crushable or liquid drug formulations that are available whenever modified delivery is recommended. Compensatory Strategies and Precautions to be Taken for Safe Swallow: Sitting Upright (90 deg) Small Bites and Sips Alternate Liquids/Solids Rate of Ingestion Change Supervision While Eating and Drinking for Safe Swallow: Total Assistance (1:1) Swallowing Recommended Treatments: Compens. Strategy Educat. Recommendation for Speech: Inpatient Speech Therapy Speech Therapy through Rehab Facility Comment: Continue speech therapy during inpatient stay and at the next level of care. Frequency/Duration: M-F Daily Date Range for Service Req: Timeline to reassess: Collections Professional Clinican/Clinical Fellow: No Supervisory Statement: I have reviewed and agree with the student/clinical fellow's documentation: No Speech Language Pathologist: Maryanne Arreola M.A., CCC-MANAGEMENT COORDINATOR
[2025-02-09 14:39] LABS: ABG Refer to POC result
--- NOTE | 2025-02-09 15:56 | HO.PM.IMPN ---
Subjective Subjective Date of Service: 02/09/25 Interval History: Events from last night reviewed. Patient pyrexia, with elevated lactic acid. Antibiotics advanced to vancomycin/Zosyn. Echocardiography ordered. Patient reports feeling better overall Remains confused Review of Systems Review of Systems: Yes Unobtainable due to mental status Physical Exam Exam: Exam: General: A&O x1 to person only. Appears comfortable not in pain Cardiac: S1, S2 auscultated with no S3/4, no MRG. Well perfused. Respiratory: Reduced breath sounds bilaterally at the bases, without tachypnea or dyspnea. No end expiratory wheezing GI/ : No abdominal pain on palpation, no masses or distentions. MSK: Normal ambulation without pain at bony prominences or musculature Neurological: Normal neurological examination on overview, without obvious CN II-XII abnormalities. Vital Signs: Vital Signs: Last Vital Signs Temp 99.5 F 02/09/25 15:07 Pulse 104 H 02/09/25 15:07 Resp 18 02/09/25 15:07 BP 111/63 02/09/25 15:07 Pulse Ox 94 02/09/25 15:07 O2 Del Method Room Air 02/09/25 15:07 O2 Flow Rate 1 02/07/25 15:16 BMI result Body Mass Index 24.9 Objective Data Active Medications Acetaminophen (Acetaminophen 325 Mg Tablet) 650 mg PO Q6H PRN PRN Reason: Pain, Mild 1-3,fever,headache Last Admin: 02/09/25 12:42 Dose: 650 mg Documented By: RICKY Albuterol/Ipratropium (Albuterol/Iprat 2.5/0.5mg 3 Ml Ampul.Neb) 3 ml INHALE Q4H PRN PRN Reason: Shortness of Breath/Wheezing Allopurinol (Allopurinol 100 Mg Tablet) 100 mg PO DAILY [facility] Last Admin: 02/09/25 07:36 Dose: 100 mg Documented By: RICKY Calcium Carbonate (Calcium Carbonate 750 Mg Tab.Chew) 750 mg PO Q4H PRN PRN Reason: Heartburn Finasteride (Finasteride 5 Mg Tablet) 5 mg PO DAILY [facility] Last Admin: 02/09/25 07:36 Dose: 5 mg Documented By: RICKY Furosemide (Furosemide 40 Mg/4 Ml Vial) 40 mg IVPUSH DAILY [facility]; Protocol On Hold: 02/09/25 02:09 Last Admin: 02/08/25 08:05 Dose: 40 mg Documented By: RICKY Heparin Sodium (Porcine) (Heparin Sodium,Porcine 5,000 Unit/Ml Vial) 5,000 unit SUBCUT Q12H [facility] Last Admin: 02/09/25 07:36 Dose: 5,000 unit Documented By: RICKY Piperacillin Sod/Tazobactam (Sod 2.25 gm/ Sodium Chloride) 50 mls @ 100 mls/hr IV Q6H [facility] Last Infusion: 02/09/25 12:37 Dose: Infused Documented By: RICKY Vancomycin HCl 500 mg/ Sodium (Chloride) 110 mls @ 110 mls/hr IV Q24H [facility] Vancomycin HCl 750 mg/ Sodium (Chloride) 265 mls @ 265 mls/hr IV ONCE ONE Stop: 02/09/25 23:59 Magnesium Hydroxide (Milk Of Magnesia 30 Ml Oral.Susp) 30 ml PO DAILY PRN PRN Reason: Constipation Melatonin (Melatonin 3 Mg Tablet) 6 mg PO BEDTIME PRN PRN Reason: Insomnia Pt Own (Tadalafil 5 (Mg Tablet)) 5 mg PO DAILY [facility] Last Admin: 02/09/25 07:37 Dose: 5 mg Documented By: RICKY Olanzapine (Olanzapine 5 Mg Tablet) 5 mg PO Q6H PRN PRN Reason: Agitation Last Admin: 02/06/25 13:38 Dose: 5 mg Documented By: ROSELIA Olanzapine (Olanzapine 2.5 Mg Tablet) 2.5 mg PO BEDTIME [facility] Last Admin: 02/08/25 20:23 Dose: 2.5 mg Documented By: JON Olanzapine (Olanzapine 10 Mg Vial) 5 mg IM ONCE PRN PRN Reason: severe agitation Ondansetron HCl (Ondansetron Hcl 4 Mg/2 Ml Vial) 4 mg IVPUSH Q8H PRN PRN Reason: Nausea and Vomiting Pharmacy Consult (Consult Rx Vancomycin Dosing) 1 each MISCELLANE DAILY PRN PRN Reason: Consult order Polyethylene Glycol (Polyethylene Glycol 3350 17 Gm Powd.Pack) 17 gm PO DAILY PRN PRN Reason: Constipation Senna (Sennosides 8.6 Mg Tablet) 17.2 mg PO BEDTIME [facility] Last Admin: 02/08/25 20:22 Dose: 17.2 mg Documented By: JON Sodium Chloride (0.9 % Sodium Chloride Flush 3 Ml Syringe) 3 ml IVFLUSH QSHIFT [facility] Last Admin: 02/09/25 07:37 Dose: 3 ml Documented By: RICKY Tamsulosin HCl (Tamsulosin Hcl 0.4 Mg Capsule) 0.4 mg PO BEDTIME [facility] Last Admin: 02/08/25 20:22 Dose: 0.4 mg Documented By: JON Labs 02/09/25 06:34 02/09/25 06:34 Labs: Laboratory Results - last 24 hr 02/08/25 02/08/25 02/09/25 23:39 23:40 00:50 MCV 100.4 H MCH 32.0 MCHC 31.9 RDW 14.3 Plt Count 284 MPV 9.7 Immature Gran % (Auto) 0.9 H Neut % (Auto) 82.4 H Lymph % (Auto) 7.5 L [place] % (Auto) 8.8 Eos % (Auto) 0.2 Baso % (Auto) 0.2 Lymph # (Auto) 1.0 L [place] # (Auto) 1.2 Eos # (Auto) 0.0 Baso # (Auto) 0.0 Abs Immat Gran (auto) 0.12 H Absolute Neuts (auto) 10.9 H Absolute Nucleated RBC 0.000 Nucleated RBC % (auto) 0.0 Anion Gap 14 Estim Creat Clear Calc 18.5 Estimated GFR 26 Random Glucose 132 H Lactic Acid 2.1 H* Lactic Acid F/U @ 2Hr Calcium 9.5 Total Bilirubin 0.4 AST 31 ALT 8 Alkaline Phosphatase 56 NT-Pro-B Natriuret Pep 1504.5 H Total Protein 6.6 Albumin 3.3 L Influenza Type A (PCR) NEGATIVE Influenza Type B (PCR) NEGATIVE RSV RNA Qual (PCR) NEGATIVE SARS-CoV-2 RNA (RT-PCR) NEGATIVE 02/09/25 02/09/25 02/09/25 02:04 02:05 06:34 MCV 102.8 H MCH 32.0 MCHC 31.2 RDW 14.3 Plt Count 267 MPV 9.9 Immature Gran % (Auto) 1.0 H Neut % (Auto) 81.0 H Lymph % (Auto) 9.4 L [place] % (Auto) 8.2 Eos % (Auto) 0.2 Baso % (Auto) 0.2 Lymph # (Auto) 1.1 L [place] # (Auto) 1.0 Eos # (Auto) 0.0 Baso # (Auto) 0.0 Abs Immat Gran (auto) 0.12 H Absolute Neuts (auto) 9.8 H Absolute Nucleated RBC 0.000 Nucleated RBC % (auto) 0.0 Anion Gap 15 15 Estim Creat Clear Calc 20.0 21.1 Estimated GFR 28 30 Random Glucose 137 H 131 H Lactic Acid Lactic Acid F/U @ 2Hr 0.8 Calcium 8.8 D 9.1 Total Bilirubin AST ALT Alkaline Phosphatase NT-Pro-B Natriuret Pep Total Protein Albumin Influenza Type A (PCR) Influenza Type B (PCR) RSV RNA Qual (PCR) SARS-CoV-2 RNA (RT-PCR) Assessment and Plan (1) HTN (hypertension): Status: Acute (2) Acute kidney injury superimposed on CKD: Status: Acute (3) SELWYN (acute kidney injury): Status: Acute (4) BPH (benign prostatic hyperplasia): Status: Acute (5) Sepsis: Status: Acute (6) Hyperuricemia: Status: Acute (7) Pneumonia: Status: Acute Plan 81-year-old male, with a history of HTN, gout, BPH, hepatitis-C, moderate aortic valve stenosis, subclinical hypothyroidism, admitted to ED [facility] 02/01/2025 for case management needs 2/2 worsening altered mental status and forgetfulness, admitted to hospital with sepsis 2/2 pneumonia with SELWYN and toxic encephalopathy. Sepsis Suspected Pneumonia Possible aspiration Transferred from [facility] in emergency room, started on sepsis protocol with lactated ringer and antibiotics Initially on ceftriaxone and doxycycline CT abdomen and pelvis without contrast -ve for intra-abdominal pathology Blood cultures obtained, -ve to date 02/09; pyrexia, elevated lactic acid, transitioned to vancomycin/Zosyn, ECHO ordered PLAN - continue vancomycin - Continue Zosyn - infectious diseases consultation - echocardiography Prerenal acute kidney injury CKD stage III B Patient suffered with acute kidney injury 2/2 dehydration and poor p.o. intake Nephrology following Recommendations greatly appreciated Toxic encephalopathy Metabolic encephalopathy 2/2 dehydration and sepsis 2/2 pneumonia. Ammonia level -ve Patient was initially admitted to emergency room observation unit due to worsening altered mental status and forgetfulness by family members. Psychiatric consulted, recommendations appreciated Suspected dysphagia Speech therapy requested for swallow evaluation Aspiration precautions in place Moderate aortic stenosis HFpEF 66% Possible clinical evidence of acute CHF exacerbation BNP ordered for further evaluation for possible superimposed CHF exacerbation History of gout Patient has been on recent prednisone long-term Patient is now on a taper of prednisone 3 mg, stop at this time, no symptims and steroid can possibly cause confusio Subclinical hyperthyroidism TSH low Free T4 normal Mood d/o continue Psych med consider Psych follow up in the future BPH Continue flomax and finasteride as BP is stable [employer] - VTE: Heparin 5000 t.i.d. SQ - CODE STATUS: Full code - DIET: Cardiac diet Total time managing care of this patient today: 45 minutes. Quality Stroke Does the patient have a stroke diagnosis?: No VTE Prior VTE?: No VTE Risk Level:: Medical - moderate - high VTE Device Contraindication: N/A - Device Ordered VTE Drug Contraindication: N/A - Med Ordered
--- NOTE | 2025-02-09 16:54 | W.PM.IDCN ---
History of Present Illness Data of Consult Service Date: 02/09/25 Requesting physician: Amber Hopper Primary Care Provider: Dallas Lara MD HPI Reason for consult: weakness,left base infiltrate He presents with weakness and inability to care for self at home. His daughter noticed confusion as well. He has been on Prednisone apparently since September and now is on 3 mg daily. He has hypoxia last night acutely and needed oxymask Review of Systems Review of Systems: Yes Unobtainable due to mental status PMFSH Past Medical History Medical History Kidney stones Hepatitis C virus GERD (gastroesophageal reflux disease) HTN (hypertension) Elevated PSA History of kidney stones Weak urinary stream BPH (benign prostatic hyperplasia) Hematuria Family History Family History Father Prostate cancer Mother CVD (cardiovascular disease) Family history: reviewed and not pertinent Surgical History Surgical History H/O lithotripsy H/O wisdom tooth extraction Social History Social History Household Members: None Housing: House Do you presently have visiting nurse or other home services: Yes Alcohol intake: former Patient Tobacco Use Status: Former Tobacco user Advance Directives Date on File: 12/22/24 service: No Travel History Ebola Risk: Travel/Contact With Anyone From Affected Area/s: No Has Patient Experienced Ebola Symptoms: No Meds Allergies Allergy/AdvReac Type Severity Reaction Status Date / Time No Known Allergies Allergy Verified 02/01/25 14:47 Active Medications: Current Medications Acetaminophen (Acetaminophen 325 Mg Tablet) 650 mg PO Q6H PRN PRN Reason: Pain, Mild 1-3,fever,headache Last Admin: 02/09/25 12:42 Dose: 650 mg Albuterol/Ipratropium (Albuterol/Iprat 2.5/0.5mg 3 Ml Ampul.Neb) 3 ml INHALE Q4H PRN PRN Reason: Shortness of Breath/Wheezing Allopurinol (Allopurinol 100 Mg Tablet) 100 mg PO DAILY [facility] Last Admin: 02/09/25 07:36 Dose: 100 mg Calcium Carbonate (Calcium Carbonate 750 Mg Tab.Chew) 750 mg PO Q4H PRN PRN Reason: Heartburn Finasteride (Finasteride 5 Mg Tablet) 5 mg PO DAILY [facility] Last Admin: 02/09/25 07:36 Dose: 5 mg Furosemide (Furosemide 40 Mg/4 Ml Vial) 40 mg IVPUSH DAILY [facility]; Protocol On Hold: 02/09/25 02:09 Last Admin: 02/08/25 08:05 Dose: 40 mg Heparin Sodium (Porcine) (Heparin Sodium,Porcine 5,000 Unit/Ml Vial) 5,000 unit SUBCUT Q12H [facility] Last Admin: 02/09/25 07:36 Dose: 5,000 unit Piperacillin Sod/Tazobactam (Sod 2.25 gm/ Sodium Chloride) 50 mls @ 100 mls/hr IV Q6H [facility] Last Infusion: 02/09/25 12:37 Dose: Infused Vancomycin HCl 500 mg/ Sodium (Chloride) 110 mls @ 110 mls/hr IV Q24H [facility] Vancomycin HCl 750 mg/ Sodium (Chloride) 265 mls @ 265 mls/hr IV ONCE ONE Stop: 02/09/25 23:59 Magnesium Hydroxide (Milk Of Magnesia 30 Ml Oral.Susp) 30 ml PO DAILY PRN PRN Reason: Constipation Melatonin (Melatonin 3 Mg Tablet) 6 mg PO BEDTIME PRN PRN Reason: Insomnia Pt Own (Tadalafil 5 (Mg Tablet)) 5 mg PO DAILY [facility] Last Admin: 02/09/25 07:37 Dose: 5 mg Olanzapine (Olanzapine 5 Mg Tablet) 5 mg PO Q6H PRN PRN Reason: Agitation Last Admin: 02/06/25 13:38 Dose: 5 mg Olanzapine (Olanzapine 2.5 Mg Tablet) 2.5 mg PO BEDTIME [facility] Last Admin: 02/08/25 20:23 Dose: 2.5 mg Olanzapine (Olanzapine 10 Mg Vial) 5 mg IM ONCE PRN PRN Reason: severe agitation Ondansetron HCl (Ondansetron Hcl 4 Mg/2 Ml Vial) 4 mg IVPUSH Q8H PRN PRN Reason: Nausea and Vomiting Pharmacy Consult (Consult Rx Vancomycin Dosing) 1 each MISCELLANE DAILY PRN PRN Reason: Consult order Polyethylene Glycol (Polyethylene Glycol 3350 17 Gm Powd.Pack) 17 gm PO DAILY PRN PRN Reason: Constipation Senna (Sennosides 8.6 Mg Tablet) 17.2 mg PO BEDTIME [facility] Last Admin: 02/08/25 20:22 Dose: 17.2 mg Sodium Chloride (0.9 % Sodium Chloride Flush 3 Ml Syringe) 3 ml IVFLUSH QSHIFT [facility] Last Admin: 02/09/25 07:37 Dose: 3 ml Tamsulosin HCl (Tamsulosin Hcl 0.4 Mg Capsule) 0.4 mg PO BEDTIME [facility] Last Admin: 02/08/25 20:22 Dose: 0.4 mg Home Medications ?Medication ?Instructions ?Recorded ?Confirmed ?Last Taken ?Type finasteride 5 mg tablet 5 mg PO DAILY 01/25/25 02/01/25 01/31/25 History lisinopril 40 mg tablet 40 mg PO DAILY 01/25/25 02/01/25 01/31/25 History tadalafil 5 mg tablet 5 mg PO DAILY 01/25/25 02/01/25 01/31/25 History tamsulosin 0.4 mg capsule 0.4 mg PO BEDTIME 01/25/25 02/01/25 01/31/25 History olanzapine 2.5 mg tablet 2.5 mg PO BEDTIME 02/01/25 02/01/25 Unknown History prednisone 1 mg tablet 3 mg PO DAILY 02/01/25 02/01/25 01/31/25 History Physical Exam Vital Signs: Vital Signs: Last Vital Signs Temp 99.5 F 02/09/25 15:07 Pulse 104 H 02/09/25 15:07 Resp 18 02/09/25 15:07 BP 111/63 02/09/25 15:07 Pulse Ox 94 02/09/25 15:07 O2 Del Method Room Air 02/09/25 15:07 O2 Flow Rate 1 02/07/25 15:16 BMI result Body Mass Index 24.9 Const: General: cooperative HEENT: Head: Yes normal to inspection Face and sinus: Yes normal facial exam Mouth: Normal oral and palatal mucosa present Teeth and gingiva: dentition normal Eyes: General: appearance normal, both eyes and all related structures Pupils: Equal, round and reactive pupils present Resp: Effort & Inspection: normal respiratory effort Cardio: Rate: regular rate Rhythm: regular rhythm GI: Palpation (GI): Soft to palpation and nontender : General: Yes no CVA tenderness Back/Spine/Pelvis: Back: no CVA tenderness Skin: General skin exam: no rashes or lesions noted Neuro: General: moves all extremities Cranial nerves: Yes Equal, round and reactive pupils present Extrem: General: Yes normal to inspection Psych: Other: confused, off oxygen Results Labs 02/09/25 06:34 02/09/25 06:34 Labs: Short CBC 02/08/25 02/09/25 Range/Units 23:40 06:34 WBC 13.2 H 12.1 H (4.8-10.8) X10*3/uL Hgb 8.9 L 8.1 L (14.0-18.0) g/dl Hct 27.9 L 26.0 L (42.0-52.0) % Plt Count 284 267 (160-400) X10*3/uL BMP 02/08/25 02/09/25 02/09/25 23:40 02:05 06:34 Sodium 126 L 142 144 Potassium 3.8 4.0 3.9 Chloride 96 111 H 112 H Carbon Dioxide 20 L 20 L 21 L BUN 34 H 36 H 34 H Creatinine 2.39 H 2.22 H 2.10 H Calcium 9.5 8.8 D 9.1 Liver Function 02/08/25 Range/Units 23:40 Total Bilirubin 0.4 (0.0-1.0) mg/dL AST 31 (5-37) U/L ALT 8 (0-40) U/L Alkaline Phosphatase 56 (39-117) U/L Albumin 3.3 L (3.5-5.0) g/dL Microbiology Microbiology Results: Microbiology 02/06/25 03:14 Blood - Venous Blood Culture - Preliminary No growth after 48 hours. 02/06/25 03:14 Blood - Venous Blood Culture - Preliminary No growth after 48 hours. 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 Continue piperacillin /tazobactam for aspiration and vancomycin but stop Vancomycin if nasal PCR negative. He will need Renal to continue to follow as meds may worsen renal function but benefit outweighs risk at this point. Check nasal PCR. Check PJP if able from sputum.
--- NOTE | 2025-02-09 17:12 | PM.EVENT ---
Event Note Date of Service: 02/09/25 Event Note: also check for and cover for legionella with azithromycin Time Spent With Patient Time: Total time managing care of this patient today ____ minutes.
[2025-02-09 23:58] LABS: MRSA Nasal PCR NEGATIVE (Negative); SA Nasal PCR NEGATIVE (Negative)
[2025-02-10 03:05] VITALS: BP 105/55; PULSE 92; RESP 20; TEMP 36.1; O2SAT 95
[2025-02-10 05:44] LABS: MANUAL DIFF FLAG NO
[2025-02-10 05:47] LABS: Hematocrit 25.8 % (42.0-52.0); Hemoglobin 8.0 g/dl (14.0-18.0); Imm Gran Abs Auto 0.07 X10*3/uL (0.00-0.03); Imm Gran Pct Auto 0.8 % (0.0-0.4); Lymphocytes Absolute Auto 1.2 X10*3/uL (1.2-4.9); Mean Corpuscular HGB Conc 31.0 g/dl (31.0-36.0); Mean Corpuscular Hemoglobin 31.5 pg (27.0-33.0); Mean Corpuscular Volume 101.6 fL (80.0-98.0); NRBC Abs Auto 0.000 X10*3/uL (0.0-0.012); NRBC Pct Auto 0.0 /100WBC (0.0-0.2); Platelet Count 254 X10*3/uL (160-400); Red Blood Count 2.54 X10*6/uL (4.60-5.80); White Blood Count 8.5 X10*3/uL (4.8-10.8)
[2025-02-10 06:04] LABS: Anion Gap 14 (12-20); Blood Urea Nitrogen 35 mg/dL (9-16); Calcium 9.2 mg/dL (8.4-10.2); Carbon Dioxide 22 mmol/L (22-29); Chloride 115 mmol/L (96-108); Creatinine Clr Calc Pharmacy 22.5; Estimated Glomerular Filt Rate 32; Potassium 3.8 mmol/L (3.3-5.1); Sodium 147 mmol/L (135-145)
--- NOTE | 2025-02-10 07:16 | PC.NURSE ---
Pt seen on bed alert and oriented to self, impulsive at times, seen with UEs tremors, weak and frail, noted with pinkish and swollen knees and ankles, pt endorsed pain on legs when repositioned, ice packs on knees provided, meds tolerated, MRSA nasal swab sent an came up negative.
[2025-02-10] MEDS: 0.9 % Sodium Chloride Flush 3 ML SYRINGE IVFLUSH ×2 (07:27→17:02)
[2025-02-10 07:42] VITALS: BP 117/58; PULSE 93; RESP 16; TEMP 36.7; O2SAT 96
[2025-02-10 11:27] VITALS: BP 117/55; PULSE 110; RESP 18; TEMP 37.6; O2SAT 94
--- NOTE | 2025-02-10 12:18 | P.PNIM_ITS ---
Subjective Subjective Date of Service: 02/10/25 Interval History: Improved cognition compared to yesterday. More engaged and communicative. Infectious diseases reviewed patient, recommendations greatly appreciated; management for possible PJP Review of Systems Review of Systems: Yes all other systems are reviewed and are negative Physical Exam 2 Exam: Exam: General: A&O x1 to person only. Appears comfortable not in pain Cardiac: S1, S2 auscultated with no S3/4, no MRG. Well perfused. Respiratory: Reduced breath sounds bilaterally at the bases, without tachypnea or dyspnea. No end expiratory wheezing GI/ : No abdominal pain on palpation, no masses or distentions. MSK: Normal ambulation without pain at bony prominences or musculature Neurological: Normal neurological examination on overview, without obvious CN II-XII abnormalities. Vital Signs: Vital Signs: Last Vital Signs Temp 99.6 F 02/10/25 11:27 Pulse 110 H 02/10/25 11:27 Resp 18 02/10/25 11:27 BP 117/55 L 02/10/25 11:27 Pulse Ox 94 02/10/25 11:27 O2 Del Method Room Air 02/10/25 11:27 O2 Flow Rate 1 02/07/25 15:16 BMI result Body Mass Index 24.9 Objective Data Active Medications Acetaminophen (Acetaminophen 325 Mg Tablet) 650 mg PO Q6H PRN PRN Reason: Pain, Mild 1-3,fever,headache Last Admin: 02/09/25 20:48 Dose: 650 mg Documented By: CASTILRoosevelt Albuterol/Ipratropium (Albuterol/Iprat 2.5/0.5mg 3 Ml Ampul.Neb) 3 ml INHALE Q4H PRN PRN Reason: Shortness of Breath/Wheezing Allopurinol (Allopurinol 100 Mg Tablet) 100 mg PO DAILY [facility] Last Admin: 02/10/25 07:25 Dose: 100 mg Documented By: RICKY Calcium Carbonate (Calcium Carbonate 750 Mg Tab.Chew) 750 mg PO Q4H PRN PRN Reason: Heartburn Finasteride (Finasteride 5 Mg Tablet) 5 mg PO DAILY [facility] Last Admin: 02/10/25 07:25 Dose: 5 mg Documented By: RICKY Furosemide (Furosemide 40 Mg/4 Ml Vial) 40 mg IVPUSH DAILY [facility]; Protocol On Hold: 02/09/25 02:09 Last Admin: 02/08/25 08:05 Dose: 40 mg Documented By: RICKY Heparin Sodium (Porcine) (Heparin Sodium,Porcine 5,000 Unit/Ml Vial) 5,000 unit SUBCUT Q12H [facility] Last Admin: 02/10/25 07:24 Dose: 5,000 unit Documented By: RICKY Vancomycin HCl 500 mg/ Sodium (Chloride) 110 mls @ 110 mls/hr IV Q24H [facility] Trimethoprim/Sulfamethoxazole (340 mg/ Dextrose) 521.25 mls @ 225 mls/hr IV Q12H [facility] Last Infusion: 02/10/25 09:48 Dose: Infused Documented By: PARTH Azithromycin 500 mg/ Sodium (Chloride) 250 mls @ 125 mls/hr IV Q24H [facility] Last Infusion: 02/09/25 20:20 Dose: Infused Documented By: MERCEDES Piperacillin Sod/Tazobactam (Sod 3.375 gm/ Sodium Chloride) 50 mls @ 100 mls/hr IV Q6H [facility] Last Admin: 02/10/25 11:47 Dose: 100 mls/hr Documented By: RICKY Magnesium Hydroxide (Milk Of Magnesia 30 Ml Oral.Susp) 30 ml PO DAILY PRN PRN Reason: Constipation Melatonin (Melatonin 3 Mg Tablet) 6 mg PO BEDTIME PRN PRN Reason: Insomnia Pt Own (Tadalafil 5 (Mg Tablet)) 5 mg PO DAILY [facility] Last Admin: 02/10/25 07:25 Dose: 5 mg Documented By: RICKY Olanzapine (Olanzapine 5 Mg Tablet) 5 mg PO Q6H PRN PRN Reason: Agitation Last Admin: 02/06/25 13:38 Dose: 5 mg Documented By: ROSELIA Olanzapine (Olanzapine 2.5 Mg Tablet) 2.5 mg PO BEDTIME [facility] Last Admin: 02/09/25 20:49 Dose: 2.5 mg Documented By: MERCEDES Olanzapine (Olanzapine 10 Mg Vial) 5 mg IM ONCE PRN PRN Reason: severe agitation Ondansetron HCl (Ondansetron Hcl 4 Mg/2 Ml Vial) 4 mg IVPUSH Q8H PRN PRN Reason: Nausea and Vomiting Pharmacy Consult (Consult Rx Vancomycin Dosing) 1 each MISCELLANE DAILY PRN PRN Reason: Consult order Polyethylene Glycol (Polyethylene Glycol 3350 17 Gm Powd.Pack) 17 gm PO DAILY PRN PRN Reason: Constipation Senna (Sennosides 8.6 Mg Tablet) 17.2 mg PO BEDTIME [facility] Last Admin: 02/09/25 20:49 Dose: 17.2 mg Documented By: MERCEDES Sodium Chloride (0.9 % Sodium Chloride Flush 3 Ml Syringe) 3 ml IVFLUSH QSHIFT [facility] Last Admin: 02/10/25 07:27 Dose: 3 ml Documented By: RICKY Tamsulosin HCl (Tamsulosin Hcl 0.4 Mg Capsule) 0.4 mg PO BEDTIME [facility] Last Admin: 02/09/25 20:48 Dose: 0.4 mg Documented By: MERCEDES Labs 02/10/25 05:38 02/10/25 05:38 Labs: Laboratory Results - last 24 hr 02/09/25 02/10/25 22:40 05:38 MCV 101.6 H MCH 31.5 MCHC 31.0 RDW 14.5 Plt Count 254 MPV 10.0 Immature Gran % (Auto) 0.8 H Neut % (Auto) 75.9 H Lymph % (Auto) 14.0 L [place] % (Auto) 7.8 Eos % (Auto) 1.3 Baso % (Auto) 0.2 Lymph # (Auto) 1.2 [place] # (Auto) 0.7 Eos # (Auto) 0.1 Baso # (Auto) 0.0 Abs Immat Gran (auto) 0.07 H Absolute Neuts (auto) 6.5 Absolute Nucleated RBC 0.000 Nucleated RBC % (auto) 0.0 Anion Gap 14 Estim Creat Clear Calc 22.5 Estimated GFR 32 Random Glucose 110 Calcium 9.2 Nasal Screen MRSA (PCR) NEGATIVE Nasal S. aureus Screen NEGATIVE Nasal MRSA/S.aureus Interp SEE NOTE Microbiology Microbiology Results: Microbiology 02/08/25 23:40 Blood Culture - Preliminary Blood - Venous No growth after 24 hours. 02/08/25 23:40 Blood Culture - Preliminary Blood - Venous No growth after 24 hours. Assessment and Plan (1) HTN (hypertension): Status: Acute (2) Acute kidney injury superimposed on CKD: Status: Acute (3) SELWYN (acute kidney injury): Status: Acute (4) Elevated PSA: Status: Acute (5) Sepsis: Status: Acute (6) Hyperuricemia: Status: Acute (7) Major neurocognitive disorder due to another medical condition: Status: Acute (8) Acute hypoxic respiratory failure: Status: Resolved Plan 81-year-old male, with a history of HTN, gout, BPH, hepatitis-C, moderate aortic valve stenosis, subclinical hypothyroidism, admitted to ED hospital for behavioral medicine 02/01/2025 for case management needs 2/2 worsening altered mental status and forgetfulness, admitted to hospital with sepsis 2/2 pneumonia with SELWYN and toxic encephalopathy. Sepsis Suspected Pneumonia Possible aspiration Transferred from hospital for behavioral medicine in emergency room, started on sepsis protocol with lactated ringer and antibiotics Initially on ceftriaxone and doxycycline CT abdomen and pelvis without contrast -ve for intra-abdominal pathology Blood cultures obtained, -ve to date 02/09; pyrexia, elevated lactic acid, transitioned to vancomycin/Zosyn, ECHO ordered Evaluation for possible PJP per Infectious diseases PLAN - continue vancomycin as per ID reccs - Continue Zosyn as per ID reccs - Azithromycin as per ID reccs - Bactrim as per ID reccs - infectious diseases reccs greatly appreciated - echocardiography Prerenal acute kidney injury CKD stage III B Hypernatremia Dehydration Patient suffered with acute kidney injury 2/2 dehydration and poor p.o. intake Nephrology following Recommendations greatly appreciated Hypernatremia chronic issue-encouraged to drink more fluid (water) We will monitor BMP, and if worsening hypernatremia, will add D5W Toxic encephalopathy Metabolic encephalopathy 2/2 dehydration and sepsis 2/2 pneumonia. Ammonia level -ve Patient was initially admitted to emergency room observation unit due to worsening altered mental status and forgetfulness by family members. Psychiatric consulted, recommendations appreciated Suspected dysphagia Speech therapy requested for swallow evaluation Aspiration precautions in place Moderate aortic stenosis HFpEF 66% Possible clinical evidence of acute CHF exacerbation BNP ordered for further evaluation for possible superimposed CHF exacerbation History of gout Patient has been on recent prednisone long-term Patient is now on a taper of prednisone 3 mg, stop at this time, no symptims and steroid can possibly cause confusio Subclinical hyperthyroidism TSH low Free T4 normal Mood d/o continue Psych med consider Psych follow up in the future BPH Continue flomax and finasteride as BP is stable [employer] - VTE: Heparin 5000 t.i.d. SQ - CODE STATUS: Full code - DIET: Cardiac diet Total time managing care of this patient today: 45 minutes. Quality Stroke Does the patient have a stroke diagnosis?: No VTE Prior VTE?: No VTE Risk Level:: Medical - moderate - high VTE Device Contraindication: N/A - Device Ordered VTE Drug Contraindication: N/A - Med Ordered
--- NOTE | 2025-02-10 14:31 | P.PNNP_ITS ---
Subjective Subjective Date of Service: 02/10/25 Interval history: Improved cognition compared to yesterday. More engaged and communicative. Infectious diseases reviewed patient, recommendations greatly appreciated; management for possible PJP Physical Exam 2 Vital Signs: Vital Signs: Last Vital Signs Temp 99.6 F 02/10/25 11:27 Pulse 110 H 02/10/25 11:27 Resp 18 02/10/25 11:27 BP 117/55 L 02/10/25 11:27 Pulse Ox 94 02/10/25 11:27 O2 Del Method Room Air 02/10/25 11:27 O2 Flow Rate 1 02/07/25 15:16 BMI result Body Mass Index 24.9 Neck: Neck: Yes supple Resp: Auscultation: clear to auscultation bilaterally Cardio: Palpation: no palpable S3 Heart sounds: no rubs GI: Palpation (GI): Soft to palpation Auscultation: normal bowel sounds Neuro: Motor exam (neuro): no asterixis Objective Data Labs 02/10/25 05:38 02/10/25 05:38 Labs: Laboratory Results - last 24 hr 02/09/25 02/10/25 22:40 05:38 WBC 8.5 RBC 2.54 L Hgb 8.0 L Hct 25.8 L MCV 101.6 H MCH 31.5 MCHC 31.0 RDW 14.5 Plt Count 254 MPV 10.0 Immature Gran % (Auto) 0.8 H Neut % (Auto) 75.9 H Lymph % (Auto) 14.0 L [place] % (Auto) 7.8 Eos % (Auto) 1.3 Baso % (Auto) 0.2 Lymph # (Auto) 1.2 [place] # (Auto) 0.7 Eos # (Auto) 0.1 Baso # (Auto) 0.0 Abs Immat Gran (auto) 0.07 H Absolute Neuts (auto) 6.5 Absolute Nucleated RBC 0.000 Nucleated RBC % (auto) 0.0 Sodium 147 H Potassium 3.8 Chloride 115 H Carbon Dioxide 22 Anion Gap 14 BUN 35 H Creatinine 1.97 H Estim Creat Clear Calc 22.5 Estimated GFR 32 Random Glucose 110 Calcium 9.2 Nasal Screen MRSA (PCR) NEGATIVE Nasal S. aureus Screen NEGATIVE Nasal MRSA/S.aureus Interp SEE NOTE Microbiology Microbiology Results: Microbiology 02/08/25 23:40 Blood - Venous Blood Culture - Preliminary No growth after 24 hours. 02/08/25 23:40 Blood - Venous Blood Culture - Preliminary No growth after 24 hours. 02/06/25 03:14 Blood - Venous Blood Culture - Preliminary No growth after 48 hours. 02/06/25 03:14 Blood - Venous Blood Culture - Preliminary No growth after 48 hours. Procedures Date of Service Date of Service: 02/10/25 Assessment & Plan Assessment and plan (1) Acute kidney injury superimposed on CKD: Status: Acute (2) Hyperuricemia: Status: Acute Plan SELWYN on chronic kidney disease: Patient has a CKD with baseline creatinine about 1.6-2.0, currently has an SELWYN secondary to volume depletion. Creatinine around 2.1 Keep sbp > 100 Keep intake more than output for now and follow labs Time Spent With Patient Time: Total time managing care of this patient today ____ minutes. Progress Note: Quality Stroke Does the patient have a stroke diagnosis?: No
--- NOTE | 2025-02-10 14:33 | MHC.SL.SWA ---
Speech Pathologist Impression: Oralpharyngeal Dysphagia Risk of Aspiration Due to: Dysphasia Diet Status: Recommend continue on PUREE (NDD1) with NECTAR Thick liquids, pills crushed in puree. Continue ST for dysphagia at the next level of care Liquid Consistency and Strategies for Safe Swallow: Liquid Intake Recommendation: Hilger Thick Liquid Intake Strategies: Small Sips Solid Food Consistency: Dietary Recommendations: Pureed (NDD1) Additional Modifications to Solid Foods: Oral Medication Intake: Crushed with Puree Please contact the pharmacy regarding appropriate crushable or liquid drug formulations that are available whenever modified delivery is recommended. Compensatory Strategies and Precautions to be Taken for Safe Swallow: Sitting Upright (90 deg) Liquids from Cup Small Bites and Sips Alternate Liquids/Solids Supervision While Eating and Drinking for Safe Swallow: Total Assistance (1:1) Foods to Avoid: Swallowing Recommended Treatments: Compens. Strategy Educat. Recommendation for Speech: Inpatient Speech Therapy Speech Therapy through Rehab Facility Comment: Patient seen at lunch today for toleration of diet. Patient was awake and alert, seated in cardiac chair beside bed. BUTTONHOLE MACHINE OPERATOR reported patient had lunch, did not eat much as he had a late breakfast as well. Cup of nectar thick juice was still present, HEAD OF GEOGRAPHY transferred the juice to a normal cup, handed it to patient. Patient then sipped from cup, taking individual sips, though at times somewhat large sips, producing a timely swallow and tolerating consistency well, no clinical signs of aspiration. Per RN, BUTTONHOLE MACHINE OPERATOR, patient tolerating current diet well, no reported concerns. Recommend continue on PUREE (NDD1) with NECTAR Thick liquids, pills crushed in puree. Frequency/Duration: M-F Daily Date Range for Service Req: Timeline to reassess: Fresh Foods Clerk Clinican/Clinical Fellow: No Supervisory Statement: I have reviewed and agree with the student/clinical fellow's documentation: N/A Speech Language Pathologist: Keisha Lau M.A., CCC-HEAD OF GEOGRAPHY
[2025-02-10 15:39] VITALS: BP 103/50; PULSE 113; RESP 18; TEMP 37.4; O2SAT 95
[2025-02-10 20:00] VITALS: BP 110/55; PULSE 100; RESP 18; TEMP 36.2; O2SAT 94
--- NOTE | 2025-02-10 21:49 | HE.PHANOTE ---
RE: VANCO Trough returned at 15.1. Indication is sepsis. Will keep 750 mg q24h with predicted AUC 565 and trough 19.7. Will continue to monitor renal function. Next trough due 02/11 @2100 to ensure safety.
[2025-02-11] VITALS (7 sets, daily range): BP systolic 110–135; BP diastolic 50–65; PULSE 96–106; RESP 16–20; TEMP 36.1–37.8; O2SAT 93–97
[2025-02-11 06:09] LABS: MANUAL DIFF FLAG NO
[2025-02-11 06:24] LABS: Hematocrit 23.3 % (42.0-52.0); Hemoglobin 7.2 g/dl (14.0-18.0); Imm Gran Abs Auto 0.08 X10*3/uL (0.00-0.03); Imm Gran Pct Auto 1.0 % (0.0-0.4); Lymphocytes Absolute Auto 1.0 X10*3/uL (1.2-4.9); Mean Corpuscular HGB Conc 30.9 g/dl (31.0-36.0); Mean Corpuscular Hemoglobin 31.2 pg (27.0-33.0); Mean Corpuscular Volume 100.9 fL (80.0-98.0); NRBC Abs Auto 0.000 X10*3/uL (0.0-0.012); NRBC Pct Auto 0.0 /100WBC (0.0-0.2); Platelet Count 265 X10*3/uL (160-400); Red Blood Count 2.31 X10*6/uL (4.60-5.80); White Blood Count 8.1 X10*3/uL (4.8-10.8)
[2025-02-11 06:45] LABS: Anion Gap 14 (12-20); Blood Urea Nitrogen 30 mg/dL (9-16); Calcium 8.8 mg/dL (8.4-10.2); Carbon Dioxide 21 mmol/L (22-29); Chloride 115 mmol/L (96-108); Creatinine Clr Calc Pharmacy 21.4; Estimated Glomerular Filt Rate 30; Potassium 3.8 mmol/L (3.3-5.1); Sodium 146 mmol/L (135-145)
[2025-02-11] MEDS: 0.9 % Sodium Chloride Flush 3 ML SYRINGE IVFLUSH ×2 (09:54→18:17)
--- NOTE | 2025-02-11 11:09 | P.PNNP_ITS ---
Subjective Subjective Date of Service: 02/11/25 Interval history: no new events overnight Physical Exam 2 Vital Signs: Vital Signs: Last Vital Signs Temp 97.7 F 02/11/25 11:04 Pulse 102 H 02/11/25 11:04 Resp 16 02/11/25 11:04 BP 121/56 L 02/11/25 11:04 Pulse Ox 95 02/11/25 11:04 O2 Del Method Room Air 02/11/25 11:04 O2 Flow Rate 1 02/07/25 15:16 BMI result Body Mass Index 24.9 General: not in any acute distress, comfortable Nutritional Appearance: well nourished and weight Eyes: normal position, no icterus Neck: No lymphadenopathy, no thyromegaly Resp: bilateral air entry equal, no added sounds present Cardio: normal S1, S2 heard, no murmur heard, no edema GI: soft, nontender, no guarding, no hepatosplenomegaly : bladder normal to inspection, bladder normal to palpation, no renal angle tenderness Skin: no rashes or lesions noted and elasticity normal Neuro: sweetly confused, moves all extremities Objective Data Labs 02/11/25 05:41 02/11/25 05:41 Labs: Laboratory Results - last 24 hr 02/10/25 02/11/25 21:12 05:41 WBC 8.1 RBC 2.31 L Hgb 7.2 L Hct 23.3 L MCV 100.9 H MCH 31.2 MCHC 30.9 L RDW 14.6 Plt Count 265 MPV 10.1 Immature Gran % (Auto) 1.0 H Neut % (Auto) 77.5 H Lymph % (Auto) 12.7 L [place] % (Auto) 7.7 Eos % (Auto) 0.7 Baso % (Auto) 0.4 Lymph # (Auto) 1.0 L [place] # (Auto) 0.6 Eos # (Auto) 0.1 Baso # (Auto) 0.0 Abs Immat Gran (auto) 0.08 H Absolute Neuts (auto) 6.3 Absolute Nucleated RBC 0.000 Nucleated RBC % (auto) 0.0 Sodium 146 H Potassium 3.8 Chloride 115 H Carbon Dioxide 21 L Anion Gap 14 BUN 30 H Creatinine 2.07 H Estim Creat Clear Calc 21.4 Estimated GFR 30 Random Glucose 108 Calcium 8.8 Random Vancomycin 15.1 Microbiology Microbiology Results: Microbiology 02/06/25 03:14 Blood - Venous Blood Culture - Final No growth after 5 days. 02/06/25 03:14 Blood - Venous Blood Culture - Final No growth after 5 days. 02/08/25 23:40 Blood - Venous Blood Culture - Preliminary No growth after 48 hours. 02/08/25 23:40 Blood - Venous Blood Culture - Preliminary No growth after 48 hours. Procedures Date of Service Date of Service: 02/11/25 Assessment & Plan Assessment and plan (1) HTN (hypertension): Status: Acute (2) SELWYN (acute kidney injury): Status: Acute (3) Acute kidney injury superimposed on CKD: Status: Acute Plan SELWYN on chronic kidney disease: Patient has a CKD with baseline creatinine about 1.6-2.0, creatinine peaked at 2.43, now back around the baseline. urinalysis normal, pending UPCR, UPEP and SPEP Keep intake more than output, if patient is not able to take enough fluids please start the patient on IV fluid. TTE in 11/2024 showed normal LV systolic function, moderate ; should be okay to receive fluids. Avoid any nephrotoxic agents, ESTEFANIA/arbs, NSAIDs Hyperuricemia: Uric acid levels 10.1 upon admission Patient was started on low-dose allopurinol, no adverse effectts, will increase allopurinol to 300mg. Renal will sign off as his creatinine is around baseline. please reconsult if any assistance needed Time Spent With Patient Time: Total time managing care of this patient today ____ minutes. Progress Note: Quality Stroke Does the patient have a stroke diagnosis?: No
--- NOTE | 2025-02-11 11:15 | P.PNNP_ITS ---
Subjective Subjective Date of Service: 02/11/25 Interval history: no new events overnight, doing well creatinine around the baseline Physical Exam 2 Vital Signs: Vital Signs: Last Vital Signs Temp 97.7 F 02/11/25 11:04 Pulse 102 H 02/11/25 11:04 Resp 16 02/11/25 11:04 BP 121/56 L 02/11/25 11:04 Pulse Ox 95 02/11/25 11:04 O2 Del Method Room Air 02/11/25 11:04 O2 Flow Rate 1 02/07/25 15:16 BMI result Body Mass Index 24.9 General: not in any acute distress, comfortable Nutritional Appearance: well nourished and weight Eyes: normal position, no icterus Neck: No lymphadenopathy, no thyromegaly Resp: bilateral air entry equal, no added sounds present Cardio: normal S1, S2 heard, no murmur heard, no edema GI: soft, nontender, no guarding, no hepatosplenomegaly : bladder normal to inspection, bladder normal to palpation, no renal angle tenderness Skin: no rashes or lesions noted and elasticity normal Neuro: sweetly confused and moves all extremities Objective Data Labs 02/11/25 05:41 02/11/25 05:41 Labs: Laboratory Results - last 24 hr 02/10/25 02/11/25 21:12 05:41 WBC 8.1 RBC 2.31 L Hgb 7.2 L Hct 23.3 L MCV 100.9 H MCH 31.2 MCHC 30.9 L RDW 14.6 Plt Count 265 MPV 10.1 Immature Gran % (Auto) 1.0 H Neut % (Auto) 77.5 H Lymph % (Auto) 12.7 L [place] % (Auto) 7.7 Eos % (Auto) 0.7 Baso % (Auto) 0.4 Lymph # (Auto) 1.0 L [place] # (Auto) 0.6 Eos # (Auto) 0.1 Baso # (Auto) 0.0 Abs Immat Gran (auto) 0.08 H Absolute Neuts (auto) 6.3 Absolute Nucleated RBC 0.000 Nucleated RBC % (auto) 0.0 Sodium 146 H Potassium 3.8 Chloride 115 H Carbon Dioxide 21 L Anion Gap 14 BUN 30 H Creatinine 2.07 H Estim Creat Clear Calc 21.4 Estimated GFR 30 Random Glucose 108 Calcium 8.8 Random Vancomycin 15.1 Microbiology Microbiology Results: Microbiology 02/06/25 03:14 Blood - Venous Blood Culture - Final No growth after 5 days. 02/06/25 03:14 Blood - Venous Blood Culture - Final No growth after 5 days. 02/08/25 23:40 Blood - Venous Blood Culture - Preliminary No growth after 48 hours. 02/08/25 23:40 Blood - Venous Blood Culture - Preliminary No growth after 48 hours. Procedures Date of Service Date of Service: 02/11/25 Assessment & Plan Assessment and plan (1) HTN (hypertension): Status: Acute (2) SELWYN (acute kidney injury): Status: Acute (3) Hyperuricemia: Status: Acute Plan SELWYN on chronic kidney disease: Patient has a CKD with baseline creatinine about 1.6-2.0, creatinine peaked at 2.43, now back around the baseline. urinalysis normal, pending UPCR, UPEP and SPEP Keep intake more than output, if patient is not able to take enough fluids please start the patient on IV fluid. TTE in 11/2024 showed normal LV systolic function, moderate ; should be okay to receive fluids. Avoid any nephrotoxic agents, ESTEFANIA/arbs, NSAIDs Hyperuricemia: Uric acid levels 10.1 upon admission Patient was started on low-dose allopurinol, no adverse effectts, will increase allopurinol to 300mg. Renal will sign off as his creatinine is around baseline. please reconsult if any assistance needed Time Spent With Patient Time: Total time managing care of this patient today ____ minutes. Progress Note: Quality Stroke Does the patient have a stroke diagnosis?: No
[2025-02-11 11:44] LABS: PEU-Protein Creat Ratio Rand 0.538 (0.025-0.148); PEU-Rand. Prot/Creat Ratio 538 mg/g creat (25-148); PEU-Random Ur. Gamma Globulin 0 %; PEU-Random Urine A1 Globulin 0 %; PEU-Random Urine A2 Globulin 0 %; PEU-Random Urine Albumin 100 %; PEU-Random Urine Beta Globulin 0 %; PEU-Random Urine Creatinine 39 mg/dL (20-320); PEU-Random Urine Protein 21 mg/dL (5-25)
--- NOTE | 2025-02-11 12:50 | P.PNIM_ITS ---
Subjective Subjective Date of Service: 02/11/25 Interval History: Remains altered, however significantly improved as compared to yesterday Endorses some coughing and shortness of breaths still; however also improved. Source of infection being evaluated still Review of Systems Review of Systems: Yes all other systems are reviewed and are negative Physical Exam 2 Exam: Exam: General: A&O x1 to person only. Appears comfortable not in pain Cardiac: S1, S2 auscultated with no S3/4, no MRG. Well perfused. Respiratory: Reduced breath sounds bilaterally at the bases, without tachypnea or dyspnea. No end expiratory wheezing GI/ : No abdominal pain on palpation, no masses or distentions. MSK: Normal ambulation without pain at bony prominences or musculature Neurological: Normal neurological examination on overview, without obvious CN II-XII abnormalities. Vital Signs: Vital Signs: Last Vital Signs Temp 97.7 F 02/11/25 11:04 Pulse 102 H 02/11/25 11:04 Resp 16 02/11/25 11:04 BP 121/56 L 02/11/25 11:04 Pulse Ox 95 02/11/25 11:04 O2 Del Method Room Air 02/11/25 11:04 O2 Flow Rate 1 02/07/25 15:16 BMI result Body Mass Index 24.9 Objective Data Active Medications Acetaminophen (Acetaminophen 325 Mg Tablet) 650 mg PO Q6H PRN PRN Reason: Pain, Mild 1-3,fever,headache Last Admin: 02/10/25 14:26 Dose: 650 mg Documented By: RICKY Albuterol/Ipratropium (Albuterol/Iprat 2.5/0.5mg 3 Ml Ampul.Neb) 3 ml INHALE Q4H PRN PRN Reason: Shortness of Breath/Wheezing Allopurinol (Allopurinol 300 Mg Tablet) 300 mg PO DAILY [facility] Calcium Carbonate (Calcium Carbonate 750 Mg Tab.Chew) 750 mg PO Q4H PRN PRN Reason: Heartburn Finasteride (Finasteride 5 Mg Tablet) 5 mg PO DAILY [facility] Last Admin: 02/11/25 09:57 Dose: 5 mg Documented By: UZIEL Furosemide (Furosemide 40 Mg/4 Ml Vial) 40 mg IVPUSH DAILY [facility]; Protocol On Hold: 02/09/25 02:09 Last Admin: 02/08/25 08:05 Dose: 40 mg Documented By: RICKY Heparin Sodium (Porcine) (Heparin Sodium,Porcine 5,000 Unit/Ml Vial) 5,000 unit SUBCUT Q12H [facility] Last Admin: 02/11/25 09:55 Dose: 5,000 unit Documented By: UZIEL Trimethoprim/Sulfamethoxazole (340 mg/ Dextrose) 521.25 mls @ 225 mls/hr IV Q12H [facility] Last Admin: 02/11/25 10:14 Dose: 225 mls/hr Documented By: UZIEL Azithromycin 500 mg/ Sodium (Chloride) 250 mls @ 125 mls/hr IV Q24H [facility] Last Infusion: 02/10/25 20:49 Dose: Infused Documented By: RENATO Piperacillin Sod/Tazobactam (Sod 3.375 gm/ Sodium Chloride) 50 mls @ 100 mls/hr IV Q6H [facility] Last Infusion: 02/11/25 05:24 Dose: Infused Documented By: SRIDHAR Vancomycin HCl 750 mg/ Sodium (Chloride) 265 mls @ 265 mls/hr IV Q24H [facility] Last Infusion: 02/11/25 01:04 Dose: Infused Documented By: RENATO Magnesium Hydroxide (Milk Of Magnesia 30 Ml Oral.Susp) 30 ml PO DAILY PRN PRN Reason: Constipation Melatonin (Melatonin 3 Mg Tablet) 6 mg PO BEDTIME PRN PRN Reason: Insomnia Pt Own (Tadalafil 5 (Mg Tablet)) 5 mg PO DAILY [facility] Last Admin: 02/11/25 09:57 Dose: 5 mg Documented By: UZIEL Olanzapine (Olanzapine 5 Mg Tablet) 5 mg PO Q6H PRN PRN Reason: Agitation Last Admin: 02/11/25 01:07 Dose: 5 mg Documented By: RENATO Olanzapine (Olanzapine 2.5 Mg Tablet) 2.5 mg PO BEDTIME [facility] Last Admin: 02/10/25 20:31 Dose: 2.5 mg Documented By: RENATO Olanzapine (Olanzapine 10 Mg Vial) 5 mg IM ONCE PRN PRN Reason: severe agitation Ondansetron HCl (Ondansetron Hcl 4 Mg/2 Ml Vial) 4 mg IVPUSH Q8H PRN PRN Reason: Nausea and Vomiting Pharmacy Consult (Consult Rx Vancomycin Dosing) 1 each MISCELLANE DAILY PRN PRN Reason: Consult order Polyethylene Glycol (Polyethylene Glycol 3350 17 Gm Powd.Pack) 17 gm PO DAILY PRN PRN Reason: Constipation Senna (Sennosides 8.6 Mg Tablet) 17.2 mg PO BEDTIME [facility] Last Admin: 02/10/25 20:14 Dose: 17.2 mg Documented By: RENATO Sodium Chloride (0.9 % Sodium Chloride Flush 3 Ml Syringe) 3 ml IVFLUSH QSHIFT [facility] Last Admin: 02/11/25 09:54 Dose: 3 ml Documented By: UZIEL Tamsulosin HCl (Tamsulosin Hcl 0.4 Mg Capsule) 0.4 mg PO BEDTIME [facility] Last Admin: 02/10/25 20:14 Dose: 0.4 mg Documented By: RENATO Labs 02/11/25 05:41 02/11/25 05:41 Labs: Laboratory Results - last 24 hr 02/06/25 02/10/25 02/11/25 17:54 21:12 05:41 MCV 100.9 H MCH 31.2 MCHC 30.9 L RDW 14.6 Plt Count 265 MPV 10.1 Immature Gran % (Auto) 1.0 H Neut % (Auto) 77.5 H Lymph % (Auto) 12.7 L [place] % (Auto) 7.7 Eos % (Auto) 0.7 Baso % (Auto) 0.4 Lymph # (Auto) 1.0 L [place] # (Auto) 0.6 Eos # (Auto) 0.1 Baso # (Auto) 0.0 Abs Immat Gran (auto) 0.08 H Absolute Neuts (auto) 6.3 Absolute Nucleated RBC 0.000 Nucleated RBC % (auto) 0.0 Anion Gap 14 Estim Creat Clear Calc 21.4 Estimated GFR 30 Random Glucose 108 Calcium 8.8 U [place] Prot/Creat Ratio 0.538 H Ur Creatinine mg/dL 39 U Total Protein mg/dL 21 Protein/Creatinin Ratio 538 H Urine Albumin (%) 100 U Ptwnx-5-Vrjftxfw (%) 0 U [place]-0-Chrkltsc (%) 0 U Beta Globulin (%) 0 U Gamma Globulin (%) 0 Urine PEP Interpret SEE NOTE Random Vancomycin 15.1 Microbiology Microbiology Results: Microbiology 02/06/25 03:14 Blood Culture - Final Blood - Venous No growth after 5 days. 02/06/25 03:14 Blood Culture - Final Blood - Venous No growth after 5 days. 02/08/25 23:40 Blood Culture - Preliminary Blood - Venous No growth after 48 hours. 02/08/25 23:40 Blood Culture - Preliminary Blood - Venous No growth after 48 hours. Assessment and Plan (1) HTN (hypertension): Status: Acute (2) Acute kidney injury superimposed on CKD: Status: Acute (3) BPH (benign prostatic hyperplasia): Status: Acute (4) Sepsis: Status: Acute (5) Pneumonia: Status: Acute Plan 81-year-old male, with a history of HTN, gout, BPH, hepatitis-C, moderate aortic valve stenosis, subclinical hypothyroidism, admitted to ED [facility] 02/01/2025 for case management needs 2/2 worsening altered mental status and forgetfulness, admitted to hospital with sepsis 2/2 pneumonia with SELWYN and toxic encephalopathy. Sepsis Suspected Pneumonia Possible aspiration Transferred from [facility] in emergency room, started on sepsis protocol with lactated ringer and antibiotics Initially on ceftriaxone and doxycycline CT abdomen and pelvis without contrast -ve for intra-abdominal pathology Blood cultures obtained, -ve to date 02/09; pyrexia, elevated lactic acid, transitioned to vancomycin/Zosyn, ECHO ordered Evaluation for possible PJP per Infectious diseases PLAN - continue vancomycin as per ID reccs - Continue Zosyn as per ID reccs - Azithromycin as per ID reccs - Bactrim as per ID reccs - infectious diseases reccs greatly appreciated Prerenal acute kidney injury CKD stage III B Hypernatremia Dehydration Patient suffered with acute kidney injury 2/2 dehydration and poor p.o. intake Nephrology following Recommendations greatly appreciated Hypernatremia chronic issue-encouraged to drink more fluid (water) We will monitor BMP, and if worsening hypernatremia, will add D5W Toxic encephalopathy Metabolic encephalopathy 2/2 dehydration and sepsis 2/2 pneumonia. Ammonia level -ve Patient was initially admitted to emergency room observation unit due to worsening altered mental status and forgetfulness by family members. Psychiatric consulted, recommendations appreciated Suspected dysphagia Speech therapy requested for swallow evaluation Aspiration precautions in place HFpEF > 70% Moderate aortic stenosis HFpEF > 70%, with severe mitral annular calcification, moderate aortic stenosis Possible clinical evidence of mild superimposed acute CHF exacerbation History of gout Patient has been on recent prednisone long-term Patient is now on a taper of prednisone 3 mg, stop at this time, no symptims and steroid can possibly cause confusio Subclinical hyperthyroidism TSH low Free T4 normal Mood d/o continue Psych med consider Psych follow up in the future BPH Continue flomax and finasteride as BP is stable QUALITY METRICS - VTE: Heparin 5000 t.i.d. SQ - CODE STATUS: Full code - DIET: Cardiac diet Total time managing care of this patient today: 35 minutes. Quality Stroke Does the patient have a stroke diagnosis?: No VTE Prior VTE?: No VTE Risk Level:: Medical - moderate - high VTE Device Contraindication: N/A - Device Ordered VTE Drug Contraindication: N/A - Med Ordered
--- NOTE | 2025-02-11 15:36 | MHC.CM.PN ---
ANGELIKA spoke with HCP, Katerine, to discuss DCP. She said that pt. is very weak and will require STR after DC, which is rec. from PT. Referral updated, [facility] and [facility] ins. referral sources were updated with this info. Family is looking into a critical power install technician plan for pt. which may be Dementia KAL.
[2025-02-11 17:43] LABS: HCV Log PCR <1.18 NOT DETECTED Log IU/mL (NOT DETECTED); HepC Viral Load <15 NOT DETECTED IU/mL (NOT DETECTED)
--- NOTE | 2025-02-11 23:08 | P.PNID_ITS ---
Subjective Subjective Date of Service: 02/11/25 Critical Care Time (minutes): 15 Comment: He is on room air and has low grade temperature to 100 Objective Data Labs 02/11/25 05:41 02/11/25 05:41 Labs: Laboratory Results - last 24 hr 02/06/25 02/06/25 02/11/25 05:24 17:54 05:41 WBC 8.1 RBC 2.31 L Hgb 7.2 L Hct 23.3 L MCV 100.9 H MCH 31.2 MCHC 30.9 L RDW 14.6 Plt Count 265 MPV 10.1 Immature Gran % (Auto) 1.0 H Neut % (Auto) 77.5 H Lymph % (Auto) 12.7 L [place] % (Auto) 7.7 Eos % (Auto) 0.7 Baso % (Auto) 0.4 Lymph # (Auto) 1.0 L [place] # (Auto) 0.6 Eos # (Auto) 0.1 Baso # (Auto) 0.0 Abs Immat Gran (auto) 0.08 H Absolute Neuts (auto) 6.3 Absolute Nucleated RBC 0.000 Nucleated RBC % (auto) 0.0 Sodium 146 H Potassium 3.8 Chloride 115 H Carbon Dioxide 21 L Anion Gap 14 BUN 30 H Creatinine 2.07 H Estim Creat Clear Calc 21.4 Estimated GFR 30 Random Glucose 108 Calcium 8.8 U [place] Prot/Creat Ratio 0.538 H Ur Creatinine mg/dL 39 U Total Protein mg/dL 21 Protein/Creatinin Ratio 538 H Urine Albumin (%) 100 U Znbmb-5-Tkactakq (%) 0 U Myqsx-8-Veavpbif (%) 0 U Beta Globulin (%) 0 U Gamma Globulin (%) 0 Urine PEP Interpret SEE NOTE Random Vancomycin Hep C Viral Load <15 NOT DETECTED Hep C Viral Load Log <1.18 NOT DETECTED 02/11/25 21:09 WBC RBC Hgb Hct MCV MCH MCHC RDW Plt Count MPV Immature Gran % (Auto) Neut % (Auto) Lymph % (Auto) [place] % (Auto) Eos % (Auto) Baso % (Auto) Lymph # (Auto) [place] # (Auto) Eos # (Auto) Baso # (Auto) Abs Immat Gran (auto) Absolute Neuts (auto) Absolute Nucleated RBC Nucleated RBC % (auto) Sodium Potassium Chloride Carbon Dioxide Anion Gap BUN Creatinine Estim Creat Clear Calc Estimated GFR Random Glucose Calcium U [place] Prot/Creat Ratio Ur Creatinine mg/dL U Total Protein mg/dL Protein/Creatinin Ratio Urine Albumin (%) U Pvnbx-6-Rqoqgwfv (%) U Hwshj-0-Swdjxaqm (%) U Beta Globulin (%) U Gamma Globulin (%) Urine PEP Interpret Random Vancomycin 15.4 Hep C Viral Load Hep C Viral Load Log Microbiology Microbiology Results: Microbiology 02/06/25 03:14 Blood - Venous Blood Culture - Final No growth after 5 days. 02/06/25 03:14 Blood - Venous Blood Culture - Final No growth after 5 days. 02/08/25 23:40 Blood - Venous Blood Culture - Preliminary No growth after 48 hours. 02/08/25 23:40 Blood - Venous Blood Culture - Preliminary No growth after 48 hours. Physical Exam 2 Vital Signs: Vital Signs: Last Vital Signs Temp 100.0 F 02/11/25 19:38 Pulse 104 H 02/11/25 19:38 Resp 18 02/11/25 19:38 BP 110/50 L 02/11/25 19:38 Pulse Ox 96 02/11/25 19:38 O2 Del Method Room Air 02/11/25 19:38 O2 Flow Rate 1 02/07/25 15:16 BMI result Body Mass Index 24.9 Const: General: cooperative HEENT: Head: Yes normal to inspection Face and sinus: Yes normal facial exam Mouth: Normal oral and palatal mucosa present Teeth and gingiva: d entition normal Eyes: General: appearance normal, both eyes and all related structures P upils: Equal, round and reactive pupils present Resp: Effort & Inspection: normal respiratory effort Cardio: Rate: regular rate Rhythm: regular rhythm GI: Palpation (GI): Soft to palpation and nontender : General: Yes no CVA tenderness Back/Spine/Pelvis: Back: no CVA tenderness Skin: General skin exam: no rashes or lesions noted Neuro: General: moves all extremities Cranial nerves: Yes Equal, round and reactive pupils present Extrem: General: Yes normal to inspection Psych: Appearance: grossly normal Assessment and Plan Assessment and plan (1) Sepsis: Problem details: He has no oxygen demands at this time,did continue off oxygen Status: Acute (2) Pneumonia: Status: Acute Assessment and Plan: Would continue Zosyn at this time Continue azithromycin continue Bactrim and consider stop if PJP negative I stopped Vancomycin as nasal PCR negative prognosis guarded Time Spent With Patient Time: Total time managing care of this patient today ____ minutes.
[2025-02-12 03:35] VITALS: BP 125/63; PULSE 100; RESP 18; TEMP 36.6; O2SAT 92
[2025-02-12 06:17] LABS: MANUAL DIFF FLAG NO
[2025-02-12 06:26] LABS: Hematocrit 23.1 % (42.0-52.0); Hemoglobin 7.2 g/dl (14.0-18.0); Imm Gran Abs Auto 0.07 X10*3/uL (0.00-0.03); Imm Gran Pct Auto 0.9 % (0.0-0.4); Lymphocytes Absolute Auto 1.0 X10*3/uL (1.2-4.9); Mean Corpuscular HGB Conc 31.2 g/dl (31.0-36.0); Mean Corpuscular Hemoglobin 31.3 pg (27.0-33.0); Mean Corpuscular Volume 100.4 fL (80.0-98.0); NRBC Abs Auto 0.000 X10*3/uL (0.0-0.012); NRBC Pct Auto 0.0 /100WBC (0.0-0.2); Platelet Count 263 X10*3/uL (160-400); Red Blood Count 2.30 X10*6/uL (4.60-5.80); White Blood Count 7.9 X10*3/uL (4.8-10.8)
[2025-02-12 07:40] VITALS: BP 143/65; PULSE 96; RESP 20; TEMP 36.5; O2SAT 95
[2025-02-12] MEDS: 0.9 % Sodium Chloride Flush 3 ML SYRINGE IVFLUSH ×2 (09:18→17:44)
[2025-02-12 09:22] LABS: Anion Gap 14 (12-20); Blood Urea Nitrogen 28 mg/dL (9-16); Calcium 9.0 mg/dL (8.4-10.2); Carbon Dioxide 22 mmol/L (22-29); Chloride 112 mmol/L (96-108); Creatinine Clr Calc Pharmacy 22.4; Estimated Glomerular Filt Rate 32; Potassium 3.5 mmol/L (3.3-5.1); Sodium 144 mmol/L (135-145)
--- NOTE | 2025-02-12 11:30 | HO.PM.IMPN ---
Subjective Subjective Date of Service: 02/12/25 Interval History: No new complaints today. Patient feels well overall. Reports his cough is still present, however his breathing well overall. Review of Systems Review of Systems: Yes all other systems are reviewed and are negative Physical Exam Exam: Exam: General: A&O x1 to person only. Appears comfortable not in pain Cardiac: S1, S2 auscultated with no S3/4, no MRG. Well perfused. Respiratory: Reduced breath sounds bilaterally at the bases, without tachypnea or dyspnea. No end expiratory wheezing GI/ : No abdominal pain on palpation, no masses or distentions. MSK: Normal ambulation without pain at bony prominences or musculature Neurological: Normal neurological examination on overview, without obvious CN II-XII abnormalities. Vital Signs: Vital Signs: Last Vital Signs Temp 97.7 F 02/12/25 07:40 Pulse 96 02/12/25 07:40 Resp 20 02/12/25 07:40 BP 143/65 H 02/12/25 07:40 Pulse Ox 95 02/12/25 07:40 O2 Del Method Room Air 02/12/25 07:40 O2 Flow Rate 1 02/07/25 15:16 BMI result Body Mass Index 24.9 Objective Data Active Medications Acetaminophen (Acetaminophen 325 Mg Tablet) 650 mg PO Q6H PRN PRN Reason: Pain, Mild 1-3,fever,headache Last Admin: 02/10/25 14:26 Dose: 650 mg Documented By: RICKY Albuterol/Ipratropium (Albuterol/Iprat 2.5/0.5mg 3 Ml Ampul.Neb) 3 ml INHALE Q4H PRN PRN Reason: Shortness of Breath/Wheezing Allopurinol (Allopurinol 300 Mg Tablet) 300 mg PO DAILY [facility] Last Admin: 02/12/25 09:20 Dose: 300 mg Documented By: OMERO Calcium Carbonate (Calcium Carbonate 750 Mg Tab.Chew) 750 mg PO Q4H PRN PRN Reason: Heartburn Finasteride (Finasteride 5 Mg Tablet) 5 mg PO DAILY [facility] Last Admin: 02/12/25 09:20 Dose: 5 mg Documented By: OMERO Furosemide (Furosemide 40 Mg/4 Ml Vial) 40 mg IVPUSH DAILY [facility]; Protocol On Hold: 02/09/25 02:09 Last Admin: 02/08/25 08:05 Dose: 40 mg Documented By: RICKY Heparin Sodium (Porcine) (Heparin Sodium,Porcine 5,000 Unit/Ml Vial) 5,000 unit SUBCUT Q12H [facility] Last Admin: 02/12/25 09:20 Dose: 5,000 unit Documented By: OMERO Trimethoprim/Sulfamethoxazole (340 mg/ Dextrose) 521.25 mls @ 225 mls/hr IV Q12H [facility] Last Admin: 02/12/25 09:16 Dose: 225 mls/hr Documented By: OMERO Azithromycin 500 mg/ Sodium (Chloride) 250 mls @ 125 mls/hr IV Q24H [facility] Last Infusion: 02/11/25 22:02 Dose: Infused Documented By: ABEBA Piperacillin Sod/Tazobactam (Sod 3.375 gm/ Sodium Chloride) 50 mls @ 100 mls/hr IV Q6H [facility] Last Infusion: 02/12/25 05:14 Dose: Infused Documented By: ABEBA Magnesium Hydroxide (Milk Of Magnesia 30 Ml Oral.Susp) 30 ml PO DAILY PRN PRN Reason: Constipation Melatonin (Melatonin 3 Mg Tablet) 6 mg PO BEDTIME PRN PRN Reason: Insomnia Pt Own (Tadalafil 5 (Mg Tablet)) 5 mg PO DAILY [facility] Last Admin: 02/12/25 09:20 Dose: 5 mg Documented By: OMERO Olanzapine (Olanzapine 5 Mg Tablet) 5 mg PO Q6H PRN PRN Reason: Agitation Last Admin: 02/11/25 01:07 Dose: 5 mg Documented By: RENATO Olanzapine (Olanzapine 2.5 Mg Tablet) 2.5 mg PO BEDTIME [facility] Last Admin: 02/11/25 20:35 Dose: 2.5 mg Documented By: ABEBA Olanzapine (Olanzapine 10 Mg Vial) 5 mg IM ONCE PRN PRN Reason: severe agitation Ondansetron HCl (Ondansetron Hcl 4 Mg/2 Ml Vial) 4 mg IVPUSH Q8H PRN PRN Reason: Nausea and Vomiting Polyethylene Glycol (Polyethylene Glycol 3350 17 Gm Powd.Pack) 17 gm PO DAILY PRN PRN Reason: Constipation Senna (Sennosides 8.6 Mg Tablet) 17.2 mg PO BEDTIME [facility] Last Admin: 02/11/25 20:35 Dose: 17.2 mg Documented By: ABEBA Sodium Chloride (0.9 % Sodium Chloride Flush 3 Ml Syringe) 3 ml IVFLUSH QSHIFT [facility] Last Admin: 02/12/25 09:18 Dose: 3 ml Documented By: OMERO Tamsulosin HCl (Tamsulosin Hcl 0.4 Mg Capsule) 0.4 mg PO BEDTIME [facility] Last Admin: 02/11/25 20:35 Dose: 0.4 mg Documented By: ABEBA Labs 02/12/25 05:46 02/12/25 08:48 Labs: Laboratory Results - last 24 hr 02/06/25 02/06/25 02/11/25 05:24 17:54 21:09 MCV MCH MCHC RDW Plt Count MPV Immature Gran % (Auto) Neut % (Auto) Lymph % (Auto) [place] % (Auto) Eos % (Auto) Baso % (Auto) Lymph # (Auto) [place] # (Auto) Eos # (Auto) Baso # (Auto) Abs Immat Gran (auto) Absolute Neuts (auto) Absolute Nucleated RBC Nucleated RBC % (auto) Anion Gap Estim Creat Clear Calc Estimated GFR Random Glucose Calcium U [place] Prot/Creat Ratio 0.538 H Ur Creatinine mg/dL 39 U Total Protein mg/dL 21 Protein/Creatinin Ratio 538 H Urine Albumin (%) 100 U Icywu-8-Xmtvnfif (%) 0 U Flgwl-0-Rmqoqeis (%) 0 U Beta Globulin (%) 0 U Gamma Globulin (%) 0 Urine PEP Interpret SEE NOTE Random Vancomycin 15.4 Hep C Viral Load <15 NOT DETECTED Hep C Viral Load Log <1.18 NOT DETECTED 02/12/25 02/12/25 05:46 08:48 MCV 100.4 H MCH 31.3 MCHC 31.2 RDW 14.6 Plt Count 263 MPV 10.1 Immature Gran % (Auto) 0.9 H Neut % (Auto) 78.0 H Lymph % (Auto) 13.1 L [place] % (Auto) 6.8 Eos % (Auto) 0.8 Baso % (Auto) 0.4 Lymph # (Auto) 1.0 L [place] # (Auto) 0.5 Eos # (Auto) 0.1 Baso # (Auto) 0.0 Abs Immat Gran (auto) 0.07 H Absolute Neuts (auto) 6.2 Absolute Nucleated RBC 0.000 Nucleated RBC % (auto) 0.0 Anion Gap 14 Estim Creat Clear Calc 22.4 Estimated GFR 32 Random Glucose 102 Calcium 9.0 U [place] Prot/Creat Ratio Ur Creatinine mg/dL U Total Protein mg/dL Protein/Creatinin Ratio Urine Albumin (%) U Mabbn-4-Meqxbcdh (%) U Eqjvr-5-Djkwhekv (%) U Beta Globulin (%) U Gamma Globulin (%) Urine PEP Interpret Random Vancomycin Hep C Viral Load Hep C Viral Load Log Assessment and Plan (1) HTN (hypertension): Status: Acute (2) Acute kidney injury superimposed on CKD: Status: Acute (3) SELWYN (acute kidney injury): Status: Acute (4) Sepsis: Status: Acute (5) Major neurocognitive disorder due to another medical condition: Status: Acute (6) Pneumonia: Status: Acute Plan 81-year-old male, with a history of HTN, gout, BPH, hepatitis-C, moderate aortic valve stenosis, subclinical hypothyroidism, admitted to ED [facility] 02/01/2025 for case management needs 2/2 worsening altered mental status and forgetfulness, admitted to hospital with sepsis 2/2 pneumonia with SELWYN and toxic encephalopathy. Sepsis Suspected Pneumonia Possible aspiration Transferred from [facility] in emergency room, started on sepsis protocol with lactated ringer and antibiotics Initially on ceftriaxone and doxycycline CT abdomen and pelvis without contrast -ve for intra-abdominal pathology Blood cultures obtained, -ve to date 02/09; pyrexia, elevated lactic acid, transitioned to vancomycin/Zosyn, ECHO ordered Evaluation for possible PJP per Infectious diseases; input is greatly appreciated 02/11, vancomycin was discontinued PLAN - discontinue vancomycin as per ID reccs (nasal PCR -ve) - Continue Zosyn as per ID reccs - Azithromycin as per ID reccs - Bactrim as per ID reccs (discontinue if PJP -ve) - infectious diseases reccs greatly appreciated Prerenal acute kidney injury CKD stage III B Hypernatremia Dehydration Patient suffered with acute kidney injury 2/2 dehydration and poor p.o. intake Nephrology following Recommendations greatly appreciated Hypernatremia chronic issue-encouraged to drink more fluid (water) Continue to monitor BMP; if worsening hypernatremia, will add D5W Toxic encephalopathy Metabolic encephalopathy 2/2 dehydration and sepsis 2/2 pneumonia. Ammonia level -ve Patient was initially admitted to emergency room observation unit due to worsening altered mental status and forgetfulness by family members. Psychiatric consulted, recommendations appreciated Improving gradually Suspected dysphagia Speech therapy requested for swallow evaluation Aspiration precautions in place HFpEF > 70% Moderate aortic stenosis HFpEF > 70%, with severe mitral annular calcification, moderate aortic stenosis Possible clinical evidence of mild superimposed acute CHF exacerbation TTE -ve for infective endocarditis History of gout - resolved Patient has been on recent prednisone long-term Patient is now on a taper of prednisone 3 mg, stop at this time, no symptims and steroid can possibly cause confusio Subclinical hyperthyroidism TSH low Free T4 normal Mood d/o continue Psych med consider Psych follow up in the future BPH Continue flomax and finasteride as BP is stable QUALITY METRICS - VTE: Heparin 5000 t.i.d. SQ - CODE STATUS: Full code - DIET: Cardiac diet Total time managing care of this patient today: 45 minutes. Quality Stroke Does the patient have a stroke diagnosis?: No VTE Prior VTE?: No VTE Risk Level:: Medical - moderate - high VTE Device Contraindication: N/A - Device Ordered VTE Drug Contraindication: N/A - Med Ordered
[2025-02-12 11:38] VITALS: BP 116/58; PULSE 98; RESP 18; TEMP 36.4; O2SAT 98
[2025-02-12 15:28] VITALS: BP 109/54; PULSE 96; RESP 18; TEMP 36.7; O2SAT 98
[2025-02-12 20:00] VITALS: BP 121/58; PULSE 96; RESP 17; TEMP 37.1; O2SAT 93
[2025-02-13] VITALS: BP 126/62; PULSE 95; RESP 18; TEMP 36.5; O2SAT 93
[2025-02-13 03:27] VITALS: BP 122/62; PULSE 102; RESP 18; TEMP 36.2; O2SAT 92
[2025-02-13 06:47] LABS: Anion Gap 16 (12-20); Blood Urea Nitrogen 24 mg/dL (9-16); Calcium 8.9 mg/dL (8.4-10.2); Carbon Dioxide 20 mmol/L (22-29); Chloride 112 mmol/L (96-108); Creatinine Clr Calc Pharmacy 22.5; Estimated Glomerular Filt Rate 32; Potassium 3.7 mmol/L (3.3-5.1); Sodium 144 mmol/L (135-145)
[2025-02-13 07:43] VITALS: BP 131/60; PULSE 96; RESP 20; TEMP 36.2; O2SAT 95
[2025-02-13] MEDS: 0.9 % Sodium Chloride Flush 3 ML SYRINGE IVFLUSH ×3 (09:01→20:19)
--- NOTE | 2025-02-13 10:59 | HO.PM.IMPN ---
Subjective Subjective Date of Service: 02/13/25 Interval History: seen and examined per RN eating better today pt denies any complaints Review of Systems Negative except HPI/interval history. Physical Exam Exam: Exam: General - no acute distress, appears comfortable Cardiovascular - regular rate and rhythm, S1-S2 Lungs - no resp distress, sats well on RA, dim sounds Abdomen - soft, nontender, no rebound or guarding Extremities - no edema bilaterally Neuro - awake and alert, no focal deficits Vital Signs: Vital Signs: Last Vital Signs Temp 97.1 F 02/13/25 07:43 Pulse 96 02/13/25 07:43 Resp 20 02/13/25 07:43 BP 131/60 02/13/25 07:43 Pulse Ox 95 02/13/25 07:43 O2 Del Method Room Air 02/13/25 07:43 O2 Flow Rate 1 02/07/25 15:16 BMI result Body Mass Index 24.9 Objective Data Active Medications Acetaminophen (Acetaminophen 325 Mg Tablet) 650 mg PO Q6H PRN PRN Reason: Pain, Mild 1-3,fever,headache Last Admin: 02/10/25 14:26 Dose: 650 mg Documented By: RICKY Allopurinol (Allopurinol 300 Mg Tablet) 300 mg PO DAILY [facility] Last Admin: 02/13/25 09:02 Dose: 300 mg Documented By: OMERO Calcium Carbonate (Calcium Carbonate 750 Mg Tab.Chew) 750 mg PO Q4H PRN PRN Reason: Heartburn Finasteride (Finasteride 5 Mg Tablet) 5 mg PO DAILY [facility] Last Admin: 02/13/25 09:02 Dose: 5 mg Documented By: OMERO Furosemide (Furosemide 40 Mg/4 Ml Vial) 40 mg IVPUSH DAILY [facility]; Protocol On Hold: 02/09/25 02:09 Last Admin: 02/08/25 08:05 Dose: 40 mg Documented By: RICKY Heparin Sodium (Porcine) (Heparin Sodium,Porcine 5,000 Unit/Ml Vial) 5,000 unit SUBCUT Q12H [facility] Last Admin: 02/13/25 09:02 Dose: 5,000 unit Documented By: OMERO Trimethoprim/Sulfamethoxazole (340 mg/ Dextrose) 521.25 mls @ 225 mls/hr IV Q12H [facility] Last Admin: 02/13/25 08:59 Dose: 225 mls/hr Documented By: OMERO Azithromycin 500 mg/ Sodium (Chloride) 250 mls @ 125 mls/hr IV Q24H [facility] Last Infusion: 02/12/25 21:01 Dose: Infused Documented By: ABEBA Piperacillin Sod/Tazobactam (Sod 3.375 gm/ Sodium Chloride) 50 mls @ 100 mls/hr IV Q6H [facility] Last Infusion: 02/13/25 06:49 Dose: Infused Documented By: ABEBA Magnesium Hydroxide (Milk Of Magnesia 30 Ml Oral.Susp) 30 ml PO DAILY PRN PRN Reason: Constipation Melatonin (Melatonin 3 Mg Tablet) 6 mg PO BEDTIME PRN PRN Reason: Insomnia Pt Own (Tadalafil 5 (Mg Tablet)) 5 mg PO DAILY [facility] Last Admin: 02/13/25 09:02 Dose: 5 mg Documented By: OMERO Olanzapine (Olanzapine 5 Mg Tablet) 5 mg PO Q6H PRN PRN Reason: Agitation Last Admin: 02/11/25 01:07 Dose: 5 mg Documented By: RENATO Olanzapine (Olanzapine 2.5 Mg Tablet) 2.5 mg PO BEDTIME [facility] Last Admin: 02/12/25 21:01 Dose: 2.5 mg Documented By: ABEBA Olanzapine (Olanzapine 10 Mg Vial) 5 mg IM ONCE PRN PRN Reason: severe agitation Ondansetron HCl (Ondansetron Hcl 4 Mg/2 Ml Vial) 4 mg IVPUSH Q8H PRN PRN Reason: Nausea and Vomiting Polyethylene Glycol (Polyethylene Glycol 3350 17 Gm Powd.Pack) 17 gm PO DAILY PRN PRN Reason: Constipation Senna (Sennosides 8.6 Mg Tablet) 17.2 mg PO BEDTIME [facility] Last Admin: 02/12/25 20:53 Dose: 17.2 mg Documented By: ABEBA Sodium Chloride (0.9 % Sodium Chloride Flush 3 Ml Syringe) 3 ml IVFLUSH QSHIFT [facility] Last Admin: 02/13/25 09:01 Dose: 3 ml Documented By: OMERO Tamsulosin HCl (Tamsulosin Hcl 0.4 Mg Capsule) 0.4 mg PO BEDTIME [facility] Last Admin: 02/12/25 20:54 Dose: 0.4 mg Documented By: HO.LEFEBVA Labs 02/12/25 05:46 02/13/25 05:23 Labs: Laboratory Results - last 24 hr 02/13/25 05:23 Anion Gap 16 Estim Creat Clear Calc 22.5 Estimated GFR 32 Random Glucose 83 Calcium 8.9 Assessment and Plan (1) HTN (hypertension): Status: Acute (2) Acute kidney injury superimposed on CKD: Status: Acute (3) SELWYN (acute kidney injury): Status: Acute (4) Sepsis: Status: Acute (5) Major neurocognitive disorder due to another medical condition: Status: Acute (6) Pneumonia: Status: Acute Plan 81-year-old male, with a history of HTN, gout, BPH, hepatitis-C, moderate aortic valve stenosis, subclinical hypothyroidism, [facility] case management needs 2/2 worsening altered mental status and forgetfulness, admitted to hospital with sepsis 2/2 pneumonia with SELWYN and toxic encephalopathy. Sepsis Suspected Pneumonia Possible aspiration Transferred from [facility] in emergency room, started on sepsis protocol with lactated ringer and antibiotics Initially on ceftriaxone and doxycycline CT abdomen and pelvis without contrast -ve for intra-abdominal pathology Blood cultures obtained, -ve to date 02/09; pyrexia, elevated lactic acid, transitioned to vancomycin/Zosyn, ECHO ordered Evaluation for possible PJP per Infectious diseases; input is greatly appreciated 02/11, vancomycin was discontinued PLAN - discontinue vancomycin as per ID reccs (nasal PCR -ve) - Continue Zosyn as per ID reccs - day 4 today - Azithromycin as per ID reccs - day 5 today - Bactrim as per ID reccs (discontinue if PJP -ve) - day 5 today -- PJP testing not sent, clarify with ID tomorrow on how to proceed - infectious diseases reccs greatly appreciated Prerenal acute kidney injury CKD stage III B Hypernatremia - normal today Dehydration Patient suffered with acute kidney injury 2/2 dehydration and poor p.o. intake -- SCr stable Nephrology following Recommendations greatly appreciated Hypernatremia chronic issue-encouraged to drink more fluid (water) Continue to monitor BMP; if worsening hypernatremia, will add D5W Toxic encephalopathy Metabolic encephalopathy 2/2 dehydration and sepsis 2/2 pneumonia. Ammonia level -ve Patient was initially admitted to emergency room observation unit due to worsening altered mental status and forgetfulness by family members. Psychiatric consulted, recommendations appreciated Improving gradually Suspected dysphagia Speech therapy requested for swallow evaluation Aspiration precautions in place HFpEF > 70% Moderate aortic stenosis HFpEF > 70%, with severe mitral annular calcification, moderate aortic stenosis Possible clinical evidence of mild superimposed acute CHF exacerbation TTE -ve for infective endocarditis History of gout - resolved Patient has been on recent prednisone long-term Patient is now on a taper of prednisone 3 mg, stop at this time, no symptims and steroid can possibly cause confusio Subclinical hyperthyroidism TSH low Free T4 normal Mood d/o continue Psych med consider Psych follow up in the future BPH Continue flomax and finasteride as BP is stable Total time managing care of this patient today: 45 minutes. Quality Stroke Does the patient have a stroke diagnosis?: No VTE Prior VTE?: No VTE Risk Level:: Medical - moderate - high VTE Device Contraindication: N/A - Device Ordered VTE Drug Contraindication: N/A - Med Ordered
[2025-02-13 11:46] VITALS: BP 114/60; PULSE 93; RESP 18; TEMP 36.1; O2SAT 96
[2025-02-13 15:57] VITALS: BP 113/56; PULSE 97; RESP 20; TEMP 36.3; O2SAT 98
[2025-02-13 17:37] LABS: OBS Int Ctl Valid YES; OBS1 POSITIVE (NEGATIVE)
[2025-02-13 20:00] VITALS: BP 127/54; PULSE 94; RESP 16; TEMP 36.3; O2SAT 93
[2025-02-13 20:30] LABS: Glucose, Whole Blood 99 mg/dL (60-115)
[2025-02-13] MEDS: OLANZapine 10 MG VIAL 5 MG IM (23:46)
[2025-02-14] VITALS (8 sets, daily range): BP systolic 117–141; BP diastolic 51–64; PULSE 91–100; RESP 14–20; TEMP 36.2–37.1; O2SAT 90–97
[2025-02-14] MEDS: 0.9 % Sodium Chloride Flush 3 ML SYRINGE IVFLUSH ×2 (07:49→17:18)
--- NOTE | 2025-02-14 10:13 | PC.NURSE ---
ANALYTICAL LAB TECHNICIAN reported to RN mucus from nose draining, looks like pudding. Morning meds had been given crushed in pudding. Pt loose productive cough, attempted to suction w bedside suction - paged RT to evaluate. MD alerted.
--- NOTE | 2025-02-14 11:15 | MHC.CM.PN ---
Per MD rounds patient not medically cleared for dc at this time. CM will continue to follow.
--- NOTE | 2025-02-14 12:09 | MHC.SL.SWA ---
Speech Pathologist Impression: Oralpharyngeal Dysphagia, unspecified Risk of Aspiration Due to: Increased dysphagia Decreased cognition Steady decline in past few weeks (cognition and swallowing) Dysphasia Diet Status: Recommend NPO with re-evaluation when pt more alert Liquid Consistency and Strategies for Safe Swallow: Liquid Intake Recommendation: NPO Liquid Intake Strategies: Small Sips Solid Food Consistency: Dietary Recommendations: NPO Additional Modifications to Solid Foods: Oral Medication Intake: NPO Please contact the pharmacy regarding appropriate crushable or liquid drug formulations that are available whenever modified delivery is recommended. Compensatory Strategies and Precautions to be Taken for Safe Swallow: Supervision While Eating and Drinking for Safe Swallow: PO with AUDIOVISUAL EQUIPMENT OPERATOR Foods to Avoid: Swallowing Recommended Treatments: Compens. Strategy Educat. Recommendation for Speech: Inpatient Speech Therapy Speech Therapy through Rehab Facility Comment: 02/14: RT called this morning, RN documented the following: DIRECTOR OF CODING reported to RN mucus from nose draining, looks like pudding. Morning meds had been given crushed in pudding. Pt loose productive cough, attempted to suction w bedside suction - paged RT to evaluate. MD alerted. Pt lying slightly elevated in bed when AUDIOVISUAL EQUIPMENT OPERATOR arrived, very fatigued but able to follow a few simple cues. Pt's voice generally weak, and congested cough frequently occurred upon voicing. Vitals taken by DIRECTOR OF CODING, O2 sats in low 90s, jeremías to 93 when pt cued to take deep breaths. Pt fell asleep after minimal care. AUDIOVISUAL EQUIPMENT OPERATOR recc NPO until pt can be re-evaluated. MD and RN notified of recc via secure text. Question neurological changes as pt has experienced steady decline in swallow and cognition over the past month. See AUDIOVISUAL EQUIPMENT OPERATOR notes for the following dates: 01/27/25 Cognition evaluation (pt's hearing loss noted, needs assist at home with IADLs, no other issues revealed) 02/05/25 Swallow evaluation (d/t coughing on thins) 02/06/25 to 02/10/25 Decline in pt swallow function, diet downgraded to purees and NTL 02/11/25 Pt took only tsp sips of NTL and purees Frequency/Duration: M-F Daily Date Range for Service Req: Timeline to reassess: Greens Keeper Clinican/Clinical Fellow: No Supervisory Statement: I have reviewed and agree with the student/clinical fellow's documentation: N/A Speech Language Pathologist: Karolyn Christianson M.S., [facility]-AUDIOVISUAL EQUIPMENT OPERATOR
--- NOTE | 2025-02-14 13:28 | HO.PM.IMPN ---
Subjective Subjective Date of Service: 02/14/25 Interval History: Aspiration event today - patient was eating pudding, and aspirated, requiring deep suctioned by respiratory therapy Patient has no new complaints, however remains confused. Today, does not represent a reliable historian Review of Systems Review of Systems: Yes all other systems are reviewed and are negative Physical Exam Exam: Exam: General: A&O x1 to person only. Appears comfortable not in pain Cardiac: S1, S2 auscultated with no S3/4, no MRG. Well perfused. Respiratory: Reduced breath sounds bilaterally at the bases, without tachypnea or dyspnea. No end expiratory wheezing GI/ : No abdominal pain on palpation, no masses or distentions. MSK: Normal ambulation without pain at bony prominences or musculature Neurological: Normal neurological examination on overview, without obvious CN II-XII abnormalities. Vital Signs: Vital Signs: Last Vital Signs Temp 98.4 F 02/14/25 11:36 Pulse 93 02/14/25 11:36 Resp 14 02/14/25 11:36 BP 123/53 L 02/14/25 11:36 Pulse Ox 93 02/14/25 11:36 O2 Del Method Room Air 02/14/25 11:36 O2 Flow Rate 1 02/07/25 15:16 BMI result Body Mass Index 24.9 Objective Data Active Medications Acetaminophen (Acetaminophen 325 Mg Tablet) 650 mg PO Q6H PRN PRN Reason: Pain, Mild 1-3,fever,headache Last Admin: 02/10/25 14:26 Dose: 650 mg Documented By: RICKY Allopurinol (Allopurinol 300 Mg Tablet) 300 mg PO DAILY [facility] Last Admin: 02/14/25 09:32 Dose: 300 mg Documented By: ELIANA Calcium Carbonate (Calcium Carbonate 750 Mg Tab.Chew) 750 mg PO Q4H PRN PRN Reason: Heartburn Finasteride (Finasteride 5 Mg Tablet) 5 mg PO DAILY [facility] Last Admin: 02/14/25 09:31 Dose: 5 mg Documented By: ELIANA Furosemide (Furosemide 40 Mg/4 Ml Vial) 40 mg IVPUSH DAILY [facility]; Protocol On Hold: 02/09/25 02:09 Last Admin: 02/08/25 08:05 Dose: 40 mg Documented By: RICKY Heparin Sodium (Porcine) (Heparin Sodium,Porcine 5,000 Unit/Ml Vial) 5,000 unit SUBCUT Q12H [facility] Last Admin: 02/14/25 09:37 Dose: 5,000 unit Documented By: ELIANA Trimethoprim/Sulfamethoxazole (340 mg/ Dextrose) 521.25 mls @ 225 mls/hr IV Q12H [facility] Last Infusion: 02/14/25 10:21 Dose: Infused Documented By: ELIANA Azithromycin 500 mg/ Sodium (Chloride) 250 mls @ 125 mls/hr IV Q24H [facility] Last Infusion: 02/13/25 19:48 Dose: Infused Documented By: JOSE Piperacillin Sod/Tazobactam (Sod 3.375 gm/ Sodium Chloride) 50 mls @ 100 mls/hr IV Q6H [facility] Last Infusion: 02/14/25 12:12 Dose: Infused Documented By: ELIANA Magnesium Hydroxide (Milk Of Magnesia 30 Ml Oral.Susp) 30 ml PO DAILY PRN PRN Reason: Constipation Melatonin (Melatonin 3 Mg Tablet) 6 mg PO BEDTIME PRN PRN Reason: Insomnia Last Admin: 02/13/25 20:20 Dose: 6 mg Documented By: JOSE Pt Own (Tadalafil 5 (Mg Tablet)) 5 mg PO DAILY [facility] Last Admin: 02/14/25 09:31 Dose: 5 mg Documented By: ELIANA Olanzapine (Olanzapine 5 Mg Tablet) 5 mg PO Q6H PRN PRN Reason: Agitation Last Admin: 02/11/25 01:07 Dose: 5 mg Documented By: RENATO Olanzapine (Olanzapine 2.5 Mg Tablet) 2.5 mg PO BEDTIME [facility] Last Admin: 02/13/25 20:19 Dose: 2.5 mg Documented By: JOSE Olanzapine (Olanzapine 10 Mg Vial) 5 mg IM ONCE PRN PRN Reason: severe agitation Last Admin: 02/13/25 23:46 Dose: 5 mg Documented By: PRICE Ondansetron HCl (Ondansetron Hcl 4 Mg/2 Ml Vial) 4 mg IVPUSH Q8H PRN PRN Reason: Nausea and Vomiting Polyethylene Glycol (Polyethylene Glycol 3350 17 Gm Powd.Pack) 17 gm PO DAILY PRN PRN Reason: Constipation Senna (Sennosides 8.6 Mg Tablet) 17.2 mg PO BEDTIME [facility] Last Admin: 02/13/25 20:14 Dose: 17.2 mg Documented By: JOSE Sodium Chloride (0.9 % Sodium Chloride Flush 3 Ml Syringe) 3 ml IVFLUSH QSHIFT [facility] Last Admin: 02/14/25 07:49 Dose: 3 ml Documented By: ELIANA Tamsulosin HCl (Tamsulosin Hcl 0.4 Mg Capsule) 0.4 mg PO BEDTIME [facility] Last Admin: 02/13/25 20:14 Dose: 0.4 mg Documented By: JOSE Labs 02/12/25 05:46 02/13/25 05:23 Labs: Laboratory Results - last 24 hr 02/06/25 02/10/25 02/13/25 17:54 06:05 17:27 POC Glucose U Abnormal Prot Band 1 TNP U Abnormal Prot Band 2 TNP U Abnormal Prot Band 3 TNP Stool Occult Blood POSITIVE Ur L.pneumophila Ag Not Detected 02/13/25 20:13 POC Glucose 99 U Abnormal Prot Band 1 U Abnormal Prot Band 2 U Abnormal Prot Band 3 Stool Occult Blood Ur L.pneumophila Ag Microbiology Microbiology Results: Microbiology 02/08/25 23:40 Blood Culture - Final Blood - Venous No growth after 5 days. 02/08/25 23:40 Blood Culture - Final Blood - Venous No growth after 5 days. Assessment and Plan (1) HTN (hypertension): Status: Acute (2) SELWYN (acute kidney injury): Status: Acute (3) Acute kidney injury superimposed on CKD: Status: Acute (4) Bladder stones: Status: Acute (5) Urinary urgency: Status: Acute (6) BPH (benign prostatic hyperplasia): Status: Acute (7) Elevated PSA: Status: Acute (8) Sepsis: Status: Acute (9) Hyperuricemia: Status: Acute (10) Major neurocognitive disorder due to another medical condition: Status: Acute (11) Pneumonia: Status: Acute Plan 81-year-old male, with a history of HTN, gout, BPH, hepatitis-C, moderate aortic valve stenosis, subclinical hypothyroidism, admitted to ED [facility] 02/01/2025 for case management needs 2/2 worsening altered mental status and forgetfulness, admitted to hospital with sepsis 2/2 pneumonia with SELWYN and toxic encephalopathy. Sepsis Suspected Pneumonia Possible aspiration Transferred from [facility] in emergency room, started on sepsis protocol with lactated ringer and antibiotics Initially on ceftriaxone and doxycycline CT abdomen and pelvis without contrast -ve for intra-abdominal pathology Blood cultures obtained, -ve to date 02/09; pyrexia, elevated lactic acid, transitioned to vancomycin/Zosyn, ECHO ordered Evaluation for possible PJP per Infectious diseases; input is greatly appreciated 02/11, vancomycin was discontinued (MRSA negative PCR nares) PLAN - Continue Zosyn as per ID reccs - Azithromycin as per ID reccs - Bactrim as per ID reccs (discontinue if PJP -ve) - infectious diseases reccs greatly appreciated - Resent PCR for PJP testing Prerenal acute kidney injury CKD stage III B Hypernatremia Dehydration Patient suffered with acute kidney injury 2/2 dehydration and poor p.o. intake Nephrology following Recommendations greatly appreciated Hypernatremia chronic issue-encouraged to drink more fluid (water) Continue to monitor BMP. For worsening hypernatremia, D5w 75cc/hr can be added Toxic encephalopathy Metabolic encephalopathy 2/2 dehydration and sepsis 2/2 pneumonia. Ammonia level -ve Patient was initially admitted to emergency room observation unit due to worsening altered mental status and forgetfulness by family members. Psychiatric consulted, recommendations appreciated Improving gradually Recurrent aspiraiton Suspected dysphagia Speech therapy requested for swallow evaluation Aspiration precautions in place NPO currently until speech can re-evaluate HFpEF > 70% Moderate aortic stenosis HFpEF > 70%, with severe mitral annular calcification, moderate aortic stenosis Possible clinical evidence of mild superimposed acute CHF exacerbation TTE -ve for infective endocarditis History of gout - resolved Patient has been on recent prednisone long-term Patient is now on a taper of prednisone, stop at this time Subclinical hyperthyroidism TSH low Free T4 normal BPH Continue flomax and finasteride as BP is stable [employer] - VTE: Heparin 5000 t.i.d. SQ - CODE STATUS: Full code - DIET: Cardiac diet Total time managing care of this patient today: 35 minutes. Quality Stroke Does the patient have a stroke diagnosis?: No VTE Prior VTE?: No VTE Risk Level:: Medical - moderate - high VTE Device Contraindication: N/A - Device Ordered VTE Drug Contraindication: N/A - Med Ordered
--- NOTE | 2025-02-14 16:07 | P.PNID_ITS ---
Subjective Subjective Date of Service: 02/14/25 Critical Care Time (minutes): 15 Comment: he has shortness of breath. did not get PJP PCR done yet Objective Data Labs 02/12/25 05:46 02/13/25 05:23 Labs: Laboratory Results - last 24 hr 02/06/25 02/10/25 02/13/25 17:54 06:05 17:27 POC Glucose U Abnormal Prot Band 1 TNP U Abnormal Prot Band 2 TNP U Abnormal Prot Band 3 TNP Stool Occult Blood POSITIVE Stl C. cayetanensis PCR Stool Rotavirus A PCR Stl Adenov F PCR Stool Astrovirus (PCR) Stool Campylobacter PCR Stool Cryptosporidium PCR Stl Sh Tox Pr E STEC PCR Stool E coli O157 PCR Stl Enterotoxigenic E PCR Stool EPEC (PCR) Stool EAEC (PCR) Stl E. histolytica PCR Stool Giardia Lamblia PCR Stl P. shigelloides PCR Stool Salmonella PCR Stool Sapovirus (PCR) Stl Shigella/EIEC PCR St Y.enterocolitica PCR Stool Vibrio (PCR) Stl Vibrio cholerae PCR Stl Norovirus GI/GII PCR Ur L.pneumophila Ag Not Detected 02/13/25 02/14/25 20:13 10:30 POC Glucose 99 U Abnormal Prot Band 1 U Abnormal Prot Band 2 U Abnormal Prot Band 3 Stool Occult Blood Stl C. cayetanensis PCR Cancelled Stool Rotavirus A PCR Cancelled Stl Adenov F PCR Cancelled Stool Astrovirus (PCR) Cancelled Stool Campylobacter PCR Cancelled Stool Cryptosporidium PCR Cancelled Stl Sh Tox Pr E STEC PCR Cancelled Stool E coli O157 PCR Cancelled Stl Enterotoxigenic E PCR Cancelled Stool EPEC (PCR) Cancelled Stool EAEC (PCR) Cancelled Stl E. histolytica PCR Cancelled Stool Giardia Lamblia PCR Cancelled Stl P. shigelloides PCR Cancelled Stool Salmonella PCR Cancelled Stool Sapovirus (PCR) Cancelled Stl Shigella/EIEC PCR Cancelled St Y.enterocolitica PCR Cancelled Stool Vibrio (PCR) Cancelled Stl Vibrio cholerae PCR Cancelled Stl Norovirus GI/GII PCR Cancelled Ur L.pneumophila Ag Microbiology Microbiology Results: Microbiology 02/08/25 23:40 Blood - Venous Blood Culture - Final No growth after 5 days. 02/08/25 23:40 Blood - Venous Blood Culture - Final No growth after 5 days. 02/06/25 03:14 Blood - Venous Blood Culture - Final No growth after 5 days. 02/06/25 03:14 Blood - Venous Blood Culture - Final No growth after 5 days. Physical Exam 2 Vital Signs: Vital Signs: Last Vital Signs Temp 98.4 F 02/14/25 11:36 Pulse 93 02/14/25 11:36 Resp 14 02/14/25 11:36 BP 123/53 L 02/14/25 11:36 Pulse Ox 93 02/14/25 11:36 O2 Del Method Room Air 02/14/25 11:36 O2 Flow Rate 1 02/07/25 15:16 BMI result Body Mass Index 24.9 Const: General: cooperative Resp: Effort & Inspection: decreased respiratory effort Cardio: Rate: regular rate Assessment and Plan Assessment and plan (1) Sepsis: Problem details: He has no oxygen demands at this time,did continue off oxygen Status: Acute Assessment and Plan: continue zosyn cover aspiration ,d8/10 continue zithromycin,day 4/6 stop Bactrim if PJP negative then Doxycycline po for a week prognosis is guarded (2) Pneumonia: Status: Acute Time Spent With Patient Time: Total time managing care of this patient today ____ minutes.
[2025-02-14] MEDS: OLANZapine 10 MG VIAL 2.5 MG IM (22:15)
[2025-02-14 22:58] LABS: Strep Pneumo Ag urine Not Detected (Not Detected)
[2025-02-15] MEDS: 0.9 % Sodium Chloride Flush 3 ML SYRINGE IVFLUSH ×3 (00:14→17:16)
[2025-02-15 04:00] VITALS: BP 105/53; PULSE 91; RESP 18; TEMP 36.8; O2SAT 97
[2025-02-15 07:42] VITALS: BP 128/66; PULSE 99; RESP 18; TEMP 37; O2SAT 99
[2025-02-15 10:43] LABS: Prot Elec - Albumin 2.6 g/dL (3.8-4.8); Prot Elec - Alpha1 0.5 g/dL (0.2-0.3); Prot Elec - Alpha2 1.1 g/dL (0.5-0.9); Prot Elec - Beta 1 0.3 g/dL (0.4-0.6); Prot Elec - Beta 2 0.4 g/dL (0.2-0.5); Prot Elec - Gamma 0.6 g/dL (0.8-1.7); Prot Elec - Total Protein 5.5 g/dL (6.1-8.1)
--- NOTE | 2025-02-15 10:47 | MHC.SL.SWA ---
Speech Pathologist Impression: Mild-Moderate Oropharyngeal dysphagia Risk of Aspiration Due to: Confusion, current PNA, continuos overall decline Dysphasia Diet Status: Recommend RESTART diet of NDD1 (puree), NECTAR THICK Liquids with 1:1 feeding assist. ONLY feed if alert/appropriate for PO. Liquid Consistency and Strategies for Safe Swallow: Liquid Intake Recommendation: Dexter Thick Liquid Intake Strategies: No Straws Solid Food Consistency: Dietary Recommendations: Pureed (NDD1) Additional Modifications to Solid Foods: Oral Medication Intake: Crushed with Puree Please contact the pharmacy regarding appropriate crushable or liquid drug formulations that are available whenever modified delivery is recommended. Compensatory Strategies and Precautions to be Taken for Safe Swallow: Sitting Upright (90 deg) No Straw Small Bites and Sips Alternate Liquids/Solids Rate of Ingestion Change Supervision While Eating and Drinking for Safe Swallow: Total Assistance (1:1) Foods to Avoid: Swallowing Recommended Treatments: Compens. Strategy Educat. Recommendation for Speech: Inpatient Speech Therapy Speech Therapy through Rehab Facility Comment: Patient seen this morning for swallow re-evaluation. Patient presenting with mild-moderate oropharyngeal dysphagia. Patient with continuous overall decline. Patient requiring constant stimulation to maintain appropriate alertness for PO intake. Patient accepting bites of applesauce and controlled cup sips of NTLs. Patient with intermittent coughing throughout evaluation, not noted immediate after specific consistencies. Cough perceived as strong, congested and nonproductive. Patient tolerating pureed solids; noted delayed AP transit, multiple swallows per bolus and suspected delayed swallow. Patient also tolerating NTLs via small controlled cup sips. Recommend RESTART diet of NDD1 (puree), NECTAR THICK Liquids. ONLY feed when patient is alert/appropriate for PO intake. Discontinue feeding if any signs of aspiration (coughing, increased respiratory rate, etc.). MD, RN, and RD updated via secure chat. RD consulted as patient may need alternative nutrition given reduced PO intake and fluctuating tolerance of PO. Frequency/Duration: M-F Daily Date Range for Service Req: Timeline to reassess: Certified Coder Clinican/Clinical Fellow: No Supervisory Statement: I have reviewed and agree with the student/clinical fellow's documentation: N/A Speech Language Pathologist: Naila March M.A., CCC-REGISTERED PHYSICAL THERAPIST
[2025-02-15 12:00] VITALS: BP 103/61; PULSE 95; RESP 18; TEMP 36.3; O2SAT 97
--- NOTE | 2025-02-15 15:05 | P.PNIM_ITS ---
Subjective Subjective Date of Service: 02/15/25 Interval History: Patient remains confused and altered. Requires stimulation to maintain wakefulness Patient denies new symptomology. Infectious diseases reviewed patient, recommendations greatly appreciated Review of Systems Review of Systems: Yes Unobtainable due to mental condition and Unobtainable due to mental status Physical Exam 2 Exam: Exam: General: A&O x1 to person only. Appears comfortable not in pain Cardiac: S1, S2 auscultated with no S3/4, no MRG. Well perfused. Respiratory: Reduced breath sounds bilaterally at the bases, without tachypnea or dyspnea. No end expiratory wheezing GI/ : No abdominal pain on palpation, no masses or distentions. MSK: Normal ambulation without pain at bony prominences or musculature Neurological: Normal neurological examination on overview, without obvious CN II-XII abnormalities. Vital Signs: Vital Signs: Last Vital Signs Temp 97.4 F 02/15/25 12:00 Pulse 95 02/15/25 12:00 Resp 18 02/15/25 12:00 BP 103/61 02/15/25 12:00 Pulse Ox 97 02/15/25 12:00 O2 Del Method Nasal Cannula 02/15/25 12:00 O2 Flow Rate 2 02/15/25 12:00 BMI result Body Mass Index 24.9 Objective Data Active Medications Acetaminophen (Acetaminophen 325 Mg Tablet) 650 mg PO Q6H PRN PRN Reason: Pain, Mild 1-3,fever,headache Last Admin: 02/10/25 14:26 Dose: 650 mg Documented By: RICKY Allopurinol (Allopurinol 300 Mg Tablet) 300 mg PO DAILY [facility] Last Admin: 02/15/25 13:29 Dose: 300 mg Documented By: YFN Calcium Carbonate (Calcium Carbonate 750 Mg Tab.Chew) 750 mg PO Q4H PRN PRN Reason: Heartburn Finasteride (Finasteride 5 Mg Tablet) 5 mg PO DAILY [facility] Last Admin: 02/15/25 13:29 Dose: 5 mg Documented By: YFN Furosemide (Furosemide 40 Mg/4 Ml Vial) 40 mg IVPUSH DAILY [facility]; Protocol On Hold: 02/09/25 02:09 Last Admin: 02/08/25 08:05 Dose: 40 mg Documented By: RICKY Heparin Sodium (Porcine) (Heparin Sodium,Porcine 5,000 Unit/Ml Vial) 5,000 unit SUBCUT Q12H [facility] Last Admin: 02/15/25 09:30 Dose: 5,000 unit Documented By: YFN Trimethoprim/Sulfamethoxazole (340 mg/ Dextrose) 521.25 mls @ 225 mls/hr IV Q12H [facility] Last Infusion: 02/15/25 13:48 Dose: Infused Documented By: YFN Azithromycin 500 mg/ Sodium (Chloride) 250 mls @ 125 mls/hr IV Q24H [facility] Last Infusion: 02/14/25 20:25 Dose: Infused Documented By: JOSE Piperacillin Sod/Tazobactam (Sod 3.375 gm/ Sodium Chloride) 50 mls @ 100 mls/hr IV Q6H [facility] Last Infusion: 02/15/25 14:29 Dose: Infused Documented By: YFN Magnesium Hydroxide (Milk Of Magnesia 30 Ml Oral.Susp) 30 ml PO DAILY PRN PRN Reason: Constipation Melatonin (Melatonin 3 Mg Tablet) 6 mg PO BEDTIME PRN PRN Reason: Insomnia Last Admin: 02/13/25 20:20 Dose: 6 mg Documented By: JOSE Pt Own (Tadalafil 5 (Mg Tablet)) 5 mg PO DAILY [facility] Last Admin: 02/15/25 13:29 Dose: 5 mg Documented By: YFN Olanzapine (Olanzapine 5 Mg Tablet) 5 mg PO Q6H PRN PRN Reason: Agitation Last Admin: 02/11/25 01:07 Dose: 5 mg Documented By: RENATO Olanzapine (Olanzapine 2.5 Mg Tablet) 2.5 mg PO BEDTIME [facility] Last Admin: 02/14/25 21:27 Dose: Not Given Documented By: JOSE Non-Admin Reason: NPO Ondansetron HCl (Ondansetron Hcl 4 Mg/2 Ml Vial) 4 mg IVPUSH Q8H PRN PRN Reason: Nausea and Vomiting Last Admin: 02/15/25 13:46 Dose: 4 mg Documented By: YFN Polyethylene Glycol (Polyethylene Glycol 3350 17 Gm Powd.Pack) 17 gm PO DAILY PRN PRN Reason: Constipation Senna (Sennosides 8.6 Mg Tablet) 17.2 mg PO BEDTIME [facility] Last Admin: 02/14/25 21:27 Dose: Not Given Documented By: JOSE Non-Admin Reason: NPO Sodium Chloride (0.9 % Sodium Chloride Flush 3 Ml Syringe) 3 ml IVFLUSH QSHIFT [facility] Last Admin: 02/15/25 09:31 Dose: 3 ml Documented By: YFN Tamsulosin HCl (Tamsulosin Hcl 0.4 Mg Capsule) 0.4 mg PO BEDTIME [facility] Last Admin: 02/14/25 21:27 Dose: Not Given Documented By: JOSE Non-Admin Reason: NPO Labs 02/12/25 05:46 02/13/25 05:23 Labs: Laboratory Results - last 24 hr 02/07/25 02/10/25 06:05 06:05 Total Protein (PEP) 5.5 L Albumin (PEP) 2.6 L Msvso-4-Wuikymbrx 0.5 H Butby-7-Rsyvgiwpo 1.1 H Sfpn-8-Ywjbneao 0.3 L Xffw-4-Myrntkir 0.4 Gamma Globulins 0.6 L Abnorm Protein Band 1 TNP Abnorm Protein Band 2 TNP Abnorm Protein Band 3 TNP PEP Interpretation SEE NOTE Ur Strep pneumoniae Ag Not Detected Assessment and Plan (1) HTN (hypertension): Status: Acute (2) Acute kidney injury superimposed on CKD: Status: Acute (3) SELWYN (acute kidney injury): Status: Acute (4) Bladder stones: Status: Acute (5) Urinary urgency: Status: Acute (6) BPH (benign prostatic hyperplasia): Status: Acute (7) Elevated PSA: Status: Acute (8) Sepsis: Status: Acute (9) Pneumonia: Status: Acute Plan 81-year-old male, with a history of HTN, gout, BPH, hepatitis-C, moderate aortic valve stenosis, subclinical hypothyroidism, admitted to ED [facility] 02/01/2025 for case management needs 2/2 worsening altered mental status and forgetfulness, admitted to hospital with sepsis 2/2 pneumonia with SELWYN and toxic encephalopathy. Sepsis Suspected Pneumonia Possible aspiration Transferred from [facility] in emergency room, started on sepsis protocol with lactated ringer and antibiotics Initially on ceftriaxone and doxycycline CT abdomen and pelvis without contrast -ve for intra-abdominal pathology Blood cultures obtained, -ve to date ECHO ordered; negative for IE 02/09; pyrexia, elevated lactic acid, transitioned to vancomycin/Zosyn 02/11, vancomycin was discontinued (MRSA negative PCR nares) Evaluation for possible PJP per Infectious diseases; input is greatly appreciated PLAN - Continue Zosyn as per ID reccs - Azithromycin as per ID reccs - Bactrim as per ID reccs (discontinue if PJP -ve) - infectious diseases reccs greatly appreciated - Resent PCR for PJP testing Prerenal acute kidney injury CKD stage III B Hypernatremia Dehydration Patient suffered with acute kidney injury 2/2 dehydration and poor p.o. intake Nephrology following Recommendations greatly appreciated Hypernatremia chronic issue-encouraged to drink more fluid (water) Continue to monitor BMP. For worsening hypernatremia, D5w 75cc/hr can be added Toxic encephalopathy Metabolic encephalopathy 2/2 dehydration and sepsis 2/2 pneumonia. Ammonia level -ve Patient was initially admitted to emergency room observation unit due to worsening altered mental status and forgetfulness by family members. Psychiatric consulted, recommendations appreciated Improving gradually Recurrent aspiraiton Suspected dysphagia Speech therapy requested for swallow evaluation Aspiration precautions in place NPO --> NDD1 pureed nectar thick, crush tablets in puree, 1:1 feeding while awake. HFpEF > 70% Moderate aortic stenosis HFpEF > 70%, with severe mitral annular calcification, moderate aortic stenosis Possible clinical evidence of mild superimposed acute CHF exacerbation TTE -ve for infective endocarditis History of gout - resolved Patient has been on recent prednisone long-term Patient is now on a taper of prednisone, stop at this time Subclinical hyperthyroidism TSH low Free T4 normal BPH Continue flomax and finasteride as BP is stable QUALITY METRICS - VTE: Heparin 5000 t.i.d. SQ - CODE STATUS: Full code - DIET: Cardiac diet Total time managing care of this patient today: 35 minutes. Quality Stroke Does the patient have a stroke diagnosis?: No VTE Prior VTE?: No VTE Risk Level:: Medical - moderate - high VTE Device Contraindication: N/A - Device Ordered VTE Drug Contraindication: N/A - Med Ordered
[2025-02-15 16:00] VITALS: BP 110/76; PULSE 108; RESP 22; TEMP 37.7; O2SAT 98
[2025-02-15 20:00] VITALS: BP 130/68; PULSE 107; RESP 19; TEMP 37.1; O2SAT 93
[2025-02-15 23:35] VITALS: BP 116/59; PULSE 91; RESP 18; TEMP 36.7; O2SAT 98
[2025-02-16] VITALS (7 sets, daily range): BP systolic 101–137; BP diastolic 51–72; PULSE 66–96; RESP 16–20; TEMP 36.1–37; O2SAT 90–100; BMI 24.9
[2025-02-16 06:28] LABS: A. Phagocytphilium DNA,RT-PCR NOT DETECTED (NOT DETECTED); Babesia Microti DNA, RT-PCR NOT DETECTED (NOT DETECTED); Borrelia Miyamotoi,DNA RT-PCR NOT DETECTED (NOT DETECTED); E.Chaffeensis DNA RT-PCR NOT DETECTED (NOT DETECTED); Lyme(Borrelia ssp)DNA RT-PCR NOT DETECTED (NOT DETECTED)
[2025-02-16] MEDS: 0.9 % Sodium Chloride Flush 3 ML SYRINGE IVFLUSH ×2 (09:20→17:52)
--- NOTE | 2025-02-16 10:34 | MHC.CM.PN ---
Per MD rounds, patient not medically cleared for dc. Plan for goals of care conversation w/ daughter/HCP Katerine. Patient does not currently have a payor source for LTC. MD aware. Referrals updated. [facility] can offer a STR bed when medically cleared. CM will continue to follow.
--- NOTE | 2025-02-16 10:38 | MHC.SLORD ---
Speech Language Pathology Order Status: Pt had diarrhea, sleeping soundly this morning, sitter at bedside. BOARD MEMBER continues to monitor PO intake, prognosis remains poor (see MD note).
[2025-02-16 11:38] LABS: CDiff Gene PCR NEGATIVE (Negative)
[2025-02-16 12:04] LABS: E. coli EAEC Not Detected (Not Detect.); E. coli EPEC Not Detected (Not Detect.); E. coli ETEC Not Detected (Not Detect.); E. coli STEC Not Detected (Not Detect.); Shigella sp./EIEC Not Detected (Not Detect.)
[2025-02-16 12:28] LABS: MANUAL DIFF FLAG NO
[2025-02-16 12:30] LABS: Hematocrit 23.0 % (42.0-52.0); Hemoglobin 7.1 g/dl (14.0-18.0); Imm Gran Abs Auto 0.22 X10*3/uL (0.00-0.03); Imm Gran Pct Auto 4.2 % (0.0-0.4); Lymphocytes Absolute Auto 0.7 X10*3/uL (1.2-4.9); Mean Corpuscular HGB Conc 30.9 g/dl (31.0-36.0); Mean Corpuscular Hemoglobin 31.0 pg (27.0-33.0); Mean Corpuscular Volume 100.4 fL (80.0-98.0); NRBC Abs Auto 0.000 X10*3/uL (0.0-0.012); NRBC Pct Auto 0.0 /100WBC (0.0-0.2); Platelet Count 225 X10*3/uL (160-400); Red Blood Count 2.29 X10*6/uL (4.60-5.80); White Blood Count 5.2 X10*3/uL (4.8-10.8)
[2025-02-16 12:41] LABS: Albumin Level 2.8 g/dL (3.5-5.0)
--- NOTE | 2025-02-16 12:41 | P.PNIM_ITS ---
Subjective Subjective Date of Service: 02/16/25 Interval History: Remains fatigued and sleepy majority of the day. Remains significantly confused and altered. Multiple aspiration events as per PCT, RN with medications, and foods-currently 1-1 feeding. Blood work revealing a progressively worsening hemoglobin steady decline; no overt source of bleeding. Etiology of patient's sepsis is unclear - ID following currently - on 3 IV antibiotics Review of Systems Review of Systems: Yes all other systems are reviewed and are negative Physical Exam 2 Exam: Exam: General: A&O x1 to person only. Appears comfortable not in pain Cardiac: S1, S2 auscultated with no S3/4, no MRG. Well perfused. Respiratory: Reduced breath sounds bilaterally at the bases, without tachypnea or dyspnea. No end expiratory wheezing GI/ : No abdominal pain on palpation, no masses or distentions. MSK: Normal ambulation without pain at bony prominences or musculature Neurological: Normal neurological examination on overview, without obvious CN II-XII abnormalities. Vital Signs: Vital Signs: Last Vital Signs Temp 97.2 F 02/16/25 11:47 Pulse 91 02/16/25 11:47 Resp 20 02/16/25 11:47 BP 137/72 02/16/25 11:47 Pulse Ox 100 02/16/25 11:47 O2 Del Method Nasal Cannula 02/16/25 11:47 O2 Flow Rate 2 02/16/25 11:47 BMI result Body Mass Index 24.9 Objective Data Active Medications Acetaminophen (Acetaminophen 325 Mg Tablet) 650 mg PO Q6H PRN PRN Reason: Pain, Mild 1-3,fever,headache Last Admin: 02/10/25 14:26 Dose: 650 mg Documented By: RICKY Allopurinol (Allopurinol 300 Mg Tablet) 300 mg PO DAILY [facility] Last Admin: 02/16/25 09:20 Dose: 300 mg Documented By: YFN Calcium Carbonate (Calcium Carbonate 750 Mg Tab.Chew) 750 mg PO Q4H PRN PRN Reason: Heartburn Finasteride (Finasteride 5 Mg Tablet) 5 mg PO DAILY [facility] Last Admin: 02/16/25 09:21 Dose: 5 mg Documented By: YFN Furosemide (Furosemide 40 Mg/4 Ml Vial) 40 mg IVPUSH DAILY [facility]; Protocol On Hold: 02/09/25 02:09 Last Admin: 02/08/25 08:05 Dose: 40 mg Documented By: RICKY Heparin Sodium (Porcine) (Heparin Sodium,Porcine 5,000 Unit/Ml Vial) 5,000 unit SUBCUT Q12H [facility] Last Admin: 02/16/25 09:20 Dose: 5,000 unit Documented By: YFN Trimethoprim/Sulfamethoxazole (340 mg/ Dextrose) 521.25 mls @ 225 mls/hr IV Q12H [facility] Last Infusion: 02/16/25 12:00 Dose: Infused Documented By: YFN Azithromycin 500 mg/ Sodium (Chloride) 250 mls @ 125 mls/hr IV Q24H [facility] Last Infusion: 02/15/25 20:40 Dose: Infused Documented By: FERNANDO Piperacillin Sod/Tazobactam (Sod 3.375 gm/ Sodium Chloride) 50 mls @ 100 mls/hr IV Q6H [facility] Last Admin: 02/16/25 12:00 Dose: 100 mls/hr Documented By: YFN Magnesium Hydroxide (Milk Of Magnesia 30 Ml Oral.Susp) 30 ml PO DAILY PRN PRN Reason: Constipation Melatonin (Melatonin 3 Mg Tablet) 6 mg PO BEDTIME PRN PRN Reason: Insomnia Last Admin: 02/13/25 20:20 Dose: 6 mg Documented By: JOSE Pt Own (Tadalafil 5 (Mg Tablet)) 5 mg PO DAILY [facility] Last Admin: 02/16/25 09:28 Dose: 5 mg Documented By: YFN Olanzapine (Olanzapine 5 Mg Tablet) 5 mg PO Q6H PRN PRN Reason: Agitation Last Admin: 02/15/25 16:39 Dose: 5 mg Documented By: YFN Olanzapine (Olanzapine 2.5 Mg Tablet) 2.5 mg PO BEDTIME [facility] Last Admin: 02/15/25 22:39 Dose: Not Given Documented By: FERNANDO Non-Admin Reason: Patient Condition Contraindication Ondansetron HCl (Ondansetron Hcl 4 Mg/2 Ml Vial) 4 mg IVPUSH Q8H PRN PRN Reason: Nausea and Vomiting Last Admin: 02/15/25 13:46 Dose: 4 mg Documented By: YFN Polyethylene Glycol (Polyethylene Glycol 3350 17 Gm Powd.Pack) 17 gm PO DAILY PRN PRN Reason: Constipation Senna (Sennosides 8.6 Mg Tablet) 17.2 mg PO BEDTIME [facility] Last Admin: 02/15/25 22:39 Dose: Not Given Documented By: FERNANDO Non-Admin Reason: Patient Condition Contraindication Sodium Chloride (0.9 % Sodium Chloride Flush 3 Ml Syringe) 3 ml IVFLUSH QSHIFT [facility] Last Admin: 02/16/25 09:20 Dose: 3 ml Documented By: YFN Tamsulosin HCl (Tamsulosin Hcl 0.4 Mg Capsule) 0.4 mg PO BEDTIME [facility] Last Admin: 02/15/25 22:39 Dose: Not Given Documented By: FERNANDO Non-Admin Reason: Patient Condition Contraindication Labs 02/16/25 12:23 02/13/25 05:23 Labs: Laboratory Results - last 24 hr 02/14/25 02/16/25 02/16/25 15:26 10:18 12:23 MCV 100.4 H MCH 31.0 MCHC 30.9 L RDW 15.2 Plt Count 225 MPV 9.4 Immature Gran % (Auto) 4.2 H Neut % (Auto) 73.4 H Lymph % (Auto) 13.9 L [place] % (Auto) 7.3 Eos % (Auto) 1.0 Baso % (Auto) 0.2 Lymph # (Auto) 0.7 L [place] # (Auto) 0.4 Eos # (Auto) 0.1 Baso # (Auto) 0.0 Abs Immat Gran (auto) 0.22 H Absolute Neuts (auto) 3.8 Absolute Nucleated RBC 0.000 Nucleated RBC % (auto) 0.0 A.phagocytophil DNA PCR NOT DETECTED Babesia microti DNA PCR NOT DETECTED Borrelia sp DNA (PCR) NOT DETECTED Borrelia miyamotoi (PCR) NOT DETECTED C. difficile Tox B Gene NEGATIVE E.chaffeensis DNA (PCR) NOT DETECTED Tick-borne Disease PCR SEE NOTE Assessment and Plan (1) HTN (hypertension): Status: Acute (2) Acute kidney injury superimposed on CKD: Status: Acute (3) SELWYN (acute kidney injury): Status: Acute (4) Sepsis: Status: Acute (5) Major neurocognitive disorder due to another medical condition: Status: Acute (6) Pneumonia: Status: Acute Plan 81-year-old male, with a history of HTN, gout, BPH, hepatitis-C, moderate aortic valve stenosis, subclinical hypothyroidism, admitted to ED [facility] 02/01/2025 for case management needs 2/2 worsening altered mental status and forgetfulness, admitted to hospital with sepsis 2/2 pneumonia with SELWYN and toxic encephalopathy. Sepsis Suspected Pneumonia Possible aspiration Transferred from [facility] in emergency room, started on sepsis protocol with lactated ringer and antibiotics Initially on ceftriaxone and doxycycline CT abdomen and pelvis without contrast -ve for intra-abdominal pathology Blood cultures obtained, -ve to date ECHO ordered; negative for IE 02/09; pyrexia, elevated lactic acid, transitioned to vancomycin/Zosyn 02/11, vancomycin was discontinued (MRSA negative PCR nares) Evaluation for possible PJP per Infectious diseases; input is greatly appreciated PLAN - Continue Zosyn as per ID reccs - Azithromycin as per ID reccs - Bactrim as per ID reccs (discontinue if PJP -ve) - infectious diseases reccs greatly appreciated - Resent PCR for PJP testing Prerenal acute kidney injury CKD stage III B Hypernatremia Dehydration Patient suffered with acute kidney injury 2/2 dehydration and poor p.o. intake Nephrology following Recommendations greatly appreciated Hypernatremia chronic issue-encouraged to drink more fluid (water) Continue to monitor BMP. For worsening hypernatremia, D5w 75cc/hr can be added Toxic encephalopathy Metabolic encephalopathy 2/2 dehydration and sepsis 2/2 pneumonia. Ammonia level -ve Patient was initially admitted to emergency room observation unit due to worsening altered mental status and forgetfulness by family members. Psychiatric consulted, recommendations appreciated Stable currently - without significant improvement over the past few days Recurrent aspiraiton Suspected dysphagia Speech therapy requested for swallow evaluation Aspiration precautions in place NPO --> NDD1 pureed nectar thick, crush tablets in puree, 1:1 feeding while awake. HFpEF > 70% Moderate aortic stenosis HFpEF > 70%, with severe mitral annular calcification, moderate aortic stenosis Possible clinical evidence of mild superimposed acute CHF exacerbation TTE -ve for infective endocarditis Anemia Patient's hemoglobin currently 7.2 Has been gradually declining No overt source of bleeding No evidence of hemolysis On heparin, no evidence of HIT We will order type and screen and consider transfusion We will discuss with family members Diarrhea +ve norovirus We will monitor p.o. intake and hydration status Monitor frequency of diarrhea Contact precautions History of gout - resolved Patient has been on recent prednisone long-term Patient was on a taper of prednisone, stop at this time Subclinical hyperthyroidism TSH low Free T4 normal BPH Continue flomax and finasteride as BP is stable QUALITY METRICS - VTE: Heparin 5000 t.i.d. SQ - CODE STATUS: Full code - DIET: Cardiac diet - DISPOSITION: Goals of care discussion needs to be held with family members Total time managing care of this patient today: 45 minutes. Quality Stroke Does the patient have a stroke diagnosis?: No VTE Prior VTE?: No VTE Risk Level:: Medical - moderate - high VTE Device Contraindication: N/A - Device Ordered VTE Drug Contraindication: N/A - Med Ordered
[2025-02-16 12:47] LABS: Albumin Level 2.8 g/dL (3.5-5.0); Anion Gap 12 (12-20); Blood Urea Nitrogen 18 mg/dL (9-16); Calcium 8.3 mg/dL (8.4-10.2); Carbon Dioxide 20 mmol/L (22-29); Chloride 111 mmol/L (96-108); Creatinine Clr Calc Pharmacy 22.4; Estimated Glomerular Filt Rate 32; Magnesium 2.2 mg/dL (1.6-2.6); Potassium 3.6 mmol/L (3.3-5.1); Sodium 139 mmol/L (135-145)
--- NOTE | 2025-02-16 13:13 | MHC.CLN ---
NUTRITION PER PULMONOLOGY PHYSICIAN REC, DIET RX: PUREE WITH NECTAR THICK LIQUIDS. PO X AT LEAST 4 DAYS 0-50%. UNABLE TO TAKE ADEQUATE PO DUE TO DYSPHAGIA. REQUIRES NUTRITION/HYDRATION VIA PPN. DISCUSSED WITH PHARMACY. LABS NEEDED INCLUDING TRIGLYCERIDES. START PPN AT 60 ML PER HOUR TO PROVIDE 61 G PROTEIN, 144 G DEXTROSE, 734 KCALS. REPLETE LYTES NEEDED. RECOMMEND CONTINUE SAME RATE FOR 02/17. MONITOR PO INTAKE AND ADJUST PPN ACCORDINGLY. RECOMMEND ADVANCE TO MAX GOAL RATE IF ABLE ON 02/18: PPN AT 80 ML PER HOUR, ADD 75 G LIPIDS. PROVIDES 82 G PROTEIN (1.2 G/KG), 192 G DEXTROSE, 1729 TOTAL KCALS (25.4 KCALS/KG). REPLETE LYTES NEEDED. FOLLOW FOR PPN TOLERANCE AND PO INTAKE. SEE CLINICAL NUTRITION ASSESSMENT. RD AVAILABLE OFF HOURS VIA TIGER TEXT.
--- NOTE | 2025-02-16 16:39 | P.PNID_ITS ---
Subjective Subjective Date of Service: 02/16/25 Critical Care Time (minutes): 15 Comment: patient sleepy aspirating likely due to weakness Day 8 IV Bactrim (PJP pending) as well as day 8 azithromycin and d 7 piperacillin/tazobactam His creatinine persistently elevated Objective Data Labs 02/16/25 12:23 02/16/25 12:23 Labs: Laboratory Results - last 24 hr 02/14/25 02/16/25 02/16/25 15:26 10:18 12:23 WBC 5.2 RBC 2.29 L Hgb 7.1 L Hct 23.0 L MCV 100.4 H MCH 31.0 MCHC 30.9 L RDW 15.2 Plt Count 225 MPV 9.4 Immature Gran % (Auto) 4.2 H Neut % (Auto) 73.4 H Lymph % (Auto) 13.9 L [place] % (Auto) 7.3 Eos % (Auto) 1.0 Baso % (Auto) 0.2 Lymph # (Auto) 0.7 L [place] # (Auto) 0.4 Eos # (Auto) 0.1 Baso # (Auto) 0.0 Abs Immat Gran (auto) 0.22 H Absolute Neuts (auto) 3.8 Absolute Nucleated RBC 0.000 Nucleated RBC % (auto) 0.0 Sodium 139 Potassium 3.6 Chloride 111 H Carbon Dioxide 20 L Anion Gap 12 BUN 18 H Creatinine 1.98 H Estim Creat Clear Calc 22.4 Estimated GFR 32 Random Glucose 117 H Calcium 8.3 L D Phosphorus 2.2 L Magnesium 2.2 Albumin 2.8 L Stl C. cayetanensis PCR Not Detected Stool Rotavirus A PCR Not Detected Stl Adenov F 40/41 PCR Not Detected Stool Astrovirus (PCR) Not Detected Stool Campylobacter PCR Not Detected Stool Cryptosporidium PCR Not Detected Stl Sh Tox Pr E STEC PCR Not Detected Stool E coli O157 PCR Not applicable Stl Enterotoxigenic E PCR Not Detected Stool EPEC (PCR) Not Detected Stool EAEC (PCR) Not Detected Stl E. histolytica PCR Not Detected Stool Giardia Lamblia PCR Not Detected Stl P. shigelloides PCR Not Detected Stool Salmonella PCR Not Detected Stool Sapovirus (PCR) Not Detected Stl Shigella/EIEC PCR Not Detected St Y.enterocolitica PCR Not Detected Stool Vibrio (PCR) Not Detected Stl Vibrio cholerae PCR Not Detected Stl Norovirus GI/GII PCR Detected A A.phagocytophil DNA PCR NOT DETECTED Babesia microti DNA PCR NOT DETECTED Borrelia sp DNA (PCR) NOT DETECTED Borrelia miyamotoi (PCR) NOT DETECTED C. difficile Tox B Gene NEGATIVE E.chaffeensis DNA (PCR) NOT DETECTED Tick-borne Disease PCR SEE NOTE 02/16/25 12:23 WBC RBC Hgb Hct MCV MCH MCHC RDW Plt Count MPV Immature Gran % (Auto) Neut % (Auto) Lymph % (Auto) [place] % (Auto) Eos % (Auto) Baso % (Auto) Lymph # (Auto) [place] # (Auto) Eos # (Auto) Baso # (Auto) Abs Immat Gran (auto) Absolute Neuts (auto) Absolute Nucleated RBC Nucleated RBC % (auto) Sodium Potassium Chloride Carbon Dioxide Anion Gap BUN Creatinine Estim Creat Clear Calc Estimated GFR Random Glucose Calcium Phosphorus Magnesium Albumin 2.8 L Stl C. cayetanensis PCR Stool Rotavirus A PCR Stl Adenov F 40/ PCR Stool Astrovirus (PCR) Stool Campylobacter PCR Stool Cryptosporidium PCR Stl Sh Tox Pr E STEC PCR Stool E coli O157 PCR Stl Enterotoxigenic E PCR Stool EPEC (PCR) Stool EAEC (PCR) Stl E. histolytica PCR Stool Giardia Lamblia PCR Stl P. shigelloides PCR Stool Salmonella PCR Stool Sapovirus (PCR) Stl Shigella/EIEC PCR St Y.enterocolitica PCR Stool Vibrio (PCR) Stl Vibrio cholerae PCR Stl Norovirus GI/GII PCR A.phagocytophil DNA PCR Babesia microti DNA PCR Borrelia sp DNA (PCR) Borrelia miyamotoi (PCR) C. difficile Tox B Gene E.chaffeensis DNA (PCR) Tick-borne Disease PCR Microbiology Microbiology Results: Microbiology 02/08/25 23:40 Blood - Venous Blood Culture - Final No growth after 5 days. 02/08/25 23:40 Blood - Venous Blood Culture - Final No growth after 5 days. 02/06/25 03:14 Blood - Venous Blood Culture - Final No growth after 5 days. 02/06/25 03:14 Blood - Venous Blood Culture - Final No growth after 5 days. Physical Exam 2 Vital Signs: Vital Signs: Last Vital Signs Temp 97.2 F 02/16/25 11:47 Pulse 91 02/16/25 11:47 Resp 20 02/16/25 11:47 BP 137/72 02/16/25 11:47 Pulse Ox 90 L 02/16/25 13:33 O2 Del Method Room Air 02/16/25 13:03 O2 Flow Rate 2 02/16/25 11:47 BMI result Body Mass Index 24.9 Const: General: cooperative HEENT: Head: Yes normal to inspection Face and sinus: Yes normal facial exam Mouth: Normal oral and palatal mucosa present Teeth and gingiva: d entition normal Eyes: General: appearance normal, both eyes and all related structures P upils: Equal, round and reactive pupils present Resp: Effort & Inspection: normal respiratory effort Cardio: Rate: regular rate Rhythm: regular rhythm GI: Palpation (GI): Soft to palpation and nontender : General: Yes no CVA tenderness Back/Spine/Pelvis: Back: no CVA tenderness Skin: General skin exam: no rashes or lesions noted Neuro: General: moves all extremities Cranial nerves: Yes Equal, round and reactive pupils present Extrem: General: Yes normal to inspection Psych: Other: sleepy Assessment and Plan Assessment and plan (1) Pneumonia: Problem details: He has minor left effusion He has had some hypoxia Finishing day 8 antibiotics ,maximal benefit except for possible PJP Would stop azithromycin and Zosyn Switch Bactrim to po atovaquone until PJP excluded Prognosis very guarded for recovery He also has norovirus. Status: Acute Time Spent With Patient Time: Total time managing care of this patient today ____ minutes.
[2025-02-16] MEDS: Parenteral Nutrition 1,440 ML 60 ML IV (20:47)
[2025-02-17] VITALS: BP 113/53; PULSE 99; RESP 16; TEMP 36.3; O2SAT 95
[2025-02-17 03:49] VITALS: BP 127/63; PULSE 67; RESP 18; TEMP 36.3; O2SAT 92
[2025-02-17 07:25] VITALS: BP 114/54; PULSE 90; RESP 18; TEMP 36.2; O2SAT 96
[2025-02-17 07:41] LABS: Albumin Level 2.8 g/dL (3.5-5.0); Anion Gap 13 (12-20); Blood Urea Nitrogen 19 mg/dL (9-16); Calcium 8.8 mg/dL (8.4-10.2); Carbon Dioxide 21 mmol/L (22-29); Chloride 110 mmol/L (96-108); Creatinine Clr Calc Pharmacy 24.4; Estimated Glomerular Filt Rate 35; Magnesium 2.4 mg/dL (1.6-2.6); Potassium 3.8 mmol/L (3.3-5.1); Sodium 140 mmol/L (135-145); Triglycerides 158 mg/dL (<150)
[2025-02-17 11:20] VITALS: BP 145/59; PULSE 88; RESP 18; TEMP 36.4; O2SAT 100
--- NOTE | 2025-02-17 11:42 | HO.PM.IMPN ---
Subjective Subjective Date of Service: 02/17/25 Interval History: More alert and awake this morning. Reports he slept well. +ve norovirus on precuations currently Review of Systems Review of Systems: Yes all other systems are reviewed and are negative Physical Exam Exam: Exam: General: A&O x1 to person only. Appears comfortable not in pain Cardiac: S1, S2 auscultated with no S3/4, no MRG. Well perfused. Respiratory: Reduced breath sounds bilaterally at the bases, without tachypnea or dyspnea. No end expiratory wheezing GI/ : No abdominal pain on palpation, no masses or distentions. MSK: Normal ambulation without pain at bony prominences or musculature Neurological: Normal neurological examination on overview, without obvious CN II-XII abnormalities. Vital Signs: Vital Signs: Last Vital Signs Temp 97.6 F 02/17/25 11:20 Pulse 88 02/17/25 11:20 Resp 18 02/17/25 11:20 BP 145/59 H 02/17/25 11:20 Pulse Ox 100 02/17/25 11:20 O2 Del Method Room Air 02/17/25 11:20 O2 Flow Rate 2 02/16/25 11:47 BMI result Body Mass Index 24.9 Objective Data Active Medications Acetaminophen (Acetaminophen 325 Mg Tablet) 650 mg PO Q6H PRN PRN Reason: Pain, Mild 1-3,fever,headache Last Admin: 02/10/25 14:26 Dose: 650 mg Documented By: RICKY Allopurinol (Allopurinol 300 Mg Tablet) 300 mg PO DAILY [facility] Last Admin: 02/17/25 09:40 Dose: 300 mg Documented By: HARITHA Atovaquone (Atovaquone 750 Mg/5 Ml Oral.Susp) 750 mg PO BID [facility] Last Admin: 02/17/25 09:40 Dose: 750 mg Documented By: HARITHA Calcium Carbonate (Calcium Carbonate 750 Mg Tab.Chew) 750 mg PO Q4H PRN PRN Reason: Heartburn Finasteride (Finasteride 5 Mg Tablet) 5 mg PO DAILY [facility] Last Admin: 02/17/25 09:50 Dose: 5 mg Documented By: HARITHA Furosemide (Furosemide 40 Mg/4 Ml Vial) 40 mg IVPUSH DAILY [facility]; Protocol On Hold: 02/09/25 02:09 Last Admin: 02/08/25 08:05 Dose: 40 mg Documented By: RICKY Heparin Sodium (Porcine) (Heparin Sodium,Porcine 5,000 Unit/Ml Vial) 5,000 unit SUBCUT Q12H [facility] Last Admin: 02/17/25 09:41 Dose: 5,000 unit Documented By: HARITHA Nutrition (Parenteral) (Parenteral Nutrition) 1,440 mls @ 60 mls/hr IV .Q24H [facility]; Protocol Stop: 02/17/25 20:59 Last Admin: 02/16/25 20:47 Dose: 60 mls/hr Documented By: FERNANDO Magnesium Hydroxide (Milk Of Magnesia 30 Ml Oral.Susp) 30 ml PO DAILY PRN PRN Reason: Constipation Melatonin (Melatonin 3 Mg Tablet) 6 mg PO BEDTIME PRN PRN Reason: Insomnia Last Admin: 02/13/25 20:20 Dose: 6 mg Documented By: JOSE Pt Own (Tadalafil 5 (Mg Tablet)) 5 mg PO DAILY [facility] Last Admin: 02/17/25 09:40 Dose: 5 mg Documented By: HARITHA Olanzapine (Olanzapine 5 Mg Tablet) 5 mg PO Q6H PRN PRN Reason: Agitation Last Admin: 02/15/25 16:39 Dose: 5 mg Documented By: YFN Olanzapine (Olanzapine 2.5 Mg Tablet) 2.5 mg PO BEDTIME [facility] Last Admin: 02/16/25 20:26 Dose: 2.5 mg Documented By: FERNANDO Ondansetron HCl (Ondansetron Hcl 4 Mg/2 Ml Vial) 4 mg IVPUSH Q8H PRN PRN Reason: Nausea and Vomiting Last Admin: 02/15/25 13:46 Dose: 4 mg Documented By: YFN Pharmacy Consult (Consult Rx Parenteral Nutrition Ordering) 1 each MISCELLANE DAILY PRN PRN Reason: Consult order Polyethylene Glycol (Polyethylene Glycol 3350 17 Gm Powd.Pack) 17 gm PO DAILY PRN PRN Reason: Constipation Senna (Sennosides 8.6 Mg Tablet) 17.2 mg PO BEDTIME [facility] Last Admin: 02/16/25 20:09 Dose: Not Given Documented By: FERNANDO Non-Admin Reason: loose stools Sodium Chloride (0.9 % Sodium Chloride Flush 3 Ml Syringe) 3 ml IVFLUSH QSHIFT [facility] Last Admin: 02/17/25 09:34 Dose: Not Given Documented By: HARITHA Non-Admin Reason: IV Running Tamsulosin HCl (Tamsulosin Hcl 0.4 Mg Capsule) 0.4 mg PO BEDTIME [facility] Last Admin: 02/16/25 20:47 Dose: Not Given Documented By: FERNANDO Non-Admin Reason: pt unable to swallow pill Labs 02/16/25 12:23 02/17/25 07:13 Labs: Laboratory Results - last 24 hr 02/16/25 02/16/25 02/16/25 10:18 12:23 12:23 MCV 100.4 H MCH 31.0 MCHC 30.9 L RDW 15.2 Plt Count 225 MPV 9.4 Immature Gran % (Auto) 4.2 H Neut % (Auto) 73.4 H Lymph % (Auto) 13.9 L [place] % (Auto) 7.3 Eos % (Auto) 1.0 Baso % (Auto) 0.2 Lymph # (Auto) 0.7 L [place] # (Auto) 0.4 Eos # (Auto) 0.1 Baso # (Auto) 0.0 Abs Immat Gran (auto) 0.22 H Absolute Neuts (auto) 3.8 Absolute Nucleated RBC 0.000 Nucleated RBC % (auto) 0.0 Anion Gap 12 Estim Creat Clear Calc 22.4 Estimated GFR 32 Random Glucose 117 H Calcium 8.3 L D Phosphorus 2.2 L Magnesium 2.2 Albumin 2.8 L 2.8 L Triglycerides Stl C. cayetanensis PCR Not Detected Stool Rotavirus A PCR Not Detected Stl Adenov F 40/41 PCR Not Detected Stool Astrovirus (PCR) Not Detected Stool Campylobacter PCR Not Detected Stool Cryptosporidium PCR Not Detected Stl Sh Tox Pr E STEC PCR Not Detected Stool E coli O157 PCR Not applicable Stl Enterotoxigenic E PCR Not Detected Stool EPEC (PCR) Not Detected Stool EAEC (PCR) Not Detected Stl E. histolytica PCR Not Detected Stool Giardia Lamblia PCR Not Detected Stl P. shigelloides PCR Not Detected Stool Salmonella PCR Not Detected Stool Sapovirus (PCR) Not Detected Stl Shigella/EIEC PCR Not Detected St Y.enterocolitica PCR Not Detected Stool Vibrio (PCR) Not Detected Stl Vibrio cholerae PCR Not Detected Stl Norovirus GI/GII PCR Detected A 02/17/25 07:13 MCV MCH MCHC RDW Plt Count MPV Immature Gran % (Auto) Neut % (Auto) Lymph % (Auto) [place] % (Auto) Eos % (Auto) Baso % (Auto) Lymph # (Auto) [place] # (Auto) Eos # (Auto) Baso # (Auto) Abs Immat Gran (auto) Absolute Neuts (auto) Absolute Nucleated RBC Nucleated RBC % (auto) Anion Gap 13 Estim Creat Clear Calc 24.4 Estimated GFR 35 Random Glucose 126 H Calcium 8.8 D Phosphorus 2.6 L Magnesium 2.4 Albumin 2.8 L Triglycerides 158 H Stl C. cayetanensis PCR Stool Rotavirus A PCR Stl Adenov F 40/41 PCR Stool Astrovirus (PCR) Stool Campylobacter PCR Stool Cryptosporidium PCR Stl Sh Tox Pr E STEC PCR Stool E coli O157 PCR Stl Enterotoxigenic E PCR Stool EPEC (PCR) Stool EAEC (PCR) Stl E. histolytica PCR Stool Giardia Lamblia PCR Stl P. shigelloides PCR Stool Salmonella PCR Stool Sapovirus (PCR) Stl Shigella/EIEC PCR St Y.enterocolitica PCR Stool Vibrio (PCR) Stl Vibrio cholerae PCR Stl Norovirus GI/GII PCR Assessment and Plan (1) HTN (hypertension): Status: Acute (2) Acute kidney injury superimposed on CKD: Status: Acute (3) SELWYN (acute kidney injury): Status: Acute (4) Bladder stones: Status: Acute (5) Urinary urgency: Status: Acute (6) BPH (benign prostatic hyperplasia): Status: Acute (7) Sepsis: Status: Acute (8) Hyperuricemia: Status: Acute (9) Major neurocognitive disorder due to another medical condition: Status: Acute (10) Pneumonia: Status: Acute (11) Norovirus: Status: Acute Plan 81-year-old male, with a history of HTN, gout, BPH, hepatitis-C, moderate aortic valve stenosis, subclinical hypothyroidism, admitted to ED [facility] 02/01/2025 for case management needs 2/2 worsening altered mental status and forgetfulness, admitted to hospital with sepsis 2/2 pneumonia with SELWYN and toxic encephalopathy. Sepsis Suspected Pneumonia Possible aspiration Transferred from [facility] in emergency room, started on sepsis protocol with lactated ringer and antibiotics Initially on ceftriaxone and doxycycline CT abdomen and pelvis without contrast -ve for intra-abdominal pathology Blood cultures obtained, -ve to date ECHO ordered; negative for IE 02/09; pyrexia, elevated lactic acid, transitioned to vancomycin/Zosyn 02/11, vancomycin was discontinued (MRSA negative PCR nares) Evaluation for possible PJP per Infectious diseases; input is greatly appreciated PLAN - Continue Zosyn as per ID reccs - Azithromycin as per ID reccs - Bactrim as per ID reccs (discontinue if PJP -ve) - infectious diseases reccs greatly appreciated - Resent PCR for PJP testing Prerenal acute kidney injury CKD stage III B Hypernatremia Dehydration Patient suffered with acute kidney injury 2/2 dehydration and poor p.o. intake Nephrology following Recommendations greatly appreciated Hypernatremia chronic issue-encouraged to drink more fluid (water) Continue to monitor BMP. For worsening hypernatremia, D5w 75cc/hr can be added Toxic encephalopathy Metabolic encephalopathy 2/2 dehydration and sepsis 2/2 pneumonia. Ammonia level -ve Patient was initially admitted to emergency room observation unit due to worsening altered mental status and forgetfulness by family members. Psychiatric consulted, recommendations appreciated Stable currently - without significant improvement over the past few days Recurrent aspiraiton Suspected dysphagia Speech therapy requested for swallow evaluation Aspiration precautions in place NPO --> NDD1 pureed nectar thick, crush tablets in puree, 1:1 feeding while awake. HFpEF > 70% Moderate aortic stenosis HFpEF > 70%, with severe mitral annular calcification, moderate aortic stenosis Possible clinical evidence of mild superimposed acute CHF exacerbation TTE -ve for infective endocarditis Anemia Patient's hemoglobin currently 7.2 Has been gradually declining No overt source of bleeding No evidence of hemolysis On heparin, no evidence of HIT We will order type and screen and consider transfusion We will discuss with family members Diarrhea +ve norovirus We will monitor p.o. intake and hydration status Monitor frequency of diarrhea Contact precautions History of gout - resolved Patient has been on recent prednisone long-term Patient was on a taper of prednisone, stop at this time Subclinical hyperthyroidism TSH low Free T4 normal BPH Continue flomax and finasteride as BP is stable QUALITY METRICS - VTE: Heparin 5000 t.i.d. SQ - CODE STATUS: Full code - DIET: Cardiac diet - DISPOSITION: Goals of care discussion needs to be held with family members Total time managing care of this patient today: 45 minutes. Quality Stroke Does the patient have a stroke diagnosis?: No VTE Prior VTE?: No VTE Risk Level:: Medical - moderate - high VTE Device Contraindication: N/A - Device Ordered VTE Drug Contraindication: N/A - Med Ordered
--- NOTE | 2025-02-17 14:38 | PC.NURSE ---
MD denton with D/C Sitter, will use camera
[2025-02-17 16:00] VITALS: BP 114/54; PULSE 100; RESP 18; TEMP 37.1; O2SAT 97
[2025-02-17 19:46] VITALS: BP 143/63; PULSE 103; RESP 18; TEMP 37; O2SAT 97
[2025-02-17] MEDS: Parenteral Nutrition 1,440 ML 60 ML IV (21:01)
[2025-02-17] MEDS: 0.9 % Sodium Chloride Flush 3 ML SYRINGE IVFLUSH (22:40)
[2025-02-18 03:31] VITALS: BP 135/62; PULSE 92; RESP 18; TEMP 36.5; O2SAT 98
[2025-02-18 07:19] LABS: Albumin Level 3.0 g/dL (3.5-5.0); Anion Gap 13 (12-20); Blood Urea Nitrogen 25 mg/dL (9-16); Calcium 8.9 mg/dL (8.4-10.2); Carbon Dioxide 19 mmol/L (22-29); Chloride 113 mmol/L (96-108); Creatinine Clr Calc Pharmacy 28.1; Estimated Glomerular Filt Rate 42; Magnesium 2.2 mg/dL (1.6-2.6); Potassium 4.4 mmol/L (3.3-5.1); Sodium 141 mmol/L (135-145)
--- NOTE | 2025-02-18 07:37 | PC.NURSE ---
0600. Patient very restless and confused overnight. Patient unable to sleep despite scheduled Zyprexa and Zyrexa PRN provided for confused, agitated behavior. Patient resistant to turning and repositioning and experienced several episodes of incontinence of loose brown diarrhea and urine. Patient is unredirectable and reports he wants to take his car and drive home . Patient is unable to turn self in bed and requires two assistance in order to provide personal care. Patient repositioned q2h as buttocks and perineum reddened secondary to incontinence and inability to self reposition. Triad cream applied to blanchable redness on buttocks and scrotum. Camera in room to monitor for patient safety, bed low position locked with bed alarm on. HOB elevated at 30 degrees to promote swallowing safety.
[2025-02-18 07:46] VITALS: BP 122/57; PULSE 94; RESP 18; TEMP 36.3; O2SAT 99
[2025-02-18 09:46] LABS: MANUAL DIFF FLAG NO
[2025-02-18 09:51] LABS: Hematocrit 28.2 % (42.0-52.0); Hemoglobin 8.6 g/dl (14.0-18.0); Imm Gran Abs Auto 0.32 X10*3/uL (0.00-0.03); Imm Gran Pct Auto 4.6 % (0.0-0.4); Lymphocytes Absolute Auto 1.4 X10*3/uL (1.2-4.9); Mean Corpuscular HGB Conc 30.5 g/dl (31.0-36.0); Mean Corpuscular Hemoglobin 31.0 pg (27.0-33.0); Mean Corpuscular Volume 101.8 fL (80.0-98.0); NRBC Abs Auto 0.020 X10*3/uL (0.0-0.012); NRBC Pct Auto 0.3 /100WBC (0.0-0.2); Platelet Count 271 X10*3/uL (160-400); Red Blood Count 2.77 X10*6/uL (4.60-5.80); White Blood Count 6.9 X10*3/uL (4.8-10.8)
[2025-02-18 09:59] LABS: INTERNATIONAL NORM RATIO 1.0 (0.9-1.1); Prothrombin Time 12.6 SEC (11.2-13.5)
[2025-02-18 10:16] LABS: Alanine Aminotransferase 20 U/L (0-40); Albumin Level 3.1 g/dL (3.5-5.0); Alkaline Phosphatase 55 U/L (39-117); Anion Gap 13 (12-20); Aspartate Amino Transferase 41 U/L (5-37); Blood Urea Nitrogen 24 mg/dL (9-16); Calcium 9.3 mg/dL (8.4-10.2); Carbon Dioxide 18 mmol/L (22-29); Chloride 114 mmol/L (96-108); Creatinine Clr Calc Pharmacy 27.9; Estimated Glomerular Filt Rate 41; Magnesium 2.3 mg/dL (1.6-2.6); Potassium 4.7 mmol/L (3.3-5.1); Sodium 140 mmol/L (135-145); Total Protein 5.8 g/dL (6.5-8.0)
[2025-02-18 10:30] LABS: Procalcitonin 0.35 ng/mL
--- NOTE | 2025-02-18 10:52 | MHC.CLN ---
F/U DIET RX: PUREE WITH NECTAR THICK LIQUIDS. VARIABLE PO WITH TWO DAY AVERAGE INTAKE APPROX 25%. UNABLE TO TAKE ADEQUATE PO DUE TO DYSPHAGIA. REQUIRES NUTRITION/HYDRATION VIA PPN. REVIEWED LABS. COMMUNICATED WITH PHARMACY. RECOMMEND PPN AT MAX GOAL RATE: PPN AT 80 ML PER HOUR, ADD 75 G LIPIDS. PROVIDES 82 G PROTEIN (1.2 G/KG), 192 G DEXTROSE, 1729 TOTAL KCALS (25.4 KCALS/KG). REPLETE LYTES NEEDED. FOLLOW FOR PPN TOLERANCE AND PO INTAKE. RD AVAILABLE OFF HOURS VIA TIGER TEXT.
--- NOTE | 2025-02-18 11:51 | P.PNIM_ITS ---
Subjective Subjective Date of Service: 02/18/25 Interval History: Patient has no complaints Breathing well overall. Denies new symptoms or issues. Remains confused RN reports that by midday, begins , requiring IM medications Review of Systems Review of Systems: Yes all other systems are reviewed and are negative Physical Exam 2 Exam: Exam: General: A&O x1 to person only. Appears comfortable not in pain Cardiac: S1, S2 auscultated with no S3/4, no MRG. Well perfused. Respiratory: clear breath sounds bilaterally, without tachypnea or dyspnea. No end expiratory wheezing GI/ : No abdominal pain on palpation, no masses or distentions. MSK: Normal ambulation without pain at bony prominences or musculature Neurological: Normal neurological examination on overview, without obvious CN II-XII abnormalities. Vital Signs: Vital Signs: Last Vital Signs Temp 97.3 F 02/18/25 07:46 Pulse 94 02/18/25 07:46 Resp 18 02/18/25 07:46 BP 122/57 L 02/18/25 07:46 Pulse Ox 99 02/18/25 07:46 O2 Del Method Room Air 02/18/25 07:46 O2 Flow Rate 2 02/16/25 11:47 BMI result Body Mass Index 24.9 Objective Data Active Medications Acetaminophen (Acetaminophen 325 Mg Tablet) 650 mg PO Q6H PRN PRN Reason: Pain, Mild 1-3,fever,headache Last Admin: 02/17/25 21:02 Dose: 650 mg Documented By: HUI Allopurinol (Allopurinol 300 Mg Tablet) 300 mg PO DAILY [facility] Last Admin: 02/18/25 09:17 Dose: 300 mg Documented By: HARITHA Atovaquone (Atovaquone 750 Mg/5 Ml Oral.Susp) 750 mg PO BID [facility] Last Admin: 02/18/25 09:17 Dose: 750 mg Documented By: HARITHA Calcium Carbonate (Calcium Carbonate 750 Mg Tab.Chew) 750 mg PO Q4H PRN PRN Reason: Heartburn Cyanocobalamin (Cyanocobalamin (Vitamin B-12) 100 Mcg Tablet) 100 mcg PO DAILY [facility] Last Admin: 02/18/25 10:41 Dose: 100 mcg Documented By: HARITHA Finasteride (Finasteride 5 Mg Tablet) 5 mg PO DAILY [facility] Last Admin: 02/18/25 09:17 Dose: 5 mg Documented By: HARITHA Furosemide (Furosemide 40 Mg/4 Ml Vial) 40 mg IVPUSH DAILY [facility]; Protocol On Hold: 02/09/25 02:09 Last Admin: 02/08/25 08:05 Dose: 40 mg Documented By: RICKY Heparin Sodium (Porcine) (Heparin Sodium,Porcine 5,000 Unit/Ml Vial) 5,000 unit SUBCUT Q12H [facility] Last Admin: 02/18/25 09:18 Dose: Not Given Documented By: HARITHA Non-Admin Reason: Physician Held Med Nutrition (Parenteral) (Parenteral Nutrition) 1,440 mls @ 60 mls/hr IV .Q24H [facility]; Protocol Stop: 02/18/25 20:59 Last Infusion: 02/17/25 22:00 Dose: 60 mls/hr Documented By: HUI Nutrition (Parenteral) (Parenteral Nutrition) 1,920 mls @ 80 mls/hr IV .Q24H [facility]; Protocol Stop: 02/19/25 20:59 Magnesium Hydroxide (Milk Of Magnesia 30 Ml Oral.Susp) 30 ml PO DAILY PRN PRN Reason: Constipation Melatonin (Melatonin 3 Mg Tablet) 6 mg PO BEDTIME PRN PRN Reason: Insomnia Last Admin: 02/17/25 21:01 Dose: 6 mg Documented By: HUI Comments: Insomnia Pt Own (Tadalafil 5 (Mg Tablet)) 5 mg PO DAILY [facility] Last Admin: 02/18/25 09:17 Dose: 5 mg Documented By: HARITHA Olanzapine (Olanzapine 5 Mg Tablet) 5 mg PO Q6H PRN PRN Reason: Agitation Last Admin: 02/17/25 23:35 Dose: 5 mg Documented By: HUI Comments: agitation Olanzapine (Olanzapine 2.5 Mg Tablet) 2.5 mg PO BEDTIME [facility] Last Admin: 02/17/25 21:01 Dose: 2.5 mg Documented By: HUI Ondansetron HCl (Ondansetron Hcl 4 Mg/2 Ml Vial) 4 mg IVPUSH Q8H PRN PRN Reason: Nausea and Vomiting Last Admin: 02/15/25 13:46 Dose: 4 mg Documented By: YFN Pharmacy Consult (Consult Rx Parenteral Nutrition Ordering) 1 each MISCELLANE DAILY PRN PRN Reason: Consult order Polyethylene Glycol (Polyethylene Glycol 3350 17 Gm Powd.Pack) 17 gm PO DAILY PRN PRN Reason: Constipation Senna (Sennosides 8.6 Mg Tablet) 17.2 mg PO BEDTIME [facility] Last Admin: 02/17/25 21:03 Dose: Not Given Documented By: HUI Non-Admin Reason: Loose stool Sodium Chloride (0.9 % Sodium Chloride Flush 3 Ml Syringe) 3 ml IVFLUSH QSHIFT [facility] Last Admin: 02/18/25 09:18 Dose: Not Given Documented By: HARITHA Non-Admin Reason: IV Running Tamsulosin HCl (Tamsulosin Hcl 0.4 Mg Capsule) 0.4 mg PO BEDTIME [facility] Last Admin: 02/17/25 21:02 Dose: 0.4 mg Documented By: HUI Thiamine HCl (Thiamine Hcl 100 Mg Tablet) 100 mg PO DAILY [facility] Last Admin: 02/18/25 10:41 Dose: 100 mg Documented By: HARITHA Labs 02/18/25 09:23 02/18/25 09:23 Labs: Laboratory Results - last 24 hr 02/18/25 02/18/25 06:01 09:23 MCV 101.8 H MCH 31.0 MCHC 30.5 L RDW 15.2 Plt Count 271 MPV 9.6 Immature Gran % (Auto) 4.6 H Neut % (Auto) 62.9 Lymph % (Auto) 20.1 [place] % (Auto) 9.1 Eos % (Auto) 2.9 Baso % (Auto) 0.4 Lymph # (Auto) 1.4 [place] # (Auto) 0.6 Eos # (Auto) 0.2 Baso # (Auto) 0.0 Abs Immat Gran (auto) 0.32 H Absolute Neuts (auto) 4.3 Absolute Nucleated RBC 0.020 H Nucleated RBC % (auto) 0.3 H Hold Purple Top SEE NOTE PT 12.6 INR 1.0 Anion Gap 13 13 Estim Creat Clear Calc 28.1 27.9 Estimated GFR 42 41 Random Glucose 110 112 Calcium 8.9 9.3 Phosphorus 3.0 Magnesium 2.2 2.3 Total Bilirubin 0.2 AST 41 H ALT 20 Alkaline Phosphatase 55 Total Protein 5.8 L Albumin 3.0 L 3.1 L Procalcitonin 0.35 Blood Type O Negative Antibody Screen NEGATIVE Assessment and Plan (1) HTN (hypertension): Status: Acute (2) Acute kidney injury superimposed on CKD: Status: Acute (3) SELWYN (acute kidney injury): Status: Acute (4) Bladder stones: Status: Acute (5) Urinary urgency: Status: Acute (6) BPH (benign prostatic hyperplasia): Status: Acute (7) Sepsis: Status: Acute (8) Norovirus: Status: Acute (9) Hyperuricemia: Status: Acute (10) Major neurocognitive disorder due to another medical condition: Status: Acute (11) Pneumonia: Status: Acute Plan 81-year-old male, with a history of HTN, gout, BPH, hepatitis-C, moderate aortic valve stenosis, subclinical hypothyroidism, admitted to ED [facility] 02/01/2025 for case management needs 2/2 worsening altered mental status and forgetfulness, admitted to hospital with sepsis 2/2 pneumonia with SELWYN and toxic encephalopathy. Sepsis Suspected Pneumonia Possible aspiration Transferred from [facility] in emergency room, started on sepsis protocol with lactated ringer and antibiotics Initially on ceftriaxone and doxycycline CT abdomen and pelvis without contrast -ve for intra-abdominal pathology Blood cultures obtained, -ve to date ECHO ordered; negative for IE 02/09; pyrexia, elevated lactic acid, transitioned to vancomycin/Zosyn 02/11, vancomycin was discontinued (MRSA negative PCR nares) Evaluation for possible PJP per Infectious diseases; input is greatly appreciated PLAN - Continue Zosyn as per ID reccs - Azithromycin as per ID reccs - Bactrim as per ID reccs (discontinue if PJP -ve) - infectious diseases reccs greatly appreciated - Resent PCR for PJP testing Prerenal acute kidney injury CKD stage III B Hypernatremia Dehydration Patient suffered with acute kidney injury 2/2 dehydration and poor p.o. intake Nephrology following Recommendations greatly appreciated Hypernatremia chronic issue-encouraged to drink more fluid (water) Continue to monitor BMP. For worsening hypernatremia, D5w 75cc/hr can be added Toxic encephalopathy Metabolic encephalopathy 2/2 dehydration and sepsis 2/2 pneumonia. Ammonia level -ve Patient was initially admitted to emergency room observation unit due to worsening altered mental status and forgetfulness by family members. Psychiatric consulted, recommendations appreciated Stable currently - without significant improvement over the past few days Recurrent aspiraiton Suspected dysphagia Speech therapy requested for swallow evaluation Aspiration precautions in place NPO --> NDD1 pureed nectar thick, crush tablets in puree, 1:1 feeding while awake. HFpEF > 70% Moderate aortic stenosis HFpEF > 70%, with severe mitral annular calcification, moderate aortic stenosis Possible clinical evidence of mild superimposed acute CHF exacerbation TTE -ve for infective endocarditis Anemia Patient's hemoglobin currently 7.2 improved to 8.6mg/dl today Has been gradually declining No overt source of bleeding No evidence of hemolysis On heparin, no evidence of HIT We will order type and screen and consider transfusion We will discuss with family members Resume Heparin Diarrhea +ve norovirus We will monitor p.o. intake and hydration status Monitor frequency of diarrhea Contact precautions History of gout - resolved Patient has been on recent prednisone long-term Patient was on a taper of prednisone, stop at this time Subclinical hyperthyroidism TSH low Free T4 normal BPH Continue flomax and finasteride as BP is stable QUALITY METRICS - VTE: Heparin 5000 t.i.d. SQ - CODE STATUS: Full code - DIET: Cardiac diet - DISPOSITION: Goals of care discussion needs to be held with family members Total time managing care of this patient today: 45 minutes. Quality Stroke Does the patient have a stroke diagnosis?: No VTE Prior VTE?: No VTE Risk Level:: Medical - moderate - high VTE Device Contraindication: N/A - Device Ordered VTE Drug Contraindication: N/A - Med Ordered
[2025-02-18 15:55] VITALS: BP 142/59; PULSE 106; RESP 18; TEMP 36.4; O2SAT 93
--- NOTE | 2025-02-18 16:13 | MHC.CM.PN ---
PER MD ROUNDS, ID CONSULT PENDING PT IN NEED OF LTC, HOWEVER DOES NOT HAVE A PAYER HE IS ALSO UNABLE TO GO TO STR FOR PT HE WAS UNABLE TO PARTICIPATE IN EVAL
--- NOTE | 2025-02-18 16:33 | MHC.SLORD ---
Speech Language Pathology Order Status: STEAM FLATTENER unable to see patient this date. Per RN, patient with +Norovirus and care team questioning possible PJP pneumonia. Reports that patient tolerated breakfast this AM, no current concerns. Recommend continuing with current diet. STEAM FLATTENER to continue to follow.
--- NOTE | 2025-02-18 17:52 | ECG_ITS ---
Test Reason : Question arrythmia. Blood Pressure : */* mmHG Vent. Rate : 108 BPM Atrial Rate : 108 BPM P-R Int : 144 ms QRS Dur : 108 ms QT Int : 360 ms P-R-T Axes : 24 -45 48 degrees QTcB Int : 482 ms Artifact in tracing Sinus tachycardia with Premature supraventricular complexes Incomplete right bundle branch block Left anterior fascicular block Minimal voltage criteria for LVH, may be normal variant ( R in aVL ) Nonspecific ST abnormality Abnormal ECG When compared with ECG of 06-Feb-2025 00:00, Left anterior fascicular block is now Present ST no longer depressed in Inferior leads Referred By: Amber Hopper Electronically Signed By: NYA PETE
[2025-02-18 18:01] VITALS: BP 151/63; PULSE 108; O2SAT 98
--- NOTE | 2025-02-18 18:02 | PC.NURSE ---
174- this RN notified patient laying in bed with increased restlessness, reaching arms out, increased confusion, and tremulous BLE and BUE. Vital signs obtained, patients SpO2 87% on room air, placed on 2L via NC with improvement to 97-98%. Patient presenting with visual hallucinations, elevated heart rate, and irregular radial pulse check. Dr. Hopper notified and arrived to bedside. EKG obtained. Per MD- questioning patient sun-downing. BUE and BLE strength 5/5 and equal throughout. Patient stable. EKG sinus tach with PACs. No new orders at this time.
[2025-02-18 20:00] VITALS: BP 164/69; PULSE 75; RESP 18; TEMP 36.8; O2SAT 92
[2025-02-18] MEDS: Parenteral Nutrition 1,920 ML 80 ML IV (21:16)
[2025-02-19] MEDS: diazePAM 10 MG/2 ML CARTRIDGE 5 MG IVPUSH (01:35)
--- NOTE | 2025-02-19 03:05 | PC.NURSE ---
Patient has been having increased restlessness throughout the night and has not been able to sleep. [facility] notified and a one time dose of IV valium was ordered and administered. Valium had good affect and allowed the patient to rest for about an hour.
[2025-02-19 03:33] VITALS: BP 128/66; PULSE 98; RESP 18; TEMP 36.8; O2SAT 94
[2025-02-19] MEDS: Albuterol/Iprat 2.5/0.5MG 3 ML AMPUL.NEB INHALE (04:46)
--- NOTE | 2025-02-19 05:35 | PC.NURSE ---
Addendum entered by Jaclyn Bucio RN 02/19/25 05:47: Fern Bertrand reached out to clarify that per I/D report patient is receiving correct antibiotic. Original Note: On review of patient's chart, this RN noticed there were no orders for antibiotics, they were just stated to be given in providers report for patient's pneumonia. Fern Bertrand notified and will pass on to day shift.
[2025-02-19 06:52] LABS: Hematocrit 23.1 % (42.0-52.0); Hemoglobin 7.4 g/dl (14.0-18.0); Mean Corpuscular HGB Conc 32.0 g/dl (31.0-36.0); Mean Corpuscular Hemoglobin 32.0 pg (27.0-33.0); Mean Corpuscular Volume 100.0 fL (80.0-98.0); NRBC Abs Auto 0.030 X10*3/uL (0.0-0.012); NRBC Pct Auto 0.4 /100WBC (0.0-0.2); Platelet Count 250 X10*3/uL (160-400); Red Blood Count 2.31 X10*6/uL (4.60-5.80); White Blood Count 7.7 X10*3/uL (4.8-10.8)
[2025-02-19 06:59] LABS: Albumin Level 3.0 g/dL (3.5-5.0); Anion Gap 12 (12-20); Blood Urea Nitrogen 22 mg/dL (9-16); Calcium 9.0 mg/dL (8.4-10.2); Carbon Dioxide 17 mmol/L (22-29); Chloride 114 mmol/L (96-108); Creatinine Clr Calc Pharmacy 28.8; Estimated Glomerular Filt Rate 43; Magnesium 2.1 mg/dL (1.6-2.6); Potassium 5.3 mmol/L (3.3-5.1); Sodium 138 mmol/L (135-145)
[2025-02-19 07:27] LABS: Basophils Abs Manual 0.1 X10*3/uL (0.0-0.2); Basophils Percent Manual 1 % (0-2); Eosinophils Absolute Manual 0.6 X10*3/uL (0.0-0.4); Eosinophils Percent Manual 8 % (0-4); Lymphocytes Absolute Manual 1.2 X10*3/uL (1.2-4.9); Lymphocytes Percent Manual 15 % (20-40); Metamyelocytes Absolute 0.2 X10*3/uL; Metamyelocytes Percent 2 %; Monocytes Absolute Manual 0.5 X10*3/uL (0.1-1.2); Monocytes Percent Manual 6 % (2-11); Myelocytes Absolute 0.1 X10*/uL; Myelocytes Percent 1 %; Neutrophils Percent Manual 67 % (45-73)
[2025-02-19 07:32] LABS: Acanthocytes 1+ (0-2) /OIF; Burr Cells 2+ (3-5) /OIF; Macrocytosis 1+ (5-14) /OIF; Polychromasia 1+ (0-2) /OIF; RBC Morphology NOTED; Tear Drop Cells 1+ (0-2) /OIF
[2025-02-19 07:38] LABS: Band Neutrophils Percent 0 % (3-5); Neutrophils Absolute Manual 5.2 X10*3/uL (2.0-8.3)
[2025-02-19 09:00] VITALS: BP 150/64
[2025-02-19 09:39] VITALS: PULSE 94; RESP 19; TEMP 36.6; O2SAT 97
[2025-02-19] MEDS: 0.9 % Sodium Chloride Flush 3 ML SYRINGE IVFLUSH (10:03)
--- NOTE | 2025-02-19 12:09 | PC.NURSE ---
Addendum entered by Lisa Moise RN 02/19/25 15:46: goals of care discussed with daughter minna and Original Note: morning medications not given per MAR. pt drowsy and unable to safely take medications at this time. Dr. martinez made aware.
--- NOTE | 2025-02-19 13:16 | P.PNIM_ITS ---
Subjective Subjective Date of Service: 02/19/25 Interval History: No new issues overnight - limited sleep due to baseline AMS No new complaints from patient today. Review of Systems Review of Systems: Yes all other systems are reviewed and are negative Physical Exam 2 Exam: Exam: General: A&O x1 to person only. Appears comfortable not in pain Cardiac: S1, S2 auscultated with no S3/4, no MRG. Well perfused. Respiratory: clear breath sounds bilaterally, without tachypnea or dyspnea. No end expiratory wheezing GI/ : No abdominal pain on palpation, no masses or distentions. MSK: Normal ambulation without pain at bony prominences or musculature Neurological: Normal neurological examination on overview, without obvious CN II-XII abnormalities. Vital Signs: Vital Signs: Last Vital Signs Temp 97.8 F 02/19/25 09:39 Pulse 94 02/19/25 09:39 Resp 19 02/19/25 09:39 BP 150/64 H 02/19/25 09:00 Pulse Ox 97 02/19/25 09:39 O2 Del Method Nasal Cannula 02/19/25 09:39 O2 Flow Rate 2 02/19/25 09:39 BMI result Body Mass Index 24.9 Objective Data Active Medications Acetaminophen (Acetaminophen 325 Mg Tablet) 650 mg PO Q6H PRN PRN Reason: Pain, Mild 1-3,fever,headache Last Admin: 02/17/25 21:02 Dose: 650 mg Documented By: HUI Albuterol/Ipratropium (Albuterol/Iprat 2.5/0.5mg 3 Ml Ampul.Neb) 3 ml INHALE RQ6H WHILE AWAKE PRN PRN Reason: Shortness of Breath/Wheezing Last Admin: 02/19/25 04:46 Dose: 3 ml Documented By: RIOS Allopurinol (Allopurinol 300 Mg Tablet) 300 mg PO DAILY [facility] Last Admin: 02/19/25 12:08 Dose: Not Given Documented By: VIRGINIA Non-Admin Reason: Patient Condition Contraindication Atovaquone (Atovaquone 750 Mg/5 Ml Oral.Susp) 750 mg PO BID [facility] Last Admin: 02/19/25 12:08 Dose: Not Given Documented By: VIRGINIA Non-Admin Reason: Patient Condition Contraindication Calcium Carbonate (Calcium Carbonate 750 Mg Tab.Chew) 750 mg PO Q4H PRN PRN Reason: Heartburn Cyanocobalamin (Cyanocobalamin (Vitamin B-12) 100 Mcg Tablet) 100 mcg PO DAILY [facility] Last Admin: 02/19/25 12:08 Dose: Not Given Documented By: VIRGINIA Non-Admin Reason: Patient Condition Contraindication Finasteride (Finasteride 5 Mg Tablet) 5 mg PO DAILY [facility] Last Admin: 02/19/25 12:08 Dose: Not Given Documented By: VIRGINIA Non-Admin Reason: Patient Condition Contraindication Furosemide (Furosemide 40 Mg/4 Ml Vial) 40 mg IVPUSH DAILY [facility]; Protocol On Hold: 02/09/25 02:09 Last Admin: 02/08/25 08:05 Dose: 40 mg Documented By: RICKY Heparin Sodium (Porcine) (Heparin Sodium,Porcine 5,000 Unit/Ml Vial) 5,000 unit SUBCUT Q12H [facility] Last Admin: 02/19/25 10:04 Dose: 5,000 unit Documented By: VIRGINIA Nutrition (Parenteral) (Parenteral Nutrition) 1,920 mls @ 80 mls/hr IV .Q24H [facility]; Protocol Stop: 02/19/25 20:59 Last Admin: 02/18/25 21:16 Dose: 80 mls/hr Documented By: RYLEY Nutrition (Parenteral) (Parenteral Nutrition) 1,920 mls @ 80 mls/hr IV .Q24H [facility]; Protocol Stop: 02/20/25 20:59 Magnesium Hydroxide (Milk Of Magnesia 30 Ml Oral.Susp) 30 ml PO DAILY PRN PRN Reason: Constipation Melatonin (Melatonin 3 Mg Tablet) 6 mg PO BEDTIME PRN PRN Reason: Insomnia Last Admin: 02/18/25 19:37 Dose: 6 mg Documented By: RYLEY Pt Own (Tadalafil 5 (Mg Tablet)) 5 mg PO DAILY [facility] Last Admin: 02/19/25 12:08 Dose: Not Given Documented By: VIRGINIA Non-Admin Reason: Patient Condition Contraindication Olanzapine (Olanzapine 5 Mg Tablet) 5 mg PO Q6H PRN PRN Reason: Agitation Last Admin: 02/18/25 15:13 Dose: 5 mg Documented By: HARITHA Olanzapine (Olanzapine 2.5 Mg Tablet) 2.5 mg PO BEDTIME [facility] Last Admin: 02/18/25 19:37 Dose: 2.5 mg Documented By: RYLEY Ondansetron HCl (Ondansetron Hcl 4 Mg/2 Ml Vial) 4 mg IVPUSH Q8H PRN PRN Reason: Nausea and Vomiting Last Admin: 02/15/25 13:46 Dose: 4 mg Documented By: YFN Pharmacy Consult (Consult Rx Parenteral Nutrition Ordering) 1 each MISCELLANE DAILY PRN PRN Reason: Consult order Polyethylene Glycol (Polyethylene Glycol 3350 17 Gm Powd.Pack) 17 gm PO DAILY PRN PRN Reason: Constipation Senna (Sennosides 8.6 Mg Tablet) 17.2 mg PO BEDTIME [facility] Last Admin: 02/18/25 19:37 Dose: 17.2 mg Documented By: RYLEY Sodium Chloride (0.9 % Sodium Chloride Flush 3 Ml Syringe) 3 ml IVFLUSH QSHIFT [facility] Last Admin: 02/19/25 10:03 Dose: 3 ml Documented By: VIRGINIA Tamsulosin HCl (Tamsulosin Hcl 0.4 Mg Capsule) 0.4 mg PO BEDTIME [facility] Last Admin: 02/18/25 19:37 Dose: 0.4 mg Documented By: RYLEY Thiamine HCl (Thiamine Hcl 100 Mg Tablet) 100 mg PO DAILY [facility] Last Admin: 02/19/25 12:08 Dose: Not Given Documented By: VIRGINIA Non-Admin Reason: Patient Condition Contraindication Labs 02/19/25 06:15 02/19/25 06:15 Labs: Laboratory Results - last 24 hr 02/19/25 06:15 MCV 100.0 H MCH 32.0 MCHC 32.0 RDW 15.4 Plt Count 250 MPV 9.8 Immature Gran % (Auto) Cancelled Neut % (Auto) Cancelled Lymph % (Auto) Cancelled [place] % (Auto) Cancelled Eos % (Auto) Cancelled Baso % (Auto) Cancelled Lymph # (Auto) Cancelled [place] # (Auto) Cancelled Eos # (Auto) Cancelled Baso # (Auto) Cancelled Abs Immat Gran (auto) Cancelled Absolute Neuts (auto) Cancelled Absolute Nucleated RBC 0.030 H Nucleated RBC % (auto) 0.4 H Neutrophils % (Manual) 67 Band Neutrophils % 0 L Lymphocytes % (Manual) 15 L Monocytes % (Manual) 6 Eosinophils % (Manual) 8 H Basophils % (Manual) 1 Metamyelocytes % 2 Myelocytes % 1 Abs Neuts (Manual) 5.2 Lymphocytes # (Manual) 1.2 Monocytes # (Manual) 0.5 Eosinophils # (Manual) 0.6 H Basophils # (Manual) 0.1 Metamyelocytes # 0.2 Myelocytes # 0.1 Platelet Estimate NORMAL Plt Morphology Comment NORMAL RBC Morphology NOTED Polychromasia 1+ (0-2) Macrocytosis 1+ (5-14) Tear Drop Cells 1+ (0-2) [place] Cells 2+ (3-5) Acanthocytes (Spur) 1+ (0-2) Anion Gap 12 Estim Creat Clear Calc 28.8 Estimated GFR 43 Random Glucose 145 H Calcium 9.0 Phosphorus 3.7 Magnesium 2.1 Albumin 3.0 L Assessment and Plan (1) HTN (hypertension): Status: Acute (2) Acute kidney injury superimposed on CKD: Status: Acute (3) Sepsis: Status: Acute (4) Pneumonia: Status: Acute (5) Major neurocognitive disorder due to another medical condition: Status: Acute (6) SELWYN (acute kidney injury): Status: Acute (7) Norovirus: Status: Acute (8) Elevated PSA: Status: Acute (9) BPH (benign prostatic hyperplasia): Status: Acute Plan 81-year-old male, with a history of HTN, gout, BPH, hepatitis-C, moderate aortic valve stenosis, subclinical hypothyroidism, admitted to ED [facility] 02/01/2025 for case management needs 2/2 worsening altered mental status and forgetfulness, admitted to hospital with sepsis 2/2 pneumonia with SELWYN and toxic encephalopathy. Sepsis Suspected Pneumonia Possible aspiration Transferred from [facility] in emergency room, started on sepsis protocol with lactated ringer and antibiotics Initially on ceftriaxone and doxycycline CT abdomen and pelvis without contrast -ve for intra-abdominal pathology Blood cultures obtained, -ve to date ECHO ordered; negative for IE 02/09; pyrexia, elevated lactic acid, transitioned to vancomycin/Zosyn 02/11, vancomycin was discontinued (MRSA negative PCR nares) 02/16 Zosyn discontinued 02/16 Azithromycin discontinued 02/17 bactrim discontinued Started on Atovaquone 02/17/2025 Evaluation for possible PJP per Infectious diseases; input is greatly appreciated PLAN - DC'd Zosyn as per ID reccs - DC'd Azithromycin as per ID reccs - DC'd Bactrim as per ID reccs (discontinue if PJP -ve) - Started on Atovaquone 02/17/2025 - infectious diseases reccs greatly appreciated - pending PCR for PJP testing Prerenal acute kidney injury CKD stage III B Hypernatremia Dehydration Patient suffered with acute kidney injury 2/2 dehydration and poor p.o. intake Nephrology following Recommendations greatly appreciated Hypernatremia chronic issue-encouraged to drink more fluid (water) Continue to monitor BMP. For worsening hypernatremia, D5w 75cc/hr can be added Toxic encephalopathy Metabolic encephalopathy 2/2 dehydration and sepsis 2/2 pneumonia. Ammonia level -ve Patient was initially admitted to emergency room observation unit due to worsening altered mental status and forgetfulness by family members. Psychiatric consulted, recommendations appreciated Stable currently - without significant improvement over the past few days Recurrent aspiraiton Suspected dysphagia Speech therapy requested for swallow evaluation Aspiration precautions in place NPO --> NDD1 pureed nectar thick, crush tablets in puree, 1:1 feeding while awake. HFpEF > 70% Moderate aortic stenosis HFpEF > 70%, with severe mitral annular calcification, moderate aortic stenosis Possible clinical evidence of mild superimposed acute CHF exacerbation TTE -ve for infective endocarditis Anemia Patient's hemoglobin currently 7.2 improved to 8.6mg/dl today Has been gradually declining No overt source of bleeding No evidence of hemolysis On heparin, no evidence of HIT We will order type and screen and consider transfusion We will discuss with family members Resume Heparin Diarrhea +ve norovirus We will monitor p.o. intake and hydration status Monitor frequency of diarrhea Contact precautions History of gout - resolved Patient has been on recent prednisone long-term Patient was on a taper of prednisone, stop at this time Subclinical hyperthyroidism TSH low Free T4 normal BPH Continue flomax and finasteride as BP is stable QUALITY [employer] - VTE: Heparin 5000 t.i.d. SQ - CODE STATUS: Full code - DIET: Cardiac diet - DISPOSITION: Goals of care discussion needs to be held with family members Total time managing care of this patient today: 45 minutes. Quality Stroke Does the patient have a stroke diagnosis?: No VTE Prior VTE?: No VTE Risk Level:: Medical - moderate - high VTE Device Contraindication: N/A - Device Ordered VTE Drug Contraindication: N/A - Med Ordered
[2025-02-19 15:25] VITALS: BP 119/62; PULSE 97; RESP 18; TEMP 36.2; O2SAT 100
[2025-02-19 18:55] VITALS: BP 154/67; PULSE 103; RESP 15; TEMP 36.3; O2SAT 99
[2025-02-19] MEDS: Parenteral Nutrition 1,920 ML 80 ML IV (21:18)
[2025-02-20 00:43] LABS: Pneumocystis jir Ql PCR NOT DETECTED; Pneumocystis jir source SPUTUM
[2025-02-20 04:00] VITALS: BP 160/57; PULSE 100; RESP 14; TEMP 36.4; O2SAT 99
[2025-02-20 07:42] LABS: Albumin Level 3.3 g/dL (3.5-5.0); Anion Gap 14 (12-20); Blood Urea Nitrogen 22 mg/dL (9-16); Calcium 9.9 mg/dL (8.4-10.2); Carbon Dioxide 19 mmol/L (22-29); Chloride 110 mmol/L (96-108); Creatinine Clr Calc Pharmacy 31.0; Estimated Glomerular Filt Rate 47; Magnesium 2.4 mg/dL (1.6-2.6); Potassium 5.5 mmol/L (3.3-5.1); Sodium 137 mmol/L (135-145)
[2025-02-20 08:00] VITALS: BP 142/65; PULSE 97; RESP 18; TEMP 36.4; O2SAT 97
[2025-02-20 08:02] LABS: Hematocrit 28.9 % (42.0-52.0); Hemoglobin 9.2 g/dl (14.0-18.0); Mean Corpuscular HGB Conc 31.8 g/dl (31.0-36.0); Mean Corpuscular Hemoglobin 32.1 pg (27.0-33.0); Mean Corpuscular Volume 100.7 fL (80.0-98.0); NRBC Abs Auto 0.030 X10*3/uL (0.0-0.012); NRBC Pct Auto 0.2 /100WBC (0.0-0.2); Platelet Count 326 X10*3/uL (160-400); Red Blood Count 2.87 X10*6/uL (4.60-5.80); White Blood Count 13.9 X10*3/uL (4.8-10.8)
[2025-02-20 08:41] LABS: Band Neutrophils Percent 6 % (3-5); Eosinophils Absolute Manual 0.1 X10*3/uL (0.0-0.4); Eosinophils Percent Manual 1 % (0-4); Lymphocytes Absolute Manual 2.1 X10*3/uL (1.2-4.9); Lymphocytes Percent Manual 15 % (20-40); Monocytes Absolute Manual 0.4 X10*3/uL (0.1-1.2); Monocytes Percent Manual 3 % (2-11); Myelocytes Absolute 0.6 X10*/uL; Myelocytes Percent 4 %; Neutrophils Absolute Manual 10.4 X10*3/uL (2.0-8.3); Neutrophils Percent Manual 69 % (45-73); Promyelocytes Absolute 0.3 X10*3/uL; Promyelocytes Percent 2 %
[2025-02-20 08:42] LABS: Large Platelet PRESENT; Macrocytosis 1+ (5-14) /OIF; RBC Morphology NOTED
[2025-02-20 08:43] LABS: Acanthocytes 1+ (0-2) /OIF; Burr Cells 1+ (0-2) /OIF; Ovalocytes 1+ (5-14) /OIF; Polychromasia 1+ (0-2) /OIF; Tear Drop Cells 2+ (3-5) /OIF
--- NOTE | 2025-02-20 15:07 | HO.PM.IMPN ---
Subjective Subjective Date of Service: 02/20/25 Interval History: No new issues or complaints today Patient feels well overall. Discussion with family regarding TPN/ PPN / transitioning to comfort feeding Will discuss and return to us with concensus Review of Systems Review of Systems: Yes all other systems are reviewed and are negative Physical Exam Exam: Exam: General: A&O x1 to person only. Appears comfortable not in pain Cardiac: S1, S2 auscultated with no S3/4, no MRG. Well perfused. Respiratory: clear breath sounds bilaterally, without tachypnea or dyspnea. No end expiratory wheezing GI/ : No abdominal pain on palpation, no masses or distentions. MSK: Normal ambulation without pain at bony prominences or musculature Neurological: Normal neurological examination on overview, without obvious CN II-XII abnormalities. Vital Signs: Vital Signs: Last Vital Signs Temp 97.5 F 02/20/25 08:00 Pulse 97 02/20/25 08:00 Resp 18 02/20/25 08:00 BP 142/65 H 02/20/25 08:00 Pulse Ox 97 02/20/25 08:00 O2 Del Method Room Air 02/20/25 08:00 O2 Flow Rate 2 02/20/25 04:00 BMI result Body Mass Index 24.9 Objective Data Active Medications Acetaminophen (Acetaminophen 325 Mg Tablet) 650 mg PO Q6H PRN PRN Reason: Pain, Mild 1-3,fever,headache Last Admin: 02/17/25 21:02 Dose: 650 mg Documented By: HUI Albuterol/Ipratropium (Albuterol/Iprat 2.5/0.5mg 3 Ml Ampul.Neb) 3 ml INHALE RQ6H WHILE AWAKE PRN PRN Reason: Shortness of Breath/Wheezing Last Admin: 02/19/25 04:46 Dose: 3 ml Documented By: RIOS Allopurinol (Allopurinol 300 Mg Tablet) 300 mg PO DAILY [facility] Last Admin: 02/20/25 08:23 Dose: 300 mg Documented By: RICKY Atovaquone (Atovaquone 750 Mg/5 Ml Oral.Susp) 750 mg PO BID [facility] Last Admin: 02/20/25 08:23 Dose: 750 mg Documented By: RICKY Calcium Carbonate (Calcium Carbonate 750 Mg Tab.Chew) 750 mg PO Q4H PRN PRN Reason: Heartburn Cyanocobalamin (Cyanocobalamin (Vitamin B-12) 100 Mcg Tablet) 100 mcg PO DAILY [facility] Last Admin: 02/20/25 08:23 Dose: 100 mcg Documented By: RICKY Finasteride (Finasteride 5 Mg Tablet) 5 mg PO DAILY [facility] Last Admin: 02/20/25 08:23 Dose: 5 mg Documented By: RICKY Furosemide (Furosemide 40 Mg/4 Ml Vial) 40 mg IVPUSH DAILY [facility]; Protocol On Hold: 02/09/25 02:09 Last Admin: 02/08/25 08:05 Dose: 40 mg Documented By: RICKY Heparin Sodium (Porcine) (Heparin Sodium,Porcine 5,000 Unit/Ml Vial) 5,000 unit SUBCUT Q12H [facility] Last Admin: 02/20/25 08:22 Dose: 5,000 unit Documented By: RICKY Nutrition (Parenteral) (Parenteral Nutrition) 1,920 mls @ 80 mls/hr IV .Q24H [facility]; Protocol Stop: 02/20/25 20:59 Last Admin: 02/19/25 21:18 Dose: 80 mls/hr Documented By: RYLEY Nutrition (Parenteral) (Parenteral Nutrition) 1,920 mls @ 80 mls/hr IV .Q24H [facility]; Protocol Stop: 02/21/25 20:59 Magnesium Hydroxide (Milk Of Magnesia 30 Ml Oral.Susp) 30 ml PO DAILY PRN PRN Reason: Constipation Melatonin (Melatonin 3 Mg Tablet) 6 mg PO BEDTIME PRN PRN Reason: Insomnia Last Admin: 02/18/25 19:37 Dose: 6 mg Documented By: RYLEY Pt Own (Tadalafil 5 (Mg Tablet)) 5 mg PO DAILY [facility] Last Admin: 02/20/25 08:23 Dose: 5 mg Documented By: RICKY Olanzapine (Olanzapine 5 Mg Tablet) 5 mg PO Q6H PRN PRN Reason: Agitation Last Admin: 02/18/25 15:13 Dose: 5 mg Documented By: HARITHA Olanzapine (Olanzapine 5 Mg Tablet) 5 mg PO BEDTIME [facility] Last Admin: 02/19/25 21:44 Dose: Not Given Documented By: RYLEY Non-Admin Reason: Patient Condition Contraindication Ondansetron HCl (Ondansetron Hcl 4 Mg/2 Ml Vial) 4 mg IVPUSH Q8H PRN PRN Reason: Nausea and Vomiting Last Admin: 02/15/25 13:46 Dose: 4 mg Documented By: YFN Pharmacy Consult (Consult Rx Parenteral Nutrition Ordering) 1 each MISCELLANE DAILY PRN PRN Reason: Consult order Polyethylene Glycol (Polyethylene Glycol 3350 17 Gm Powd.Pack) 17 gm PO DAILY PRN PRN Reason: Constipation Senna (Sennosides 8.6 Mg Tablet) 17.2 mg PO BEDTIME [facility] Last Admin: 02/19/25 21:44 Dose: Not Given Documented By: RYLEY Non-Admin Reason: Patient Condition Contraindication Sodium Chloride (0.9 % Sodium Chloride Flush 3 Ml Syringe) 3 ml IVFLUSH QSHIFT [facility] Last Admin: 02/20/25 10:29 Dose: Not Given Documented By: RICKY Non-Admin Reason: IV Running Tamsulosin HCl (Tamsulosin Hcl 0.4 Mg Capsule) 0.4 mg PO BEDTIME [facility] Last Admin: 02/19/25 21:44 Dose: Not Given Documented By: RYLEY Non-Admin Reason: Patient Condition Contraindication Thiamine HCl (Thiamine Hcl 100 Mg Tablet) 100 mg PO DAILY [facility] Last Admin: 02/20/25 08:23 Dose: 100 mg Documented By: RICKY Labs 02/20/25 06:09 02/20/25 06:09 Labs: Laboratory Results - last 24 hr 02/13/25 02/20/25 09:05 06:09 MCV 100.7 H MCH 32.1 MCHC 31.8 RDW 15.2 Plt Count 326 D MPV 10.1 Immature Gran % (Auto) Cancelled Neut % (Auto) Cancelled Lymph % (Auto) Cancelled [place] % (Auto) Cancelled Eos % (Auto) Cancelled Baso % (Auto) Cancelled Lymph # (Auto) Cancelled [place] # (Auto) Cancelled Eos # (Auto) Cancelled Baso # (Auto) Cancelled Abs Immat Gran (auto) Cancelled Absolute Neuts (auto) Cancelled Absolute Nucleated RBC 0.030 H Nucleated RBC % (auto) 0.2 Neutrophils % (Manual) 69 Band Neutrophils % 6 H Lymphocytes % (Manual) 15 L Monocytes % (Manual) 3 Eosinophils % (Manual) 1 Myelocytes % 4 Promyelocytes % 2 Abs Neuts (Manual) 10.4 H Lymphocytes # (Manual) 2.1 Monocytes # (Manual) 0.4 Eosinophils # (Manual) 0.1 Myelocytes # 0.6 Promyelocytes # 0.3 Platelet Estimate NORMAL Large Platelets PRESENT Giant Platelets PRESENT Plt Morphology Comment NOTED RBC Morphology NOTED Polychromasia 1+ (0-2) Macrocytosis 1+ (5-14) Tear Drop Cells 2+ (3-5) Ovalocytes 1+ (5-14) [place] Cells 1+ (0-2) Acanthocytes (Spur) 1+ (0-2) Anion Gap 14 Estim Creat Clear Calc 31.0 Estimated GFR 47 Random Glucose 120 H Calcium 9.9 D Phosphorus 2.9 Magnesium 2.4 Albumin 3.3 L Pneumocystis Source SPUTUM Pneumocyst jirovecii PCR NOT DETECTED Assessment and Plan (1) Acute kidney injury superimposed on CKD: Status: Acute (2) SELWYN (acute kidney injury): Status: Acute (3) Sepsis: Status: Acute (4) Norovirus: Status: Acute (5) Major neurocognitive disorder due to another medical condition: Status: Acute (6) Pneumonia: Status: Acute (7) HTN (hypertension): Status: Acute Plan 81-year-old male, with a history of HTN, gout, BPH, hepatitis-C, moderate aortic valve stenosis, subclinical hypothyroidism, admitted to ED [facility] 02/01/2025 for case management needs 2/2 worsening altered mental status and forgetfulness, admitted to hospital with sepsis 2/2 pneumonia with SELWYN and toxic encephalopathy. Sepsis Suspected Pneumonia Possible aspiration Transferred from [facility] in emergency room, started on sepsis protocol with lactated ringer and antibiotics Initially on ceftriaxone and doxycycline CT abdomen and pelvis without contrast -ve for intra-abdominal pathology Blood cultures obtained, -ve to date ECHO ordered; negative for IE 02/09; pyrexia, elevated lactic acid, transitioned to vancomycin/Zosyn 02/11, vancomycin was discontinued (MRSA negative PCR nares) 02/16 Zosyn discontinued 02/16 Azithromycin discontinued 02/17 bactrim discontinued Started on Atovaquone 02/17/2025 Evaluation for possible PJP per Infectious diseases; input is greatly appreciated PLAN - Started on Atovaquone 02/17/2025 - infectious diseases reccs greatly appreciated - pending PCR for PJP testing prior to dispo planning (02/13/25) Prerenal acute kidney injury CKD stage III B Hypernatremia Dehydration Patient suffered with acute kidney injury 2/2 dehydration and poor p.o. intake Hypernatremia chronic issue-encouraged to drink more fluid (water) Continue to monitor BMP. Dementia; possible frontotemporal Toxic encephalopathy Metabolic encephalopathy 2/2 dehydration and sepsis 2/2 pneumonia. Ammonia level -ve Patient was initially admitted to emergency room observation unit due to worsening altered mental status and forgetfulness by family members. Psychiatric consulted, recommendations appreciated; olanzapine PO Stable currently - without significant improvement over the past few days Recurrent aspiraiton Dysphagia FTT Speech therapy requested for swallow evaluation Aspiration precautions in place Poor PO intake - multiple aspiration events NDD1 pureed nectar thick, crush tablets in puree, 1:1 feeding while awake. PPN has been started Family to decide if patient to remain on PPN./TPN vs comfort feeding Acute HFpEF > 70% exacerbation - RESOLVED Moderate aortic stenosis HFpEF > 70%, with severe mitral annular calcification, moderate aortic stenosis Possible clinical evidence of mild superimposed acute CHF exacerbation TTE -ve for infective endocarditis Anemia Patient's hemoglobin currently 7.2 improved to 8.6mg/dl today Has been gradually declining No overt source of bleeding No evidence of hemolysis No evidence of HIT Continue Heparin Diarrhea +ve norovirus We will monitor p.o. intake and hydration status Monitor frequency of diarrhea Contact precautions History of gout - resolved Patient has been on recent prednisone long-term Patient was on a taper of prednisone, stop at this time Subclinical hyperthyroidism TSH low Free T4 normal BPH Continue flomax and finasteride as BP is stable QUALITY [employer] - VTE: Heparin 5000 t.i.d. SQ - CODE STATUS: Full code - DIET: Cardiac diet - DISPOSITION: Goals of care discussion to be held with family members/ Placement to HALFWAY vs SNF Total time managing care of this patient today: 45 minutes. Quality Stroke Does the patient have a stroke diagnosis?: No VTE Prior VTE?: No VTE Risk Level:: Medical - moderate - high VTE Device Contraindication: N/A - Device Ordered VTE Drug Contraindication: N/A - Med Ordered
[2025-02-20 15:36] VITALS: BP 102/55; PULSE 104; RESP 19; TEMP 36.9; O2SAT 98
[2025-02-20 19:53] VITALS: BP 139/61; PULSE 108; RESP 18; TEMP 37.1; O2SAT 94
[2025-02-20] MEDS: Parenteral Nutrition 1,920 ML 80 ML IV (21:42)
[2025-02-20] MEDS: 0.9 % Sodium Chloride Flush 3 ML SYRINGE IVFLUSH (21:43)
[2025-02-21 03:06] VITALS: BP 145/58; PULSE 100; RESP 18; TEMP 36.6; O2SAT 96
[2025-02-21 07:46] VITALS: BP 135/62; PULSE 100; RESP 18; TEMP 36.1; O2SAT 96
[2025-02-21 08:30] LABS: Hematocrit 30.2 % (42.0-52.0); Hemoglobin 9.7 g/dl (14.0-18.0); Mean Corpuscular HGB Conc 32.1 g/dl (31.0-36.0); Mean Corpuscular Hemoglobin 31.6 pg (27.0-33.0); Mean Corpuscular Volume 98.4 fL (80.0-98.0); NRBC Abs Auto 0.000 X10*3/uL (0.0-0.012); NRBC Pct Auto 0.0 /100WBC (0.0-0.2); Platelet Count 360 X10*3/uL (160-400); Red Blood Count 3.07 X10*6/uL (4.60-5.80); White Blood Count 15.2 X10*3/uL (4.8-10.8)
[2025-02-21 08:42] LABS: Albumin Level 3.5 g/dL (3.5-5.0); Anion Gap 13 (12-20); Blood Urea Nitrogen 29 mg/dL (9-16); Calcium 10.4 mg/dL (8.4-10.2); Carbon Dioxide 22 mmol/L (22-29); Chloride 105 mmol/L (96-108); Creatinine Clr Calc Pharmacy 28.2; Estimated Glomerular Filt Rate 42; Magnesium 2.3 mg/dL (1.6-2.6); Potassium 4.4 mmol/L (3.3-5.1); Sodium 136 mmol/L (135-145)
--- NOTE | 2025-02-21 09:59 | MHC.CLN ---
F/U DIET RX: PUREE WITH NECTAR THICK LIQUIDS. PO INTAKE NOT ADEQUATE TO MEET ESTIMATED NUTRITIONAL NEEDS. REQUIRES NUTRITION/HYDRATION VIA PPN. REVIEWED LABS. COMMUNICATED WITH PHARMACY. RECOMMEND PPN AT MAX GOAL RATE: PPN AT 80 ML PER HOUR, ADD 75 G LIPIDS. PROVIDES 82 G PROTEIN (1.2 G/KG), 192 G DEXTROSE, 1729 TOTAL KCALS (25.4 KCALS/KG). REPLETE LYTES NEEDED. FOLLOW FOR PPN TOLERANCE, PO INTAKE AND PLAN OF CARE.
--- NOTE | 2025-02-21 10:41 | MHC.SLORD ---
Speech Language Pathology Order Status: Pt not waking this morning, daughter at bedside. [employer] reviewed POC and diet consistencies. Pt daughter verbalized understanding and agreed with [facility] diet/safety precautions, noting pt 'ate a lot' on Thanksgiving, expressing his satisfaction with the cranberry juice. [employer] continues to follow.
[2025-02-21 11:39] LABS: Band Neutrophils Percent 0 % (3-5); Eosinophils Absolute Manual 0.5 X10*3/uL (0.0-0.4); Eosinophils Percent Manual 3 % (0-4); Lymphocytes Absolute Manual 2.6 X10*3/uL (1.2-4.9); Lymphocytes Percent Manual 17 % (20-40); Metamyelocytes Absolute 0.6 X10*3/uL; Metamyelocytes Percent 4 %; Monocytes Absolute Manual 0.8 X10*3/uL (0.1-1.2); Monocytes Percent Manual 5 % (2-11); Myelocytes Absolute 0.3 X10*/uL; Myelocytes Percent 2 %; Neutrophils Absolute Manual 10.2 X10*3/uL (2.0-8.3); Neutrophils Percent Manual 67 % (45-73); Promyelocytes Absolute 0.3 X10*3/uL; Promyelocytes Percent 2 %
[2025-02-21 11:41] LABS: Large Platelet PRESENT; RBC Morphology NORMAL
[2025-02-21 11:42] LABS: Burr Cells 2+ (3-5) /OIF; Hypochromasia 1+ (5-14) /OIF; Polychromasia 2+ (3-5) /OIF
[2025-02-21 11:43] LABS: Tear Drop Cells 1+ (0-2) /OIF
[2025-02-21 14:00] VITALS: BP 126/59; PULSE 95; RESP 21; TEMP 37.4; O2SAT 96
--- NOTE | 2025-02-21 14:32 | MHC.CM.PN ---
Per provider, daughter wishes to transition to [facility]. Requesting GIP eval. Referral sent to [facility]. Met with daughter/invoked HCP who confirms decision for [facility] and is aware of hospice referral. Requesting tomorrow 9am. Hospice aware.
--- NOTE | 2025-02-21 15:29 | P.PNIM_ITS ---
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 Appears slightly restless. In no acute distress Resp: CTA bilaterally CVS: S1, S2, RRR GI: +BS, NT, no distention Skin: Warm, dry Extremities: No edema Vital Signs: Vital Signs: Last Vital Signs Temp 96.9 F 02/21/25 07:46 Pulse 100 02/21/25 07:46 Resp 18 02/21/25 07:46 BP 135/62 02/21/25 07:46 Pulse Ox 96 02/21/25 07:46 O2 Del Method Room Air 02/21/25 07:46 O2 Flow Rate 2 02/20/25 04:00 BMI result Body Mass Index 24.9 Objective Data Active Medications Acetaminophen (Acetaminophen 325 Mg Tablet) 650 mg PO Q6H PRN PRN Reason: Pain, Mild 1-3,fever,headache Last Admin: 02/17/25 21:02 Dose: 650 mg Documented By: HUI Albuterol/Ipratropium (Albuterol/Iprat 2.5/0.5mg 3 Ml Ampul.Neb) 3 ml INHALE RQ6H WHILE AWAKE PRN PRN Reason: Shortness of Breath/Wheezing Last Admin: 02/19/25 04:46 Dose: 3 ml Documented By: RIOS Allopurinol (Allopurinol 300 Mg Tablet) 300 mg PO DAILY [facility] Last Admin: 02/21/25 12:10 Dose: Not Given Documented By: OMERO Non-Admin Reason: too drowsy Atovaquone (Atovaquone 750 Mg/5 Ml Oral.Susp) 750 mg PO BID [facility] Last Admin: 02/21/25 12:10 Dose: Not Given Documented By: OMERO Non-Admin Reason: too drowsy Calcium Carbonate (Calcium Carbonate 750 Mg Tab.Chew) 750 mg PO Q4H PRN PRN Reason: Heartburn Cyanocobalamin (Cyanocobalamin (Vitamin B-12) 100 Mcg Tablet) 100 mcg PO DAILY [facility] Last Admin: 02/21/25 12:10 Dose: Not Given Documented By: OMERO Non-Admin Reason: too drowsy Finasteride (Finasteride 5 Mg Tablet) 5 mg PO DAILY [facility] Last Admin: 02/21/25 12:10 Dose: Not Given Documented By: OMERO Non-Admin Reason: too drowsy Furosemide (Furosemide 40 Mg/4 Ml Vial) 40 mg IVPUSH DAILY [facility]; Protocol On Hold: 02/09/25 02:09 Last Admin: 02/08/25 08:05 Dose: 40 mg Documented By: RICKY Heparin Sodium (Porcine) (Heparin Sodium,Porcine 5,000 Unit/Ml Vial) 5,000 unit SUBCUT Q12H [facility] Last Admin: 02/21/25 10:23 Dose: 5,000 unit Documented By: OMERO Nutrition (Parenteral) (Parenteral Nutrition) 1,920 mls @ 80 mls/hr IV .Q24H [facility]; Protocol Stop: 02/21/25 20:59 Last Admin: 02/20/25 21:42 Dose: 80 mls/hr Documented By: ABEBA Nutrition (Parenteral) (Parenteral Nutrition) 1,920 mls @ 80 mls/hr IV .Q24H [facility]; Protocol Magnesium Hydroxide (Milk Of Magnesia 30 Ml Oral.Susp) 30 ml PO DAILY PRN PRN Reason: Constipation Melatonin (Melatonin 3 Mg Tablet) 6 mg PO BEDTIME PRN PRN Reason: Insomnia Last Admin: 02/20/25 21:43 Dose: 6 mg Documented By: ABEBA Pt Own (Tadalafil 5 (Mg Tablet)) 5 mg PO DAILY [facility] Last Admin: 02/21/25 12:10 Dose: Not Given Documented By: OMERO Non-Admin Reason: too drowsy Olanzapine (Olanzapine 5 Mg Tablet) 5 mg PO Q6H PRN PRN Reason: Agitation Last Admin: 02/18/25 15:13 Dose: 5 mg Documented By: HARITHA Olanzapine (Olanzapine 5 Mg Tablet) 5 mg PO BEDTIME [facility] Last Admin: 02/20/25 21:43 Dose: 5 mg Documented By: ABEBA Ondansetron HCl (Ondansetron Hcl 4 Mg/2 Ml Vial) 4 mg IVPUSH Q8H PRN PRN Reason: Nausea and Vomiting Last Admin: 02/15/25 13:46 Dose: 4 mg Documented By: YFN Pharmacy Consult (Consult Rx Parenteral Nutrition Ordering) 1 each MISCELLANE DAILY PRN PRN Reason: Consult order Polyethylene Glycol (Polyethylene Glycol 3350 17 Gm Powd.Pack) 17 gm PO DAILY PRN PRN Reason: Constipation Senna (Sennosides 8.6 Mg Tablet) 17.2 mg PO BEDTIME [facility] Last Admin: 02/20/25 21:43 Dose: 17.2 mg Documented By: ABEBA Sodium Chloride (0.9 % Sodium Chloride Flush 3 Ml Syringe) 3 ml IVFLUSH QSHIFT [facility] Last Admin: 02/21/25 07:44 Dose: Not Given Documented By: OMERO Non-Admin Reason: IV Running Tamsulosin HCl (Tamsulosin Hcl 0.4 Mg Capsule) 0.4 mg PO BEDTIME [facility] Last Admin: 02/20/25 21:43 Dose: 0.4 mg Documented By: ABEBA Thiamine HCl (Thiamine Hcl 100 Mg Tablet) 100 mg PO DAILY [facility] Last Admin: 02/21/25 12:10 Dose: Not Given Documented By: OMERO Non-Admin Reason: too drowsy Labs 02/21/25 08:14 02/21/25 08:14 Labs: Laboratory Results - last 24 hr 02/21/25 08:14 MCV 98.4 H MCH 31.6 MCHC 32.1 RDW 15.6 Plt Count 360 MPV 9.7 Immature Gran % (Auto) Cancelled Neut % (Auto) Cancelled Lymph % (Auto) Cancelled [place] % (Auto) Cancelled Eos % (Auto) Cancelled Baso % (Auto) Cancelled Lymph # (Auto) Cancelled [place] # (Auto) Cancelled Eos # (Auto) Cancelled Baso # (Auto) Cancelled Abs Immat Gran (auto) Cancelled Absolute Neuts (auto) Cancelled Absolute Nucleated RBC 0.000 Nucleated RBC % (auto) 0.0 Neutrophils % (Manual) 67 Band Neutrophils % 0 L Lymphocytes % (Manual) 17 L Monocytes % (Manual) 5 Eosinophils % (Manual) 3 Metamyelocytes % 4 Myelocytes % 2 Promyelocytes % 2 Abs Neuts (Manual) 10.2 H Lymphocytes # (Manual) 2.6 Monocytes # (Manual) 0.8 Eosinophils # (Manual) 0.5 H Metamyelocytes # 0.6 Myelocytes # 0.3 Promyelocytes # 0.3 Platelet Estimate NORMAL Large Platelets PRESENT Plt Morphology Comment NOTED RBC Morphology NORMAL Polychromasia 2+ (3-5) Hypochromasia 1+ (5-14) Tear Drop Cells 1+ (0-2) Donna Cells 2+ (3-5) Anion Gap 13 Estim Creat Clear Calc 28.2 Estimated GFR 42 Random Glucose 139 H Calcium 10.4 H Phosphorus 4.0 Magnesium 2.3 Albumin 3.5 Assessment and Plan (1) Comfort measures only status: Status: Acute Plan 81-year-old male, with a history of HTN, gout, BPH, hepatitis-C, moderate aortic valve stenosis, subclinical hypothyroidism, admitted to ED [facility] 02/01/2025 for case management needs 2/2 worsening altered mental status and forgetfulness, admitted to hospital with sepsis 2/2 pneumonia with SELWYN and toxic encephalopathy. Comfort measures only status Pt has had a prolonged hospital stay with continued deterioration, need for PPN, and poor prognosis. After a conversation with family/HCP at bedside, they have elected to make the pt comfort care only. Will treat with IV morphine, IV Valium, and scopolamine patch; will otherwise. All other medications including PPN. Sepsis Suspected Pneumonia Possible aspiration Transferred from [facility] in emergency room, started on sepsis protocol with lactated ringer and antibiotics Initially on ceftriaxone and doxycycline CT abdomen and pelvis without contrast -ve for intra-abdominal pathology Blood cultures obtained, -ve to date ECHO ordered; negative for IE 02/09; pyrexia, elevated lactic acid, transitioned to vancomycin/Zosyn 02/11, vancomycin was discontinued (MRSA negative PCR nares) 02/16 Zosyn discontinued 02/16 Azithromycin discontinued 02/17 bactrim discontinued Started on Atovaquone 02/17/2025, 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 intake Hypernatremia chronic issue-encouraged to drink more fluid (water) Dementia; possible frontotemporal Toxic encephalopathy Metabolic encephalopathy 2/2 dehydration and sepsis 2/2 pneumonia. Ammonia level -ve Patient was initially admitted to emergency room observation unit due to worsening altered mental status and forgetfulness by family members. Psychiatric consulted, recommendations appreciated; olanzapine PO Stable currently - without significant improvement over the past few days Recurrent aspiraiton Dysphagia FTT Speech therapy requested for swallow evaluation Aspiration precautions in place Poor PO intake - multiple aspiration events NDD1 pureed nectar thick, crush tablets in puree, 1:1 feeding while awake. 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 intake and hydration status Monitor frequency of diarrhea Contact precautions History of gout - resolved Patient has been on recent prednisone long-term Patient was on a taper of prednisone, stop at this time Subclinical hyperthyroidism TSH low Free T4 normal BPH Continue flomax and finasteride as BP is stable Pt will require continued hospitalization for hospice consult and possible GI be hospice admission vs going home on hospice. Quality Stroke Does the patient have a stroke diagnosis?: No VTE Prior VTE?: No VTE Risk Level:: Medical - moderate - high VTE Device Contraindication: N/A - Device Ordered VTE Drug Contraindication: N/A - Med Ordered
--- NOTE | 2025-02-21 16:15 | HO.WOUND ---
Wound Consult: Initial 89yr old?male admitted to [facility] [place] on 02/06/25 - See progress notes and H&P for detailed history.? Wound consult placed for Coccyx and Groin.? Patient was not alert or interactive with his environment at the time of my assessment. Sacrum Etiology: MASD ? Wound Bed: red pink hyperpigmented tissue mirrored edges within gluteal fold remains intact and blanchable - skin tag noted intact Drainage / Odor: None Edges: mirrored ? Rossy wound: MASD and fungal derm - ? No Induration, Fluctuance or Warmth noted Pain: tenderness noted when cleansing scrotum Goals of Treatment: ? off load pressure to protect from moisture friction and aid in off loading pressure with foam dressing Perineal, scrotal and groin noted to red moist blanchable tissue with maceration noted and advancing boarders and satellite lesions noted consistent with fungal dermatitis. Provider to order topical antifungal powder - recommend follow with barrier cream. Recommendations: 1. Turn and Reposition every 2 hours and as needed for patient comfort.? Use pillows or wedges to support off loading positions. 2. Off Load all bony prominences with use of pillows and heel boots if needed.? Apply Preventative foams where needed. ? 3. Monitor for incontinence and moisture control, use barrier creams when needed for prevention and treatment. 4. Provide adequate and supplemental nutrition.? 5. Continue low air loss mattress. 6. When applicable maintain blood glucose levels per Providers order. Groin and scrotal - Cleanse with PH balance wipes, pat dry with soft cloth.? Apply antifungal power to assist with moisture management.? Be sure to dust of excess powder to prevent caking on skin and in folds. Apply per provider orders. follow with barrier cream to protect from moisture. Sacrum - Off Load Pressure with Q2 hr turns and use of pillows - Routine cleansing.? Apply skin prep allow to dry.? Cover with foam dressing to aid in off loading and protection from friction. Change every 3 days and PRN. Re-consult wound care Nurse for wound deterioration or wound changes.
[2025-02-21 17:53] VITALS: RESP 16
[2025-02-21] MEDS: 0.9 % Sodium Chloride Flush 3 ML SYRINGE IVFLUSH (17:57)
[2025-02-21 22:00] VITALS: BP 147/64; RESP 19; TEMP 37.2; O2SAT 93
--- NOTE | 2025-02-22 08:50 | MHC.SLORD ---
Speech Language Pathology Order Status: Patient transitioned to PSYCHOMETRIST on 02/21/25. Patient tolerated NDD1 (puree), [place] Thick Liquids during last treatment session. 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 MD notified via secure text and in agreement with POC.
[2025-02-22] MEDS: 0.9 % Sodium Chloride Flush 3 ML SYRINGE IVFLUSH (08:56)
[2025-02-22 10:00] VITALS: BP 100/52; PULSE 113; RESP 34; TEMP 39.4
[2025-02-22] MEDS: Acetaminophen Supp 650 MG SUPP.RECT PR (10:40)
--- NOTE | 2025-02-22 11:01 | MHC.CLN ---
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
--- NOTE | 2025-02-22 14:50 | PM.DS ---
DS: Providers Provider Date of Service: 02/22/25 Date of admission: 02/06/25 04:03 Date of discharge: 02/22/25 Primary care physician: Dallas Lara MD Consults: 02/01/25 17:21 Consult to Psychiatry Stat Consulting Provider: [facility] Reason for consultation: rapid mental decline. ? prednisone psychosis, awaiting neurology consult 02/06/25 04:13 Consult to Nephrology Routine Consulting Provider: [facility] Reason for consultation: SELWYN readmitted for this and AMS Has provider been notified: No 02/08/25 16:16 Consult to Infectious Diseases Routine Consulting Provider: [facility] Reason for consultation: persistent fever in suspected PNA 02/19/25 11:56 Consult to Wound Care Routine Consulting Provider: [facility] Reason for consultation: MASD groin / coccyx DS: Diagnosis Discharge Diagnosis (1) Comfort measures only status: Status: Acute DS: Summary Hospital Course Hospital Course: From admission HPI: Date of Service: 02/06/25 Attending physician on admission: Ashley Mandel Chief Complaint: sepsis Patient is a 81-year-old male with past medical history gout, hypertension, BPH, bladder stone, hepatitis-C, GERD, hypertension, moderate aortic valve stenosis, moderate mitral annular calcification, elevated PSA, and current subclinical hypothyroidism had been in overflow since 02/01/25 for case management needs related to altered mental status and increasing forgetfulness with recent falls, one resulting in Nasal fx. Daughter had requested evaluation for physical therapy assessment and potential placement in the community. While taking patient's usual vital signs in [facility], they found that patient was tachycardic and febrile. Patient was transferred over to the ED from [facility] and started on sepsis protocol. Patient currently receiving ceftriaxone, doxycycline and LR via sepsis protocol for fluid resuscitation. Patient is feeling warm to the touch, easily arousable but can not stay awake for long periods of time. Patient can follow commands when awake but appears overall confused, delirium versus dementia. Patient does have a leukocytosis of 10.9 and H&H is 8.6 and 27 a drop from labs on 01/24/2025 where the H&H was 10.4 and 32.6. Patient's vitamin B12 level was normal. Patient chloride is 112, IV fluids were changed to LR from normal saline. CO2 is 20. VBG is pending. Creatinine 2.43 a significant rise in his levels from 02/01/2025 where his creatinine was 1.89. Creatinine clearance now 18.2 and GFR 25. Lisinopril is now discontinued. Glucose 141. Lactic acid 3.3. BNP 424. Echo done on 12/20/2024 noted an EF of 66% with moderate aortic valve stenosis and moderate mitral annular calcification. UA negative for UTI. LFTs and ammonia level pending. Chest x-ray done today indicates mild pulmonary interstitial edema and small left pleural effusion. Cardiomegaly present. CT of the chest done on 02/04 was negative for any acute findings. Head CT was negative for any acute findings as well. Patient being admitted for sepsis, possible source pneumonia, workup continues. Patient has had 2 previous admissions for SELWYN, the 1st 12/17/2024 through 12/21/2024 and the 2nd was 01/26/2025 through 01/28/2025. Hospital course Pt had a long and complicated hospital course, and ultimately did not respond well to therapies. Pt had significantly reduced p.o. intake during hospital stay, and eventually had to be placed on PPN. After pt became primarily nonresponsive and without p.o. intake for 4+ days, family elected to make pt [employer]. Pt will now be discharged and readmitted under [facility] hospice. All home medications will be stopped. Additional details concerning patient's hospital stay as indicated below. Comfort measures only status Pt has had a prolonged hospital stay with continued deterioration, need for PPN, and poor prognosis. After a conversation with family/HCP at bedside, they have elected to make the pt comfort care only. Will treat with IV morphine, IV Valium, and scopolamine patch; will otherwise. All other medications including PPN. Sepsis Suspected Pneumonia Possible aspiration Transferred from [facility] in emergency room, started on sepsis protocol with lactated ringer and antibiotics Initially on ceftriaxone and doxycycline CT abdomen and pelvis without contrast -ve for intra-abdominal pathology Blood cultures obtained, -ve to date ECHO ordered; negative for IE 02/09; pyrexia, elevated lactic acid, transitioned to vancomycin/Zosyn 02/11, vancomycin was discontinued (MRSA negative PCR nares) 02/16 Zosyn discontinued 02/16 Azithromycin discontinued 02/17 bactrim discontinued Started on Atovaquone 02/17/2025, will now stop as pt is [employer] Evaluation for possible PJP per Infectious diseases; input is greatly appreciated Prerenal acute kidney injury CKD stage III B Hypernatremia Dehydration Patient suffered with acute kidney injury 2/2 dehydration and poor p.o. intake Hypernatremia chronic issue-encouraged to drink more fluid (water) Dementia; possible frontotemporal Toxic encephalopathy Metabolic encephalopathy 2/2 dehydration and sepsis 2/2 pneumonia. Ammonia level -ve Patient was initially admitted to emergency room observation unit due to worsening altered mental status and forgetfulness by family members. Psychiatric consulted, recommendations appreciated; olanzapine PO Stable currently - without significant improvement over the past few days Recurrent aspiraiton Dysphagia FTT Speech therapy requested for swallow evaluation Aspiration precautions in place Poor PO intake - multiple aspiration events NDD1 pureed nectar thick, crush tablets in puree, 1:1 feeding while awake. PPN has been started, will now stop as pt is [employer] Acute HFpEF > 70% exacerbation - RESOLVED Moderate aortic stenosis HFpEF > 70%, with severe mitral annular calcification, moderate aortic stenosis Possible clinical evidence of mild superimposed acute CHF exacerbation TTE -ve for infective endocarditis Anemia Patient's hemoglobin currently 7.2 improved to 8.6mg/dl today Has been gradually declining No overt source of bleeding No evidence of hemolysis No evidence of HIT Diarrhea +ve norovirus We will monitor p.o. intake and hydration status Monitor frequency of diarrhea Contact precautions History of gout - resolved Patient has been on recent prednisone long-term Patient was on a taper of prednisone, stop at this time Subclinical hyperthyroidism TSH low Free T4 normal BPH Continue flomax and finasteride as BP is stable Time Attestation Discharge Coordination Time (in mins): 35 Quality: Safe Use of Opioids Does Pt have an Active Cancer Diagnosis on the Problem List?: No Quality: Stroke Does the patient have a stroke diagnosis?: No Physical Exam Exam: Exam: General: Obtunded, resting comfortably in bed. In no acute distress Resp: CTA bilaterally. Breathing unlabored CVS: S1, S2, RRR Skin: Warm, dry Vital Signs: Vital Signs: Last Vital Signs Temp 103 F H 02/22/25 10:00 Pulse 113 H 02/22/25 10:00 Resp 34 H 02/22/25 10:00 BP 100/52 L 02/22/25 10:00 Pulse Ox 93 02/21/25 22:00 O2 Del Method Room Air 02/21/25 22:00 O2 Flow Rate 2 11/30/25 04:00 BMI result Body Mass Index 24.9 Discharge Plan Discharge Anticipated Discharge Date/Time: 02/22/25 14:45 Patient Disposition: Hospice - Medical Facility Discharge Diagnosis: Acute hypoxic respiratory failure in the setting of aspiration pneumonia with sepsis Referrals: Dallas Lara MD [Primary Care Provider, Internal Medicine] - 1 Week Discharge Medications: Discontinued lisinopril 40 mg tablet 40 mg PO DAILY finasteride 5 mg tablet 5 mg PO DAILY tadalafil 5 mg tablet 5 mg PO DAILY tamsulosin 0.4 mg capsule 0.4 mg PO BEDTIME prednisone 1 mg tablet 3 mg PO DAILY Rx Instructions: 4 mg x 3 days. then 3 mg x 3 days then 2 mg x 3 days then 1 mg x 3 days olanzapine 2.5 mg tablet 2.5 mg PO BEDTIME Discharge Orders: Discharge Order (Routine); Ordered 02/22/25 Ordered By: Karlene Forrest Activity on Discharge: As tolerated Stand Alone Forms: Patient Portal Discharge page Print Language: Macedonian Care Plan Goals: Pt will be readmitted to the hospital under [facility] hospice. Health Concerns: Pt will be readmitted to the hospital under [facility] hospice. Plan of Treatment: Pt will be readmitted to the hospital under [facility] hospice. Assessment: Pt will be readmitted to the hospital under [facility] hospice.
--- NOTE | 2025-02-27 19:06 | P.CDIM_ITS ---
PROVIDER RESPONSE TEXT: To clarify, the appropriate diagnosis supported by the clinical indicators: Acute respiratory failure with hypoxia: Hypoxic QUERY TEXT: PHYSICIAN'S DOCUMENTATION REQUEST Date of Query: 02/22/2025 08:14 AM EST Patient Name: Kevin Cisneros Admit Date: 02/06/2025 Dear Karlene SHAW, A review of the medical record indicates additional documentation may be needed. Please review below and update the documentation accordingly. Clinical Indicators: PH arterial blood gas 01/1725: 7.5, pCO2 arterial 27.0 tachypneic 02/08/25 with respiratory rate 36 and hypoxic, Oxymask shortness of breath 02/14/25 Please clarify which of the following accurately represents the patient's respiratory status: Acute respiratory failure with hypoxia Please specify if Hypoxic, Hypercapnic, or Hypoxic and hypercapnic Acute on chronic respiratory failure Please specify if Hypoxic, Hypercapnic, or Hypoxic and hypercapnic Chronic respiratory failure Please specify if Hypoxic, Hypercapnic, or Hypoxic and hypercapnic Acute respiratory distress Hypoxia Other (explain) Clinically unable to determine (explain) Thank you, Khalida Art RN Use of terms such as suspected, likely, concern for, or probable (associated with a specific diagnosis that is being evaluated, monitored, or treated as if it exists) are acceptable and can be coded in the inpatient setting, when documented at the time of discharge. Please use your independent medical judgment in providing your response. THIS QUERY IS PART OF THE PERMANENT MEDICAL RECORD
--- OUTSIDE RECORDS SUMMARY | 2025-03-04 19:00 | XMS_ITS | Clinical Summary ---
Author Organization Unknown Care Team Providers Care Tube Teller Name Role Phone ALISHA REESE, JOSSELIN Unavailable Unavailable STEFANY OT, LEXI Unavailable Unavailabl e DEV PT, MEY Unavailable Unavailable JOHN (H[facility]) [facility] - REGISTRATION SPECIALIST, AAKASH Unavailable Unavailable VERITO RN, SANDHYA Unavailable Unavailable Payers Payer Name Policy Type Policy Number Effective Date Expira tion Date [place] [id number] Problems Condition Name Condition Details Condition Category Status Onset Date Resolution Date Last Treatment Date Treating Clinician Comments ACUTE RESPIRATORY FAILURE WITH HYPOXIA Active 03-24 00:00: 00 OTHER SPECIFIED SEPSIS Active 03-24 00:00: 00 VIRAL PNEUMONIA, UNSPECIFIED Active 03-24 00:00: 00 OTH VIRAL AGENTS THE CAUSE OF DISEASES CLASSD ELSWHR Active 03-24 00:00: 00 HYPERTENSIVE CHRONIC KIDNEY DISEASE W STG 1-4/UNSP CHR KDNY Active 03-24 00:00: 00 CHRONIC KIDNEY DISEASE, STAGE 3A Active 03-24 00:00: 00 ACUTE KIDNEY FAILURE, UNSPECIFIED Active 03-24 00:00: 00 HYPERLIPIDEM IA, UNSPECIFIED Active 03-24 00:00: 00 OLD MYOCARDIAL INFARCTION Active 03-24 00:00: 00 NONRHEUMATIC AORTIC (VALVE) STENOSIS Active 03-24 00:00: 00 BENIGN PROSTATIC HYPERPLASIA WITHOUT LOWER URINRY TRACT SYMP Active 03-24 00:00: 00 GASTRO-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 Active 03-24 00:00: 00 OTHER SUPRAVENTRIC ULAR TACHYCARDIA Active 03-24 00:00: 00 DYSPHAGIA, UNSPECIFIED Active 03-24 00:00: 00 HISTORY OF FALLING Active 03-24 00:00: 00 PERSONAL HISTORY OF NICOTINE DEPENDENCE Active 03-24 00:00: 00 Problems related to health literacy Active 03-24 00:00: 00 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 Ordering Clinician Indication Dosage Frequency Signature (SIG) Comments Components levofloxaci n 500 mg tablet 12-21 00:00: 00 01-05 00:00 :00 No [id number] Per instruc tions Per instructio ns (route: oral) Med Classific ation: Anti-Infe ctive Agents finasteride 5 mg tablet 07-26 00:00: 00 Yes [id number] 1 tablet DAILY 1 tablet DAILY (route: oral) Med Classific ation: Genitouri nary Therapy lisinopril 20 mg tablet 07-26 00:00: 00 Yes [id number] 1 tablet DAILY 1 tablet DAILY (route: oral) Med Classific ation: Cardiovas cular Therapy Agents prednisone 1 mg tablet 2024-03 00:00: 00 02-07 23:59 :00 No [id number] Per instruc tions DIRECTED Per instructio ns DIRECTED (route: oral) Med Classific ation: Endocrine tadalafil 5 mg tablet 06-28 00:00: 00 Yes [id number] 1 tablet DAILY 1 tablet DAILY (route: oral) Med Classific ation: Drugs to treat Erectile Dysfuncti on tamsulosin 0.4 mg capsule 06-28 00:00: 00 Yes [id number] 1 capsule BEDTIME 1 capsule BEDTIME (route: oral) Med Classific ation: Genitouri nary Therapy Immunizations Ordered Immunization Name Filled Immunization Name Date Status Comments Refusal Reason COVID BOOSTER, COVID BOOSTER 2024-06-28 00:00:00 Vital Signs Vital Name Observation Time Observation Value Commen ts Temperature 2025-01-27 17:00:00.000 98.3 [degF] Temperature 2025-01-24 17:33:00.000 98.4 [degF] Temperature 2025-01-21 15:47:00.000 97.6 [degF] Temperature 2025-01-20 16:24:00.000 97.5 [degF] Temperature 2025-01-18 11:05:00.000 97.5 [degF] Temperature 2025-01-14 12:55:00.000 97.6 [degF] Temperature 2025-01-13 10:45:00.000 97.8 [degF] Temperature 2025-01-11 15:11:00.000 97.9 [degF] Temperature 2025-01-11 12:36:00.000 98.6 [degF] Temperature 2025-01-05 11:23:00.000 98.2 [degF] BMI (%) 2025-01-05 11:23:00.000 25 kg/m2 Height 2025-01-05 11:23:00.000 65 [in_us] Pulse 2025-01-27 17:00:00.000 96 /min Pulse 2025-01-24 17:33:00.000 99 /min Pulse 2025-01-21 15:47:00.000 98 /min Pulse 2025-01-20 16:24:00.000 98 /min Pulse 2025-01-19 10:11:00.000 100 /min Pulse 2025-01-18 11:05:00.000 105 /min Pulse 2025-01-14 12:55:00.000 61 /min Pulse 2025-01-13 10:45:00.000 83 /min Pulse 2025-01-12 10:36:00.000 66 /min Pulse 2025-01-11 15:11:00.000 92 /min Pulse 2025-01-11 12:36:00.000 105 /min Pulse 2025-01-05 11:23:00.000 101 /min O2 Saturation (%) 2025-01-24 17:33:00.000 98 % O2 Saturation (%) 2025-01-19 10:11:00.000 93 % O2 Saturation (%) 2025-01-18 11:05:00.000 98 % O2 Saturation (%) 2025-01-14 12:55:00.000 97 % O2 Saturation (%) 2025-01-13 10:45:00.000 100 % O2 Saturation (%) 2025-01-12 10:36:00.000 98 % O2 Saturation (%) 2025-01-11 15:11:00.000 95 % O2 Saturation (%) 2025-01-11 12:36:00.000 96 % O2 Saturation (%) 2025-01-05 11:23:00.000 98 % Respirations 2025-01-27 17:00:00.000 17 /min Respirations 2025-01-24 17:33:00.000 18 /min Respirations 2025-01-21 15:47:00.000 17 /min Respirations 2025-01-20 16:24:00.000 18 /min Respirations 2025-01-18 11:05:00.000 18 /min Respirations 2025-01-14 12:55:00.000 17 /min Respirations 2025-01-13 10:45:00.000 16 /min Respirations 2025-01-11 15:11:00.000 17 /min Respirations 2025-01-11 12:36:00.000 18 /min Respirations 2025-01-05 11:23:00.000 16 /min Weight (lbs) 2025-01-24 17:33:00.000 138 [lb_av] Weight (lbs) 2025-01-13 10:45:00.000 151 [lb_av] Weight (lbs) 2025-01-11 12:36:00.000 151.8 [lb_av] Weight (lbs) 2025-01-05 11:23:00.000 156 [lb_av] Systolic Blood Pressure 2025-01-27 17:00:00.000 130 mm [Hg] Systolic Blood Pressure 2025-01-24 17:33:00.000 126 mm [Hg] Systolic Blood Pressure 2025-01-21 15:47:00.000 122 mm [Hg] Systolic Blood Pressure 2025-01-20 16:24:00.000 128 mm [Hg] Systolic Blood Pressure 2025-01-19 10:11:00.000 130 mm [Hg] Systolic Blood Pressure 2025-01-18 11:05:00.000 122 mm [Hg] Systolic Blood Pressure 2025-01-14 12:55:00.000 124 mm [Hg] Systolic Blood Pressure 2025-01-13 10:45:00.000 122 mm [Hg] Systolic Blood Pressure 2025-01-12 10:36:00.000 116 mm [Hg] Systolic Blood Pressure 2025-01-11 15:11:00.000 118 mm [Hg] Systolic Blood Pressure 2025-01-11 12:36:00.000 122 mm [Hg] Systolic Blood Pressure 2025-01-05 11:23:00.000 122 mm [Hg] Diastolic Blood Pressure 2025-01-27 17:00:00.000 63 mm [Hg] Diastolic Blood Pressure 2025-01-24 17:33:00.000 60 mm [Hg] Diastolic Blood Pressure 2025-01-21 15:47:00.000 60 mm [Hg] Diastolic Blood Pressure 2025-01-20 16:24:00.000 60 mm [Hg] Diastolic Blood Pressure 2025-01-19 10:11:00.000 62 mm [Hg] Diastolic Blood Pressure 2025-01-18 11:05:00.000 68 mm [Hg] Diastolic Blood Pressure 2025-01-14 12:55:00.000 58 mm [Hg] Diastolic Blood Pressure 2025-01-13 10:45:00.000 60 mm [Hg] Diastolic Blood Pressure 2025-01-12 10:36:00.000 62 mm [Hg] Diastolic Blood Pressure 2025-01-11 15:11:00.000 56 mm [Hg] Diastolic Blood Pressure 2025-01-11 12:36:00.000 70 mm [Hg] Diastolic Blood Pressure 2025-01-05 11:23:00.000 56 mm [Hg] Plan of Treatment Planned Activity Planned Date Details Comments Future Scheduled Test SKILLED NU RSE TO EVALUATE PATIENT, IDENTIFY PRIMARY AND CO-MORBID CONDITIONS CODED PER CODING GUIDELINES, AND DEVELOP PATIENT SPECIFIC PLAN OF CARE THAT INCLUDES PATIENT GOAL FOR HOME HEALTH. [code = SKILLED NURSE TO EVALUATE PATIENT, IDENTIFY PRIMARY AND CO-MORBID CONDITIONS CODED PER CODING GUIDELINES, AND DEVELOP PATIENT SPECIFIC PLAN OF CARE THAT INCLUDES PATIENT GOAL FOR HOME HEALTH.] Future Scheduled Test SKILLED NU RSE TO PREFILL MEDIPLANNER AND INSTRUCT PATIENT/CAREGIVER ON FILLING MEDIPLANNER DEVICE ONCE A WEEK [code = SKILLED NURSE TO PREFILL MEDIPLANNER AND INSTRUCT PATIENT/CAREGIVER ON FILLING MEDIPLANNER DEVICE ONCE A WEEK] Future Scheduled Test SKILLED NU RSE MAY COLLECT URINE SAMPLE FOR URINE REAGENT STRIP TESTING AND/OR URINALYSIS WITH C S 1-3 PRN IF INDICATED FOR SIGNS AND SYMPTOMS OF UTI. IF REAGENT STRIP TEST IS POSITIVE FOR UTI, SKILLED NURSE TO TAKE URINE SAMPLE TO LAB FOR URINE C S AND REPORT RESULTS TO PHYSICIAN. [code = SKILLED NURSE MAY COLLECT URINE SAMPLE FOR URINE REAGENT STRIP TESTING AND/OR URINALYSIS WITH C S 1-3 PRN IF INDICATED FOR SIGNS AND SYMPTOMS OF UTI. IF REAGENT STRIP TEST IS POSITIVE FOR UTI, SKILLED NURSE TO TAKE URINE SAMPLE TO LAB FOR URINE C S AND REPORT RESULTS TO PHYSICIAN.] Future Scheduled Test SKILLED NU RSE FOR O/A, TEACHING, AND MANAGEMENT OF HLD, RI, AORTIC STENOSIS, SV TACHYCARDIA. [code = SKILLED NURSE FOR O/A, TEACHING, AND MANAGEMENT OF HLD, RI, AORTIC STENOSIS, SV TACHYCARDIA.] Future Scheduled Test SKILLED NU RSE FOR O/A, TEACHING RELATED TO GERD FOR EARLY IDENTIFICATION OF EXACERBATION OF DISEASE PROCESS. [code = SKILLED NURSE FOR O/A, TEACHING RELATED TO GERD FOR EARLY IDENTIFICATION OF EXACERBATION OF DISEASE PROCESS.] Future Scheduled Test SKILLED NU RSE FOR O/A, TEACHING AND MANAGEMENT OF CKD, BPH FOR EARLY IDENTIFICATION OF EXACERBATION OF DISEASE PROCESS [code = SKILLED NURSE FOR O/A, TEACHING AND MANAGEMENT OF CKD, BPH FOR EARLY IDENTIFICATION OF EXACERBATION OF DISEASE PROCESS] Future Scheduled Test OCCUPATION AL THERAPIST TO EVALUATE PATIENT FOR PHYSICAL DECONDITIONING [code = OCCUPATIONAL THERAPIST TO EVALUATE PATIENT FOR PHYSICAL DECONDITIONING] Future Scheduled Test SKILLED NU RSE FOR O/A OF RESPIRATORY SYSTEM TO IDENTIFY CHANGES ASSOCIATED WITH EXACERBATION AND TO PROVIDE SKILLED TEACHING ON MANAGEMENT OF ACUTE RESPIRATORY FAILURE WITH HYPOXIA DISEASE PROCESS. SKILLED NURSE FOR O/A OF RESPIRATORY SYSTEM TO IDENTIFY CHANGES ASSOCIATED WITH EXACERBATION AND TO PROVIDE SKILLED TEACHING ON MANAGEMENT OF VIRAL PNEUMONIA [code = SKILLED NURSE FOR O/A OF RESPIRATORY SYSTEM TO IDENTIFY CHANGES ASSOCIATED WITH EXACERBATION AND TO PROVIDE SKILLED TEACHING ON MANAGEMENT OF ACUTE RESPIRATORY FAILURE WITH HYPOXIA DISEASE PROCESS. SKILLED NURSE FOR O/A OF RESPIRATORY SYSTEM TO IDENTIFY CHANGES ASSOCIATED WITH EXACERBATION AND TO PROVIDE SKILLED TEACHING ON MANAGEMENT OF VIRAL PNEUMONIA] Future Scheduled Test SKILLED NU RSE FOR O/A AND SKILLED TEACHING RELATED TO SIGNS AND SYMPTOMS OF INFECTION AND INFECTION CONTROL MEASURES. [code = SKILLED NURSE FOR O/A AND SKILLED TEACHING RELATED TO SIGNS AND SYMPTOMS OF INFECTION AND INFECTION CONTROL MEASURES.] Future Scheduled Test PHYSICAL T HERAPIST TO EVALUATE PATIENT FOR PHYSICAL DECONDITIONING [code = PHYSICAL THERAPIST TO EVALUATE PATIENT FOR PHYSICAL DECONDITIONING] Future Scheduled Test SKILLED NU RSE TO PROVIDE TEACHING ON SIGNS AND SYMPTOMS AND MANAGEMENT OF HYPERTENSION WITH CKD. [code = SKILLED NURSE TO PROVIDE TEACHING ON SIGNS AND SYMPTOMS AND MANAGEMENT OF HYPERTENSION WITH CKD.] Future Scheduled Test SKILLED NU RSE TO INSTRUCT PATIENT/CAREGIVER ON PREVENTION OF SEPSIS, AND SIGNS AND SYMPTOMS OF SEPSIS TO REPORT. [code = SKILLED NURSE TO INSTRUCT PATIENT/CAREGIVER ON PREVENTION OF SEPSIS, AND SIGNS AND SYMPTOMS OF SEPSIS TO REPORT.] Future Scheduled Test SKILLED NU RSE FOR O/A, TEACHING RELATED TO HEP C FOR EARLY IDENTIFICATION OF EXACERBATION OF DISEASE PROCESS. [code = SKILLED NURSE FOR O/A, TEACHING RELATED TO HEP C FOR EARLY IDENTIFICATION OF EXACERBATION OF DISEASE PROCESS.] Future Scheduled Test PRN [facility] L VISITS MAY BE PERFORMED UTILIZING TELECOMMUNICATIONS SYSTEM TO OPTIMIZE SKILLED SERVICES FURNISHED ON THE PLAN OF CARE. SKILLED NURSE TO ESTABLISH SUPPORT MEASURES TO MINIMIZE RISK OF REHOSPITALIZATION, AND INSTRUCT PATIENT/CAREGIVER ON METHODS TO REDUCE AVOIDABLE HOSPITALIZATION. [code = PRN VIRTUAL VISITS MAY BE PERFORMED UTILIZING TELECOMMUNICATIONS SYSTEM TO OPTIMIZE SKILLED SERVICES FURNISHED ON THE PLAN OF CARE. SKILLED NURSE TO ESTABLISH SUPPORT MEASURES TO MINIMIZE RISK OF REHOSPITALIZATION, AND INSTRUCT PATIENT/CAREGIVER ON METHODS TO REDUCE AVOIDABLE HOSPITALIZATION.] Future Scheduled Test PATIENT MARTINEZ S A RISK OF HOSPITALIZATION AND ED USE. SKILLED NURSE TO ESTABLISH SUPPORT MEASURES TO MINIMIZE RISK OF HOSPITALIZATION AND ED USE, AND INSTRUCT PATIENT/CAREGIVER ON METHODS TO REDUCE AVOIDABLE HOSPITALIZATION AND ED USE. [code = PATIENT HAS A RISK OF HOSPITALIZATION AND ED USE. SKILLED NURSE TO ESTABLISH SUPPORT MEASURES TO MINIMIZE RISK OF HOSPITALIZATION AND ED USE, AND INSTRUCT PATIENT/CAREGIVER ON METHODS TO REDUCE AVOIDABLE HOSPITALIZATION AND ED USE.] Future Scheduled Test SKILLED NU RSE TO PROVIDE INSTRUCTION TO PATIENT/CAREGIVER RELATED TO DISCHARGE PLANNING. [code = SKILLED NURSE TO PROVIDE INSTRUCTION TO PATIENT/CAREGIVER RELATED TO DISCHARGE PLANNING.] Future Scheduled Test SKILLED NU RSE TO PERFORM ENVIRONMENTAL SAFETY RISK ASSESSMENT AND FALL RISK ASSESSMENT AND PROVIDE INSTRUCTION TO IMPLEMENT ENVIRONMENTAL SAFETY AND FALL PREVENTION STRATEGIES THROUGHOUT THE CERTIFICATION PERIOD. SKILLED NURSE WILL MAINTAIN SITUATIONAL AWARENESS AND WILL NOTIFY CLINICAL RESIDENT PROGRAM SPECIALIST AND PHYSICIAN/PROVIDER WITH ANY CHANGE IN CONDITION. [code = SKILLED NURSE TO PERFORM ENVIRONMENTAL SAFETY RISK ASSESSMENT AND FALL RISK ASSESSMENT AND PROVIDE INSTRUCTION TO IMPLEMENT ENVIRONMENTAL SAFETY AND FALL PREVENTION STRATEGIES THROUGHOUT THE CERTIFICATION PERIOD. SKILLED NURSE WILL MAINTAIN SITUATIONAL AWARENESS AND WILL NOTIFY CLINICAL RESIDENT PROGRAM SPECIALIST AND PHYSICIAN/PROVIDER WITH ANY CHANGE IN CONDITION.] Future Scheduled Test SKILLED NU RSE FOR OBSERVATION AND ASSESSMENT OF PATIENT S PAIN LEVEL AND EFFECTIVENESS OF PAIN MANAGEMENT REGIMEN. SKILLED NURSE TO INSTRUCT PATIENT/CAREGIVER REGARDING PHARMACOLOGIC AND NON-PHARMACOLOGIC PAIN CONTROL MEASURES. SKILLED NURSE TO REPORT TO PHYSICIAN IF PAIN LEVEL IS OUTSIDE OF ESTABLISHED PARAMETERS. [code = SKILLED NURSE FOR OBSERVATION AND ASSESSMENT OF PATIENT S PAIN LEVEL AND EFFECTIVENESS OF PAIN MANAGEMENT REGIMEN. SKILLED NURSE TO INSTRUCT PATIENT/CAREGIVER REGARDING PHARMACOLOGIC AND NON-PHARMACOLOGIC PAIN CONTROL MEASURES. SKILLED NURSE TO REPORT TO PHYSICIAN IF PAIN LEVEL IS OUTSIDE OF ESTABLISHED PARAMETERS.] Future Scheduled Test SKILLED NU RSE TO ASSESS PATIENT'S SKIN INTEGRITY AND INSTRUCT PATIENT/CAREGIVER ON MEASURES TO PREVENT PRESSURE ULCERS. [code = SKILLED NURSE TO ASSESS PATIENT'S SKIN INTEGRITY AND INSTRUCT PATIENT/CAREGIVER ON MEASURES TO PREVENT PRESSURE ULCERS.] Future Scheduled Test SKILLED NU RSE TO REVIEW PATIENT MEDICATIONS (PRESCRIPTION/OTC). INSTRUCT PATIENT/CAREGIVER ON ALL MEDICATIONS INCLUDING PURPOSE, WHEN TO TAKE, IMPORTANCE OF MEDICATION ADHERENCE, MONITORING OF EFFECTIVENESS, ADVERSE DRUG REACTIONS, POSSIBLE SIDE EFFECTS, AND WHEN TO NOTIFY AGENCY OR PHYSICIAN/PROVIDER OF ANY CONCERNS. [code = SKILLED NURSE TO REVIEW PATIENT MEDICATIONS (PRESCRIPTION/OTC). INSTRUCT PATIENT/CAREGIVER ON ALL MEDICATIONS INCLUDING PURPOSE, WHEN TO TAKE, IMPORTANCE OF MEDICATION ADHERENCE, MONITORING OF EFFECTIVENESS, ADVERSE DRUG REACTIONS, POSSIBLE SIDE EFFECTS, AND WHEN TO NOTIFY AGENCY OR PHYSICIAN/PROVIDER OF ANY CONCERNS.] Future Scheduled Test PHYSICAL T HERAPIST TO EVALUATE PATIENT SECONDARY TO FUNCTIONAL DEFICITS/SAFETY CONCERNS. PHYSICAL THERAPY TO ESTABLISH /UPGRADE/DOWNGRADE THERAPEUTIC EXERCISE PROGRAM AND INSTRUCT PATIENT/CAREGIVER ON EXERCISE PRECAUTIONS WITH WRITTEN HOME PROGRAM. MAY INCLUDE PROM, AAROM, AROM, RROM APPROPRIATE TO IMPROVE FUNCTIONAL STRENGTH AND RANGE OF MOTION. PHYSICAL THERAPY TO INSTRUCT PATIENT/CAREGIVER ON SAFE TRANSFER TECHNIQUES USING PROPER BODY MECHANICS AND EQUIPMENT. PHYSICAL THERAPY TO INSTRUCT PATIENT/CAREGIVER ON GAIT TRAINING TECHNIQUES USING APPROPRIATE ASSISTIVE DEVICE, PROPER BODY MECHANICS TO IMPROVE MOBILITY, AND PREVENT INJURY OF PATIENT AND/OR CAREGIVER. PHYSICAL THERAPY TO ASSESS AND RECOMMEND HOME SAFETY ADAPTATIONS AND EDUCATE PATIENT /CAREGIVER ON FALL PREVENTION STRATEGIES. SUMMARY OF THERAPY EVAL/ASSESSMENT FINDINGS AND REASON(S) SKILLS OF A THERAPIST ARE INDICATED: PATIENT WAS SEEN FOR INITIAL PHYSICAL THERAPY VISIT AND HOME SAFETY ASSESSMENT. PATIENT IS A 89 YEAR OLD MAN WHO WAS HOSPITALIZED AFTER 2 FALLS DX WITH PNA. PMH: HTN, CKD, HX OF NSTE, BPH, MODERATE AORTIC STENOSIS, PAROXYSMAL ATRIAL TACHYCARDIA, KIDNEY STONES, HEP C VIRUS, GERD. PLOF LIVES ALONE, DINGLE FAMILY HOME, USED CANE IN COMMUNITY, NO DEVICE N HOME, SUPPORTIVE DAUGHTER AND SON-IN-LAW PRESENTLY USING RW. WHEELS TURN INWARD AND ASSESSED FOR HT AND USE. PT SLEEPS IN BED WITH NO BEDRAIL AND WAS INSTRUCTED AND TAKING HIS TIME. PATIENT REQUIRES MULTIPLE ATTEMPTS FOR GETTING OUT OF CHAIR AND IS UNSTEADY INITIALLY. MOVED SOME FURNITURE TO ACCOMMODATE WALKER IN HOME. PATIENT HAVING DIFFICULTY WITH STAIRS TO EXIT SAFELY. PATIENT STATES THAT HE IS ABLE TO DRESS HIMSELF WITH TIME HOWEVER DOES LOOK DISHEVELED. REQUIRES ASSIST FOR SHOWERING ...AND WAS INSTRUCTED AND TAKING HIS TIME. PATIENT REQUIRES MULTIPLE ATTEMPTS FOR GETTING OUT OF CHAIR AND IS UNSTEADY INITIALLY. MOVED SOME FURNITURE TO ACCOMMODATE WALKER IN HOME. PATIENT HAVING DIFFICULTY WITH STAIRS TO EXIT SAFELY. PATIENT STATES THAT HE IS ABLE TO DRESS HIMSELF WITH TIME HOWEVER DOES LOOKED A SHOVELED. REQUIRES ASSIST FOR SHOWERING. TUG SCORE AND 30 SECOND POI-ME-BIDLL INDICATE THAT PATIENT IS A FALL RISK. PATIENT DENIES RECENT FALLS SINCE HIS RETURN HOME. WALKER WHEELS RETURNED INWARD AND HEIGHT ADJUSTED. HOME EXERCISE PROGRAM INITIATED. WRITTEN PROGRAM PROVIDED. PATIENT ENCOURAGED TO AMBULATE HOURLY. PATIENT USING URINAL. RECOMMENDED THAT PATIENT BEGIN WALKING TO AND FROM BATHROOM DURING THE DAY AND USE A URINAL AT NIGHT. PATIENT GOAL IS TO RESUME DRIVING AND RETURNED TO BEING ACTIVE IN THE COMMUNITY HE STATES THAT HE WAS DRIVING TO SEE A FRIEND WHO IS A SENIOR CARE AND HE FELL IN THE PARKING LOT. PATIENT IS A APPROPRIATE CANDIDATE FOR SKILLED PHYSICAL THERAPY TO ADJUST PHYSICAL IMPAIRMENTS AND FUNCTIONAL LIMITATIONS. PATIENT VERBALIZED AGREEMENT WITH PLAN OF CARE. MD NOTIFIED. [code = PHYSICAL THERAPIST TO EVALUATE PATIENT SECONDARY TO FUNCTIONAL DEFICITS/SAFETY CONCERNS. PHYSICAL THERAPY TO ESTABLISH /UPGRADE/DOWNGRADE THERAPEUTIC EXERCISE PROGRAM AND INSTRUCT PATIENT/CAREGIVER ON EXERCISE PRECAUTIONS WITH WRITTEN HOME PROGRAM. MAY INCLUDE PROM, AAROM, AROM, RROM APPROPRIATE TO IMPROVE FUNCTIONAL STRENGTH AND RANGE OF MOTION. PHYSICAL THERAPY TO INSTRUCT PATIENT/CAREGIVER ON SAFE TRANSFER TECHNIQUES USING PROPER BODY MECHANICS AND EQUIPMENT. PHYSICAL THERAPY TO INSTRUCT PATIENT/CAREGIVER ON GAIT TRAINING TECHNIQUES USING APPROPRIATE ASSISTIVE DEVICE, PROPER BODY MECHANICS TO IMPROVE MOBILITY, AND PREVENT INJURY OF PATIENT AND/OR CAREGIVER. PHYSICAL THERAPY TO ASSESS AND RECOMMEND HOME SAFETY ADAPTATIONS AND EDUCATE PATIENT /CAREGIVER ON FALL PREVENTION STRATEGIES. SUMMARY OF THERAPY EVAL/ASSESSMENT FINDINGS AND REASON(S) SKILLS OF A THERAPIST ARE INDICATED: PATIENT WAS SEEN FOR INITIAL PHYSICAL THERAPY VISIT AND HOME SAFETY ASSESSMENT. PATIENT IS A 89 YEAR OLD MAN WHO WAS HOSPITALIZED AFTER 2 FALLS DX WITH PNA. PMH: HTN, CKD, HX OF NSTE, BPH, MODERATE AORTIC STENOSIS, PAROXYSMAL ATRIAL TACHYCARDIA, KIDNEY STONES, HEP C VIRUS, GERD. PLOF LIVES ALONE, DINGLE FAMILY HOME, USED CANE IN COMMUNITY, NO DEVICE N HOME, SUPPORTIVE DAUGHTER AND SON-IN-LAW PRESENTLY USING RW. WHEELS TURN INWARD AND ASSESSED FOR HT AND USE. PT SLEEPS IN BED WITH NO BEDRAIL AND WAS INSTRUCTED AND TAKING HIS TIME. PATIENT REQUIRES MULTIPLE ATTEMPTS FOR GETTING OUT OF CHAIR AND IS UNSTEADY INITIALLY. MOVED SOME FURNITURE TO ACCOMMODATE WALKER IN HOME. PATIENT HAVING DIFFICULTY WITH STAIRS TO EXIT SAFELY. PATIENT STATES THAT HE IS ABLE TO DRESS HIMSELF WITH TIME HOWEVER DOES LOOK DISHEVELED. REQUIRES ASSIST FOR SHOWERING ...AND WAS INSTRUCTED AND TAKING HIS TIME. PATIENT REQUIRES MULTIPLE ATTEMPTS FOR GETTING OUT OF CHAIR AND IS UNSTEADY INITIALLY. MOVED SOME FURNITURE TO ACCOMMODATE WALKER IN HOME. PATIENT HAVING DIFFICULTY WITH STAIRS TO EXIT SAFELY. PATIENT STATES THAT HE IS ABLE TO DRESS HIMSELF WITH TIME HOWEVER DOES LOOKED A SHOVELED. REQUIRES ASSIST FOR SHOWERING. TUG SCORE AND 30 SECOND [id number] INDICATE THAT PATIENT IS A FALL RISK. PATIENT DENIES RECENT FALLS SINCE HIS RETURN HOME. WALKER WHEELS RETURNED INWARD AND HEIGHT ADJUSTED. HOME EXERCISE PROGRAM INITIATED. WRITTEN PROGRAM PROVIDED. PATIENT ENCOURAGED TO AMBULATE HOURLY. PATIENT USING URINAL. RECOMMENDED THAT PATIENT BEGIN WALKING TO AND FROM BATHROOM DURING THE DAY AND USE A URINAL AT NIGHT. PATIENT GOAL IS TO RESUME DRIVING AND RETURNED TO BEING ACTIVE IN THE COMMUNITY HE STATES THAT HE WAS DRIVING TO SEE A FRIEND WHO IS A SENIOR CARE AND HE FELL IN THE PARKING LOT. PATIENT IS A APPROPRIATE CANDIDATE FOR SKILLED PHYSICAL THERAPY TO ADJUST PHYSICAL IMPAIRMENTS AND FUNCTIONAL LIMITATIONS. PATIENT VERBALIZED AGREEMENT WITH PLAN OF CARE. NOTIFIED.] Future Scheduled Test OCCUPATION AL THERAPIST TO EVALUATE PATIENT SECONDARY TO FUNCTIONAL DEFICITS/SAFETY CONCERNS IDENTIFIED DURING EVALUATION OCCUPATIONAL THERAPY TO ESTABLISH /UPGRADE/DOWNGRADE THERAPEUTIC EXERCISE PROGRAM AND INSTRUCT PATIENT/CAREGIVER ON EXERCISE PRECAUTIONS WITH WRITTEN HOME PROGRAM. MAY INCLUDE PROM, AAROM, AROM, RROM APPROPRIATE TO IMPROVE FUNCTIONAL STRENGTH AND/OR RANGE OF MOTION. OCCUPATIONAL THERAPY TO ASSESS AND RECOMMEND HOME SAFETY ADAPTATIONS AND EDUCATE PATIENT /CAREGIVER ON FALL PREVENTION STRATEGIES TO ENHANCE PARTICIPATION IN ADL S. OCCUPATIONAL THERAPY TO PROVIDE PATIENT/CAREGIVER WITH INSTRUCTIONS AND RECOMMENDATIONS TO IMPROVE ADL S /IADLS WHILE USING APPROPRIATE ADAPTIVE DEVICES RECOMMENDED. SUMMARY OF THERAPY EVAL/ASSESSMENT FINDINGS AND REASON(S) SKILLS OF A THERAPIST ARE INDICATED: OT EVALUATION (01/12/25) PATIENT IS A 89-YEAR-OLD MALE REFERRED TO OCCUPATIONAL THERAPY SERVICES AFTER RECENT RASH OF FALLS. PATIENT HAD INITIAL FALL THAT RESULTED IN A FRACTURED NOSE REQUIRING STITCHES AND WAS MANAGED OUTPATIENT. PATIENT HAD A SECOND FALL 12/17 AND A PARKING LOT VISITING A FRIEND AND WAS FOUND WITH ACUTE HYPOXIC RESPIRATORY FAILURE SECONDARY TO VIRAL SEPSIS AND PNEUMONIA. PATIENT WAS TRANSFERRED TO REHAB FACILITY 12/21 AND DISCHARGED HOME ON 12/31. PAST MEDICAL HISTORY SIGNIFICANT FOR: HYPERTENSION, AORTIC STENOSIS, TACHYCARDIA, HEP C VIRUS, GERD, HISTORY OF NSTEMI, BPH, AND CHRONIC KIDNEY DISEASE. PRIOR LEVEL OF FUNCTION: PATIENT LIVES ALONE IN A SINGLE LEVEL SINGLE FAMILY HOME. HAS SUPPORTIVE FAMILY IN THE AREA. INDEPENDENT WITH ADLS AND SOME IADLS. HE WAS DRIVING AN INVOLVED IN THE COMMUNITY USING A CANE. NO DEVICES INSIDE THE HOME. CURRENT LEVEL OF FUNCTION: PATIENT AMBULATING WITH USE OF ROLLING WALKER THROUGHOUT HOME THAT WAS ADJUSTED BY PHYSICAL THERAPIST UPON EVAL. PATIENT ABLE TO PERFORM LSH-[id number]-DECAR TRANSFER WITH CUES FOR PROPER HAND PLACEMENT WITH WALKER AND PUSHING FROM SEATED SURFACE. PATIENT ALSO REQUIRED CUES FOR TOILET TRANSFER WELL TO PUSH FROM THE TOILET SEAT INSTEAD OF PULLING UP ON THE WALKER. PATIENT WAS ALSO ABLE TO STEP IN AND OUT OF THE TUB USING THE GRAB BAR AND CONTACT GUARD ASSIST. HE DOES HAVE A SEAT AND HANDHELD SHOWERHEAD TO ASSIST WITH SHOWER LEVEL BATHING. HE REQUIRED ASSISTANCE FOR LOWER BODY DRESSING TODAY TO DON SOCKS DUE TO SHORTNESS OF BREATH. HE CURRENTLY HAS VERY SUPPORTIVE FAMILY INVOLVED WHO IS BRINGING LUNCH DAILY ASSISTING WITH [employer] TRANSPORTATION TO MEDICAL APPOINTMENTS. HE IS CURRENTLY AWAITING ELDER SERVICES TO STEP IN WITH MEALS ON WHEELS AND TEXTILE CONVERTER FOR SHOWER LEVEL BATHING. PATIENT'S MAIN CONCERN IS BEING ABLE TO TALK WITH AND SEE HIS GIRLFRIEND WHO WAS RECENTLY IN THE HOSPITAL WELL BUT HAS RETURNED HOME FOR HER RECOVERY. PATIENT OFFERS NO COMPLAINTS OF PAIN DURING EVALUATION. WAS ABLE TO DEMONSTRATE WITHIN FUNCTIONAL LIMITS BOTH UPPER EXTREMITIES RANGE OF MOTION HOWEVER STRENGTH FAIR THROUGHOUT BILATERALLY DUE TO HIS RECENT FALLS OR HOSPITALIZATIONS. PATIENT WOULD BENEFIT FROM IN HOME EXERCISE PROGRAM TO BUILD ENDURANCE AND STRENGTH FOR RETURN TO INDEPENDENCE WITH ADLS AND IADL TASKS. THROW RUG PULLED UP IN THE BATHROOM PATIENT WAS GETTING WALKER CAUGHT UP BECOMING A FALL HAZARD. RECOMMENDED USING THE RUG ONLY DURING SHOWER LEVEL BATHING. DISCUSSION REGARDING WALKER BASKET AND WAYS TO BE ABLE TO TRANSPORT ITEMS USING ROLLING WALKER. PATIENT REPORTS WALKING TO ATTAIN A ROLLATOR TO BE ABLE TO TRANSPORT ITEMS USING THIS SEAT. RECOMMENDED PATIENT HAVE FAMILY REACH OUT TO [facility] TO OBTAIN ON A TRIAL BASIS THEY HAVE AN EQUIPMENT CLOSET. ASSESSMENT/POC: OCCUPATIONAL THERAPY EVALUATION COMPLETED TODAY WITH RECOMMENDATION FOR SKILLED OT 1 TIME A WEEK X4 TO MEET GOALS IMPROVING ENDURANCE AND SAFETY EDUCATION FOR ADL AND IADL TASKS. PATIENT IN AGREEMENT WITH PLAN OF CARE. MD OFFICE NOTIFIED OF OT EVALUATION. SPOKE WITH WANDA. PCP F/U PENDING. [code = OCCUPATIONAL THERAPIST TO EVALUATE PATIENT SECONDARY TO FUNCTIONAL DEFICITS/SAFETY CONCERNS IDENTIFIED DURING EVALUATION OCCUPATIONAL THERAPY TO ESTABLISH /UPGRADE/DOWNGRADE THERAPEUTIC EXERCISE PROGRAM AND INSTRUCT PATIENT/CAREGIVER ON EXERCISE PRECAUTIONS WITH WRITTEN HOME PROGRAM. MAY INCLUDE PROM, AAROM, AROM, RROM APPROPRIATE TO IMPROVE FUNCTIONAL STRENGTH AND/OR RANGE OF MOTION. OCCUPATIONAL THERAPY TO ASSESS AND RECOMMEND HOME SAFETY ADAPTATIONS AND EDUCATE PATIENT /CAREGIVER ON FALL PREVENTION STRATEGIES TO ENHANCE PARTICIPATION IN ADL S. OCCUPATIONAL THERAPY TO PROVIDE PATIENT/CAREGIVER WITH INSTRUCTIONS AND RECOMMENDATIONS TO IMPROVE ADL S /IADLS WHILE USING APPROPRIATE ADAPTIVE DEVICES RECOMMENDED. SUMMARY OF THERAPY EVAL/ASSESSMENT FINDINGS AND REASON(S) SKILLS OF A THERAPIST ARE INDICATED: OT EVALUATION (01/12/25) PATIENT IS A 89-YEAR-OLD MALE REFERRED TO OCCUPATIONAL THERAPY SERVICES AFTER RECENT RASH OF FALLS. PATIENT HAD INITIAL FALL THAT RESULTED IN A FRACTURED NOSE REQUIRING STITCHES AND WAS MANAGED OUTPATIENT. PATIENT HAD A SECOND FALL 12/17 AND A PARKING LOT VISITING A FRIEND AND WAS FOUND WITH ACUTE HYPOXIC RESPIRATORY FAILURE SECONDARY TO VIRAL SEPSIS AND PNEUMONIA. PATIENT WAS TRANSFERRED TO REHAB FACILITY 12/21 AND DISCHARGED HOME ON 12/31. PAST MEDICAL HISTORY SIGNIFICANT FOR: HYPERTENSION, AORTIC STENOSIS, TACHYCARDIA, HEP C VIRUS, GERD, HISTORY OF NSTEMI, BPH, AND CHRONIC KIDNEY DISEASE. PRIOR LEVEL OF FUNCTION: PATIENT LIVES ALONE IN A SINGLE LEVEL SINGLE FAMILY HOME. HAS SUPPORTIVE FAMILY IN THE AREA. INDEPENDENT WITH ADLS AND SOME IADLS. HE WAS DRIVING AN INVOLVED IN THE COMMUNITY USING A CANE. NO DEVICES INSIDE THE HOME. CURRENT LEVEL OF FUNCTION: PATIENT AMBULATING WITH USE OF ROLLING WALKER THROUGHOUT HOME THAT WAS ADJUSTED BY PHYSICAL THERAPIST UPON EVAL. PATIENT ABLE TO PERFORM [id number] TRANSFER WITH CUES FOR PROPER HAND PLACEMENT WITH WALKER AND PUSHING FROM SEATED SURFACE. PATIENT ALSO REQUIRED CUES FOR TOILET TRANSFER WELL TO PUSH FROM THE TOILET SEAT INSTEAD OF PULLING UP ON THE WALKER. PATIENT WAS ALSO ABLE TO STEP IN AND OUT OF THE TUB USING THE GRAB BAR AND CONTACT GUARD ASSIST. HE DOES HAVE A SEAT AND HANDHELD SHOWERHEAD TO ASSIST WITH SHOWER LEVEL BATHING. HE REQUIRED ASSISTANCE FOR LOWER BODY DRESSING TODAY TO DON SOCKS DUE TO SHORTNESS OF BREATH. HE CURRENTLY HAS VERY SUPPORTIVE FAMILY INVOLVED WHO IS BRINGING LUNCH DAILY ASSISTING WITH [employer] TRANSPORTATION TO MEDICAL APPOINTMENTS. HE IS CURRENTLY AWAITING ELDER SERVICES TO STEP IN WITH MEALS ON WHEELS AND TEXTILE CONVERTER FOR SHOWER LEVEL BATHING. PATIENT'S MAIN CONCERN IS BEING ABLE TO TALK WITH AND SEE HIS GIRLFRIEND WHO WAS RECENTLY IN THE HOSPITAL WELL BUT HAS RETURNED HOME FOR HER RECOVERY. PATIENT OFFERS NO COMPLAINTS OF PAIN DURING EVALUATION. WAS ABLE TO DEMONSTRATE WITHIN FUNCTIONAL LIMITS BOTH UPPER EXTREMITIES RANGE OF MOTION HOWEVER STRENGTH FAIR THROUGHOUT BILATERALLY DUE TO HIS RECENT FALLS OR HOSPITALIZATIONS. PATIENT WOULD BENEFIT FROM IN HOME EXERCISE PROGRAM TO BUILD ENDURANCE AND STRENGTH FOR RETURN TO INDEPENDENCE WITH ADLS AND IADL TASKS. THROW RUG PULLED UP IN THE BATHROOM PATIENT WAS GETTING WALKER CAUGHT UP BECOMING A FALL HAZARD. RECOMMENDED USING THE RUG ONLY DURING SHOWER LEVEL BATHING. DISCUSSION REGARDING WALKER BASKET AND WAYS TO BE ABLE TO TRANSPORT ITEMS USING ROLLING WALKER. PATIENT REPORTS WALKING TO ATTAIN A ROLLATOR TO BE ABLE TO TRANSPORT ITEMS USING THIS SEAT. RECOMMENDED PATIENT HAVE FAMILY REACH OUT TO [facility] TO OBTAIN ON A TRIAL BASIS THEY HAVE AN EQUIPMENT CLOSET. ASSESSMENT/POC: OCCUPATIONAL THERAPY EVALUATION COMPLETED TODAY WITH RECOMMENDATION FOR SKILLED OT 1 TIME A WEEK X4 TO MEET GOALS IMPROVING ENDURANCE AND SAFETY EDUCATION FOR ADL AND IADL TASKS. PATIENT IN AGREEMENT WITH PLAN OF CARE. MD OFFICE NOTIFIED OF OT EVALUATION. SPOKE WITH WANDA. PCP F/U PENDING.] Goal Patient Goal - N OT TO GO BACK TO THE HOSPITAL Goal Provider Goal - A PLAN OF CARE WILL BE ESTABLISHED THAT MEETS PATIENT'S [facility] NEEDS AND INCLUDES PATIENT GOAL FOR HOME HEALTH. Goal Provider Goal - PATIENT/CAREGIVER WILL DEMONSTRATE UNDERSTANDING OF PREFILLING MEDIPLANNER DEVICE BY THE END OF EPISODE. Goal Provider Goal - URINE SPECIMEN WILL BE OBTAINED PRN FOR SIGNS AND SYMPTOMS OF UTI AND RESULTS WILL BE REPORTED TO PHYSICIAN THROUGHOUT THE CERTIFICATION PERIOD. Goal Provider Goal - PATIENT/CAREGIVER WILL VERBALIZE/DEMONSTRATE MANAGEMENT OF CARDIAC DISEASE PROCESS AND EXACERBATIONS WILL BE IDENTIFIED AND PROMPTLY REPORTED THROUGHOUT THE CERTIFICATION PERIOD. Goal Provider Goal - EXACERBATIONS OF GASTROINTESTINAL DISEASE WILL BE PROMPTLY IDENTIFIED AND INTERVENTIONS IMPLEMENTED TO MINIMIZE RISKS TO PATIENT BY END OF EPISODE. Goal Provider Goal - PATIENT/CAREGIVER WILL VERBALIZE UNDERSTANDING OF GENITOURINARY DISEASE PROCESS, AND EXACERBATIONS OF GENITOURINARY DISEASE WILL BE PROMPTLY IDENTIFIED FOR EARLY INTERVENTION THROUGHOUT THE CERTIFICATION PERIOD. Goal Provider Goal - OCCUPATIONAL THERAPY EVALUATION TO BE COMPLETED WITH RECOMMENDATIONS AND WRITTEN PLAN OF TREATMENT ESTABLISHED FOR THE PHYSICIAN S SIGNATURE. Goal Provider Goal - PATIENT/CAREGIVER WILL VERBALIZE/DEMONSTRATE MANAGEMENT OF ACUTE RESPIRATORY FAILURE WITH HYPOXIA RESPIRATORY DISEASE PROCESS. CHANGES IN RESPIRATORY STATUS WILL BE IDENTIFIED AND REPORTED TO PHYSICIAN FOR PROMPT INTERVENTION THROUGHOUT THE CERTIFICATION PERIOD. PATIENT/CAREGIVER WILL VERBALIZE/DEMONSTRATE MANAGEMENT OF VIRAL PNEUMONIA. CHANGES IN RESPIRATORY STATUS WILL BE IDENTIFIED AND REPORTED TO PHYSICIAN FOR PROMPT INTERVENTION THROUGHOUT THE CERTIFICATION PERIOD. Goal Provider Goal - PATIENT/CAREGIVER WILL VERBALIZE/DEMONSTRATE UNDERSTANDING OF S/S OF INFECTION AND INFECTION CONTROL MEASURES. SIGNS AND SYMPTOMS OF INFECTION WILL BE IDENTIFIED AND PHYSICIAN NOTIFIED FOR PROMPT INTERVENTION THROUGHOUT THE CERTIFICATION PERIOD. Goal Provider Goal - A PHYSICAL THERAPY EVALUATION TO BE COMPLETED WITH RECOMMENDATIONS AND/OR WRITTEN PLAN OF TREATMENT ESTABLISHED FOR PHYSICIAN S SIGNATURE. Goal Provider Goal - PATIENT/CAREGIVER WILL VERBALIZE SIGNS AND SYMPTOMS OF HYPERTENSION WITH CKD AND WILL BE ABLE TO DEMONSTRATE ABILITY TO MANAGE EXACERBATION BY END OF THE EPISODE. Goal Provider Goal - PATIENT WILL BE FREE FROM INFECTION AND PATIENT/CAREGIVER WILL VERBALIZE UNDERSTANDING OF SIGNS AND SYMPTOMS AND METHODS TO PREVENT SEPSIS BY END OF THE EPISODE. Goal Provider Goal - EXACERBATIONS OF LIVER DISEASE WILL BE PROMPTLY IDENTIFIED AND INTERVENTIONS IMPLEMENTED TO MINIZMIZE RISKS TO PATIENT BY END OF THE EPISODE. Goal Provider Goal - PATIENT/CAREGIVER WILL UTILIZE VIRTUAL VISITS TO ACHIEVE GOALS OUTLINED ON THE PLAN OF CARE. PATIENT WILL HAVE SUPPORT MEASURES ESTABLISHED TO PREVENT HOSPITALIZATION AND PATIENT/CAREGIVER WILL VERBALIZE/DEMONSTRATE METHODS TO REDUCE AVOIDABLE HOSPITALIZATION THROUGHOUT THE CERTIFICATION PERIOD. Goal Provider Goal - PATIENT WILL HAVE SUPPORT MEASURES ESTABLISHED TO PREVENT HOSPITALIZATION AND ED USE AND PATIENT/CAREGIVER WILL VERBALIZE/DEMONSTRATE METHODS TO REDUCE AVOIDABLE HOSPITALIZATION AND ED USE BY END OF EPISODE. Goal Provider Goal - PATIENT/CAREGIVER WILL VERBALIZE UNDERSTANDING OF DISCHARGE PLANNING INSTRUCTIONS BY DATE OF DISCHARGE. Goal Provider Goal - PATIENT/CAREGIVER WILL VERBALIZE/DEMONSTRATE EFFECTIVE ENVIRONMENTAL SAFETY AND FALL PREVENTION STRATEGIES, WILL REMAIN SAFE IN THE COMMUNITY, AND WILL BE FREE OF DANGER TO SELF AND OTHERS THROUGHOUT THE CERTIFICATION PERIOD. Goal Provider Goal - PATIENT/CAREGIVER WILL DEMONSTRATE UNDERSTANDING OF PHARMACOLOGIC AND NONPHARMACOLOGIC PAIN CONTROL MEASURES AND PATIENT WILL HAVE IMPROVEMENT IN PAIN INTERFERING WITH ACTIVITY EVIDENCED BY PAIN AT A LEVEL THAT IS ACCEPTABLE TO THE PATIENT AND PAIN LEVEL WITHIN ESTABLISHED PARAMETERS BY END OF CERTIFICATION PERIOD. Goal Provider Goal - PATIENT/CAREGIVER WILL VERBALIZE UNDERSTANDING OF PRESSURE ULCER PREVENTION BY END OF THE EPISODE. Goal Provider Goal - PATIENT/CAREGIVER WILL VERBALIZE UNDERSTANDING OF EDUCATION PROVIDED ON MEDICATIONS BY THE END OF THE CERTIFICATION PERIOD. Goal Provider Goal - PHYSICAL THERAPY EVALUATION TO BE COMPLETED WITH RECOMMENDATIONS AND/OR WRITTEN TREATMENT PLAN OF CARE ESTABLISHED FOR THE PHYSICIAN S SIGNATURE PATIENT/CAREGIVER WILL PERFORM THERAPEUTIC EXERCISE/S AND DEMONSTRATE PARTICIPATION IN A HOME PROGRAM. PATIENT/CAREGIVER WILL DEMONSTRATE SAFE TRANSFERS USING APPROPRIATE ASSISTIVE DEVICE, BODY MECHANICS AND EQUIPMENT. PATIENT/CAREGIVER WILL DEMONSTRATE IMPROVED GAIT TECHNIQUES TO MINIMIZE RISK OF INJURY. PATIENT/CAREGIVER WILL DEMONSTRATE/VERBALIZE UNDERSTANDING OF RECOMMENDATIONS TO INCREASE SAFETY IN THE HOME AND FALL PREVENTION. Goal Provider Goal - OCCUPATIONAL THERAPIST TO EVALUATE PATIENT SECONDARY TO FUNCTIONAL DEFICITS/SAFETY CONCERNS IDENTIFIED DURING EVALUATION. PATIENT/CAREGIVER WILL PERFORM THERAPEUTIC EXERCISE/S AND DEMONSTRATE PARTICIPATION IN A HOME PROGRAM. CAREGIVER/PATIENT WILL DEMONSTRATE/VERBALIZE UNDERSTANDING OF RECOMMENDATIONS TO INCREASE SAFETY IN THE HOME AND FALL PREVENTION. PATIENT/CAREGIVER WILL DEMONSTRATE IMPROVED ABILITY TO PERFORM ACTIVITIES OF DAILY LIVING. Encounters Start Date/Time End Date/Time Encounter Type Admission Type Attending [facility] Care Facility Care Department Encounter ID Discharge Date Discharge Status Discharge Condition Discharge Reason Percent Goals Met 2025-01-05 00:00:00 2025-03-05 00:00:00 Outpatient NEW ADMISSION SANDHYA SELLERS [facility] [id number] 46.51
== END 2025-02-22 15:53 | disposition hospice, inpatient (51) | DRG 871 ==
LOC: HO.ED 02-06 03:46 → HO.EDOVER 02-06 05:32 → HO.S3 02-06 14:50
PROVIDERS: Family Medicine; Hospitalist; Internal Medicine; Physician Assistant; Physician Assistant Medical; Registered Nurse Emergency; Social Worker; Student in an Organized Health Care Education/Training Program; Admitting Provider Nurse Practitioner Family; Emergency Provider Emergency Medicine; PCP Internal Medicine; Visit Provider Student in an Organized Health Care Education/Training Program
DX: A41.9 Sepsis, unspecified organism (principal); G92.8 Other toxic encephalopathy; I50.31 Acute diastolic (congestive) heart failure; J18.9 Pneumonia, unspecified organism; J96.01 Acute respiratory failure with hypoxia; I13.0 Hypertensive heart and chronic kidney disease with heart failure and stage 1 through stage 4 chronic kidney disease, or unspecified chronic kidney disease; N17.9 Acute kidney failure, unspecified; E87.1 Hypo-osmolality and hyponatremia; A08.11 Acute gastroenteropathy due to Norwalk agent; Z51.5 Encounter for palliative care; I35.0 Nonrheumatic aortic (valve) stenosis; R13.10 Dysphagia, unspecified; E86.0 Dehydration; N40.0 Benign prostatic hyperplasia without lower urinary tract symptoms; M10.9 Gout, unspecified; E03.8 Other specified hypothyroidism; T17.928A Food in respiratory tract, part unspecified causing other injury, initial encounter; D63.1 Anemia in chronic kidney disease; F39 Unspecified mood [affective] disorder; R62.7 Adult failure to thrive; Z68.24 Body mass index [BMI] 24.0-24.9, adult; G31.09 Other frontotemporal neurocognitive disorder; F02.80 Dementia in other diseases classified elsewhere, unspecified severity, without behavioral disturbance, psychotic disturbance, mood disturbance, and anxiety; N18.32 Chronic kidney disease, stage 3b; Z20.822 Contact with and (suspected) exposure to COVID-19; Z87.891 Personal history of nicotine dependence; Z79.52 Long term (current) use of systemic steroids
CPT/HCPCS: 36415; 70551; 71045; 71250; 74176; 76775; 80048; 80053; 80202; 80307; 81003; 82040; 82140; 82248; 82272; 82306; 82570; 82607; 82746; 82803; 82947; 83605; 83735; 83880; 83935; 84100; 84145; 84156; 84165; 84166; 84478; 84550; 85007; 85025; 85027; 85610; 85999; 86780; 86850; 86900; 86901; 87040; 87449; 87468; 87469; 87478; 87484; 87493; 87507; 87522; 87637; 87640; 87641; 87798; 87899; 92526; 93005; 93306; 94640; 97110; 97161; 97530; 99285; J0456; J0696; J1271; J1644; J1938; J2270; J2359; J2405; J2470; J2543; J2865; J3360; J3374; J3486; J7120; Q9957

== ENCOUNTER → 2025-02-01 16:05 | Outpatient (BNV) | payer MEDICARE, OTHER, SELFPAY | PROVIDERS: Emergency Provider Emergency Medicine; PCP Internal Medicine; Visit Provider Social Worker | DX: F03.90 Unspecified dementia, unspecified severity, without behavioral disturbance, psychotic disturbance, mood disturbance, and anxiety (principal) | CPT/HCPCS: 99285 ==

== ENCOUNTER → 2025-02-04 09:33 | Outpatient (BNV) | payer MEDICARE, OTHER, SELFPAY | PROVIDERS: Emergency Provider Emergency Medicine; PCP Internal Medicine; Visit Provider Radiology Diagnostic Ultrasound | DX: Z03.89 Encounter for observation for other suspected diseases and conditions ruled out (principal) | CPT/HCPCS: 71250 ==

== ENCOUNTER → 2025-02-05 23:45 | Outpatient (BNV) | payer MEDICARE, OTHER, SELFPAY | PROVIDERS: Admitting Provider Nurse Practitioner Family; Emergency Provider Emergency Medicine; PCP Internal Medicine; Visit Provider Internal Medicine Cardiovascular Disease | DX: I49.1 Atrial premature depolarization (principal); I45.10 Unspecified right bundle-branch block; I51.7 Cardiomegaly; R00.0 Tachycardia, unspecified | CPT/HCPCS: 93010 ==

== ENCOUNTER → 2025-02-05 23:45 | Outpatient (BNV) | payer MEDICARE, OTHER, SELFPAY | PROVIDERS: Emergency Provider Emergency Medicine; PCP Internal Medicine; Visit Provider Radiology Diagnostic Radiology | DX: J90 Pleural effusion, not elsewhere classified (principal); R09.89 Other specified symptoms and signs involving the circulatory and respiratory systems | CPT/HCPCS: 71045 ==

== ENCOUNTER 2025-02-06 04:03 | Outpatient (BNV) | payer MEDICARE, OTHER, SELFPAY | END 2025-02-06 08:07 | PROVIDERS: Admitting Provider Nurse Practitioner Family; Emergency Provider Emergency Medicine; PCP Internal Medicine; Visit Provider Radiology Vascular & Interventional Radiology | DX: N17.9 Acute kidney failure, unspecified (principal) | CPT/HCPCS: 76775 ==

== ENCOUNTER 2025-02-06 04:03 | Outpatient (BNV) | payer MEDICARE, OTHER, SELFPAY | END 2025-02-07 12:23 | PROVIDERS: Admitting Provider Nurse Practitioner Family; Emergency Provider Emergency Medicine; PCP Internal Medicine; Visit Provider Radiology Diagnostic Radiology | DX: J98.4 Other disorders of lung (principal) | CPT/HCPCS: 71045 ==

== ENCOUNTER 2025-02-06 04:03 | Outpatient (BNV) | payer MEDICARE, OTHER, SELFPAY | END 2025-02-18 17:52 | PROVIDERS: Admitting Provider Nurse Practitioner Family; Emergency Provider Emergency Medicine; PCP Internal Medicine; Visit Provider Internal Medicine | DX: R00.0 Tachycardia, unspecified (principal); I49.3 Ventricular premature depolarization; I45.2 Bifascicular block | CPT/HCPCS: 93010 ==

== ENCOUNTER 2025-02-06 04:03 | Outpatient (BNV) | payer MEDICARE, OTHER, SELFPAY | END 2025-02-09 07:00 | PROVIDERS: Admitting Provider Nurse Practitioner Family; Emergency Provider Emergency Medicine; PCP Internal Medicine; Visit Provider Internal Medicine | DX: I42.2 Other hypertrophic cardiomyopathy (principal); I35.0 Nonrheumatic aortic (valve) stenosis; I34.81 Nonrheumatic mitral (valve) annulus calcification | CPT/HCPCS: 93306 ==

== ENCOUNTER → 2025-02-06 04:03 | Outpatient (BNV) | payer MEDICARE, OTHER, SELFPAY | PROVIDERS: Admitting Provider Nurse Practitioner Family; Emergency Provider Emergency Medicine; PCP Internal Medicine; Visit Provider Internal Medicine Hypertension Specialist | DX: N17.9 Acute kidney failure, unspecified (principal); N18.9 Chronic kidney disease, unspecified; E79.0 Hyperuricemia without signs of inflammatory arthritis and tophaceous disease | CPT/HCPCS: 99232 ==

== ENCOUNTER → 2025-02-06 04:03 | Outpatient (BNV) | payer MEDICARE, OTHER, SELFPAY | PROVIDERS: Admitting Provider Nurse Practitioner Family; Emergency Provider Emergency Medicine; PCP Internal Medicine; Visit Provider Internal Medicine | DX: I12.9 Hypertensive chronic kidney disease with stage 1 through stage 4 chronic kidney disease, or unspecified chronic kidney disease (principal); N17.9 Acute kidney failure, unspecified; N18.9 Chronic kidney disease, unspecified; A41.9 Sepsis, unspecified organism; F02.80 Dementia in other diseases classified elsewhere, unspecified severity, without behavioral disturbance, psychotic disturbance, mood disturbance, and anxiety; J18.9 Pneumonia, unspecified organism | CPT/HCPCS: 99223; 99232; 99499 ==

== ENCOUNTER → 2025-02-06 04:03 | Outpatient (BNV) | payer MEDICARE, OTHER, SELFPAY | PROVIDERS: Admitting Provider Nurse Practitioner Family; Emergency Provider Emergency Medicine; PCP Internal Medicine; Visit Provider Internal Medicine | DX: J18.9 Pneumonia, unspecified organism (principal) | CPT/HCPCS: 99222; 99232; 99499 ==

== ENCOUNTER → 2025-02-06 04:03 | Outpatient (BNV) | payer MEDICARE, OTHER, SELFPAY | PROVIDERS: Admitting Provider Nurse Practitioner Family; Emergency Provider Emergency Medicine; PCP Internal Medicine; Visit Provider Internal Medicine Critical Care Medicine | DX: I12.9 Hypertensive chronic kidney disease with stage 1 through stage 4 chronic kidney disease, or unspecified chronic kidney disease (principal); N17.9 Acute kidney failure, unspecified; N18.9 Chronic kidney disease, unspecified; E79.0 Hyperuricemia without signs of inflammatory arthritis and tophaceous disease | CPT/HCPCS: 99223; 99233 ==

== ENCOUNTER 2025-02-22 15:53 | Inpatient (IN) | payer OTHER, SELFPAY ==
--- NOTE | 2025-02-22 16:01 | PC.NURSE ---
Patient discharged and readmitted under [facility] hospice in new account.
--- NOTE | 2025-02-22 16:18 | MHC.CM.PN ---
Patient has been admitted to [facility] today. [facility] has accepted the patient.
--- OUTSIDE RECORDS SUMMARY | 2025-02-22 17:14 | XMS_ITS | Clinical Summary ---
Author Organization [employer] Address [address] [place] [address] [address] [place] [address] Care Team Providers Care Wiring Technician Name Role Phone Unavailable Primary Care Provider [...]
--- OUTSIDE RECORDS SUMMARY | 2025-02-22 17:14 | XMS_ITS | Clinical Summary ---
Author Organization [address] [facility] Address [address] [place] [address] Phone Care Team Providers Care Awning Installer Name Role Phone Mary Flores MD Primary Care Provider + Encounters Date Type Department Care Team Description 12/30/2024 Lab Requisition [facility] [address] [place] [phone] Mary Flores MD Abnormal results of thyroid function studies 12/28/2024 Lab Requisition [facility] [address] [place] [phone] Mary Flores MD Sepsis, unspecified organism (CMS/HCC V24, CMS/HCC V28); Acute kidney failure with tubular necrosis (CMS/HCC V24) 12/22/2024 Lab Requisition [facility] [address] [place] [phone] Mary Flores MD Sepsis, unspecified organism (CMS/HCC [...] K/mcL LAB HEMETOLOGY METHOD 12/29/2024 9:53 AM [facility] RBC 3.10(L) 4.50 - 5.50 M/mcL LAB HEMETOLOGY METHOD 12/29/2024 9:53 AM [facility] Hemoglobin 10.2(L) 13.5 - 17.5 g/dL LAB HEMETOLOGY METHOD 12/29/2024 9:53 AM [facility] Hematocrit 31.6(L) 42.0 - 54.0 % LAB HEMETOLOGY METHOD 12/29/2024 9:53 AM [facility] MCV 101.6(H) 79.0 - 98.0 FL LAB HEMETOLOGY METHOD 12/29/2024 9:53 AM EDT [facility] MCH 32.8(H) 27.0 - 32.0 pcg LAB HEMETOLOGY METHOD 12/29/2024 9:53 AM EDT [facility] MCHC 32.3 32.0 - 37.0 g/dL LAB HEMETOLOGY METHOD 12/29/2024 9:53 AM EDT [facility] RDW 15.7(H) 11.0 - 15.0 % LAB HEMETOLOGY METHOD 12/29/2024 9:53 AM EDT [facility] Platelets 110(L) 130 - 400 K/mcL LAB HEMETOLOGY METHOD 12/29/2024 9:53 AM EDT [facility] MPV 10.3 7.0 - 11.0 FL LAB HEMETOLOGY METHOD 12/29/2024 9:53 AM EDT [facility] NRBC 0.0 <1.0 % LAB HEMETOLOGY METHOD 12/29/2024 9:53 AM EDT [facility] NRBC Absolute 0.00 <0.10 K/mcL LAB HEMETOLOGY METHOD 12/29/2024 9:53 AM T [facility] Blood Venous blood specimen / Unknown Venipuncture / Unknown 12/29/2024 6:34 AM EDT 12/29/2024 9:43 AM EDT us Mary Flores MD LAB BLOOD ORDERABLES Fin al Result [facility] [address] [place] [address], * (ABNORMAL) Basic metabolic panel (12/29/2024 6:34 AM EDT) [facility] Sodium 141 133 - 145 mmol/L LAB CHEMISTRY METHOD 12/29/2024 11:03 AM [facility] Potassium 4.8 3.5 - 5.5 mmol/L LAB CHEMISTRY METHOD 12/29/2024 11:03 AM [facility] Chloride 111(H) 96 - 110 mmol/L LAB CHEMISTRY METHOD 12/29/2024 11:03 AM [facility] CO2 21 21 - 32 mmol/L LAB CHEMISTRY METHOD 12/29/2024 11:03 AM [facility] Anion Gap 9 3 - 11 LAB CHEMISTRY METHOD 12/29/2024 11:03 AM [facility] Glucose 119(H) 70 - 100 mg/dL LAB CHEMISTRY METHOD 12/29/2024 11:03 AM [facility] BUN 68(H) 5 - 25 mg/dL LAB CHEMISTRY METHOD 12/29/2024 11:03 AM [facility] Comment:Results verified by repeat testing Creatinine 2.14(H) 0.70 - 1.30 mg/dL LAB CHEMISTRY METHOD 12/29/2024 11:03 AM [facility] eGFR 29(L) >=60 mL/min/1. 73m2 LAB CHEMISTRY METHOD 12/29/2024 11:03 AM [facility] Comment:Calculation based on the Chronic Kidney Disease Epidemiology Collaboration (CKD-EPI) equation refit without adjustment for race. BUN/Creatinine Ratio 31.8 LAB CHEMISTRY METHOD 12/29/2024 11:03 AM [facility] Calcium 8.7 8.5 - 10.5 mg/dL LAB CHEMISTRY METHOD 12/29/2024 11:03 AM [facility] Blood Venous blood specimen / Unknown Venipuncture / Unknown 12/29/2024 6:34 AM EDT 12/29/2024 9:43 AM EDT us Mary Flores MD LAB BLOOD ORDERABLES Fin al Result [facility] [address] [place] [address], * (ABNORMAL) Thyroid stimulating hormone (12/22/2024 8:09 AM EDT) TSH 0.22(L) 0.40 - 4.00 mcIU/mL LAB CHEMISTRY METHOD 12/22/2024 1:18 PM EDT [facility] Blood Venous blood specimen / Unknown Venipuncture / Unknown 12/22/2024 8:09 AM EDT 12/22/2024 11:11 AM EDT Mary Flores MD LAB BLOOD ORDERABLES Fin al Result Performing Organization Address [facility] de Phone Number [facility] [address] [place] [address], * Magnesium (12/22/2024 8:09 AM EDT) Magnesium 2.3 1.9 - 2.6 mg/dL LAB CHEMISTRY METHOD 12/22/2024 12:19 PM EDT [facility] Blood Venous blood specimen / Unknown Venipuncture / Unknown 12/22/2024 8:09 AM EDT 12/22/2024 11:11 AM EDT Mary Flores MD LAB BLOOD ORDERABLES Fin al Result Performing Organization Address [facility] Co de Phone Number [facility] [address] [place] [address], * Folate (12/22/2024 8:09 AM EDT) Folate 13.9 2.8 - 17.0 ng/ml LAB CHEMISTRY METHOD 12/22/2024 12:30 PM EDT [facility] Blood Venous blood specimen / Unknown Venipuncture / Unknown 12/22/2024 8:09 AM EDT 12/22/2024 11:11 AM EDT us Mary Flores MD LAB BLOOD ORDERABLES Fin al Result [facility] [address] [place] [address], [place] [phone] * (ABNORMAL) Comprehensive metabolic panel (12/22/2024 8:09 AM EDT) [facility] Sodium 139 133 - 145 mmol/L LAB CHEMISTRY METHOD 12/22/2024 12:30 PM [facility] Potassium 4.0 3.5 - 5.5 mmol/L LAB CHEMISTRY METHOD 12/22/2024 12:30 PM [facility] Chloride 108 96 - 110 mmol/L LAB CHEMISTRY METHOD 12/22/2024 12:30 PM [facility] CO2 26 21 - 32 mmol/L LAB CHEMISTRY METHOD 12/22/2024 12:30 PM [facility] Anion Gap 5 3 - 11 LAB CHEMISTRY METHOD 12/22/2024 12:30 PM [facility] Glucose 73 70 - 100 mg/dL LAB CHEMISTRY METHOD 12/22/2024 12:30 PM [facility] BUN 25 5 - 25 mg/dL LAB CHEMISTRY METHOD 12/22/2024 12:30 PM [facility] Creatinine 1.38(H) 0.70 - 1.30 mg/dL LAB CHEMISTRY METHOD 12/22/2024 12:30 PM [facility] eGFR 49(L) >=60 mL/min/1. 73m2 LAB CHEMISTRY METHOD 12/22/2024 12:30 PM [facility] Comment:Calculation based on the Chronic Kidney Disease Epidemiology Collaboration (CKD-EPI) equation refit without adjustment for race. BUN/Creatinine Ratio 18.1 LAB CHEMISTRY METHOD 12/22/2024 12:30 PM EDT [facility] Calcium 8.6 8.5 - 10.5 mg/dL LAB CHEMISTRY METHOD [facility] ([facility]OT[facility] 42 10 - 42 unit/L LAB CHEMISTRY METHOD 12/22/2024 12:30 PM [facility] ALT (SGPT) 48 10 - 60 unit/L LAB CHEMISTRY METHOD 12/22/2024 12:30 PM T [facility] Alkaline Phosphatase 60 42 - 121 unit/L LAB CHEMISTRY METHOD 12/22/2024 12:30 PM T [facility] Total Protein 5.1(L) 6.0 - 8.0 g/dL LAB CHEMISTRY METHOD 12/22/2024 12:30 PM [facility] Albumin 2.5(L) 3.2 - 5.0 g/dL LAB CHEMISTRY METHOD 12/22/2024 12:30 PM [facility] Total Bilirubin 0.6 0.0 - 1.4 mg/dL LAB CHEMISTRY METHOD 12/22/2024 12:30 PM [facility] Blood Venous blood specimen / Unknown Venipuncture / Unknown 12/22/2024 8:09 AM EDT 12/22/2024 11:11 AM EDT us Mary Flores MD LAB BLOOD ORDERABLES Fin al Result [facility] [address] [place] [address], from Last 3 Months Insurance [facility]IC[facility] Care Teams Awning Installer Relationship Specialty Start Date End Date Mary Flores MD [address] [address] PCP - General Family Medicine 12/22/24
--- OUTSIDE RECORDS SUMMARY | 2025-02-22 17:14 | XMS_ITS | Encounter Summary ---
Author Organization Patient [employer] Address [address] [place] [address] Care Team Providers Care Shield Operator Name Role Phone Mary Flores MD Primary Care Provider + Encounter Details Date Type Department Care Team (Late st Contact Info) Description 12/30/2024 Lab Requisition [facility] Lab [address] [facility] [place] [address] Mary Flores MD [address] [address] Abnormal results of thyroid function studies Social [...] study documented in this encounter Care Teams Shield Operator Relationship Specialty Start Date End Date Mary Flores MD [address] [phone] PCP - General Family Medicine 12/22/24 documented as of this encounter
--- OUTSIDE RECORDS SUMMARY | 2025-02-22 17:14 | XMS_ITS | Encounter Summary ---
Author Organization [employer] Address [address] [place] [address] Care Team Providers Care Spot Checker Name Role Phone Mary Flores MD Primary Care Provider + Encounter Details Date Type Department Care Team (Late st Contact Info) Description 12/22/2024 Lab Requisition [facility] - Main Lab [address] [facility] [place] [address] Mary Flores MD [address] [facility] [address] [place], [place] [phone] Sepsis, unspecified organism (CMS/HCC V24, CMS/HCC V28); [...] V28) Acute kidney failure with tubular necrosis ([facility]/HCC V24) Adenoviral pneumonia Essential (primary) hypertension documented in this encounter Results * Folate (12/22/2024 8:09 AM EDT) Pathologist [facility] Folate 13.9 2.8 - 17.0 ng/ml LAB CHEMISTRY METHOD 12/22/2024 12:30 PM EDT [facility] Blood Venous blood specimen / Unknown Venipuncture / Unknown 12/22/2024 8:09 AM EDT 12/22/2024 11:11 AM EDT Mary Flores MD LAB BLOOD ORDERABLES Fin al Result [facility] [address] [place] [address], * (ABNORMAL) Thyroid stimulating hormone (12/22/2024 8:09 AM EDT) TSH 0.22(L) 0.40 - 4.00 mcIU/mL LAB CHEMISTRY METHOD 12/22/2024 1:18 PM EDT [facility] Blood Venous blood specimen / Unknown Venipuncture / Unknown 12/22/2024 8:09 AM EDT 12/22/2024 11:11 AM EDT Mary Flores MD LAB BLOOD ORDERABLES Fin al Result Performing Organization Address [facility]/ZIP Co de Phone Number [facility] [address] [place] [address], * Magnesium (12/22/2024 8:09 AM EDT) Magnesium 2.3 1.9 - 2.6 mg/dL LAB CHEMISTRY METHOD 12/22/2024 12:19 PM EDT [facility] Blood Venous blood specimen / Unknown Venipuncture / Unknown 12/22/2024 8:09 AM EDT 12/22/2024 11:11 AM EDT Mary Flores MD LAB BLOOD ORDERABLES Fin al Result Performing Organization Address [facility] Co de Phone Number [facility] [address] [place] [address], * (ABNORMAL) Comprehensive metabolic panel (12/22/2024 8:09 AM EDT) Sodium 139 133 - 145 mmol/L LAB CHEMISTRY METHOD 12/22/2024 12:30 PM [facility] Potassium 4.0 3.5 - 5.5 mmol/L LAB CHEMISTRY METHOD 12/22/2024 12:30 PM [facility] Chloride 108 96 - 110 mmol/L LAB CHEMISTRY METHOD 12/22/2024 12:30 PM [facility] CO2 26 21 - 32 mmol/L LAB CHEMISTRY METHOD 12/22/2024 12:30 PM [facility] Anion Gap 5 3 - 11 LAB CHEMISTRY METHOD 12/22/2024 12:30 PM [facility] Glucose 73 70 - 100 mg/dL LAB CHEMISTRY METHOD 12/22/2024 12:30 PM [facility] BUN 25 5 - 25 mg/dL LAB CHEMISTRY METHOD 12/22/2024 12:30 PM [facility] Creatinine 1.38(H) 0.70 - 1.30 mg/dL LAB CHEMISTRY METHOD 12/22/2024 12:30 PM [facility] eGFR 49(L) >=60 mL/min/1. 73m2 LAB CHEMISTRY METHOD 12/22/2024 12:30 PM [facility] Comment:Calculation based on the Chronic Kidney Disease Epidemiology Collaboration (CKD-EPI) equation refit without adjustment for race. BUN/Creatinine Ratio 18.1 LAB CHEMISTRY METHOD 12/22/2024 12:30 PM [facility] Calcium 8.6 8.5 - 10.5 mg/dL LAB CHEMISTRY METHOD 12/22/2024 12:30 PM [facility] AST (SGOT) 42 10 - 42 unit/L LAB CHEMISTRY METHOD 12/22/2024 12:30 PM [facility] ALT (SGPT) 48 10 - 60 unit/L LAB CHEMISTRY METHOD 12/22/2024 12:30 PM [facility] Alkaline Phosphatase 60 42 - 121 unit/L LAB CHEMISTRY METHOD 12/22/2024 12:30 PM [facility] Total Protein 5.1(L) 6.0 - 8.0 g/dL LAB CHEMISTRY METHOD 12/22/2024 12:30 PM [facility] Albumin 2.5(L) 3.2 - 5.0 g/dL LAB CHEMISTRY METHOD 12/22/2024 12:30 PM [facility] Total Bilirubin 0.6 0.0 - 1.4 mg/dL LAB CHEMISTRY METHOD 12/22/2024 12:30 PM [facility] Blood Venous blood specimen / Unknown Venipuncture / Unknown 12/22/2024 8:09 AM EDT 12/22/2024 11:11 AM EDT us Mary Flores MD LAB BLOOD ORDERABLES Fin al Result [facility] [address] [place] [address], * (ABNORMAL) Complete blood count (12/22/2024 8:09 AM EDT) [facility] WBC 9.1 4.8 - 10.8 K/mcL LAB HEMETOLOGY METHOD 12/22/2024 12:46 PM EDT [facility] RBC 3.00(L) 4.50 - 5.50 M/mcL LAB HEMETOLOGY METHOD 12/22/2024 12:46 PM EDT [facility] Hemoglobin 9.5(L) 13.5 - 17.5 g/dL LAB HEMETOLOGY METHOD 12/22/2024 12:46 PM EDT [facility] Hematocrit 29.2(L) 42.0 - 54.0 % LAB HEMETOLOGY METHOD 12/22/2024 12:46 PM EDT [facility] MCV 97.7 79.0 - 98.0 FL LAB HEMETOLOGY METHOD 12/22/2024 12:46 PM EDT [facility] MCH 31.8 27.0 - 32.0 pcg LAB HEMETOLOGY METHOD 12/22/2024 12:46 PM EDT [facility] MCHC 32.5 32.0 - 37.0 g/dL LAB HEMETOLOGY METHOD 12/22/2024 12:46 PM EDT [facility] RDW 15.1(H) 11.0 - 15.0 % LAB HEMETOLOGY METHOD 12/22/2024 12:46 PM EDT [facility] Platelets 138 130 - 400 K/mcL LAB HEMETOLOGY METHOD 12/22/2024 12:46 PM EDT [facility] MPV 10.2 7.0 - 11.0 FL LAB HEMETOLOGY METHOD 12/22/2024 12:46 PM EDT [facility] NRBC 1.1(H) <1.0 % LAB HEMETOLOGY METHOD 12/22/2024 12:46 PM EDT [facility] NRBC Absolute 0.10(H) <0.10 K/mcL LAB HEMETOLOGY METHOD 12/22/2024 12:46 PM EDT [facility] Blood Venous blood specimen / Unknown Venipuncture / Unknown 12/22/2024 8:09 AM EDT 12/22/2024 11:11 AM EDT us Mary Flores MD LAB BLOOD ORDERABLES Fin al Result [facility] [address] [place] [address], documented in this encounter Visit Diagnoses Diagnosis Sepsis, unspecified organism (CMS/HCC V24, CMS/HCC V28) Acute kidney failure with tubular necrosis (CMS/HCC V24) Adenoviral pneumonia Pneumonia due to adenovirus Essential (primary) hypertension Unspecified essential hypertension documented in this encounter Care Teams Spot Checker Relationship Specialty Start Date End Date Mary Flores MD [address] [place] [id number] PCP - General Family Medicine 12/22/24 documented as of this encounter
--- OUTSIDE RECORDS SUMMARY | 2025-02-22 17:14 | XMS_ITS | Encounter Summary ---
Author Organization [employer] Address [address] [facility] [address] [place] [address] Care Team Providers Care Bundle Cutter Name Role Phone Unavailable Primary Care Provider [...]
--- OUTSIDE RECORDS SUMMARY | 2025-02-22 17:14 | XMS_ITS | Encounter Summary ---
Author Organization [employer] Address [address] [place] [address] Care Team Providers Care Car Park Attendant Name Role Phone Mary Flores MD Primary Care Provider + Encounter Details Date Type Department Care Team (Late st Contact Info) Description 12/28/2024 Lab Requisition [facility] - Main Lab [address] [facility] [place] [address] Mary Flores MD [address] [phone] Sepsis, unspecified organism (CMS/HCC V24, CMS/HCC V28); [...] mmol/L LAB CHEMISTRY METHOD 12/29/2024 11:03 AM [facility] Potassium 4.8 3.5 - 5.5 mmol/L LAB CHEMISTRY METHOD 12/29/2024 11:03 AM [facility] Chloride 111(H) 96 - 110 mmol/L LAB CHEMISTRY METHOD 12/29/2024 11:03 AM [facility] CO2 21 21 - 32 mmol/L LAB CHEMISTRY METHOD 12/29/2024 11:03 AM [facility] Anion Gap 9 3 - 11 LAB CHEMISTRY METHOD 12/29/2024 11:03 AM [facility] Glucose 119(H) 70 - 100 mg/dL LAB CHEMISTRY METHOD 12/29/2024 11:03 AM [facility] BUN 68(H) 5 - 25 mg/dL LAB CHEMISTRY METHOD 12/29/2024 11:03 AM [facility] Comment:Results verified by repeat testing Creatinine 2.14(H) 0.70 - 1.30 mg/dL LAB CHEMISTRY METHOD 12/29/2024 11:03 AM [facility] eGFR 29(L) >=60 mL/min/1. 73m2 LAB CHEMISTRY METHOD 12/29/2024 11:03 AM [facility] Comment:Calculation based on the Chronic Kidney Disease Epidemiology Collaboration (CKD-EPI) equation refit without adjustment for race. BUN/Creatinine Ratio 31.8 LAB CHEMISTRY METHOD 12/29/2024 11:03 AM [facility] Calcium 8.7 8.5 - 10.5 mg/dL LAB CHEMISTRY METHOD 12/29/2024 11:03 AM [facility] Blood Venous blood specimen / Unknown Venipuncture / Unknown 12/29/2024 6:34 AM EDT 12/29/2024 9:43 AM EDT Mary Flores MD LAB BLOOD ORDERABLES Fin al Result [facility] [address] [place] [address], * (ABNORMAL) Complete blood count (12/29/2024 6:34 AM EDT) WBC 10.7 4.8 - 10.8 K/mcL LAB HEMETOLOGY METHOD 12/29/2024 9:53 AM EDT [facility] RBC 3.10(L) 4.50 - 5.50 M/mcL LAB HEMETOLOGY METHOD 12/29/2024 9:53 AM EDT [facility] Hemoglobin 10.2(L) 13.5 - 17.5 g/dL LAB HEMETOLOGY METHOD 12/29/2024 9:53 AM EDT [facility] Hematocrit 31.6(L) 42.0 - 54.0 % LAB HEMETOLOGY METHOD 12/29/2024 9:53 AM EDT [facility] MCV 101.6(H) 79.0 - 98.0 FL LAB HEMETOLOGY METHOD 12/29/2024 9:53 AM EDT [facility] MCH 32.8(H) 27.0 - 32.0 pcg LAB HEMETOLOGY METHOD 12/29[facility]24 [facility] MCHC 32.3 32.0 - 37.0 g/dL LAB HEMETOLOGY METHOD 12/29/2024 9:53 AM EDT [facility] RDW 15.7(H) 11.0 - 15.0 % LAB HEMETOLOGY METHOD 12/29/2024 9:53 AM EDT [facility] Platelets 110(L) 130 - 400 K/mcL LAB HEMETOLOGY METHOD 12/29/2024 9:53 AM EDT [facility] MPV 10.3 7.0 - 11.0 FL LAB HEMETOLOGY METHOD 12/29/2024 9:53 AM EDT [facility] NRBC 0.0 <1.0 % LAB HEMETOLOGY METHOD 12/29/2024 9:53 AM EDT [facility] NRBC Absolute 0.00 <0.10 K/mcL LAB HEMETOLOGY METHOD 12/29/2024 9:53 AM EDT [facility] Blood Venous blood specimen / Unknown Venipuncture / Unknown 12/29/2024 6:34 AM EDT 12/29/2024 9:43 AM EDT us Mary Flores MD LAB BLOOD ORDERABLES Fin al Result [facility] [address] [place] [address], documented in this encounter Visit Diagnoses Diagnosis Sepsis, unspecified organism (CMS/HCC V24, CMS/HCC V28) Acute kidney failure with tubular necrosis (CMS/HCC V24) documented in this encounter Care Teams Car Park Attendant Relationship Specialty Start Date End Date Mary Flores MD [address] [place] [phone] PCP - General Family Medicine 12/22/24 documented as of this encounter
--- OUTSIDE RECORDS SUMMARY | 2025-02-22 17:14 | XMS_ITS | Encounter Summary ---
Author Organization [employer] Address [address] [place] [address] Care Team Providers Care Hr Payroll Coordinator Name Role Phone Unavailable Primary Care Provider Unavailabl e Encounter Details Date Type Department Care Team (Latest Contact Info) Description 05/15/[address] [facility] CONVERSIONS Dental, Provider, DDS Social History [...]
--- NOTE | 2025-02-22 18:57 | P.HPHOSP_ITS ---
History of Present Illness Date of Service: 02/22/25 Chief Complaint: Comfort measures only Pt is an 81-year-old male with a PMH significant for HTN, HLD, BPH, GERD, hep C, and nephrolithiasis who initially presented to the ED on 02/01 and was placed in physician observation/case management in overflow due to altered mental status, increasing forgetfulness, and recent falls at home. Pt was eventually transferred to the medical floor due to aspiration pneumonia and sepsis. Pt ultimately did not respond well to antibiotics which were repeatedly changed. The pt was seen and evaluated by Infectious Disease and eventually started on atovaquone for possible PJP infection. Pt continued to decline during hospital stay with electrolyte abnormalities and recurrent aspiration and eventually stopped having any significant p.o. intake requiring PPN. After 5 days of somnolence and no p.o. intake, family elected to make pt CASHIER CHECKER. Pt will now be readmitted to the hospital under [facility] hospice. Review of Systems Review of Systems: Yes Unobtainable due to mental status [facility] Medical History Kidney stones Hepatitis C virus GERD (gastroesophageal reflux disease) HTN (hypertension) Elevated PSA History of kidney stones Weak urinary stream BPH (benign prostatic hyperplasia) Hematuria Family History Father Prostate cancer Mother CVD (cardiovascular disease) Surgical History H/O lithotripsy H/O wisdom tooth extraction Social History Household Members: None Housing: House Do you presently have visiting nurse or other home services: Yes Alcohol intake: former Comment: 1-1 sitter Patient Tobacco Use Status: Former Tobacco user Advance Directives: Yes Advance Directives on File: Yes Advance Directives Date on File: 12/22/24 service: No Meds Allergies Allergy/AdvReac Type Severity Reaction Status Date / Time No Known Allergies Allergy Verified 02/01/25 14:47 Active Medications: Current Medications Acetaminophen (Acetaminophen Supp 650 Mg Supp.Rect) 650 mg MA Q4H PRN PRN Reason: Fever >/= 100, Pain, mild 1-3 Diazepam (Diazepam 10 Mg/2 Ml Cartridge) 2.5 mg IM Q4H PRN PRN Reason: Agitation/restlessness Morphine Sulfate (Morphine Sulfate 4 Mg/Ml Cartridge) 2 mg IVPUSH Q1H PRN PRN Reason: Pain, Severe (7-10)/ RR>/=24 Last Admin: 02/22/25 17:58 Dose: 2 mg Ondansetron HCl (Ondansetron Hcl 4 Mg/2 Ml Vial) 4 mg IVPUSH Q8H PRN PRN Reason: Nausea and Vomiting Scopolamine (Scopolamine 1.5 Mg Patch.Td.3) 1.5 mg TRANSDERMA Q72H CHRISTIANO Physical Exam Vital Signs and Narrative: General: Obtunded, resting comfortably in bed. In no acute distress Resp: Breathing unlabored CVS: S1, S2, RRR Skin: Warm, dry Assessment and Plan (1) Comfort measures only status: Status: Acute Plan Pt is an 81-year-old male with a PMH significant for HTN, HLD, BPH, GERD, hep C, and nephrolithiasis who initially presented to the ED on 02/01 and was placed in physician observation/case management in overflow due to altered mental status, increasing forgetfulness, and recent falls at home. Pt was eventually transferred to the medical floor due to aspiration pneumonia and sepsis. Pt ultimately did not respond well to antibiotics which were repeatedly changed. The pt was seen and evaluated by Infectious Disease and eventually started on atovaquone for possible PJP infection. Pt continued to decline during hospital stay with electrolyte abnormalities and recurrent aspiration and eventually stopped having any significant p.o. intake requiring PPN. After 5 days of somnolence and no p.o. intake, family elected to make pt CASHIER CHECKER. Pt will now be readmitted to the hospital under [facility] hospice. Comfort measures only Morphine, Valium, and scopolamine All other home medications will be stopped Pt has been admitted to the hospital under [facility] hospice for comfort measures only. Quality Stroke Does the patient have a stroke diagnosis?: No VTE Prior VTE?: No VTE Risk Level:: Medical - low VTE Device Contraindication: Treatment Not Indicated VTE Drug Contraindication: Treatment Not Indicated
[2025-02-23] VITALS (13 sets, daily range): RESP 32–42
--- NOTE | 2025-02-23 00:44 | PC.NURSE ---
Pt RR 38 - Pt medicated per MAR with morphine. Will continue to monitor pt.
[2025-02-23] MEDS: diazePAM 10 MG/2 ML CARTRIDGE 2.5 MG IVPUSH ×2 (01:04→07:40)
--- NOTE | 2025-02-23 07:44 | P.PNIM_ITS ---
Subjective Subjective Date of Service: 02/23/25 Interval History: Follow up for pt who was [employer] Breathing is rapid, mildly labored, and audibly rhonchorous Will place on a morphine drip for comfort Review of Systems Review of Systems: Yes Unobtainable due to mental status Physical Exam Exam: Exam: General: Obtunded. Appears mildly uncomfortable Resp: Breathing bronchus, mildly labored CVS: S1, S2, tachycardic Skin: Warm, dry Vital Signs: Vital Signs: Last Vital Signs Resp 37 H 02/23/25 07:39 Objective Data Active Medications Acetaminophen (Acetaminophen Supp 650 Mg Supp.Rect) 650 mg MA Q4H PRN PRN Reason: Fever >/= 100, Pain, mild 1-3 Diazepam (Diazepam 10 Mg/2 Ml Cartridge) 2.5 mg IVPUSH Q4H PRN PRN Reason: Agitation/restlessness Last Admin: 02/23/25 07:40 Dose: 2.5 mg Documented By: PRICE Morphine Sulfate (Morphine Sulfate/Ns) 100 mg in 100 mls @ 0 mls/hr IVCONT .Q0M CHRISTIANO; Protocol Morphine Sulfate (Morphine Sulfate 4 Mg/Ml Cartridge) 4 mg IVPUSH Q2H PRN PRN Reason: Pain, Severe (7-10)/ RR>/=24 Last Admin: 02/23/25 07:39 Dose: 4 mg Documented By: PRICE Ondansetron HCl (Ondansetron Hcl 4 Mg/2 Ml Vial) 4 mg IVPUSH Q8H PRN PRN Reason: Nausea and Vomiting Scopolamine (Scopolamine 1.5 Mg Patch.Td.3) 1.5 mg TRANSDERMA Q72H [facility] Assessment and Plan (1) Comfort measures only status: Status: Acute Plan Pt is an 81-year-old male with a PMH significant for HTN, HLD, BPH, GERD, hep C, and nephrolithiasis who initially presented to the ED on 02/01 and was placed in physician observation/case management in overflow due to altered mental status, increasing forgetfulness, and recent falls at home. Pt was eventually transferred to the medical floor due to aspiration pneumonia and sepsis. Pt ultimately did not respond well to antibiotics which were repeatedly changed. The pt was seen and evaluated by Infectious Disease and eventually started on atovaquone for possible PJP infection. Pt continued to decline during hospital stay with electrolyte abnormalities and recurrent aspiration and eventually stopped having any significant p.o. intake requiring PPN. After 5 days of somnolence and no p.o. intake, family elected to make pt [employer]. Pt will now be readmitted to the hospital under [facility] hospice. Comfort measures only Morphine, Valium, and scopolamine Pt will now be placed on morphine drip due to rhonchorous and labored breathing All other home medications will be stopped Pt is admitted to the hospital under [facility] hospice for comfort measures only. Quality Stroke Does the patient have a stroke diagnosis?: No VTE Prior VTE?: No VTE Risk Level:: Medical - low VTE Device Contraindication: Treatment Not Indicated VTE Drug Contraindication: Treatment Not Indicated
[2025-02-23] MEDS: Morphine Sulfate/NS 100 MG/100 ML PLAST..BAG IVCONT (09:12)
--- NOTE | 2025-02-23 09:28 | MHC.CLN ---
NUTRITION PATIENT STATUS CHANGED TO COMFORT MEASURES ONLY. PPN DISCONTINUED. RD AVAILABLE NEEDED.
--- NOTE | 2025-02-23 19:02 | PM.DDS ---
Discharge Sum: Prov Provider Primary care physician: Unknown Physician Discharge Sum: Diag Contributing Factors (1) Comfort measures only status: (2) Aspiration pneumonia: (3) Sepsis: Discharge Sum: Summary Date and Time Date of admission: 02/22/25 15:53 Date of : 02/23/25 Time of : 18:45 Summary Details: From admission HPI: Date of Service: 02/22/25 Chief Complaint: Comfort measures only Pt is an 81-year-old male with a PMH significant for HTN, HLD, BPH, GERD, hep C, and nephrolithiasis who initially presented to the ED on 02/01 and was placed in physician observation/case management in overflow due to altered mental status, increasing forgetfulness, and recent falls at home. Pt was eventually transferred to the medical floor due to aspiration pneumonia and sepsis. Pt ultimately did not respond well to antibiotics which were repeatedly changed. The pt was seen and evaluated by Infectious Disease and eventually started on atovaquone for possible PJP infection. Pt continued to decline during hospital stay with electrolyte abnormalities and recurrent aspiration and eventually stopped having any significant p.o. intake requiring PPN. After 5 days of somnolence and no p.o. intake, family elected to make pt [employer]. Pt will now be readmitted to the hospital under [facility] hospice. Hospital course Pt had a long and complicated hospital course, and ultimately did not respond well to therapies. Pt had significantly reduced p.o. intake during hospital stay and eventually had to be placed on PPN. After pt became obtunded and without p.o. intake for over 4 days, family elected to make pt [employer]. He was discharged and readmitted under [facility] hospice. All home medications will be stopped and was made comfortable with morphine, Valium, and scopolamine. This morning pt became increasingly restless with rapid and labored breathing, and was placed on a morphine drip for comfort. Pt on 02/23/2025 at 18:45. Pt had no detectable clots, heartbeat, or respiratory effort; pupils were dilated and nonreactive. Cause of was recurrent aspiration pneumonia with sepsis in the setting of dementia and failure to thrive. Family was at bedside. Additional Data Attending physician: COLIN Waldron
== END 2025-02-23 23:17 | disposition expired | DRG 951 ==
PROVIDERS: Admitting Provider Student in an Organized Health Care Education/Training Program; Visit Provider Student in an Organized Health Care Education/Training Program
DX: Z51.5 Encounter for palliative care (principal); A41.9 Sepsis, unspecified organism; J69.0 Pneumonitis due to inhalation of food and vomit; Z87.891 Personal history of nicotine dependence
CPT/HCPCS: J2270; J3360

== ENCOUNTER → 2025-02-22 15:53 | Outpatient (BNV) | payer OTHER, SELFPAY | PROVIDERS: Admitting Provider Student in an Organized Health Care Education/Training Program; Visit Provider Student in an Organized Health Care Education/Training Program | DX: Z51.5 Encounter for palliative care (principal) | CPT/HCPCS: 99222; 99238; 99499 ==